=== PATIENT | male | born 1940 | race Caucasian/White ===

== ENCOUNTER 2017-10-28 17:37 | Emergency (ER) | payer MEDICARE, MEDICAID, SELFPAY ==
[2017-10-28 17:37] VITALS: BP 169/83; PULSE 86; RESP 16; TEMP 36.9; O2SAT 99; BMI 23.3
--- NOTE | 2017-10-28 18:04 | EKG12_ITS ---
Test Reason : WEAKNESS Blood Pressure : / mmHG Vent. Rate : 076 BPM Atrial Rate : 076 BPM P-R Int : 164 ms QRS Dur : 088 ms QT Int : 386 ms P-R-T Axes : 058 003 000 degrees QTc Int : 434 ms Normal sinus rhythm Normal ECG Confirmed by SHANICE SALINAS, LALO ([id number]), clinical editor ZEKE WALSH ([id number]) on 10/30/2017 9:56:06 AM Referred By: BHAVESH Confirmed By:LALO PRASAD MD
[2017-10-28 18:27] LABS: Absolute Lymphocyte Count 1.19 X10^3/ul (0.83-4.51); Absolute Neutrophil Count 7.9 X10^3/uL (2.0-7.7); Basophil# 0.01 X10^3/uL; Basophil% 0.1 % (0-1); Eosinophil# 0.25 X10^3/uL; Eosinophils% 2.4 % (0-5); Hematocrit 32.3 % (40-54); Hemoglobin 10.7 g/dl (13.0-16.5); Lymphocyte # 1.19 X10^3/ul (4.0); Lymphocyte % 11.5 % (19-41); Mean Corp Hgb Conc 33.1 g/gl (32-36); Mean Corpuscular Hgb 31.6 pg (27.0-32.0); Mean Corpuscular Volume 95.3 fL (80-94); Mean Platelet Vol. 8.9 fl (6.2-12.0); Monocyte# 0.96 X10^3/uL; Monocyte% 9.3 % (0-10); Neutrophil % 76.6 % (47-70); Platelet Count 216 K/mm3 (150-450); RBC Distribution Width CV 13.7 % (11.6-14.6); RBC Distribution Width SD 47.6 fl (35.1-43.9); Red Blood Count 3.39 M/mm3 (4.6-6.2); White Blood Count 10.3 K/mm3 (4.4-11.0)
[2017-10-28 18:28] LABS: POSITIVE COUNT NO; POSITIVE DIFFERENTIAL NO; POSITIVE MORPHOLOGY NO
[2017-10-28 18:39] LABS: ALB/GLOB Ratio 0.9 RATIO (0.9-2.4); AST(SGOT) 25 U/L (15-37); Alanine Aminotransfer ALT/SGPT 21 U/L (16-61); Albumin, Serum 3.3 g/dL (3.2-5.0); Alkaline Phosphatase 69 U/L (45-117); Anion Gap 5 (5-15); BUN 22 mg/dL (7-18); Calcium,Total 8.6 mg/dL (8.5-10.1); Chloride 107 mmol/L (98-107); Creatinine, Serum 1.22 mg/dL (0.70-1.30); EST Glomerular Filtration Rate 61 mL/min (>60); Est Glom Filt Rate - Afr Amer 74 mL/min (>60); Estimated Creatinine Clearance 48.16 ml/min; Globulin 3.6 g/dL (2.2-4.2); Glucose 84 mg/dL (74-106); Potassium 3.8 mmol/L (3.5-5.1); Protein, Total 6.9 g/dL (6.4-8.2); Sodium Level 138 mmol/L (136-145)
[2017-10-28 18:43] VITALS: BP 179/85
[2017-10-28 18:59] LABS: BNP,B-Type NATRIURETIC PEPTIDE 148.2 pg/mL (0-100)
--- NOTE | 2017-10-28 19:38 | ED.DCSUM_ITS ---
- ER Visit Summary Date of Service: 10/28/17 Chief Complaint: Leg pain History of Present Illness: The patient is a 77 M with bilateral leg pain. The pain involves his lower legs, ankles, and feet. Associated with swelling. This has been increasing over the past 6 weeks. He has noted fluid seepage. No redness change from baseline. No warmth. Patient has no new weakness or numbness. He has a history of CHF, but denies liver or kidney disease. Is taking his medications as prescribed. Physical Examination: Vital signs unremarkable. Afebrile. Alert and oriented. Heart regular. Lungs clear. Bilateral lower legs show marked pitting edema which is symmetric. Mildly and diffusely tender. Venous stasis changes and mild seepage, worse on the right side. No increased warmth. No bleeding. No pus. No rash otherwise. Pulses are dopplerable. Sensation grossly intact. Capillary refill normal. Test Results: Hemoglobin 10.7. Otherwise CBC normal. CMP, troponin normal. BNP 148. EKG shows sinus rhythm at a rate of 76. No sign of acute changes. Emergency Department Course and Treatment: Patient has ongoing lymphedema of his bilateral legs. There is no sign of infection. No acute heart failure, kidney disease, liver disease. No sign of vascular compromise. Patient will be referred for outpatient follow-up. He should follow-up with the wound center. He may also follow-up with his primary care doctor. Return for any new or worsening issues. Treatment Plan: As above Disposition: Discharged Impression: 1. Bilateral leg lymphedema 2. Anemia 3. Hypertension This note was generated with [employer] dictation software. It may contain incorrect words, spelling, and punctuation that were not noted in review of the chart prior to signing ED Disposition - Plan for ED Patient: Chief Complaint: Edema Referrals: Jabari Sanderson MD [Primary Care Provider] -
--- NOTE | 2017-10-28 19:38 | ED.DEP ---
ED Disposition - Plan for ED Patient: Chief Complaint: Edema Instructions: ED Lymphedema Referrals: Jabari Sanderson MD [Primary Care Provider] - Satinder Holt MD [STAFF PHYSICIAN] -
[2017-10-28 20:03] VITALS: BP 158/93; PULSE 82; RESP 18; O2SAT 98
== END 2017-10-28 20:05 | disposition home or self-care (01) ==
LOC: ED 18:08
PROVIDERS: Emergency Provider Emergency Medicine; Family Provider Family Medicine; PCP Family Medicine
DX: I89.0 Lymphedema, not elsewhere classified (principal); D64.9 Anemia, unspecified; I11.0 Hypertensive heart disease with heart failure; I50.9 Heart failure, unspecified
CPT/HCPCS: 80053; 83880; 84484; 85025; 93005; 99283; A4216

== ENCOUNTER 2017-11-06 16:19 | Inpatient (IN) | payer MEDICARE, MEDICAID, SELFPAY ==
[2017-11-06] VITALS (7 sets, daily range): BP systolic 134–211; BP diastolic 68–106; PULSE 72–82; RESP 16–24; TEMP 36.1–36.6; O2SAT 96–100; BMI 23.3; BMI 22.4; BMI 23.4
--- NOTE | 2017-11-06 17:19 | EKG12_ITS ---
Test Reason : Blood Pressure : / mmHG Vent. Rate : 072 BPM Atrial Rate : 072 BPM P-R Int : 150 ms QRS Dur : 090 ms QT Int : 406 ms P-R-T Axes : 057 018 017 degrees QTc Int : 444 ms Normal sinus rhythm Normal ECG Confirmed by SHANICE SALINAS, LALO ([id number]), assignment editor DALTON SALAS ([id number]) on 11/08/2017 2:35:11 PM Referred By: IHSAN/FRANCINE Confirmed By:LALO PRASAD MD
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
[2017-11-06 17:30] LABS: Absolute Lymphocyte Count 1.16 X10^3/ul (0.83-4.51); Absolute Neutrophil Count 6.9 X10^3/uL (2.0-7.7); Basophil# 0.02 X10^3/uL; Basophil% 0.2 % (0-1); Eosinophil# 0.26 X10^3/uL; Eosinophils% 2.9 % (0-5); Hematocrit 34.7 % (40-54); Hemoglobin 11.2 g/dl (13.0-16.5); Lymphocyte # 1.16 X10^3/ul (4.0); Mean Corp Hgb Conc 32.3 g/gl (32-36); Mean Corpuscular Volume 96.1 fL (80-94); Monocyte# 0.57 X10^3/uL; Monocyte% 6.4 % (0-10); Neutrophil # 6.91 X10^3/uL (2.7-7.7); Neutrophil % 77.4 % (47-70); Platelet Count 272 K/mm3 (150-450); RBC Distribution Width CV 13.9 % (11.6-14.6); RBC Distribution Width SD 48.5 fl (35.1-43.9); Red Blood Count 3.61 M/mm3 (4.6-6.2); White Blood Count 8.9 K/mm3 (4.4-11.0)
[2017-11-06 17:31] LABS: POSITIVE COUNT NO; POSITIVE DIFFERENTIAL NO; POSITIVE MORPHOLOGY NO
[2017-11-06 17:42] LABS: ALB/GLOB Ratio 0.9 RATIO (0.9-2.4); AST(SGOT) 17 U/L (15-37); Alanine Aminotransfer ALT/SGPT 20 U/L (16-61); Albumin, Serum 3.4 g/dL (3.2-5.0); Alkaline Phosphatase 74 U/L (45-117); Anion Gap 7 (5-15); BUN 20 mg/dL (7-18); BUN/Creat Ratio 14.5 RATIO (10-20); Calcium,Total 8.9 mg/dL (8.5-10.1); Chloride 109 mmol/L (98-107); Creatinine, Serum 1.38 mg/dL (0.70-1.30); EST Glomerular Filtration Rate 53 mL/min (>60); Est Glom Filt Rate - Afr Amer 64 mL/min (>60); Estimated Creatinine Clearance 42.58 ml/min; Globulin 3.6 g/dL (2.2-4.2); Glucose 81 mg/dL (74-106); Potassium 4.5 mmol/L (3.5-5.1); Sodium Level 142 mmol/L (136-145)
[2017-11-06] MEDS: Furosemide 100 MG/10 ML Vial 60 MG IV (17:49)
--- NOTE | 2017-11-06 18:00 | RAD_ITS ---
STUDY: X-RAY CHEST REASON FOR EXAM: Male, 77 years old. Swelling. TECHNIQUE: Frontal and lateral views of the chest. COMPARISON: 07/07/2006. FINDINGS: There is hyperinflation of the lungs consistent with chronic obstructive lung disease (COPD). No infiltrates or effusions. There is no demonstrated pleural abnormality. Sternal cerclage wires and vascular clips are present from a prior sternotomy and coronary artery bypass graft procedure (CABG). Normal heart size. Normal mediastinum and lay. Normal visualized pulmonary arteries. There is atherosclerotic calcification of the aortic arch with tortuosity. There are diffuse degenerative changes of the visualized thoracic spine. Normal visualized ribs, clavicles, and shoulders. There is no demonstrated abnormality of the visualized soft tissue structures of the upper abdomen. RAD/Chest PA and Lateral IMPRESSION: There are findings consistent with COPD. There is no evidence of acute chest disease. Electronically Signed: Keanu Topete MD at 22:18 EDT , Service support ,
[2017-11-06 19:19] LABS: Bacteria 0 SEEN /hpf (None Seen); Mucous, Urine 0 SEEN /hpf (<or=2+); Red Blood Cells-Urine 0 SEEN /hpf (0-5); Squamous Epithelial Cells - UA 0 SEEN /hpf (0-5); White Blood Cells 0 SEEN /hpf (0-5)
[2017-11-06 19:22] LABS: Color, Urine Yellow (Yellow); Glucose, Dipstick Normal (Normal); Ketone-Dipstick Negative (Negative); Leukocyte Esterase-Dipstick Negative /ul (Negative); Nitrite-Dipstick Negative (Negative); Occult Blood-Urine Negative /ul (Negative); Protein-Dipstick 15 mg/dl (Negative); Specific Gravity, Urine 1.015 (1.002-1.030); Urine Bilirubin Dipstick Negative (Negative); Urine Clarity Clear (Clear); Urine Urobilinogen Normal (Normal); Urine pH 6.5 (5.0 - 8.0)
--- NOTE | 2017-11-06 19:25 | ED.DCSUM_ITS ---
- ER Visit Summary Date of Service: 11/06/17 Chief Complaint: Lymphedema History of Present Illness: The patient is a 77 M who states that his legs have been swollen for the past several weeks. He was seen in the emergency department the end of October and again today. He was at his primary care doctor' s office today. He is on Lasix and spironolactone. He states his legs are worsening. Clinic states that the legs are erythematous. The skin is fallen off of them. They also noted active bedbug infestation. The patient states is extremely painful for him to attempt to walk on the legs. He has a history of CABG hypothyroidism depression hypercholesterolemia. There is been no fevers. He has not recently been on antibiotics. Physical Examination: Afebrile vital signs are stable Gen: Well-nourished well-developed Head: Normocephalic atraumatic Eyes: Perrl EOMI ENT: TMs clear no rhinorrhea moist mucous membranes Neck: Supple no lymphadenopathy no JVD nontender CVS: Regular rate rhythm no murmurs normal S1-S2 Respiratory: No distress clear to auscultation bilaterally chest nontender Abdomen: Soft nontender nondistended normal bowel sounds no masses Back: Nontender Extremity: Bilateral 3+ edema up to the knees. The feet are rather erythematous but this resolves with elevation. The skin is sloughing off. There is yellow crusting consistent with impetigo. The legs are weeping to the point chucks pads need to be placed underneath of them. Skin: Normal color no rash Neuro: alert orientated ?3 CN II-XII intact normal strength sensation reflexes gait cerebellar Psych: Normal affect normal mood Test Results: Basic labs showed a white count of 8.9. Creatinine 1.38. Chest x -ray is clear. EKG sinus at a rate of 72. Emergency Department Course and Treatment: Patient received Lasix and Rocephin. Patient needs some significant help in healing his legs and his doctor's office and myself both agree that patient most likely would need to be placed for a short time to get this improved. Dr. schuster will be admitting. Social work has been contacted. Impression: 1. Bilateral lymphedema 2. Impetigo of the bilateral legs This note was generated with [employer] software. It may contain incorrect words, spelling, and punctuation that were not noted in review of the chart prior to signing ED Disposition - Plan for ED Patient: Chief Complaint: Cellulitis Referrals: Jabari Sanderson MD [Primary Care Provider] -
--- NOTE | 2017-11-06 19:44 | HP.PCM_ITS ---
Problem List (1) Peripheral vascular disease Status: Chronic (2) Chronic acquired lymphedema Status: Chronic (3) Hypothyroidism Status: Chronic (4) Hypertension Status: Chronic (5) Status post coronary artery bypass graft Status: Chronic (6) Coronary artery disease Status: Chronic History of Present Illness Date of Admission: 11/06/17 The patient is a 77 year old M with past medical history as mentioned above presented to the emergency room because of increasing bilateral leg edema and pain. The patient is poor informant and is over talkative. He mentioned that he came in today because of increasing bilateral leg edema that has been progressive over the last several weeks associated with increasing erythema of both legs as well as difficulty ambulating. Reportedly, he was noted to have active bedbug infestation. He denies fever or chills. He denied chest pain, shortness of breath, orthopnea or PND. He denies cough or sputum production. He does have a history of CAD status post CABG and he has been on aspirin, statins, beta blockers. He has history of hypertension and he has been on Norvasc and metoprolol and his blood pressure seems under control. He had a history of hypothyroidism and he has been on replacement with levothyroxine. He is on Lasix and Aldactone and is not clear if he has history of CHF or not. He mentioned that he was not told that he had CHF. In the emergency department , his vital signs were stable. His routine blood work is remarkable for hemoglobin of 11.2 g/dL and creatinine 1.38, otherwise normal. His LFT was unremarkable. Troponin is negative. Chest x-ray showed no acute findings. He is being admitted for worsening bilateral leg swelling in context of history of lymphedema, skin impetigo as well as probable bilateral acute psoriasis of both legs more on the right side as well as functional decline and difficulty ambulating. Past Medical History Past Medical History (Chronic Problems): Chronic Problems Peripheral vascular disease (Chronic) Chronic acquired lymphedema (Chronic) Hypothyroidism (Chronic) Hypertension (Chronic) Status post coronary artery bypass graft (Chronic) Coronary artery disease (Chronic) Allergies No Known Allergies Allergy (Verified 10/28/17 17:38) Home Medications: Ambulatory Orders Medication Instructions Recorded Amlodipine [Norvasc] 1 tab PO DAILY 11/06/17 Aspirin [Adult Aspirin] 81 mg PO DAILY 11/06/17 Atorvastatin Calcium [Lipitor] 1 tab PO QHS 11/06/17 Ciclopirox 1 applic TOPICAL QHS 11/06/17 Cilostazol [Cilostazol] 1 tab PO BID 11/06/17 Furosemide [Lasix] 1 tab PO DAILY 11/06/17 Levothyroxine [Synthroid] 100 mcg PO DAILY 11/06/17 Metoprolol Succinate 50 mg PO DAILY 11/06/17 Spironolactone [Spironolactone] 1 tab PO DAILY 11/06/17 Triamcinolone 0.5% Cream 1 applic TOPICAL BID 11/06/17 [Triamcinolone Acetonide] Surgical History: coronary bypass surgery Psychiatric History: No pertinent psych hx Lives: Alone Smoking Status: Never smoker Alcohol: None Drugs: None - *Family History Maternal History Items: No pertinent history Paternal History Items: No pertinent history Review of Systems Constitutional: Denies: Anorexia, Chills, Fever, Weakness Eyes: Denies: Blurred vision, Double vision, Drainage, Redness HEENT: Denies: Difficulty Hearing, Ear Pain, Eye Pain, Nasal Congestion, Sore Throat Cardiovascular: Reports: Edema. Denies: Chest Pain, Chest Tightness, Heaviness , Light Headedness, Syncope Respiratory: Denies: Cough, Pleuritic Pain, Shortness of Breath, Sputum production, Wheezing Gastrointestinal: Denies: Abdominal Pain, Constipation, Diarrhea, Nausea, Vomiting Genitourinary: Denies: Dysuria, Frequency, Hematuria Musculoskeletal: Denies: Arm Pain, Back Pain, Foot Pain Skin: Denies: Dryness, Rash Neurological: Denies: Balance problems, Double vision, Change in Speech, Slurred speech, Difficulty swallowing, Focal weakness Psychiatric: Denies: Anxiety, Depression Endocrine: Denies: Change in Body Habitus, Polydipsia VTE Information - Inpt Only VTE Present on Admission: No VTE Mechan Device Prophylaxis: None VTE Pharm Prophylaxis ordered?: Yes - Physical Exam General: Alert, Oriented x3, Cooperative, - - Over talkative. HEENT: Atraumatic, PERRLA, EOMI, Normocephalic Oral: Moist Mucosa, No Gingival or Mucosal Lesions/ Ulcerations Neck: Supple, No JVD, Negative Carotid Bruits, Trachea Midline, Thyroid Normal Size and Texture Lungs: Clear to auscultation, No rhonchi, No wheeze, No rales, Diminished Cardiovascular: Regular rate, Regular Rhythm, Normal S1, Normal S2, PMI Normal Abdomen: Bowel Sounds Present, Soft, Non Tender, Non-Distended, No Hepato- splenomegaly Extremities: No clubbing, No cyanosis, Edema - ++ Edema. Swelling and erythema of both legs starting from just below the knees down to the ankles, swollen feet , hot to palpation, blistering with oozing of serous fluid. Skin: No rashes, No breakdown, - - Skin blisters of both legs, more on the right leg. Lymphatic: No Cervical, Supraclavicular, or Inguinal Adenopathy Neurological: Cranial nerves II-XII grossly intact, Motor Exam 5/5 strength throughout Psych/Mental Status: Normal Affect, Appropriate, Alert and oriented to time, place, person, mood and affect Vital Signs Temp Pulse Resp BP Pulse Ox 97.7 F L 80 24 H 193/93 H 100 11/06/17 16:20 11/06/17 18:59 11/06/17 18:59 11/06/17 18:59 11/06/17 18:59 Oxygen Delivery Method Room Air Weight: 149 lb 4.047 oz Body Mass Index (BMI) 23.3 Laboratory Tests Past 24 Hrs 11/06/17 11/06/17 11/06/17 16:50 16:50 19:12 WBC 8.9 RBC 3.61 L Hgb 11.2 L Hct 34.7 L MCV 96.1 H MCH 31.0 MCHC 32.3 RDW 13.9 RDW Differential 48.5 H Plt Count 272 MPV 9.0 Immature Gran % (Auto) 0.100 Neut % (Auto) 77.4 H Lymph % (Auto) 13.0 L Bryan % (Auto) 6.4 Eos % (Auto) 2.9 Baso % (Auto) 0.2 Absolute Neuts (auto) 6.9 Absolute Lymphs (auto) 1.16 Total Counted Not Reportable Sodium 142 Potassium 4.5 Chloride 109 H Carbon Dioxide 26.0 Anion Gap 7 BUN 20 H Creatinine 1.38 H Estim Creat Clear Calc 42.58 Est GFR (MDRD) Af Amer 64 Est GFR (MDRD) Non-Af 53 L BUN/Creatinine Ratio 14.5 Glucose 81 Calcium 8.9 Total Bilirubin 0.50 AST 17 ALT 20 Alkaline Phosphatase 74 Troponin I < 0.015 Total Protein 7.0 Albumin 3.4 Globulin 3.6 Albumin/Globulin Ratio 0.9 Urine Color Yellow Urine Clarity Clear Urine pH 6.5 Ur Specific [place] 1.015 Urine Protein 15 H Urine Glucose (UA) Normal Urine Ketones Negative Urine Occult Blood Negative Urine Nitrite Negative Urine Bilirubin Negative Urine Urobilinogen Normal Ur Leukocyte Esterase Negative Urine RBC Pending Urine WBC Pending Ur Squamous Epith Cells Pending Urine Bacteria Pending Urine Mucus Pending Assessment/Plan This is a 77 years old male patient presented to the emergency room because of worsening bilateral leg edema, swelling and erythema associated with difficulty ambulating in context of history of chronic bilateral lymphedema, found to have probable acute cellulitis of the both legs. #1 worsening bilateral leg edema/lymphedema/skin impetigo/probable acute cellulitis of both legs more on the right side: Both legs are edematous, erythematous, skin blisters resembling impetigo. He is afebrile, no leukocytosis. Plan: Admit to [facility] floor, ambulate as noted, fluid restriction, 2D echocardiogram, venous Doppler of both legs, start IV Lasix for diuresis, start IV cefazolin empirically, continue Aldactone, repeat CBC and BMP tomorrow morning, culture of the blisters, PT OT evaluation and treatment. #2 functional decline/difficulty ambulating: Patient is not able to ambulate because of increasing bilateral leg edema and pain. He lives alone. Plan to treat underlying cause, PT OT evaluation and treatment, patient may need placement to [facility] facility. #3 CAD status post CABG: Stable, no acute issues. Continue aspirin, statins, metoprolol. #4 hypothyroidism: Continue with oxygen, will check TSH. #5 hypertension: Blood pressure stable, continue Norvasc and metoprolol. #6 peripheral vascular disease: Continue cilostazol. #7 DVT prophylaxis: Subcu Lovenox. This note was generated with [employer] dictation software. It may contain incorrect words, spelling, and punctuation that were not noted in checking the note before signing. Code Visit Inpatient E&M: 77338 Init Hosp L3
--- NOTE | 2017-11-06 19:46 | ED.RN ---
THE SECOND BLOOD CULTURE WAS DRAWN BY BENI MCFADDEN. GEORGETTE HAWLEY CALLED THE LAB AND THE FIRST CULTURE WAS ALREADY DOWN THERE.
--- NOTE | 2017-11-06 20:16 | ECHOD_ITS ---
Reason For Study: hypertension Procedure This was a 2D Doppler, Color Flow transthoracic echocardiogram. The exam was of adequate technical quality. Exam performed portable in patient room. Left Ventricle Normal LV size. Left ventricular systolic function is normal. The estimated ejection fraction is 65 %. Post operative septal motion. There is evidence of diastolic dysfunction. No regional wall motion abnormalities noted. Right Ventricle Normal RV size. Normal systolic function. Atria Normal left atrium. Normal right atrium. No doppler evidence for ASD. Mitral Valve There is mild mitral annular calcification. Normal mitral valve. The mitral papillary muscle appears thickened and/or calcified. Trivial mitral valve insufficiency. Tricuspid Valve Normal tricuspid valve. Trivial tricuspid valve insufficiency. Aortic Valve Trisinus/trileaflet aortic valve. Mild focal aortic valve calcification. Pulmonic Valve The pulmonic valve is not well visualized. Great Vessels Normal sized aortic root. Pericardium/Pleural No pericardial effusion. MMode/2D Measurements & Calculations LVIDd: 4.3 cm IVSd: 0.93 cm Ao root diam: 3.6 cm LVIDs: 2.8 cm LVPWd: 0.91 cm LA dimension: 3.8 cm RVDd: 2.2 cm FS: 36.0 % LAV(MOD-bp): 49.6 ml LA A4 area: 16.0 cm2 RA A4 area: 12.0 cm2 LAV(MOD-bp) Indexed: 28.3 ml/m2 LAV(MOD-sp2): 53.7 ml LAV(MOD-sp4): 44.1 ml Doppler Measurements & Calculations MV E max zion: 77.5 cm/sec Lat Peak E' Zion: 8.6 cm/sec Med Peak E' Zion: 6.8 cm/sec MV A max zion: 88.5 cm/sec E/E' lat: 9.0 E/E' med: 11.3 MV E/A: 0.88 Ao V2 max: 113.5 cm/sec LV V1 max: 74.7 cm/sec PA V2 max: 75.4 cm/sec Ao max P.2 mmHg LV V1 max P.2 mmHg Interpretation Summary Left ventricular systolic function is normal. The estimated ejection fraction is 65 %. Post operative septal motion. There is mild mitral annular calcification. The mitral papillary muscle appears thickened and/or calcified. Trivial mitral valve insufficiency. Trivial tricuspid valve insufficiency. Mild focal aortic valve calcification. There is evidence of diastolic dysfunction. Ordering Physician: Butch March Referring Physician: MD [facility] Performed By: Arlene Garcia, ANDRES, RVT
--- NOTE | 2017-11-06 20:16 | VDLE_ITS ---
Reason For Study: swelling RIGHT LEFT GSV is normal. GSV is normal. CFV is compressible, spontaneous, phasic, CFV is compressible, spontaneous, phasic, competent and demonstrates normal competent, and demonstrates normal augmentation. augmentation. FV is compressible, spontaneous, phasic, FV is compressible, spontaneous, phasic, competent and demonstrates normal competent and demonstrates normal augmentation. augmentation. POP V is compressible, spontaneous, phasic, POP V is compressible, spontaneous, phasic, competent and demonstrates normal competent and demonstrates normal augmentation. augmentation. T/P Trunk is compressible. T/P Trunk is compressible. PTV is compressible. PTV is compressible. RT PerV is compressible. LT PerV is compressible. Procedure Exam performed portable in patient room. The exam was diagnostic. A preliminary report was called and/or faxed to the pt's RN. Interpretation Summary No evidence for acute deep venous thrombosis bilateral lower extremities with patent and compressible bilateral great saphenous veins. Ordering Physician: Butch March Performed By: Raghavendra Car RVT
[2017-11-06] MEDS: Cilostazol 50 MG Tablet PO (22:32)
[2017-11-06] MEDS: Atorvastatin Calcium 80 MG Tablet PO (22:32)
[2017-11-06] MEDS: oxyCODONE 5 MG Tablet PO (22:33)
[2017-11-07] VITALS (12 sets, daily range): BP systolic 83–127; BP diastolic 38–69; PULSE 68–83; RESP 16–18; TEMP 36.4–37.4; O2SAT 97–100
[2017-11-07] MEDS: oxyCODONE 5 MG Tablet PO (04:15)
[2017-11-07] MEDS: Levothyroxine 100 MCG Tablet PO (05:23)
[2017-11-07] MEDS: Cefazolin 2 GM in 0.9% Normal Saline 100 ML IV ×3 (05:23→21:12)
[2017-11-07 06:56] LABS: Absolute Lymphocyte Count 1.15 X10^3/ul (0.83-4.51); Absolute Neutrophil Count 8.2 X10^3/uL (2.0-7.7); Basophil# 0.02 X10^3/uL; Basophil% 0.2 % (0-1); Eosinophil# 0.19 X10^3/uL; Eosinophils% 1.8 % (0-5); Hematocrit 34.3 % (40-54); Hemoglobin 10.9 g/dl (13.0-16.5); Lymphocyte # 1.15 X10^3/ul (4.0); Lymphocyte % 10.9 % (19-41); Mean Corp Hgb Conc 31.8 g/gl (32-36); Mean Corpuscular Hgb 30.9 pg (27.0-32.0); Mean Corpuscular Volume 97.2 fL (80-94); Mean Platelet Vol. 9.1 fl (6.2-12.0); Monocyte# 0.99 X10^3/uL; Monocyte% 9.4 % (0-10); Neutrophil # 8.18 X10^3/uL (2.7-7.7); Neutrophil % 77.5 % (47-70); Platelet Count 246 K/mm3 (150-450); RBC Distribution Width CV 14.1 % (11.6-14.6); Red Blood Count 3.53 M/mm3 (4.6-6.2); White Blood Count 10.6 K/mm3 (4.4-11.0)
[2017-11-07 07:03] LABS: POSITIVE COUNT NO; POSITIVE DIFFERENTIAL NO; POSITIVE MORPHOLOGY NO
[2017-11-07 07:06] LABS: Anion Gap 6 (5-15); BUN 24 mg/dL (7-18); BUN/Creat Ratio 14.3 RATIO (10-20); Calcium,Total 8.6 mg/dL (8.5-10.1); Chloride 107 mmol/L (98-107); Creatinine, Serum 1.68 mg/dL (0.70-1.30); EST Glomerular Filtration Rate 42 mL/min (>60); Est Glom Filt Rate - Afr Amer 51 mL/min (>60); Estimated Creatinine Clearance 34.34 ml/min; Glucose 82 mg/dL (74-106); Potassium 4.4 mmol/L (3.5-5.1); Sodium Level 141 mmol/L (136-145)
[2017-11-07 10:08] LABS: T4 Free Direct 0.87 ng/dL (0.76-1.46)
[2017-11-07] MEDS: Enoxaparin 30 MG/0.3 ML Syringe SC (10:10)
[2017-11-07] MEDS: Aspirin E.C. 81 MG Tablet PO (10:10)
[2017-11-07] MEDS: Metoprolol(XL)Succ 50 MG Tablet PO (10:11)
[2017-11-07] MEDS: amLODIPine 5 MG Tablet PO (10:11)
[2017-11-07] MEDS: Cilostazol 50 MG Tablet PO ×2 (10:11→21:10)
[2017-11-07] MEDS: Spironolactone 25 MG Tablet PO (10:11)
[2017-11-07] MEDS: Furosemide 40 MG Tablet PO (10:28)
--- NOTE | 2017-11-07 14:06 | PCM.PROGNOTE ---
<Eddie White - Last Filed: 11/07/17 14:06> Subjective: Pt has had significant improvement in leg pain and swelling since admission. No fevers or chills. No SOB/cough/dysuria. He follows Dr. Rainey as o/p. He has chronic nonhealing wounds on his LE. He has had some purulent drainage from both legs in 2 small spots. - Physical Exam General: Alert, Oriented x3, Cooperative HEENT: Atraumatic, PERRLA, EOMI, Normocephalic Neck: Supple, No JVD, Negative Carotid Bruits Lungs: Clear to auscultation, Normal air movement Cardiovascular: Regular rate, No murmurs Abdomen: Bowel Sounds Present, Soft, Non Tender Extremities: No edema, Capillary Refill Less than 3 Seconds, - - two small open wounds with purulent drainage. left leg he states is the harvest sight for his prior CABG. erthema. edema improved. legs dry with skin flakes. not very warm. peripheral pulses are diminished bilaterally. Skin: No rashes, No breakdown Musculoskeletal: No Tenderness to Palpation of Joints or Extremities Neurological: Cranial nerves II-XII grossly intact Psych/Mental Status: Normal Affect, Appropriate, Alert and oriented to time, place, person, mood and affect Vital Signs Temp Pulse Resp BP Pulse Ox 97.5 F L 80 18 111/69 100 11/07/17 10:04 11/07/17 13:00 11/07/17 10:04 11/07/17 10:11 11/07/17 10:04 Oxygen Delivery Method Room Air Weight: 64.9 kg Body Mass Index (BMI) 22.4 Intake and Output for Last 24 Hours 11/05/17 11/06/17 11/07/17 23:59 23:59 23:59 Intake Total 249 / 249 768 / 768 Output Total 500 / 500 460 / 460 Balance -251 / -251 308 / 308 Microbiology Past 72 Hours 11/06/17 21:24 Gram Stain - Final Skin - Leg Wound Culture - Preliminary Laboratory Tests Past 24 Hrs 11/07/17 11/07/17 11/07/17 06:05 06:05 06:05 WBC 10.6 RBC 3.53 L Hgb 10.9 L Hct 34.3 L MCV 97.2 H MCH 30.9 MCHC 31.8 L RDW 14.1 RDW Differential 50.0 H Plt Count 246 MPV 9.1 Immature Gran % (Auto) 0.200 Neut % (Auto) 77.5 H Lymph % (Auto) 10.9 L [place] % (Auto) 9.4 Eos % (Auto) 1.8 Baso % (Auto) 0.2 Absolute Neuts (auto) 8.2 H Absolute Lymphs (auto) 1.15 Total Counted Not Reportable Sodium 141 Potassium 4.4 Chloride 107 Carbon Dioxide 28.0 Anion Gap 6 BUN 24 H Creatinine 1.68 H Estim Creat Clear Calc 34.34 Est GFR (MDRD) Af Amer 51 L Est GFR (MDRD) Non-Af 42 L BUN/Creatinine Ratio 14.3 Glucose 82 Calcium 8.6 Free T4 0.87 Medical Necessity - Tobacco Use Smoking Status: Never smoker Assessment/Plan 1. BLE cellulitis and nonhealing wounds - complicated by PAD and venous insufficiency, prior CABG vein harvesting. Continue cefazolin and follow cultures. Consult Dr. Rainey, wound care nurse. Continue pletal. Afebrile no leukocytosis. -Rare GNR, rare GPC, will follow. -UA neg -CXR shows COPD, no acute change. 2. Chronic venous insufficiceny - lasix to PO. has had significant decrease in edema and creatinine trending up. continue aldactone. Complicated by norvasc therapy. 3. CAD s/p prior CABG 4. Chronic anemia - stable 5. Hypothyroidism - tsh high but t4 normal. DVT ppx: renal dosed lovenox DC planning: PTOT. This patient was seen by Eddie White PA-C under the supervision of Doctor Job. <Servando Kaiser - Last Filed: 11/07/17 15:07> Subjective: Seen and examined The patient has chronic bilateral lower extremity edema secondary to venous stasis and lymphedema after bilateral great saphenous vein harvested for 5 vessel CABG. Currently has blisters with pus points in both lower legs, right worse than left. He lower extremity edema gotten worse over several weeks associated with pain, difficulty ambulation and erythema. His medical care manager is Dr. Gotti. It seems he has history of CHF as he is on Lasix, Aldactone and metoprolol. - Physical Exam Extremities: Edema, - - two small open wounds with purulent drainage. left leg he states is the harvest sight for his prior CABG. erthema. edema improved. legs dry with skin flakes. not very warm. peripheral pulses are diminished bilaterally. Multiple small blisters in both legs right worse than left with seropurulent discharge. Skin: Rash Present Musculoskeletal: Arthritic Changes, Tenderness Vital Signs Temp Pulse Resp BP Pulse Ox 97.5 F L 80 18 111/69 100 11/07/17 10:04 11/07/17 13:00 11/07/17 10:04 11/07/17 10:11 11/07/17 10:04 Oxygen Delivery Method Room Air Weight: 143 lb 1.28 oz Body Mass Index (BMI) 22.4 Intake and Output for Last 24 Hours 11/05/17 11/06/17 11/07/17 23:59 23:59 23:59 Intake Total 249 / 249 768 / 768 Output Total 500 / 500 460 / 460 Balance -251 / -251 308 / 308 Microbiology Past 72 Hours 11/06/17 21:24 Gram Stain - Final Skin - Leg Wound Culture - Preliminary Laboratory Tests Past 24 Hrs 11/07/17 11/07/17 11/07/17 06:05 06:05 06:05 WBC 10.6 RBC 3.53 L Hgb 10.9 L Hct 34.3 L MCV 97.2 H MCH 30.9 MCHC 31.8 L RDW 14.1 RDW Differential 50.0 H Plt Count 246 MPV 9.1 Immature Gran % (Auto) 0.200 Neut % (Auto) 77.5 H Lymph % (Auto) 10.9 L [place] % (Auto) 9.4 Eos % (Auto) 1.8 Baso % (Auto) 0.2 Absolute Neuts (auto) 8.2 H Absolute Lymphs (auto) 1.15 Total Counted Not Reportable Sodium 141 Potassium 4.4 Chloride 107 Carbon Dioxide 28.0 Anion Gap 6 BUN 24 H Creatinine 1.68 H Estim Creat Clear Calc 34.34 Est GFR (MDRD) Af Amer 51 L Est GFR (MDRD) Non-Af 42 L BUN/Creatinine Ratio 14.3 Glucose 82 Calcium 8.6 Free T4 0.87 Assessment/Plan This patient was seen in conjunction with Eddie CASTRO. I have independently interviewed and examined the patient and reviewed pertinent history, examination findings, laboratory and plan of management. I have reviewed the note and agree with the documented findings with the few additional points. In brief, this 77-year-old gentleman with history of coronary artery disease status post five-vessel CABG in [facility] is being admitted for bilateral lower extremity cellulitis complicated with lymphedema and venous hypertension, and peripheral arterial disease. Bilateral lower legs have blisters and pustule with suspicion of possible deep tissue infection. There is no previous arterial or venous Doppler in our record. Patient denies history of arterial or venous thrombosis. Currently on IV cefazolin. Wound care nurse and contracts advisor consult. Venous and arterial Doppler ordered. I have discussed my assessment with Eddie CASTRO and orders have been reviewed. Code Visit Inpatient E&M: 92364 Subs Hosp L3
--- NOTE | 2017-11-07 14:14 | PN_ITS ---
<Eddie White - Last Filed: 11/07/17 14:06> Subjective: Pt has had significant improvement in leg pain and swelling since admission. No fevers or chills. No SOB/cough/dysuria. He follows Dr. Rainey as o/p. He has chronic nonhealing wounds on his LE. He has had some purulent drainage from both legs in 2 small spots. - Physical Exam General: Alert, Oriented x3, Cooperative HEENT: Atraumatic, PERRLA, EOMI, Normocephalic Neck: Supple, No JVD, Negative Carotid Bruits Lungs: Clear to auscultation, Normal air movement Cardiovascular: Regular rate, No murmurs Abdomen: Bowel Sounds Present, Soft, Non Tender Extremities: No edema, Capillary Refill Less than 3 Seconds, - - two small open wounds with purulent drainage. left leg he states is the harvest sight for his prior CABG. erthema. edema improved. legs dry with skin flakes. not very warm. peripheral pulses are diminished bilaterally. Skin: No rashes, No breakdown Musculoskeletal: No Tenderness to Palpation of Joints or Extremities Neurological: Cranial nerves II-XII grossly intact Psych/Mental Status: Normal Affect, Appropriate, Alert and oriented to time, place, person, mood and affect Vital Signs Temp Pulse Resp BP Pulse Ox 97.5 F L 80 18 111/69 100 11/07/17 10:04 11/07/17 13:00 11/07/17 10:04 11/07/17 10:11 11/07/17 10:04 Oxygen Delivery Method Room Air Weight: 64.9 kg Body Mass Index (BMI) 22.4 Intake and Output for Last 24 Hours 11/05/17 11/06/17 11/07/17 23:59 23:59 23:59 Intake Total 249 / 249 768 / 768 Output Total 500 / 500 460 / 460 Balance -251 / -251 308 / 308 Microbiology Past 72 Hours 11/06/17 21:24 Gram Stain - Final Skin - Leg Wound Culture - Preliminary Laboratory Tests Past 24 Hrs 11/07/17 11/07/17 11/07/17 06:05 06:05 06:05 WBC 10.6 RBC 3.53 L Hgb 10.9 L Hct 34.3 L MCV 97.2 H MCH 30.9 MCHC 31.8 L RDW 14.1 RDW Differential 50.0 H Plt Count 246 MPV 9.1 Immature Gran % (Auto) 0.200 Neut % (Auto) 77.5 H Lymph % (Auto) 10.9 L [place] % (Auto) 9.4 Eos % (Auto) 1.8 Baso % (Auto) 0.2 Absolute Neuts (auto) 8.2 H Absolute Lymphs (auto) 1.15 Total Counted Not Reportable Sodium 141 Potassium 4.4 Chloride 107 Carbon Dioxide 28.0 Anion Gap 6 BUN 24 H Creatinine 1.68 H Estim Creat Clear Calc 34.34 Est GFR (MDRD) Af Amer 51 L Est GFR (MDRD) Non-Af 42 L BUN/Creatinine Ratio 14.3 Glucose 82 Calcium 8.6 Free T4 0.87 Medical Necessity - Tobacco Use Smoking Status: Never smoker Assessment/Plan 1. BLE cellulitis and nonhealing wounds - complicated by PAD and venous insufficiency, prior CABG vein harvesting. Continue cefazolin and follow cultures. Consult Dr. Rainey, wound care nurse. Continue pletal. Afebrile no leukocytosis. -Rare GNR, rare GPC, will follow. -UA neg -CXR shows COPD, no acute change. 2. Chronic venous insufficiceny - lasix to PO. has had significant decrease in edema and creatinine trending up. continue aldactone. Complicated by norvasc therapy. 3. CAD s/p prior CABG 4. Chronic anemia - stable 5. Hypothyroidism - tsh high but t4 normal. DVT ppx: renal dosed lovenox DC planning: PTOT. This patient was seen by Eddie White PA-C under the supervision of Doctor Job. <Servando Kaiser - Last Filed: 11/07/17 15:07> Subjective: Seen and examined The patient has chronic bilateral lower extremity edema secondary to venous stasis and lymphedema after bilateral great saphenous vein harvested for 5 vessel CABG. Currently has blisters with pus points in both lower legs, right worse than left. He lower extremity edema gotten worse over several weeks associated with pain, difficulty ambulation and erythema. His instantizer operator is Dr. Gotti. It seems he has history of CHF as he is on Lasix, Aldactone and metoprolol. - Physical Exam Extremities: Edema, - - two small open wounds with purulent drainage. left leg he states is the harvest sight for his prior CABG. erthema. edema improved. legs dry with skin flakes. not very warm. peripheral pulses are diminished bilaterally. Multiple small blisters in both legs right worse than left with seropurulent discharge. Skin: Rash Present Musculoskeletal: Arthritic Changes, Tenderness Vital Signs Temp Pulse Resp BP Pulse Ox 97.5 F L 80 18 111/69 100 11/07/17 10:04 11/07/17 13:00 11/07/17 10:04 11/07/17 10:11 11/07/17 10:04 Oxygen Delivery Method Room Air Weight: 143 lb 1.28 oz Body Mass Index (BMI) 22.4 Intake and Output for Last 24 Hours 11/05/17 11/06/17 11/07/17 23:59 23:59 23:59 Intake Total 249 / 249 768 / 768 Output Total 500 / 500 460 / 460 Balance -251 / -251 308 / 308 Microbiology Past 72 Hours 11/06/17 21:24 Gram Stain - Final Skin - Leg Wound Culture - Preliminary Laboratory Tests Past 24 Hrs 11/07/17 11/07/17 11/07/17 06:05 06:05 06:05 WBC 10.6 RBC 3.53 L Hgb 10.9 L Hct 34.3 L MCV 97.2 H MCH 30.9 MCHC 31.8 L RDW 14.1 RDW Differential 50.0 H Plt Count 246 MPV 9.1 Immature Gran % (Auto) 0.200 Neut % (Auto) 77.5 H Lymph % (Auto) 10.9 L [place] % (Auto) 9.4 Eos % (Auto) 1.8 Baso % (Auto) 0.2 Absolute Neuts (auto) 8.2 H Absolute Lymphs (auto) 1.15 Total Counted Not Reportable Sodium 141 Potassium 4.4 Chloride 107 Carbon Dioxide 28.0 Anion Gap 6 BUN 24 H Creatinine 1.68 H Estim Creat Clear Calc 34.34 Est GFR (MDRD) Af Amer 51 L Est GFR (MDRD) Non-Af 42 L BUN/Creatinine Ratio 14.3 Glucose 82 Calcium 8.6 Free T4 0.87 Assessment/Plan This patient was seen in conjunction with Eddie CASTRO. I have independently interviewed and examined the patient and reviewed pertinent history, examination findings, laboratory and plan of management. I have reviewed the note and agree with the documented findings with the few additional points. In brief, this 77-year-old gentleman with history of coronary artery disease status post five-vessel CABG in [facility] is being admitted for bilateral lower extremity cellulitis complicated with lymphedema and venous hypertension, and peripheral arterial disease. Bilateral lower legs have blisters and pustule with suspicion of possible deep tissue infection. There is no previous arterial or venous Doppler in our record. Patient denies history of arterial or venous thrombosis. Currently on IV cefazolin. Wound care nurse and tribal council member consult. Venous and arterial Doppler ordered. I have discussed my assessment with Eddie CASTRO and orders have been reviewed. Code Visit Inpatient E&M: 02671 Subs Hosp L3
[2017-11-07] MEDS: Atorvastatin Calcium 80 MG Tablet PO (21:11)
[2017-11-08] VITALS (14 sets, daily range): BP systolic 86–127; BP diastolic 48–71; PULSE 60–77; RESP 16–18; TEMP 36.4–37.1; O2SAT 98–100
[2017-11-08] MEDS: oxyCODONE 5 MG Tablet PO (01:27)
--- NOTE | 2017-11-08 01:40 | NURSING ---
pt c/o feeling restless ans has been unable to sleep for days well. prn oxy ir given
--- NOTE | 2017-11-08 02:30 | NURSING ---
dr bailey notified of the pts low bp of 87/48, pt asymthomatic, sitting up in the recliner.
[2017-11-08] MEDS: Cefazolin 2 GM in 0.9% Normal Saline 100 ML IV ×3 (06:26→22:26)
[2017-11-08] MEDS: Levothyroxine 100 MCG Tablet PO (06:26)
[2017-11-08 06:42] LABS: Anion Gap 7 (5-15); BUN 42 mg/dL (7-18); BUN/Creat Ratio 20.9 RATIO (10-20); Calcium,Total 8.6 mg/dL (8.5-10.1); Chloride 108 mmol/L (98-107); Creatinine, Serum 2.01 mg/dL (0.70-1.30); EST Glomerular Filtration Rate 35 mL/min (>60); Est Glom Filt Rate - Afr Amer 42 mL/min (>60); Glucose 98 mg/dL (74-106); Potassium 4.6 mmol/L (3.5-5.1); Sodium Level 144 mmol/L (136-145)
[2017-11-08 08:19] LABS: BNP,B-Type NATRIURETIC PEPTIDE 139.6 pg/mL (0-100)
[2017-11-08] MEDS: Metoprolol(XL)Succ 50 MG Tablet PO (08:55)
[2017-11-08] MEDS: Spironolactone 25 MG Tablet PO (08:56)
[2017-11-08] MEDS: Aspirin E.C. 81 MG Tablet PO (08:56)
[2017-11-08] MEDS: Enoxaparin 30 MG/0.3 ML Syringe SC (08:56)
[2017-11-08] MEDS: Cilostazol 50 MG Tablet PO ×2 (08:56→22:25)
[2017-11-08] MEDS: amLODIPine 5 MG Tablet PO (08:56)
[2017-11-08] MEDS: Furosemide 20 MG Tablet PO (09:02)
--- NOTE | 2017-11-08 12:32 | PCM.CONS.GEN ---
Reason for Consult Date of Consultation: 11/08/17 Reason for Consultation: b/l lower extremity with cellulitis History of Present Illness: The patient is a 77 year old M [] Patient is a very pleasant 77 year old male who I have seen in past for regular foot care but have not seen in several months. According to patient, he has developed lower extremity edema with subsequent ulceration formation. He has noted redness and drainage to his lower legs prompting him to present to hospital. He has been seen by wound care team and has had silvercel applied to b/l lower extremity with kerlix. he denies n/v/f/c. he is on antibiotics. culture has been performed of lower leg wounds and is currently growing gram negative rods and staph. He is on ancef. Past Medical History Past Medical History (Chronic Problems): Chronic Problems Peripheral vascular disease (Chronic) Chronic acquired lymphedema (Chronic) Hypothyroidism (Chronic) Hypertension (Chronic) Status post coronary artery bypass graft (Chronic) Coronary artery disease (Chronic) Allergies No Known Allergies Allergy (Verified 10/28/17 17:38) Home Medications: Ambulatory Orders Medication Instructions Recorded Amlodipine [Norvasc] 1 tab PO DAILY 11/06/17 Aspirin [Adult Aspirin] 81 mg PO DAILY 11/06/17 Atorvastatin Calcium [Lipitor] 1 tab PO QHS 11/06/17 Ciclopirox 1 applic TOPICAL QHS 11/06/17 Cilostazol [Cilostazol] 1 tab PO BID 11/06/17 Furosemide [Lasix] 1 tab PO DAILY 11/06/17 Levothyroxine [Synthroid] 100 mcg PO DAILY 11/06/17 Metoprolol Succinate 50 mg PO DAILY 11/06/17 Spironolactone [Spironolactone] 1 tab PO DAILY 11/06/17 Triamcinolone 0.5% Cream 1 applic TOPICAL BID 11/06/17 [Triamcinolone Acetonide] Surgical History: coronary bypass surgery Psychiatric History: No pertinent psych hx Lives: Alone Smoking Status: Never smoker Alcohol: None Drugs: None - *Family History Maternal History Items: No pertinent history Paternal History Items: No pertinent history Review of Systems Constitutional: Denies: Chills, Fever, Night Sweats, Malaise Cardiovascular: Denies: Chest Pain Respiratory: Denies: Shortness of Breath Gastrointestinal: Denies: Abdominal Pain, Diarrhea, Nausea, Vomiting Musculoskeletal: Reports: Joint swelling, Joint Tenderness, Leg Pain Skin: Reports: Wounds Objective: Patient is alert and orientated x 3. he does not appear in any distress Vascular: DP and PT pulses are nonpalpable. CFT is delayed. Hair growth is decreased to b/l lower extremity. skin temperature is warm to warm. no redness noted to b/l legs. +5 pitting edema is noted b/l lower extremity with mild calf pain. Derm: there are multiple serena of b/l lower extremity with fibrotic/granular superficial ulceration. There does appear to be serous drainage but no gross purulence. No palpable abscess noted. No ascending erythema or lymphangitis. There is greenish discolored wound of left medial leg that was debrided thru dermis and epidermis and yields granular ulceration. toenails 1-5 b/l are thick and discolored yellow. M/S: + swelling of b/l legs with calf pain. plantarflexion, dorsiflexion, inversion and eversion is 5/5 - Physical Exam Vital Signs Temp Pulse Resp BP Pulse Ox 98.8 F 77 18 127/71 H 98 11/08/17 08:51 11/08/17 11:17 11/08/17 08:51 11/08/17 08:51 11/08/17 08:51 Oxygen Delivery Method Room Air Weight: 64.9 kg Body Mass Index (BMI) 22.4 Intake and Output for Last 24 Hours 11/06/17 11/07/17 11/08/17 23:59 23:59 23:59 Intake Total 249 / 249 1230 / 1230 1376 / 1376 Output Total 500 / 500 510 / 510 450 / 450 Balance -251 / -251 720 / 720 926 / 926 Microbiology Past 72 Hours 11/06/17 21:24 Gram Stain - Final Skin - Leg Wound Culture - Preliminary GNR lactose technology applications engineer Gram negative see Staphylococcus species Laboratory Tests Past 24 Hrs 11/08/17 11/08/17 06:00 06:00 Sodium 144 Potassium 4.6 Chloride 108 H Carbon Dioxide 29.0 Anion Gap 7 BUN 42 H Creatinine 2.01 H Estim Creat Clear Calc 28.70 Est GFR (MDRD) Af Amer 42 L Est GFR (MDRD) Non-Af 35 L BUN/Creatinine Ratio 20.9 H Glucose 98 Calcium 8.6 B-Natriuretic Peptide 139.6 H Assessment/Plan Cellulitis of b/l legs Patient with significant lower extremity edema resulting in superficial wounds, this now has become secondarily infected. I do not see any palpable abscess. I recommend continued use of aquacel by wound care team. I would recommend very light compression to help improve swelling. I informed patient and nursing staff that swelling needs to improve otherwise, these wounds will be very difficult to heal. I did debride the medial left leg wound thru dermis and epidermis of all nonviable tissue. I performed debridement with foreceps. No bleeding encountered. I would recommend performing pvr to ascertain vascular status of b/l lower extremity. I will check records at [facility] to see if these have been done in past. continue with current antibiotics until cultures finalize. venous insufficiency with ulceration as above onychomycosis Patient has followed with me in past for nail care. I will return tomorrow to render this treatment. Code Visit Office Visits / Consults: 97303 OV L3 New [id number]: Other Procedure See Report - [id number]
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
--- NOTE | 2017-11-08 14:59 | PCM.PROGNOTE ---
<Shruthi Alegre - Last Filed: 11/08/17 15:14> Subjective: Patient seen and examined. States swelling of lower extremities has improved. Denies fever, chills. States pain and lower extremities is minimal. Patient requesting his scenario writer to see him in the hospital. Denies other complaints. - Physical Exam General: Alert, Oriented x3, Cooperative, No apparent distress HEENT: Atraumatic, PERRLA, EOMI, Normocephalic Neck: Supple, No JVD, Negative Carotid Bruits Lungs: Clear to auscultation, Normal air movement Cardiovascular: Regular rate, No murmurs Abdomen: Bowel Sounds Present, Soft, Non Tender, Non-Distended Extremities: No clubbing, No cyanosis, No edema, Capillary Refill Less than 3 Seconds Skin: - - Bilateral lower extremity dressings clean dry and intact. Musculoskeletal: No Tenderness to Palpation of Joints or Extremities, Cachexia Neurological: Cranial nerves II-XII grossly intact, Neuro grossly intact Psych/Mental Status: Normal Affect, Appropriate Vital Signs Temp Pulse Resp BP Pulse Ox 97.8 F 70 18 105/55 L 99 11/08/17 14:16 11/08/17 14:16 11/08/17 14:16 11/08/17 14:16 11/08/17 14:16 Oxygen Delivery Method Room Air Weight: 64.9 kg Body Mass Index (BMI) 22.4 Intake and Output for Last 24 Hours 11/06/17 11/07/17 11/08/17 23:59 23:59 23:59 Intake Total 249 / 249 1230 / 1230 1376 / 1376 Output Total 500 / 500 510 / 510 450 / 450 Balance -251 / -251 720 / 720 926 / 926 Microbiology Past 72 Hours 11/06/17 21:24 Gram Stain - Final Skin - Leg Wound Culture - Preliminary GNR lactose net trainer Gram negative see Staphylococcus species Laboratory Tests Past 24 Hrs 11/08/17 11/08/17 06:00 06:00 Sodium 144 Potassium 4.6 Chloride 108 H Carbon Dioxide 29.0 Anion Gap 7 BUN 42 H Creatinine 2.01 H Estim Creat Clear Calc 28.70 Est GFR (MDRD) Af Amer 42 L Est GFR (MDRD) Non-Af 35 L BUN/Creatinine Ratio 20.9 H Glucose 98 Calcium 8.6 B-Natriuretic Peptide 139.6 H Medical Necessity - Tobacco Use Smoking Status: Never smoker Assessment/Plan Patient is a 77-year-old male admitted 11/06/2017 due to bilateral leg edema and pain. He has a past medical history of PVD, chronic lymphedema, hypothyroidism, hypertension, CAD status post CABG, hypertension, hyperlipidemia. 1. Bilateral lower extremity cellulitis, chronic nonhealing wounds-continue Aquacel and light compression dressings. Podiatry consulted and performed debridement with forceps. Recommending PVR studies be completed. Arterial duplex ultrasound and venous duplex ultrasound ordered. Continue IV cefazolin. Wound RN consult. PRN pain regimen. Wound cultures showing GNR lactose net trainer, gram-negative see, Staphylococcus species. Final pending. 2. Chronic venous insufficiency/chronic lymphedema-continue home Lasix and Aldactone regimen. Swelling improved. Continue light compression dressings and elevate legs. 3. Acute kidney injury on chronic kidney disease stage III-secondary to IV Lasix. Now on oral regimen. Trend BMP. Hold this evening's dose of oral Lasix. If no improvement, recommend discontinuing Aldactone. 4. CAD status post CABG-continue aspirin, statin, beta-bibi. 5. Chronic anemia-stable, monitor CBC. 6. Hypothyroidism-continue Synthroid. 7. Hypertension-stable, continue amlodipine, furosemide, metoprolol, spironolactone regimen. 8. Hyperlipidemia-continue statin. DVT prophylaxis-Lovenox subcu. This patient was seen by RALPH Andres under the supervision of Dr. Kaiser. <Servando Kaiser - Last Filed: 11/08/17 15:43> Subjective: Seen and examined. Agree with above note of swelling of lower extremities improved. Patient was seen by scenario writer. No fever or chills. - Physical Exam Extremities: Edema Skin: Skin Tear, Rash Present, - - Bilateral lower extremity dressings clean dry and intact. Bilateral lower legs venous edema with weeping with serous drainage and small blisters and pustules. Multiple fibrotic/granular superficial ulcerations. Vital Signs Temp Pulse Resp BP Pulse Ox 97.8 F 68 18 105/55 L 99 11/08/17 14:16 11/08/17 15:29 11/08/17 14:16 11/08/17 14:16 11/08/17 14:16 Oxygen Delivery Method Room Air Weight: 143 lb 1.28 oz Body Mass Index (BMI) 22.4 Intake and Output for Last 24 Hours 11/06/17 11/07/17 11/08/17 23:59 23:59 23:59 Intake Total 249 / 249 1230 / 1230 1376 / 1376 Output Total 500 / 500 510 / 510 450 / 450 Balance -251 / -251 720 / 720 926 / 926 Microbiology Past 72 Hours 11/06/17 21:24 Gram Stain - Final Skin - Leg Wound Culture - Preliminary GNR lactose net trainer Gram negative see Staphylococcus species Laboratory Tests Past 24 Hrs 11/08/17 11/08/17 06:00 06:00 Sodium 144 Potassium 4.6 Chloride 108 H Carbon Dioxide 29.0 Anion Gap 7 BUN 42 H Creatinine 2.01 H Estim Creat Clear Calc 28.70 Est GFR (MDRD) Af Amer 42 L Est GFR (MDRD) Non-Af 35 L BUN/Creatinine Ratio 20.9 H Glucose 98 Calcium 8.6 B-Natriuretic Peptide 139.6 H Assessment/Plan This patient was seen in conjunction with Shruthi RAMOS. I have independently interviewed and examined the patient and reviewed pertinent history, examination findings, laboratory and plan of management. I have reviewed the note and agree with the documented findings with the few additional points. In brief, this 77-year-old gentleman with history of coronary artery disease status post five-vessel CABG in [facility] is being admitted for bilateral lower extremity cellulitis complicated with superficial ulcer lymphedema and venous hypertension, and peripheral arterial disease. Bilateral lower legs have blisters and pustule. There is no palpable abscess. There is no previous arterial or venous Doppler in our record. Patient denies history of arterial or venous thrombosis. Wound culture is growing lactose net trainer gram-negative see and staphylococcal spaces. Currently on IV cefazolin as patient cellulitis is improving. PVR was done and shows decreased segmental pressure in the right calf, right ankle and left calf and ankle and bilateral great toe is still peripheral arterial disease. 2D echo was done and shows EF 65% with evidence of diastolic dysfunction with history of chronic diastolic heart failure. Normal right and left atrium. Normal RV size and systolic function. I have discussed my assessment with Shruthi RAMOS and orders have been reviewed. Code Visit Inpatient E&M: 59574 Subs Hosp L3
--- NOTE | 2017-11-08 15:13 | PN_ITS ---
<Shruthi Alegre - Last Filed: 11/08/17 15:14> Subjective: Patient seen and examined. States swelling of lower extremities has improved. Denies fever, chills. States pain and lower extremities is minimal. Patient requesting his welt stitch cleaner to see him in the hospital. Denies other complaints. - Physical Exam General: Alert, Oriented x3, Cooperative, No apparent distress HEENT: Atraumatic, PERRLA, EOMI, Normocephalic Neck: Supple, No JVD, Negative Carotid Bruits Lungs: Clear to auscultation, Normal air movement Cardiovascular: Regular rate, No murmurs Abdomen: Bowel Sounds Present, Soft, Non Tender, Non-Distended Extremities: No clubbing, No cyanosis, No edema, Capillary Refill Less than 3 Seconds Skin: - - Bilateral lower extremity dressings clean dry and intact. Musculoskeletal: No Tenderness to Palpation of Joints or Extremities, Cachexia Neurological: Cranial nerves II-XII grossly intact, Neuro grossly intact Psych/Mental Status: Normal Affect, Appropriate Vital Signs Temp Pulse Resp BP Pulse Ox 97.8 F 70 18 105/55 L 99 11/08/17 14:16 11/08/17 14:16 11/08/17 14:16 11/08/17 14:16 11/08/17 14:16 Oxygen Delivery Method Room Air Weight: 64.9 kg Body Mass Index (BMI) 22.4 Intake and Output for Last 24 Hours 11/06/17 11/07/17 11/08/17 23:59 23:59 23:59 Intake Total 249 / 249 1230 / 1230 1376 / 1376 Output Total 500 / 500 510 / 510 450 / 450 Balance -251 / -251 720 / 720 926 / 926 Microbiology Past 72 Hours 11/06/17 21:24 Gram Stain - Final Skin - Leg Wound Culture - Preliminary GNR lactose cable repairer Gram negative see Staphylococcus species Laboratory Tests Past 24 Hrs 11/08/17 11/08/17 06:00 06:00 Sodium 144 Potassium 4.6 Chloride 108 H Carbon Dioxide 29.0 Anion Gap 7 BUN 42 H Creatinine 2.01 H Estim Creat Clear Calc 28.70 Est GFR (MDRD) Af Amer 42 L Est GFR (MDRD) Non-Af 35 L BUN/Creatinine Ratio 20.9 H Glucose 98 Calcium 8.6 B-Natriuretic Peptide 139.6 H Medical Necessity - Tobacco Use Smoking Status: Never smoker Assessment/Plan Patient is a 77-year-old male admitted 11/06/2017 due to bilateral leg edema and pain. He has a past medical history of PVD, chronic lymphedema, hypothyroidism , hypertension, CAD status post CABG, hypertension, hyperlipidemia. 1. Bilateral lower extremity cellulitis, chronic nonhealing wounds-continue Aquacel and light compression dressings. Podiatry consulted and performed debridement with forceps. Recommending PVR studies be completed. Arterial duplex ultrasound and venous duplex ultrasound ordered. Continue IV cefazolin. Wound RN consult. PRN pain regimen. Wound cultures showing GNR lactose cable repairer, gram-negative see, Staphylococcus species. Final pending. 2. Chronic venous insufficiency/chronic lymphedema-continue home Lasix and Aldactone regimen. Swelling improved. Continue light compression dressings and elevate legs. 3. Acute kidney injury on chronic kidney disease stage III-secondary to IV Lasix. Now on oral regimen. Trend BMP. Hold this evening's dose of oral Lasix. If no improvement, recommend discontinuing Aldactone. 4. CAD status post CABG-continue aspirin, statin, beta-bibi. 5. Chronic anemia-stable, monitor CBC. 6. Hypothyroidism-continue Synthroid. 7. Hypertension-stable, continue amlodipine, furosemide, metoprolol, spironolactone regimen. 8. Hyperlipidemia-continue statin. DVT prophylaxis-Lovenox subcu. This patient was seen by RALPH Andres under the supervision of Dr. Kaiser. <Servando Kaiser - Last Filed: 11/08/17 15:43> Subjective: Seen and examined. Agree with above note of swelling of lower extremities improved. Patient was seen by welt stitch cleaner. No fever or chills. - Physical Exam Extremities: Edema Skin: Skin Tear, Rash Present, - - Bilateral lower extremity dressings clean dry and intact. Bilateral lower legs venous edema with weeping with serous drainage and small blisters and pustules. Multiple fibrotic/granular superficial ulcerations. Vital Signs Temp Pulse Resp BP Pulse Ox 97.8 F 68 18 105/55 L 99 11/08/17 14:16 11/08/17 15:29 11/08/17 14:16 11/08/17 14:16 11/08/17 14:16 Oxygen Delivery Method Room Air Weight: 143 lb 1.28 oz Body Mass Index (BMI) 22.4 Intake and Output for Last 24 Hours 11/06/17 11/07/17 11/08/17 23:59 23:59 23:59 Intake Total 249 / 249 1230 / 1230 1376 / 1376 Output Total 500 / 500 510 / 510 450 / 450 Balance -251 / -251 720 / 720 926 / 926 Microbiology Past 72 Hours 11/06/17 21:24 Gram Stain - Final Skin - Leg Wound Culture - Preliminary GNR lactose cable repairer Gram negative see Staphylococcus species Laboratory Tests Past 24 Hrs 11/08/17 11/08/17 06:00 06:00 Sodium 144 Potassium 4.6 Chloride 108 H Carbon Dioxide 29.0 Anion Gap 7 BUN 42 H Creatinine 2.01 H Estim Creat Clear Calc 28.70 Est GFR (MDRD) Af Amer 42 L Est GFR (MDRD) Non-Af 35 L BUN/Creatinine Ratio 20.9 H Glucose 98 Calcium 8.6 B-Natriuretic Peptide 139.6 H Assessment/Plan This patient was seen in conjunction with Shruthi RAMOS. I have independently interviewed and examined the patient and reviewed pertinent history, examination findings, laboratory and plan of management. I have reviewed the note and agree with the documented findings with the few additional points. In brief, this 77-year-old gentleman with history of coronary artery disease status post five-vessel CABG in [facility] is being admitted for bilateral lower extremity cellulitis complicated with superficial ulcer lymphedema and venous hypertension, and peripheral arterial disease. Bilateral lower legs have blisters and pustule. There is no palpable abscess. There is no previous arterial or venous Doppler in our record. Patient denies history of arterial or venous thrombosis. Wound culture is growing lactose cable repairer gram-negative see and staphylococcal spaces. Currently on IV cefazolin as patient cellulitis is improving. PVR was done and shows decreased segmental pressure in the right calf, right ankle and left calf and ankle and bilateral great toe is still peripheral arterial disease. 2D echo was done and shows EF 65% with evidence of diastolic dysfunction with history of chronic diastolic heart failure. Normal right and left atrium. Normal RV size and systolic function. I have discussed my assessment with Shruthi RAMOS and orders have been reviewed. Code Visit Inpatient E&M: 50975 Subs Hosp L3
--- NOTE | 2017-11-08 19:27 | LEAS ---
Arterial Study - Arterial Study Arterial Study: Bilateral lower extremity noninvasive arterial exam at rest Right lower extremity The right low thigh index is 0.87. The calf index is 0.84. The right PT and DP ankle-brachial index at rest are 0.970.84. The digital index is 0.41. The right posterior tibial Doppler waveform is monophasic in the dorsalis pedis is biphasic. Volume pulse recordings do not demonstrate amplification of the calf and the ankle and digital waveforms are significantly depressed. Left lower extremity The left low thigh index is 1.08. The calf index is 0.85. The left PT and DP ankle-brachial indices at rest are 0.76 and 0.8 respectively. The digital index is 0.37. The left posterior tibial and dorsalis pedis Doppler waveforms are biphasic. Volume pulse recordings do not demonstrate amplification the calf the ankle waveforms are significantly flattened and the digital waveforms moderately flattened. Impression Bilateral lower extremities demonstrate findings suspicious for superficial femoral artery or inflow disease on the right with possible superficial femoral artery/popliteal disease on the left. Absolute indices are in the range of vascular claudication. The Doppler waveforms however suggest a more significant level of occlusive disease as do the volume pulse recordings. Digital indices are significantly depressed bilaterally consistent with likely addition of severe distal small vessel disease. Findings would at least be in the range of vascular claudication bilateral lower extremities. Distal small vessel disease moderate to severe in nature. Clinical correlation would be appropriate. Wm Amaya M.D., F.A.C.S.
[2017-11-08] MEDS: Atorvastatin Calcium 80 MG Tablet PO (22:28)
[2017-11-08] MEDS: Zolpidem Tartrate 5 MG Tablet PO (22:33)
[2017-11-09] VITALS (16 sets, daily range): BP systolic 90–150; BP diastolic 51–73; PULSE 58–73; RESP 16–20; TEMP 36.6–37.3; O2SAT 95–99
[2017-11-09] MEDS: Levothyroxine 100 MCG Tablet PO (06:18)
[2017-11-09] MEDS: Cefazolin 2 GM in 0.9% Normal Saline 100 ML IV (06:18)
[2017-11-09 06:32] LABS: Hematocrit 32.1 % (40-54); Hemoglobin 10.2 g/dl (13.0-16.5); Mean Corp Hgb Conc 31.8 g/gl (32-36); Mean Corpuscular Hgb 31.6 pg (27.0-32.0); Mean Corpuscular Volume 99.4 fL (80-94); Mean Platelet Vol. 9.6 fl (6.2-12.0); Platelet Count 214 K/mm3 (150-450); RBC Distribution Width CV 13.8 % (11.6-14.6); RBC Distribution Width SD 48.1 fl (35.1-43.9); Red Blood Count 3.23 M/mm3 (4.6-6.2); White Blood Count 8.9 K/mm3 (4.4-11.0)
[2017-11-09 06:34] LABS: Scan Indicated on CBC? Y/N NO
[2017-11-09 06:49] LABS: Anion Gap 5 (5-15); BUN 35 mg/dL (7-18); BUN/Creat Ratio 19.6 RATIO (10-20); Calcium,Total 8.6 mg/dL (8.5-10.1); Chloride 112 mmol/L (98-107); Creatinine, Serum 1.79 mg/dL (0.70-1.30); EST Glomerular Filtration Rate 39 mL/min (>60); Est Glom Filt Rate - Afr Amer 48 mL/min (>60); Estimated Creatinine Clearance 32.23 ml/min; Glucose 89 mg/dL (74-106); Potassium 4.7 mmol/L (3.5-5.1); Sodium Level 145 mmol/L (136-145)
[2017-11-09] MEDS: Spironolactone 25 MG Tablet PO (09:28)
[2017-11-09] MEDS: Metoprolol(XL)Succ 50 MG Tablet PO (09:28)
[2017-11-09] MEDS: Furosemide 20 MG Tablet PO (09:29)
[2017-11-09] MEDS: Enoxaparin 30 MG/0.3 ML Syringe SC (09:29)
[2017-11-09] MEDS: Aspirin E.C. 81 MG Tablet PO (09:29)
[2017-11-09] MEDS: amLODIPine 5 MG Tablet PO (09:29)
[2017-11-09] MEDS: oxyCODONE 5 MG Tablet PO ×2 (09:34→14:22)
--- NOTE | 2017-11-09 09:37 | NURSING ---
wound photo: right lateral lower leg
--- NOTE | 2017-11-09 09:38 | NURSING ---
wound photo: bilateral lower legs
--- NOTE | 2017-11-09 12:48 | PCM.PROGNOTE ---
<Shruthi Alegre - Last Filed: 11/09/17 12:57> Subjective: Patient seen and examined. Complains of significant bilateral lower extremity pain, worse from yesterday. Swelling improved. Denies fever, chills. Denies other current complaints. - Physical Exam General: Alert, Oriented x3, Cooperative, No apparent distress HEENT: Atraumatic, PERRLA, EOMI, Normocephalic Oral: Moist Mucosa Neck: Supple, No JVD, Negative Carotid Bruits Lungs: Clear to auscultation, Normal air movement Cardiovascular: Regular rate, No murmurs Abdomen: Bowel Sounds Present, Soft, Non Tender, Non-Distended Extremities: No clubbing, No cyanosis, Edema - +2 bilateral lower extremities Skin: - - Bilateral lower extremities with chronic skin changes, multiple granular superficial ulcerations. No purulent drainage. Musculoskeletal: No Tenderness to Palpation of Joints or Extremities Neurological: Cranial nerves II-XII grossly intact, Neuro grossly intact Psych/Mental Status: Normal Affect, Appropriate Vital Signs Temp Pulse Resp BP Pulse Ox 98.3 F 70 20 H 150/73 H 98 11/09/17 10:00 11/09/17 10:00 11/09/17 10:00 11/09/17 10:00 11/09/17 10:00 Oxygen Delivery Method Room Air Weight: 64.9 kg Body Mass Index (BMI) 22.4 Intake and Output for Last 24 Hours 11/07/17 11/08/17 11/09/17 23:59 23:59 23:59 Intake Total 1230 / 1230 2382 / 2382 93.4 / 93.4 Output Total 510 / 510 700 / 700 775 / 775 Balance 720 / 720 1682 / 1682 -681.6 / -681.6 Microbiology Past 72 Hours 11/06/17 19:29 Blood Culture - Preliminary Blood Culture (Wb) - No Site/Description Given No growth in 48 hours. 11/06/17 21:24 Gram Stain - Final Skin - Leg Wound Culture - Final Klebsiella oxytoca Enterobacter cloacae complex Staphylococcus sciuri Laboratory Tests Past 24 Hrs 11/09/17 11/09/17 05:59 05:59 WBC 8.9 RBC 3.23 L Hgb 10.2 L Hct 32.1 L MCV 99.4 H MCH 31.6 MCHC 31.8 L RDW 13.8 RDW Differential 48.1 H Plt Count 214 MPV 9.6 Sodium 145 Potassium 4.7 Chloride 112 H Carbon Dioxide 28.0 Anion Gap 5 BUN 35 H Creatinine 1.79 H Estim Creat Clear Calc 32.23 Est GFR (MDRD) Af Amer 48 L Est GFR (MDRD) Non-Af 39 L BUN/Creatinine Ratio 19.6 Glucose 89 Calcium 8.6 Medical Necessity - Tobacco Use Smoking Status: Never smoker Assessment/Plan Patient is a 77-year-old male admitted 11/06/2017 due to bilateral leg edema and pain. He has a past medical history of PVD, chronic lymphedema, hypothyroidism, hypertension, CAD status post CABG, hypertension, hyperlipidemia. 1. Bilateral lower extremity cellulitis, chronic nonhealing wounds-Podiatry consulted and performed debridement with forceps 10/09/17. Wound RN consult. Continue dressing changes with Aquacel and snug Kerlix/Shilo wrap. Wound cultures showing Staphylococcus sciuri, enterobacter cloacae, Klebsiella oxytoca. Transition to IV Levaquin. Lower extremity arterial studies showed superficial femoral artery or inflow disease on the right with possible superficial femoral artery popliteal disease on the left. Vascular claudication bilateral lower extremities. Venous duplex ultrasound without evidence of DVT. Will refer patient to Dr. Pearce as outpatient. Anticipate discharge to SNF tomorrow with continued oral antibiotic therapy and dressing changes. 2. Chronic venous insufficiency/chronic lymphedema-continue home Lasix and Aldactone regimen. Swelling improved. Continue light compression dressings and elevate legs. 3. Acute kidney injury on chronic kidney disease stage III-secondary to IV Lasix. Now on oral regimen. Trend BMP. Improving. 4. CAD status post CABG-continue aspirin, statin, beta-bibi. 5. Chronic anemia-stable, monitor CBC. 6. Hypothyroidism-continue Synthroid. 7. Hypertension-stable, continue amlodipine, furosemide, metoprolol, spironolactone regimen. 8. Hyperlipidemia-continue statin. DVT prophylaxis-Lovenox subcu. This patient was seen by RALPH Andres under the supervision of Dr. Kaiser. <Servando Kaiser - Last Filed: 11/09/17 15:45> Subjective: Seen and examined. Patient bilateral lower extremity swelling, skin erythema, wound condition has improved. Patient on bilateral below-knee Shilo wrap bandage. - Physical Exam General: Alert, Oriented x3, Cooperative HEENT: Atraumatic, PERRLA, EOMI, Normocephalic Neck: Supple, No JVD, Negative Carotid Bruits Lungs: Clear to auscultation, Normal air movement Cardiovascular: Regular rate, Normal S1, Normal S2, No murmurs Abdomen: Bowel Sounds Present, Soft, Non Tender Extremities: No edema, Capillary Refill Less than 3 Seconds Skin: - - Bilateral lower extremities with chronic skin changes, multiple granular superficial ulcerations. No purulent drainage. Superficial wound ulceration is much better Musculoskeletal: No Tenderness to Palpation of Joints or Extremities, Arthritic Changes, Tenderness - Mild tenderness or lower legs. Neurological: Cranial nerves II-XII grossly intact Psych/Mental Status: Normal Affect, Appropriate Vital Signs Temp Pulse Resp BP Pulse Ox 98.3 F 72 20 H 150/73 H 98 11/09/17 10:00 11/09/17 13:00 11/09/17 10:00 11/09/17 10:00 11/09/17 10:00 Oxygen Delivery Method Room Air Weight: 143 lb 1.28 oz Body Mass Index (BMI) 22.4 Intake and Output for Last 24 Hours 11/07/17 11/08/17 11/09/17 23:59 23:59 23:59 Intake Total 1230 / 1230 2382 / 2382 293.4 / 293.4 Output Total 510 / 510 700 / 700 775 / 775 Balance 720 / 720 1682 / 1682 -481.6 / -481.6 Microbiology Past 72 Hours 11/06/17 19:29 Blood Culture - Preliminary Blood Culture (Wb) - No Site/Description Given No growth in 48 hours. 11/06/17 21:24 Gram Stain - Final Skin - Leg Wound Culture - Final Klebsiella oxytoca Enterobacter cloacae complex Staphylococcus sciuri Laboratory Tests Past 24 Hrs 11/09/17 11/09/17 05:59 05:59 WBC 8.9 RBC 3.23 L Hgb 10.2 L Hct 32.1 L MCV 99.4 H MCH 31.6 MCHC 31.8 L RDW 13.8 RDW Differential 48.1 H Plt Count 214 MPV 9.6 Sodium 145 Potassium 4.7 Chloride 112 H Carbon Dioxide 28.0 Anion Gap 5 BUN 35 H Creatinine 1.79 H Estim Creat Clear Calc 32.23 Est GFR (MDRD) Af Amer 48 L Est GFR (MDRD) Non-Af 39 L BUN/Creatinine Ratio 19.6 Glucose 89 Calcium 8.6 Assessment/Plan This patient was seen in conjunction with Shruthi RAMOS. I have independently interviewed and examined the patient and reviewed pertinent history, examination findings, laboratory and plan of management. I have reviewed the note and agree with the documented findings with the few additional points. In brief, this 77-year-old gentleman with history of coronary artery disease status post five-vessel CABG in [facility] is being admitted for bilateral lower extremity cellulitis complicated with superficial ulcer lymphedema and venous hypertension, and peripheral arterial disease. Bilateral lower legs had blisters and pustule much improved. There is no palpable abscess. There is no previous arterial or venous Doppler in our record. Patient denies history of arterial or venous thrombosis. Wound culture showing Klebsiella oxytoca, Enterobacter likely complex and Staphylococcus sciuri. Antibiotic changed to Levaquin as per the sensitivity. IV cefazolin discontinued. PVR was done and shows decreased segmental pressure in the right low thigh, right calf, right ankle and left calf and ankle and bilateral great toe is still peripheral arterial disease. Doppler waveform in posterior tibial and dorsalis pedis are monophasic or biphasic as mentioned in report. 2D echo was done and shows EF 65% with evidence of diastolic dysfunction with history of chronic diastolic heart failure. Normal right and left atrium. Normal RV size and systolic function. Patient has refused consult with Dr. Gross. Dr. Rainey Suggested consult with Dr. Pearce as an outpatient. I have discussed my assessment with Shruthi RAMOS and orders have been reviewed. Code Visit Inpatient E&M: 22084 Subs Hosp L3
--- NOTE | 2017-11-09 13:00 | PN.SURG_ITS ---
Patient Problems: Active and Suspected Problems Venous insufficiency (Acute) Onychomycosis (Acute) Varicose veins with ulcer and inflammation (Acute) Subjective: patient seen at bedside with no new complaints. denies n/v/f/c. complains of painful toenails of b/l feet. tolerating antibiotic nicely. expecting discharge to rehab tomorrow Objective: alert and orientated x 3. no acute distress vascular: Dp and PT pulses are nonpalpable to right foot. CFT is less than 5 seconds. skin temperature is warm to warm. moderate edema is noted b/l. no redness noted derm: b/l lower extremity has scattered areas of open wounds with no active purulence. there is no redness, no drainage, no lymphangitis noted. toenails 1 -5 b/l are thick, discolored and painful. m/s: + 5 pitting edema is present to b/l lower extremity. no calf pain present. PVR:Bilateral lower extremity noninvasive arterial exam at rest Right lower extremity The right low thigh index is 0.87. The calf index is 0.84. The right PT and DP ankle-brachial index at rest are 0.970.84. The digital index is 0.41. The right posterior tibial Doppler waveform is monophasic in the dorsalis pedis is biphasic. Volume pulse recordings do not demonstrate amplification of the calf and the ankle and digital waveforms are significantly depressed. Left lower extremity The left low thigh index is 1.08. The calf index is 0.85. The left PT and DP ankle-brachial indices at rest are 0.76 and 0.8 respectively. The digital index is 0.37. The left posterior tibial and dorsalis pedis Doppler waveforms are biphasic. Volume pulse recordings do not demonstrate amplification the calf the ankle waveforms are significantly flattened and the digital waveforms moderately flattened. Impression Bilateral lower extremities demonstrate findings suspicious for superficial femoral artery or inflow disease on the right with possible superficial femoral artery/popliteal disease on the left. Absolute indices are in the range of vascular claudication. The Doppler waveforms however suggest a more significant level of occlusive disease as do the volume pulse recordings. Digital indices are significantly depressed bilaterally consistent with likely addition of severe distal small vessel disease. Findings would at least be in the range of vascular claudication bilateral lower extremities. Distal small vessel disease moderate to severe in nature. Clinical correlation would be appropriate. - Physical Exam Vital Signs Temp Pulse Resp BP Pulse Ox 98.3 F 70 20 H 150/73 H 98 11/09/17 10:00 11/09/17 10:00 11/09/17 10:00 11/09/17 10:00 11/09/17 10:00 Oxygen Delivery Method Room Air Weight: 64.9 kg Body Mass Index (BMI) 22.4 Intake and Output for Last 24 Hours 11/07/17 11/08/17 11/09/17 23:59 23:59 23:59 Intake Total 1230 / 1230 2382 / 2382 93.4 / 93.4 Output Total 510 / 510 700 / 700 775 / 775 Balance 720 / 720 1682 / 1682 -681.6 / -681.6 Microbiology Past 72 Hours 11/06/17 19:29 Blood Culture - Preliminary Blood Culture (Wb) - No Site/Description Given No growth in 48 hours. 11/06/17 21:24 Gram Stain - Final Skin - Leg Wound Culture - Final Klebsiella oxytoca Enterobacter cloacae complex Staphylococcus sciuri Laboratory Tests Past 24 Hrs 11/09/17 11/09/17 05:59 05:59 WBC 8.9 RBC 3.23 L Hgb 10.2 L Hct 32.1 L MCV 99.4 H MCH 31.6 MCHC 31.8 L RDW 13.8 RDW Differential 48.1 H Plt Count 214 MPV 9.6 Sodium 145 Potassium 4.7 Chloride 112 H Carbon Dioxide 28.0 Anion Gap 5 BUN 35 H Creatinine 1.79 H Estim Creat Clear Calc 32.23 Est GFR (MDRD) Af Amer 48 L Est GFR (MDRD) Non-Af 39 L BUN/Creatinine Ratio 19.6 Glucose 89 Calcium 8.6 Medical Necessity - Tobacco Use Smoking Status: Never smoker Assessment/Plan All Active Problems Venous insufficiency (Acute) Onychomycosis (Acute) Varicose veins with ulcer and inflammation (Acute) Patient was examined and informed of current findings. Evaluated patient in presence of nurse practioner and nurse. wounds do appear smaller today with no signs of drainage or palpable abscess. discussed etiology of wounds due to swelling. recommend continued use of silvercel and light compression. he can have this done at rehab. I feel patient is stable for discharge to rehab provided he continue with compression and local wound care. agree with antibiotic at discharge. if wounds develop drainage or worsening, he is to present to hospital. discussed and reviewed pvr. he does have arterial insufficiency. I did discuss consult with Dr. Wm Amaya. He has declined. He would however favor consult with Dr. Pearce as outpatient. will have primary facilitate referral as outpatient. toenails 1-5 b/l debrided in length and thickness I will have patient f/u in my office at discharge. please consult me if condition worsens. Code Visit Inpatient E&M: 22879 Subs Hosp L3
[2017-11-09] MEDS: Zolpidem Tartrate 5 MG Tablet PO (22:36)
[2017-11-09] MEDS: Atorvastatin Calcium 80 MG Tablet PO (22:37)
[2017-11-09] MEDS: Cilostazol 50 MG Tablet PO (22:37)
[2017-11-10] VITALS (8 sets, daily range): BP systolic 97–139; BP diastolic 58–74; PULSE 58–71; RESP 16–20; TEMP 36.6–37.1; O2SAT 96–98
[2017-11-10] MEDS: oxyCODONE 5 MG Tablet PO (06:26)
[2017-11-10] MEDS: Levothyroxine 100 MCG Tablet PO (06:26)
[2017-11-10] MEDS: Spironolactone 25 MG Tablet PO (09:19)
[2017-11-10] MEDS: Aspirin E.C. 81 MG Tablet PO (09:19)
[2017-11-10] MEDS: Furosemide 20 MG Tablet PO (09:20)
[2017-11-10] MEDS: Metoprolol(XL)Succ 50 MG Tablet PO (09:21)
[2017-11-10] MEDS: amLODIPine 5 MG Tablet PO (09:21)
[2017-11-10] MEDS: Cilostazol 50 MG Tablet PO (09:21)
[2017-11-10] MEDS: Enoxaparin 30 MG/0.3 ML Syringe SC (09:22)
[2017-11-10 09:25] LABS: Anion Gap 6 (5-15); BUN 32 mg/dL (7-18); BUN/Creat Ratio 20.5 RATIO (10-20); Calcium,Total 8.6 mg/dL (8.5-10.1); Chloride 108 mmol/L (98-107); Creatinine, Serum 1.56 mg/dL (0.70-1.30); EST Glomerular Filtration Rate 46 mL/min (>60); Est Glom Filt Rate - Afr Amer 56 mL/min (>60); Estimated Creatinine Clearance 36.98 ml/min; Glucose 91 mg/dL (74-106); Potassium 4.6 mmol/L (3.5-5.1); Sodium Level 142 mmol/L (136-145)
[2017-11-10] MEDS: 0.9% NaCl Peripheral Flush Adult/Peds IV (09:39)
[2017-11-10] MEDS: levoFLOXacin IV 250 MG/50 ML BAG 100 MG IV (09:45)
--- NOTE | 2017-11-10 10:30 | PCM.EXTCARCO ---
- Diet 11/09/17 12:45 Diet: Regular Diet Food consistency:: Puree Dietary Modifications:: Pureed Diet Is pt able to select menu?: Yes Diet Comments: Seated upright at 90 degrees during PO intake. - Routine Orders/Code Status Enema Type: Fleetz Enema Frequency: Daily PRN Suppository Type: Dulcolax 10mg Suppository Frequency: Daily PRN Routine Lab Work: - - CBC, BMP Weekly Code Status: Full Code - Wound(s) BLE Wound Type: very small superficial scattered stasis ulcers Dressing Change: AntiMicrobial (Aquacel AG, etc) LFA Wound Type: Skin Tear - Suggestions for Active Care Change Position every (hours): 2 Times a day to sit in chair: 3 - Therapies Physical Therapy: Eval and Treat Occupational Therapy: Eval and Treat Speech Therapy: Eval and Treat - Problem/Diagnosis (1) Varicose veins with ulcer and inflammation Status: Acute Current Visit: No (2) Onychomycosis Status: Acute Current Visit: No (3) Venous insufficiency Status: Chronic Current Visit: No (4) Peripheral vascular disease Status: Chronic Current Visit: No (5) Chronic acquired lymphedema Status: Chronic Current Visit: No (6) Hypothyroidism Status: Chronic Current Visit: No (7) Hypertension Status: Chronic Current Visit: No (8) Status post coronary artery bypass graft Status: Chronic Current Visit: No (9) Coronary artery disease Status: Chronic Current Visit: No (10) RAMIN (acute kidney injury) Status: Acute Current Visit: Yes - Allergies/Procedures Done in Hospital Allergies/Adverse Reactions: Allergies No Known Allergies Allergy (Verified 10/28/17 17:38) Procedures: 2-D Echocardiogram - Type of Care/Length of Stay Estimated LOS: Convalescent Care Less Than 30 days Type of Care Needed: Skilled Rehab Potential: Fair Prognosis: Fair - Additional Orders/Day of Discharge Additional Orders: Please keep bilateral legs wrapped daily with Kerlix/calixto wrap following dressing changes. H&P will serve as current which was dated: 11/06/17 Day of Discharge: 11/10/17 - Dietary and Speech Recommendations Dietitian Recommendations/Changes: Pt would greatly benefit from FIXTURE DESIGNER evaluation as it appears lack of dentures interferes w/ calorie/protein intake. Continue cardiac diet w/ fluid restriction. Will provide Ensure Enlive w/ medpass for additional calories/protein if consumed. It is concerning pt only wants to eat 1x/day considering signs/symptoms of moderate malnutrition. - Follow Up Care Primary Care Physician: Jabari Sanderson MD [Primary Care Provider] - Please follow up with your Primary Care Physician in: 1 Week Please Follow Up With: Terrance Pearce MD When: Call to scheduled for 1-2 weeks Please Follow Up With: Bony Rainey DPM When: As scheduled
--- NOTE | 2017-11-10 10:39 | PCM.DC.SUM ---
Discharge Date and Diagnosis Date of Admission: 11/06/17 Date of Discharge: 11/10/17 - Primary Discharge Diagnosis Active and Suspected Problems 1. Bilateral lower extremity multi organism (staphylococcus sciuri, enterobacter cloacae, Klebsiella oxytoca) cellulitis complicated with superficial ulcer lymphedema and peripheral arterial disease/peripheral vascular disease 2. Chronic venous insufficiency/chronic lymphedema 3. Acute kidney injury on chronic kidney disease stage III 4. CAD status post history of CABG 5. Chronic macrocytic anemia 6. Hypothyroidism 7. Hypertension 8. Hyperlipidemia - Secondary Discharge Diagnosis Chronic Problems Venous insufficiency (Chronic) Peripheral vascular disease (Chronic) Chronic acquired lymphedema (Chronic) Hypothyroidism (Chronic) Hypertension (Chronic) Status post coronary artery bypass graft (Chronic) Coronary artery disease (Chronic) Hospital Course and Treatment Imaging Results: Diagnostic Data Chest X-Ray 11/06/17 18:00 IMPRESSION: There are findings consistent with COPD. There is no evidence of acute chest disease. Electronically Signed: Keanu Topete MD at 22:18 EDT , Service support , Consultations 11/06/17 20:16 Consult: Onc/Wound/conveyor weigher operator Routine Comment: Dr. Rainey-Podiatry Operations: None Procedures: 2-D Echocardiogram Summary of Care Provided: Patient is a 77-year-old male admitted 11/06/2017 due to bilateral leg edema and pain. He has a past medical history of PVD, chronic lymphedema, hypothyroidism, hypertension, CAD status post CABG, hypertension, hyperlipidemia. 1. Bilateral lower extremity cellulitis, chronic nonhealing wounds-Podiatry consulted and performed debridement with forceps 10/09/17. Continue dressing changes with Aquacel and snug Kerlix/Shilo wrap at [facility]. Wound cultures showed Staphylococcus sciuri, enterobacter cloacae, Klebsiella oxytoca. Continue oral Levaquin at discharge with stop date 11/16/17. Lower extremity arterial studies showed superficial femoral artery or inflow disease on the right with possible superficial femoral artery popliteal disease on the left. Vascular claudication bilateral lower extremities. Venous duplex ultrasound without evidence of DVT. Will refer patient to Dr. Pearce as outpatient. Discussed Dr. Amaya consult during admission and patient declined. DC to SNF. 2. Chronic venous insufficiency/chronic lymphedema-continue home Lasix and Aldactone regimen. 3. Acute kidney injury on chronic kidney disease stage III-secondary to IV Lasix. Now on home oral regimen. Improved. BMP weekly at SNF. 4. CAD status post CABG-continue aspirin, statin, beta-bibi. 5. Chronic anemia-stable, monitor CBC. 6. Hypothyroidism-continue Synthroid. 7. Hypertension-stable, continue amlodipine, furosemide, metoprolol, spironolactone regimen. 8. Hyperlipidemia-continue statin. General: Alert, Oriented x3, Cooperative, No apparent distress HEENT: Atraumatic, PERRLA, EOMI, Normocephalic Oral: Moist Mucosa Neck: Supple, No JVD, Negative Carotid Bruits Lungs: Clear to auscultation, Normal air movement Cardiovascular: Regular rate, No murmurs Abdomen: Bowel Sounds Present, Soft, Non Tender, Non-Distended Extremities: No clubbing, No cyanosis, Edema - +2 bilateral lower extremities Skin: - - Bilateral lower extremities with chronic skin changes, multiple granular superficial ulcerations. No purulent drainage. Musculoskeletal: No Tenderness to Palpation of Joints or Extremities Neurological: Cranial nerves II-XII grossly intact, Neuro grossly intact Psych/Mental Status: Normal Affect, Appropriate Patient seen exam prior to discharge. Physical assessment as noted above. Patient stable for discharge to SNF with further follow-up with primary care physician, podiatry and vascular. This patient was seen by RALPH Andres under the supervision of Dr. Perez. Home Medications: Medications to take at Discharge Amlodipine [Norvasc] 1 tab PO DAILY 11/06/17 Aspirin [Adult Aspirin] 81 mg PO DAILY 11/06/17 Atorvastatin Calcium [Lipitor] 1 tab PO QHS 11/06/17 Ciclopirox 1 applic TOPICAL QHS 11/06/17 Cilostazol 1 tab PO BID 11/06/17 Furosemide [Lasix] 1 tab PO DAILY 11/06/17 Levothyroxine [Synthroid] 100 mcg PO DAILY 11/06/17 Metoprolol Succinate 50 mg PO DAILY 11/06/17 Spironolactone 1 tab PO DAILY 11/06/17 Triamcinolone 0.5% Cream [Kenalog] 1 applic TOPICAL BID 11/06/17 Levofloxacin [Levaquin] 250 mg PO DAILY 6 Days #6 tablet 07/07/18 Oxycodone [Oxyir] 5 mg PO Q4H PRN PRN 2 Days #12 tab 11/10/17 Following Prescrptions Were Given to Patient: Oxycodone [Oxyir] 5 mg PO Q4H PRN PRN 2 Days #12 tab PRN Reason: Severe Pain (-02/13) Levofloxacin [Levaquin] 250 mg PO DAILY 6 Days #6 tablet Primary Care Physician: Jabari Sanderson MD [Primary Care Provider] - Please follow up with your Primary Care Physician in: 1 Week Please Follow Up With: Terrance Pearce MD When: Call to scheduled for 1-2 weeks Please Follow Up With: Bony Rainey DPM When: As scheduled Disposition: Longterm facility Minutes spent on discharge:: 35 Patient Condition:: Stable Medical Necessity - Tobacco Use Smoking Status: Never smoker Meaningful Use Info Meaningful Use Diagnoses (Choose all that apply): None applicable
--- NOTE | 2017-11-10 10:54 | DS.PCM_ITS ---
Discharge Date and Diagnosis Date of Admission: 11/06/17 Date of Discharge: 11/10/17 - Primary Discharge Diagnosis Active and Suspected Problems 1. Bilateral lower extremity multi organism (staphylococcus sciuri, enterobacter cloacae, Klebsiella oxytoca) cellulitis complicated with superficial ulcer lymphedema and peripheral arterial disease/peripheral vascular disease 2. Chronic venous insufficiency/chronic lymphedema 3. Acute kidney injury on chronic kidney disease stage III 4. CAD status post history of CABG 5. Chronic macrocytic anemia 6. Hypothyroidism 7. Hypertension 8. Hyperlipidemia - Secondary Discharge Diagnosis Chronic Problems Venous insufficiency (Chronic) Peripheral vascular disease (Chronic) Chronic acquired lymphedema (Chronic) Hypothyroidism (Chronic) Hypertension (Chronic) Status post coronary artery bypass graft (Chronic) Coronary artery disease (Chronic) Hospital Course and Treatment Imaging Results: Diagnostic Data Chest X-Ray 11/06/17 18:00 IMPRESSION: There are findings consistent with COPD. There is no evidence of acute chest disease. Electronically Signed: Keanu Topete MD at 22:18 EDT , Service support , Consultations 11/06/17 20:16 Consult: Onc/Wound/diesel power mechanic Routine Comment: Dr. Rainey-Podiatry Operations: None Procedures: 2-D Echocardiogram Summary of Care Provided: Patient is a 77-year-old male admitted 11/06/2017 due to bilateral leg edema and pain. He has a past medical history of PVD, chronic lymphedema, hypothyroidism , hypertension, CAD status post CABG, hypertension, hyperlipidemia. 1. Bilateral lower extremity cellulitis, chronic nonhealing wounds-Podiatry consulted and performed debridement with forceps 10/09/17. Continue dressing changes with Aquacel and snug Kerlix/Shilo wrap at [facility]. Wound cultures showed Staphylococcus sciuri, enterobacter cloacae, Klebsiella oxytoca. Continue oral Levaquin at discharge with stop date 11/16/17. Lower extremity arterial studies showed superficial femoral artery or inflow disease on the right with possible superficial femoral artery popliteal disease on the left. Vascular claudication bilateral lower extremities. Venous duplex ultrasound without evidence of DVT. Will refer patient to Dr. Pearce as outpatient. Discussed Dr. Amaya consult during admission and patient declined. DC to SNF. 2. Chronic venous insufficiency/chronic lymphedema-continue home Lasix and Aldactone regimen. 3. Acute kidney injury on chronic kidney disease stage III-secondary to IV Lasix. Now on home oral regimen. Improved. BMP weekly at SNF. 4. CAD status post CABG-continue aspirin, statin, beta-bibi. 5. Chronic anemia-stable, monitor CBC. 6. Hypothyroidism-continue Synthroid. 7. Hypertension-stable, continue amlodipine, furosemide, metoprolol, spironolactone regimen. 8. Hyperlipidemia-continue statin. General: Alert, Oriented x3, Cooperative, No apparent distress HEENT: Atraumatic, PERRLA, EOMI, Normocephalic Oral: Moist Mucosa Neck: Supple, No JVD, Negative Carotid Bruits Lungs: Clear to auscultation, Normal air movement Cardiovascular: Regular rate, No murmurs Abdomen: Bowel Sounds Present, Soft, Non Tender, Non-Distended Extremities: No clubbing, No cyanosis, Edema - +2 bilateral lower extremities Skin: - - Bilateral lower extremities with chronic skin changes, multiple granular superficial ulcerations. No purulent drainage. Musculoskeletal: No Tenderness to Palpation of Joints or Extremities Neurological: Cranial nerves II-XII grossly intact, Neuro grossly intact Psych/Mental Status: Normal Affect, Appropriate Patient seen exam prior to discharge. Physical assessment as noted above. Patient stable for discharge to SNF with further follow-up with primary care physician, podiatry and vascular. This patient was seen by RALPH Andres under the supervision of Dr. Perez. Home Medications: Medications to take at Discharge Amlodipine [Norvasc] 1 tab PO DAILY 11/06/17 Aspirin [Adult Aspirin] 81 mg PO DAILY 11/06/17 Atorvastatin Calcium [Lipitor] 1 tab PO QHS 11/06/17 Ciclopirox 1 applic TOPICAL QHS 11/06/17 Cilostazol 1 tab PO BID 11/06/17 Furosemide [Lasix] 1 tab PO DAILY 11/06/17 Levothyroxine [Synthroid] 100 mcg PO DAILY 11/06/17 Metoprolol Succinate 50 mg PO DAILY 11/06/17 Spironolactone 1 tab PO DAILY 11/06/17 Triamcinolone 0.5% Cream [Kenalog] 1 applic TOPICAL BID 11/06/17 Levofloxacin [Levaquin] 250 mg PO DAILY 6 Days #6 tablet 07/07/18 Oxycodone [Oxyir] 5 mg PO Q4H PRN PRN 2 Days #12 tab 11/10/17 Following Prescrptions Were Given to Patient: Oxycodone [Oxyir] 5 mg PO Q4H PRN PRN 2 Days #12 tab PRN Reason: Severe Pain (-02/13) Levofloxacin [Levaquin] 250 mg PO DAILY 6 Days #6 tablet Primary Care Physician: Jabari Sandersno MD [Primary Care Provider] - Please follow up with your Primary Care Physician in: 1 Week Please Follow Up With: Terrance Pearce MD When: Call to scheduled for 1-2 weeks Please Follow Up With: Bony Rainey DPM When: As scheduled Disposition: [facility] facility Minutes spent on discharge:: 35 Patient Condition:: Stable Medical Necessity - Tobacco Use Smoking Status: Never smoker Meaningful Use Info Meaningful Use Diagnoses (Choose all that apply): None applicable
--- NOTE | 2017-11-10 12:30 | NURSING ---
1230 pt report given to [facility] for transfer/discharge. pt aware and awaiting transport Farrah Salas RN
--- NOTE | 2017-11-10 12:30 | NURSING ---
1230 report called to [facility] for pt transfer/discharge. pt aware and awaiting transport. Farrah Salas RN
== END 2017-11-10 12:43 | disposition skilled nursing facility (03) | DRG 603 ==
LOC: ED 18:10 → PCU 20:14
PROVIDERS: Internal Medicine; Nurse Practitioner Family; Physician Assistant; Admitting Provider Hospitalist; Emergency Provider Emergency Medicine; Family Provider Family Medicine; PCP Family Medicine; Visit Provider Internal Medicine
DX: L03.115 Cellulitis of right lower limb (principal); N17.9 Acute kidney failure, unspecified; I50.32 Chronic diastolic (congestive) heart failure; I13.0 Hypertensive heart and chronic kidney disease with heart failure and stage 1 through stage 4 chronic kidney disease, or unspecified chronic kidney disease; L97.829 Non-pressure chronic ulcer of other part of left lower leg with unspecified severity; L97.819 Non-pressure chronic ulcer of other part of right lower leg with unspecified severity; L03.116 Cellulitis of left lower limb; N18.3 Chronic kidney disease, stage 3 (moderate); B95.7 Other staphylococcus as the cause of diseases classified elsewhere; B96.89 Other specified bacterial agents as the cause of diseases classified elsewhere; I89.0 Lymphedema, not elsewhere classified; I73.9 Peripheral vascular disease, unspecified; I25.10 Atherosclerotic heart disease of native coronary artery without angina pectoris; E78.5 Hyperlipidemia, unspecified; E03.9 Hypothyroidism, unspecified; Z95.1 Presence of aortocoronary bypass graft; Z79.899 Other long term (current) drug therapy; I87.2 Venous insufficiency (chronic) (peripheral); B35.1 Tinea unguium; D53.9 Nutritional anemia, unspecified
CPT/HCPCS: 36415; 71046; 80048; 80053; 81001; 83880; 84439; 84443; 84484; 85025; 85027; 87040; 87070; 87077; 87186; 87205; 93005; 93306; 93923; 93970; 97110; 97116; 97161; 97166; 97530; 97802; 99282; J7030; A4216; J0696; J1940

== ENCOUNTER → 2019-11-12 13:02 | Outpatient (CLI) | payer MEDICARE, MEDICAID, SELFPAY ==
--- NOTE | 2019-11-12 13:09 | CDU_ITS ---
Reason For Study: CAROTID STENOSIS, bilateral Rt. Velocities/BP Lt. Velocities/BP Prox CCA 86.4/23.0 cm/sec. CCA is OCCLUDED. Mid CCA 57.2/19.1 cm/sec. ICA is OCCLUDED. Dist CCA 145.6/44.4 cm/sec. ECA is OCCLUDED. Prox ICA 149.5/55.0 cm/sec. Lt. Vert. 58.5/18.1 cm/sec. Mid ICA 85.5/33.6 cm/sec. Dist ICA 42.6/14.0 cm/sec. Rt. ICA/CCA = 149.5/86.4=1.7. Prox ECA 147.4/14.2 cm/sec. Unable to visualize right vertebral artery. Right Extracranial There is heterogeneous, irregular atherosclerotic plaque noted in the right common carotid artery. There is heterogeneous, irregular atherosclerotic plaque noted in the right internal carotid artery. The atherosclerotic plaque causes acoustic shadowing. There is homogeneous, irregular atherosclerotic plaque noted in the right external carotid artery. The right external carotid artery is not well visualized. Antegrade flow is noted in the right vertebral artery. There is heterogeneous, irregular atherosclerotic plaque noted in the right bulb. 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 Antegrade flow is noted in the left vertebral artery. Procedure Carotid Duplex [id number]. The study was technically difficult. Exam performed in department. DR. Pearce notified at 2 pm. Interpretation Summary Moderate (50-69%) stenosis right extracranial internal carotid. 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 Flow within the vertebral arteries is antegrade bilaterally. Ordering Physician: Terrance Pearce Referring Physician: Jabari Sanderson Performed By: Arlene Garcia, RDCS, RVT
== END ==
PROVIDERS: PCP Family Medicine; Referring Provider Surgery Vascular Surgery; Visit Provider Surgery Vascular Surgery
DX: I65.23 Occlusion and stenosis of bilateral carotid arteries (principal); Z86.73 Personal history of transient ischemic attack (TIA), and cerebral infarction without residual deficits
CPT/HCPCS: 93880

== ENCOUNTER → 2020-02-20 17:35 | Emergency (ER) | payer MEDICARE, MEDICAID, SELFPAY ==
[2020-02-20 17:36] VITALS: BP 154/86; PULSE 77; RESP 16; TEMP 36.2; O2SAT 99; BMI 23.5
--- NOTE | 2020-02-20 19:30 | ED.VIS.GEN ---
History of Present Illness Chief Complaint: Lower Extremity Injury Detail of Chief Complaint: Pain and swelling of lower extremities Informant: Patient, Family Onset: - - According to son years. According to patient worse the past month Context: Gradual Onset Timing: Continuous Quality: Swelling, discoloration and drainage from right and left lower extremity Location: Right and left lower extremity Current Severity: Severe Maximum Severity: Severe Worsened by: Immobility and sleeps in recliner Relieved by: Nothing Associated Symptoms: Pain in the past 4 weeks that has been intermittent Narrative: Patient is an elderly male who has not been very mobile. He presents because of pain and swelling of his lower extremities. According to son the swelling started several years ago. The swelling has gotten worse over the past month. Patient reports bilateral intermittent lower extremity pain. Pain is transient. It is sharp. He denies chest pain, shortness of breath or difficulty breathing. Denies cough. He denies pleuritic pain. He has no history of VTE or PE. He denies history of heart failure or heart disease. He denies history of kidney disease. Prior similar symptoms: Yes Recent Illness/Hospitalization: No - Past Medical History (1) Varicose veins with ulcer and inflammation Status: Acute (2) Chronic acquired lymphedema Status: Chronic (3) Coronary artery disease Status: Chronic (4) Hypertension Status: Chronic (5) Hypothyroidism Status: Chronic (6) Peripheral vascular disease Status: Chronic (7) Status post coronary artery bypass graft Status: Chronic (8) Venous insufficiency Status: Chronic Past Medical History - Allergies and Home Meds Allergies/Adverse Reactions: Allergies No Known Allergies Allergy (Verified 02/20/20 17:37) Primary Care Physician: Jabari Sanderson MD [Primary Care Provider] - Prior records reviewed: Yes Surgical History: coronary bypass surgery Lives: Alone Smoking Status: Never smoker Alcohol: None Drugs: None - Family History Maternal Family History: Reports: No pertinent history Paternal Family History: Reports: No pertinent history Review of Systems General: Reports: Malaise. Denies: Chills, Fever, Subjective, Sweats, Weight loss Cardiovascular: Denies: Chest pain, Palpitations, Heart racing Respiratory: Denies: Dyspnea, Cough, Sputum, Dyspnea on exertion, Orthopnea, Paroxysmal nocturnal dyspnea Gastrointestinal: Denies: Abdominal pain, Nausea, Vomiting, Diarrhea Genitourinary: Denies: Dysuria, Hematuria, Frequency Musculoskeletal: Reports: Swelling, Extremity Pain. Denies: Myalgias, Arthralgias, Neck pain, Back pain Skin: Reports: Rash, Wounds. Denies: Abscess, Abrasions Neurological: Reports: Weakness. Denies: Headache, Parasthesia, Numbness Psych: Denies: Depression, Anxiety Hematologic: Denies: Easy bruising, Easy bleeding Physical Exam Vital Signs/Narrative: Vital Signs Temp Pulse Resp BP Pulse Ox 02/20/20 17:36 97.2 F L 77 16 154/86 H 99 Inital Vital Signs reviewed: Yes General: Well nourished, Well developed, No Acute Distress Head: Normocephalic, Atraumatic Eyes: Perrl, EOMI. Negative for: Pale conjunctiva, Scleral icterus ENT: No rhinorrhea Neck: Supple, Nontender, No lymphadenopathy, No JVD Cardiovascular: Regular rate, Regular rhythm, No murmurs, Normal S1, Normal S2 Respiratory: No distress, CTA bilaterally, Chest nontender Abdomen: Soft, Nontender, Nondistended, Normal bowel sounds Back: Nontender, Normal Inspection Extremities: Nontender, Edema - Marked pitting edema with venous stasis dermatitis and serous drainage from skin breakdown. There is no evidence of infection. There is no lymphangitis, induration, palpable heel or inguinal lymphadenopathy. Skin: Normal color, Rash - Venous stasis dermatitis Neurological: Alert, Oriented x3, Cranial nerves II-XII grossly intact Psychological: Normal affect, Normal Mood Diagnostic/Tx/Re-eval Laboratory Results 02/20/20 02/20/20 20:01 20:50 Sodium 141 Potassium 4.1 Chloride 111 H Carbon Dioxide 25.0 Anion Gap 5 BUN 28 H Creatinine 1.46 H Estim Creat Clear Calc 38.99 Est GFR (MDRD) Af Amer 60 Est GFR (MDRD) Non-Af 50 L BUN/Creatinine Ratio 19.2 Glucose 83 Calcium 9.2 Total Bilirubin 0.50 AST 19 ALT 20 Alkaline Phosphatase 77 Total Protein 7.5 Albumin 3.2 Globulin 4.3 H Albumin/Globulin Ratio 0.7 L Urine Color Yellow Urine Clarity Clear Urine pH 6.0 Ur Specific [place] 1.015 Urine Protein 15 H Urine Glucose (UA) Normal Urine Ketones Negative Urine Occult Blood Negative Urine Nitrite Negative Urine Bilirubin Negative Urine Urobilinogen Normal Ur Leukocyte Esterase Negative Electrolyte panels are marked for an elevated creatinine. Patient had elevated creatinine in the past. It is unchanged from baseline. Urine reveals mild proteinuria. This is not a new finding as well. Patient has bilateral lymphedema due to immobility. - Medical Decision Making Obtain CBC to rule out anemia, comprehensive metabolic panel was obtained to assess renal function as well as total protein. UA was obtained to determine the patient has proteinuria and possible explanation for worsening lymphedema. Suspect this is due to immobility. ED Disposition - Plan for ED Patient: Disposition: Home or Assisted Living Diagnosis: Dependent lymphedema due to impaired mobility Instructions: ED Lymphedema Referrals: Jabari Sanderson MD [Primary Care Provider] - Clinic,Wound [None] - As soon as possible
[2020-02-20 20:40] LABS: ALB/GLOB Ratio 0.7 RATIO (0.9-2.4); AST(SGOT) 19 U/L (15-37); Alanine Aminotransfer ALT/SGPT 20 U/L (16-61); Albumin, Serum 3.2 g/dL (3.2-5.0); Alkaline Phosphatase 77 U/L (45-117); Anion Gap 5 (5-15); BUN 28 mg/dL (7-18); BUN/Creat Ratio 19.2 RATIO (10-20); Calcium,Total 9.2 mg/dL (8.5-10.1); Chloride 111 mmol/L (98-107); Creatinine, Serum 1.46 mg/dL (0.70-1.30); EST Glomerular Filtration Rate 50 mL/min (>60); Est Glom Filt Rate - Afr Amer 60 mL/min (>60); Estimated Creatinine Clearance 38.99 ml/min; Globulin 4.3 g/dL (2.2-4.2); Glucose 83 mg/dL (74-106); Potassium 4.1 mmol/L (3.5-5.1); Protein, Total 7.5 g/dL (6.4-8.2); Sodium Level 141 mmol/L (136-145)
[2020-02-20 21:05] LABS: Bacteria 0 SEEN /hpf (None Seen); Mucous, Urine 0 SEEN /hpf (<or=2+); Red Blood Cells-Urine 0 SEEN /hpf (0-5); White Blood Cells 0 SEEN /hpf (0-5)
[2020-02-20 21:07] LABS: Color, Urine Yellow (Yellow); Glucose, Dipstick Normal (Normal); Ketone-Dipstick Negative (Negative); Leukocyte Esterase-Dipstick Negative /ul (Negative); Nitrite-Dipstick Negative (Negative); Occult Blood-Urine Negative /ul (Negative); Protein-Dipstick 15 mg/dl (Negative); Specific Gravity, Urine 1.015 (1.002-1.030); Urine Bilirubin Dipstick Negative (Negative); Urine Clarity Clear (Clear); Urine Urobilinogen Normal (Normal)
[2020-02-20 21:29] LABS: Squamous Epithelial Cells - UA 0-5 SEEN /hpf (0-5)
== END | disposition home or self-care (01) ==
PROVIDERS: Emergency Provider Emergency Medicine; PCP Family Medicine
DX: I89.0 Lymphedema, not elsewhere classified (principal); I25.10 Atherosclerotic heart disease of native coronary artery without angina pectoris; I73.9 Peripheral vascular disease, unspecified; I87.2 Venous insufficiency (chronic) (peripheral); I10 Essential (primary) hypertension; E03.9 Hypothyroidism, unspecified; Z74.09 Other reduced mobility; Z95.1 Presence of aortocoronary bypass graft; Z79.82 Long term (current) use of aspirin; Z79.899 Other long term (current) drug therapy
CPT/HCPCS: 80053; 81001; 99281; 99284; A4216

== ENCOUNTER 2020-03-23 13:26 | Emergency (ER) | payer MEDICARE, MEDICAID, SELFPAY ==
[2020-02-20 17:36] VITALS: BMI 23.5
[2020-03-23 13:35] VITALS: BP 135/73; PULSE 71; RESP 15; TEMP 36.4; O2SAT 96; BMI 22.7
[2020-03-23 14:01] VITALS: BP 135/73; PULSE 71; RESP 15; TEMP 36.4; O2SAT 96
--- NOTE | 2020-03-23 14:02 | ED.DCSUM_ITS ---
History of Present Illness Chief Complaint: Edema Informant: Patient Narrative: 79-year-old male with chronic lower extremity edema presenting with worsening edema of his lower extremities bilaterally. He states this is a chronic problem. He has a home health care nurse who comes out on Wednesdays to check his legs as he has wounds on them. Patient states that Dr. Jacobs put him on doxycycline about 10 days ago out of concern for infection. He denies fever, chills, nausea, vomiting. He states that he has pain when he ambulates in both lower extremities from the shins down to his ankles and feet. Patient states that he was supposed to have a consult with his lymphedema specialist (Dr. Bateman) today but missed his appointment because he was late. He states he has a follow-up appointment for 11 AM tomorrow morning. He states he has not contacted his primary care physician about the increasing pain. He has not been on any pain medication for home. - Past Medical History (1) RAMIN (acute kidney injury) Status: Chronic (2) Chronic acquired lymphedema Status: Chronic (3) Coronary artery disease Status: Chronic (4) Hypertension Status: Chronic (5) Hypothyroidism Status: Chronic (6) Peripheral vascular disease Status: Chronic Past Medical History - Allergies and Home Meds Allergies/Adverse Reactions: Allergies No Known Allergies Allergy (Verified 03/23/20 13:29) Primary Care Physician: Jabari Sanderson MD [Primary Care Provider] - Past Medical History: - - Reviewed in problem list Surgical History: coronary bypass surgery Lives: Alone Smoking Status: Former smoker Alcohol: None Drugs: None - Family History Maternal Family History: Reports: No pertinent history Paternal Family History: Reports: No pertinent history Review of Systems General: Denies: Chills, Fever, Sweats Eyes: Denies: Visual changes - bilaterally, Diplopia ENT: Denies: Rhinorrhea, Sore throat Cardiovascular: Denies: Chest pain, Palpitations Respiratory: Denies: Dyspnea, Cough, Dyspnea on exertion Gastrointestinal: Denies: Abdominal pain, Nausea, Vomiting, Diarrhea, Melena, Hematochezia Genitourinary: Denies: Dysuria, Hematuria, Frequency Musculoskeletal: Reports: Extremity Pain, - - Bilateral lower extremity pain and swelling.. Denies: Back pain Skin: Reports: - - Multiple chronic wounds on lower extremities.. Denies: Abscess Neurological: Denies: Headache, Weakness, Numbness Physical Exam Vital Signs/Narrative: Vital Signs Temp Pulse Resp BP Pulse Ox 03/23/20 14:01 97.6 F L 71 15 135/73 H 96 03/23/20 13:35 97.6 F L 71 15 135/73 H 96 General: Well nourished, No Acute Distress Head: Normocephalic, Atraumatic Eyes: Perrl, EOMI. Negative for: Scleral icterus ENT: Moist mucous membranes, No rhinorrhea Cardiovascular: Regular rate, Regular rhythm Respiratory: No distress, CTA bilaterally, Chest nontender Abdomen: Soft, Nontender, Nondistended Back: Nontender, Normal Inspection Extremities: Tenderness, Edema, - - Chronic stasis changes of bilateral lower extremities. Bilateral lower extremity edema with seeping at the level of the feet. Small ulcer approximately 1 cm of the left medial calf drainage. Skin: - - Skin findings as noted under extremities. Negative for: Cyanosis, Diaphoresis, Jaundice Neurological: Alert, Oriented x3 Psychological: Normal affect, Normal Mood Diagnostic/Tx/Re-eval Clinical Impression(s) from Imaging Studies Chest X-Ray 03/23/20 15:00 IMPRESSION: Hyperinflation and COPD. No acute abnormality is seen. Electronically Signed: Vadim Saul, at 15:20 EST , Service support , Laboratory Data 03/23/20 03/23/20 14:25 14:25 WBC 10.8 RBC 3.58 L Hgb 10.5 L Hct 32.9 L MCV 91.9 MCH 29.3 MCHC 31.9 L RDW Std Deviation 46.8 H RDW Coeff of Jh 13.9 Plt Count 307 MPV 8.7 Immature Gran % (Auto) 1.200 H Neut % (Auto) 77.7 H Lymph % (Auto) 9.8 L [place] % (Auto) 8.7 Eos % (Auto) 2.3 Baso % (Auto) 0.3 Absolute Neuts (auto) 8.4 H Absolute Lymphs (auto) 1.06 Nucleated RBC % 0 Sodium 142 Potassium 3.5 Chloride 110 H Carbon Dioxide 25.0 Anion Gap 7 BUN 62 H Creatinine 2.24 H Estim Creat Clear Calc 25.30 Est GFR (MDRD) Af Amer 37 L Est GFR (MDRD) Non-Af 30 L BUN/Creatinine Ratio 27.7 H Glucose 91 Calcium 9.3 Total Bilirubin 0.30 AST 36 ALT 27 Alkaline Phosphatase 62 Troponin I < 0.015 Total Protein 7.6 Albumin 2.8 L Globulin 4.8 H Albumin/Globulin Ratio 0.6 L - Medical Decision Making Presents with bilateral lower extremity pain which is a chronic issue for him. He missed his appointment with his specialist yesterday and has an appointment for 11:15 AM tomorrow. I did do blood work and his lab work was normal with exception of an increased creatinine. Patient has been able to drink fluids and I did encourage him to keep hydrating. He was given morphine in the ED as well as an Ultram for pain. Bilateral DVT studies were normal. I spoke with his PCP who did not feel the patient need to be admitted at this time but did want to follow-up with him regarding his increased creatinine. He did not recommend a change in the patient's Lasix. He did state that the patient had tolerated Ultram in the past for this pain. He is encouraged to make his follow-up appointment tomorrow with a specialist. I do not believe he needs antibiotics at this time. He states he is ambulatory with his walker. He is given return precautions. Impression: 1. Acute kidney injury 2. Bilateral lower extremity edema chronic stasis changes ED Disposition - Plan for ED Patient: Disposition: Home or Assisted Living Instructions: Dehydration, ED Peripheral Edema, Bilateral Prescriptions: traMADol [Ultram] 50 mg PO Q6H PRN PRN 3 Days #12 tab PRN Reason: Pain Prescription Printed Referrals: Jabari Sanderson MD [Primary Care Provider] -
--- NOTE | 2020-03-23 14:17 | VDLE_ITS ---
Reason For Study: swelling RIGHT LEFT GSV is normal. GSV is normal. CFV is compressible, spontaneous, phasic, CFV is compressible, spontaneous, phasic, competent and demonstrates normal competent, and demonstrates normal augmentation. augmentation. FV is compressible, spontaneous, phasic, FV is compressible, spontaneous, phasic, competent and demonstrates normal competent and demonstrates normal augmentation. augmentation. POP V is compressible, spontaneous, phasic, POP V is compressible, spontaneous, phasic, competent and demonstrates normal competent and demonstrates normal augmentation. augmentation. T/P Trunk is compressible. T/P Trunk is compressible. PTV is compressible. PTV is compressible. RT PerV is compressible. LT PerV is compressible. Procedure This is a venous duplex using B-mode, color flow and spectral Doppler. Exam performed portable in ED. The exam was of fair technical quality due to swelling and wounds. A preliminary report was called and/or faxed to Dr. Diaz. Interpretation Summary No evidence for acute deep venous thrombosis bilateral lower extremities with patent and compressible bilateral great saphenous veins. Fair quality exam Ordering Physician: Deandre Diaz Performed By: Raghavendra Car RVT
[2020-03-23] MEDS: Morphine 4 MG/ML Syringe IV (14:29)
[2020-03-23] MEDS: Ondansetron 4 MG/2 ML Vial IV (14:29)
[2020-03-23 14:48] LABS: Absolute Lymphocyte Count 1.06 X10^3/uL (0.83-4.51); Absolute Neutrophil Count 8.4 X10^3/uL (2.0-7.7); Basophil# 0.03 X10^3/uL; Basophil% 0.3 % (0-1); Eosinophil# 0.25 X10^3/uL; Eosinophils% 2.3 % (0-5); Hematocrit 32.9 % (40-54); Hemoglobin 10.5 g/dL (13.0-16.5); Lymphocyte # 1.06 X10^3/ul (4.0); Lymphocyte % 9.8 % (19-41); Mean Corp Hgb Conc 31.9 g/dL (32-36); Mean Corpuscular Hgb 29.3 pg (27.0-32.0); Mean Corpuscular Volume 91.9 fL (80-94); Mean Platelet Vol. 8.7 fl (6.2-12.0); Monocyte# 0.94 X10^3/uL; Monocyte% 8.7 % (0-10); NRBC Flagged by Analyzer 0 % (0-5); Neutrophil % 77.7 % (47-70); Platelet Count 307 K/mm3 (150-450); RBC Distribution Width CV 13.9 % (11.6-14.6); RBC Distribution Width SD 46.8 fl (35.1-43.9); Red Blood Count 3.58 M/mm3 (4.6-6.2); White Blood Count 10.8 K/mm3 (4.4-11.0)
--- NOTE | 2020-03-23 15:00 | RAD_ITS ---
STUDY: X-RAY CHEST REASON FOR EXAM: Male, 79 years old. Patient has bilateral leg edema with redness and drainage. TECHNIQUE: Single AP portable view of the chest. COMPARISON: Comparison is made with prior study dated 11/06/2017. FINDINGS: EKG electrodes are seen. Hyperinflation. Decreased bronchovascular markings suggestive of emphysematous change. There is no demonstrated pleural abnormality. Sternal cerclage wires and vascular clips are present from a prior sternotomy and coronary artery bypass graft procedure (CABG). Normal mediastinum and lay. Normal visualized pulmonary arteries. There is atherosclerotic calcification of the aortic arch with tortuosity. There are degenerative changes of the visualized thoracic spine. Normal visualized ribs, clavicles, and shoulders. There is no demonstrated abnormality of the visualized soft tissue structures of the upper abdomen. RAD/Chest 1 View (Portable) IMPRESSION: Hyperinflation and COPD. No acute abnormality is seen. Electronically Signed: Vadim Hughes, at 15:20 EST , Service support ,
[2020-03-23 15:01] LABS: ALB/GLOB Ratio 0.6 RATIO (0.9-2.4); AST(SGOT) 36 U/L (15-37); Alanine Aminotransfer ALT/SGPT 27 U/L (16-61); Albumin, Serum 2.8 g/dL (3.2-5.0); Alkaline Phosphatase 62 U/L (45-117); Anion Gap 7 (5-15); BUN 62 mg/dL (7-18); BUN/Creat Ratio 27.7 RATIO (10-20); Calcium,Total 9.3 mg/dL (8.5-10.1); Chloride 110 mmol/L (98-107); Creatinine, Serum 2.24 mg/dL (0.70-1.30); EST Glomerular Filtration Rate 30 mL/min (>60); Est Glom Filt Rate - Afr Amer 37 mL/min (>60); Globulin 4.8 g/dL (2.2-4.2); Glucose 91 mg/dL (74-106); Potassium 3.5 mmol/L (3.5-5.1); Protein, Total 7.6 g/dL (6.4-8.2); Sodium Level 142 mmol/L (136-145)
[2020-03-23 16:15] VITALS: BP 147/76; PULSE 72; RESP 18
[2020-03-23 16:20] VITALS: BP 147/76; PULSE 72; RESP 18; TEMP 36.4; O2SAT 96
[2020-03-23] MEDS: traMADol 50 MG Tablet PO (16:32)
[2020-03-23 16:52] VITALS: BP 152/88; PULSE 79; RESP 18
== END 2020-03-23 17:58 | disposition home or self-care (01) ==
PROVIDERS: Emergency Provider Student in an Organized Health Care Education/Training Program; PCP Family Medicine
DX: N17.9 Acute kidney failure, unspecified (principal); R60.0 Localized edema; I25.10 Atherosclerotic heart disease of native coronary artery without angina pectoris; I73.9 Peripheral vascular disease, unspecified; I10 Essential (primary) hypertension; J44.9 Chronic obstructive pulmonary disease, unspecified; E03.9 Hypothyroidism, unspecified; Z95.1 Presence of aortocoronary bypass graft; Z79.82 Long term (current) use of aspirin; Z79.899 Other long term (current) drug therapy; Z87.891 Personal history of nicotine dependence
CPT/HCPCS: 71045; 80053; 84484; 85025; 93970; 96374; 96375; 99285; A4216; J2405

== ENCOUNTER 2020-05-13 02:10 | Emergency (ER) | payer MEDICARE, MEDICAID, SELFPAY ==
[2020-05-13 02:11] VITALS: BP 138/87; PULSE 100; RESP 16; TEMP 36.9; O2SAT 95; BMI 23.2
--- NOTE | 2020-05-13 02:41 | ED.DCSUM_ITS ---
History of Present Illness Chief Complaint: Abn Labs Detail of Chief Complaint: Elevated BUN/creatinine Informant: Patient, SNF Onset: Days Context: Gradual Onset Timing: Continuous Quality: Creatinine is 4.54 which is approximately double baseline Location: Nursing facility Current Severity: Moderate Maximum Severity: Moderate Worsened by: Poor p.o. intake Relieved by: Nothing Associated Symptoms: Positive Covid test May 03 Narrative: An elderly male with a CODE STATUS of DNR CC. He arise because his IV dislodged. His creatinine has doubled. He has had poor p.o. intake. He is bedridden. He informed me he is here because his creatinine/kidney function is bad. He denies loss of taste or smell. Denies fever chills. Denies ocular, visual auditory symptoms. Denies cardiac respiratory symptoms. He denies GI symptoms. He denies symptoms. Prior similar symptoms: Yes Recent Illness/Hospitalization: No - Past Medical History (1) RAMIN (acute kidney injury) Status: Chronic (2) Chronic acquired lymphedema Status: Chronic (3) Coronary artery disease Status: Chronic (4) Hypertension Status: Chronic (5) Hypothyroidism Status: Chronic (6) Peripheral vascular disease Status: Chronic (7) Status post coronary artery bypass graft Status: Chronic (8) Venous insufficiency Status: Chronic Past Medical History - Allergies and Home Meds Allergies/Adverse Reactions: Allergies No Known Allergies Allergy (Verified 05/13/20 02:16) Primary Care Physician: Jabari Sanderson MD [NON-STAFF] - Prior records reviewed: Yes Surgical History: coronary bypass surgery Lives: [facility] Smoking Status: Former smoker Alcohol: None Drugs: None - Family History Maternal Family History: Reports: No pertinent history Paternal Family History: Reports: No pertinent history Review of Systems General: Reports: Malaise. Denies: Chills, Fever, Subjective Eyes: Denies: Visual changes - bilaterally, Blurred Vision - bilaterally ENT: Denies: Bilateral ear pain, Rhinorrhea, Sore throat Cardiovascular: Denies: Chest pain, Palpitations Respiratory: Denies: Dyspnea, Cough, Dyspnea on exertion Gastrointestinal: Denies: Abdominal pain, Nausea, Vomiting, Diarrhea Genitourinary: Denies: Dysuria, Hematuria, Frequency Musculoskeletal: Reports: Swelling. Denies: Myalgias, Arthralgias, Extremity Pain Skin: Denies: Rash, Wounds Neurological: Reports: Weakness. Denies: Parasthesia Endocrine: Denies: Polyuria, Polydipsia Hematologic: Denies: Easy bruising Physical Exam Vital Signs/Narrative: Vital Signs Temp Pulse Resp BP Pulse Ox 05/13/20 02:11 98.5 F 100 16 138/87 H 95 Inital Vital Signs reviewed: Yes General: Well nourished, Well developed, Acute Distress Head: Normocephalic, Atraumatic Eyes: Perrl, EOMI. Negative for: Pale conjunctiva, Scleral icterus ENT: No rhinorrhea, Dry mucous membranes Neck: Supple, Nontender, No lymphadenopathy Cardiovascular: Regular rate, Regular rhythm, No murmurs, Normal S1, Normal S2 Respiratory: No distress, CTA bilaterally, Chest nontender Abdomen: Soft, Nontender, No masses, Hypoactive bowel sounds. Negative for: Nondistended, Normal bowel sounds, Tender, Guarding, Rebound tenderness, Hyperactive bowel sounds, Hepatomegaly, Splenomegaly, Mass, Pulsatile mass Rectal: Deferred Extremities: Nontender, Edema Skin: Normal color, No rash, No Trauma. Negative for: Cyanosis, Diaphoresis Neurological: Alert, Oriented x3, Cranial nerves II-XII grossly intact, Normal Strength, Normal Sensation. Negative for: Normal Gait Psychological: - Diagnostic/Tx/Re-eval - Medical Decision Making Plan is placement of IV by nursing staff and return to nursing facility. Charge nurse contacted nurse facility to confirm that nothing further needed to be done. ED Disposition - Plan for ED Patient: Disposition: [facility]irement Facility Diagnosis: Acute kidney injury superimposed on chronic kidney disease, COVID-19 virus infection Referrals: Jabari Sanderson MD [NON-STAFF] - As Needed
[2020-05-13] MEDS: Dext 5%-0.45% NS 1,000 ML 125 ML IV (02:46)
[2020-05-13 03:17] VITALS: BP 128/82; PULSE 88; RESP 16; O2SAT 95
== END 2020-05-13 04:23 | disposition skilled nursing facility (03) ==
PROVIDERS: Emergency Provider Emergency Medicine; PCP Family Medicine
DX: N17.9 Acute kidney failure, unspecified (principal); I12.9 Hypertensive chronic kidney disease with stage 1 through stage 4 chronic kidney disease, or unspecified chronic kidney disease; N18.9 Chronic kidney disease, unspecified; U07.1 COVID-19; I25.10 Atherosclerotic heart disease of native coronary artery without angina pectoris; E03.9 Hypothyroidism, unspecified; I87.2 Venous insufficiency (chronic) (peripheral); I73.9 Peripheral vascular disease, unspecified; Z66 Do not resuscitate; Z95.1 Presence of aortocoronary bypass graft; Z74.01 Bed confinement status; Z87.891 Personal history of nicotine dependence
CPT/HCPCS: 96365; 96367; 99284; A4216; J7799

== ENCOUNTER 2020-07-07 17:33 | Inpatient (IN) | payer MEDICARE, MEDICAID, SELFPAY ==
[2020-07-07] VITALS (13 sets, daily range): BP systolic 144–180; BP diastolic 79–108; PULSE 101–136; RESP 18–28; TEMP 36.4–37.2; O2SAT 92–99; BMI 26.0; BMI 24.6; BMI 24.7
--- NOTE | 2020-07-07 18:11 | EKG12_ITS ---
Test Reason : WEAKNESS Blood Pressure : / mmHG Vent. Rate : 105 BPM Atrial Rate : 105 BPM P-R Int : 168 ms QRS Dur : 090 ms QT Int : 396 ms P-R-T Axes : 028 028 017 degrees QTc Int : 523 ms Sinus tachycardia Possible Inferior infarct , age undetermined Possible Anterior infarct , age undetermined Prolonged QT Abnormal ECG Confirmed by ALEXIS SALINAS, CHANI ([id number]), state editor TISHA WILKES ([id number]) on 07/12/2020 2:35:01 PM Referred By: FARRAH Confirmed By:CHANI ESPINOZA MD
--- NOTE | 2020-07-07 18:14 | ED.VIS.GEN ---
History of Present Illness Chief Complaint: Abn Labs Narrative: Patient is a 79-year-old male who presents for abnormal labs. He was sent from the nursing facility. His creatinine is 9.5 which is up from previous of 4.5. His BUN is 126. Potassium is 6.1. Hemoglobin is down to 6.6 from previous of 8.1. He does report intermittent bright red blood per rectum. On review of his records sent from the nursing facility he does not appear to be on any anticoagulation. Patient's only complaint is persistent cough since being diagnosed with Covid 3 months ago. Past Medical History - Allergies and Home Meds Allergies/Adverse Reactions: Allergies No Known Allergies Allergy (Verified 07/07/20 17:36) Primary Care Physician: Vernon Plascencia MD [Primary Care Provider] - Past Medical History: - - Coronary artery disease, chronic kidney disease, history of COVID-19, hypertension, hyperlipidemia, peripheral vascular disease, hypothyroidism Surgical History: coronary bypass surgery Smoking Status: Former smoker - Family History Maternal Family History: Reports: No pertinent history Paternal Family History: Reports: No pertinent history Review of Systems All systems negative except as indicated General: Denies: Fever Eyes: Denies: Visual changes - bilaterally ENT: Denies: Bilateral ear pain Cardiovascular: Denies: Chest pain Respiratory: Reports: Cough Gastrointestinal: Reports: Hematochezia. Denies: Abdominal pain, Nausea, Vomiting, Diarrhea Musculoskeletal: Denies: Myalgias, Arthralgias Skin: Denies: Rash Neurological: Denies: Headache Hematologic: Denies: Easy bruising Allergy: Denies: Uticaria Physical Exam Vital Signs/Narrative: Vital Signs Temp Pulse Resp BP Pulse Ox 07/07/20 17:39 101 H 18 147/79 H 99 07/07/20 17:36 97.5 F L 101 H 18 147/79 H 99 Inital Vital Signs reviewed: Yes General: Well nourished, Well developed Head: Normocephalic Eyes: EOMI ENT: Moist mucous membranes Neck: Supple Cardiovascular: Regular rhythm, Tachycardia Respiratory: No distress, Rales - Bilateral rales left worse than right Abdomen: Soft, Nontender, Nondistended Skin: Pallor Neurological: Alert Psychological: Normal affect Diagnostic/Tx/Re-eval Impressions Chest X-Ray 07/07/20 18:40 IMPRESSION: Cardiomegaly and mild pulmonary vascular congestion. Electronically Signed: Torito Kolnick, MD at 19:07 EST Tel , Service support , 07/07/20 18:40 Chest 1 View (Portable) [RAD] Stat Laboratory Results 07/07/20 07/07/20 07/07/20 18:22 18:22 18:22 WBC 7.9 RBC 2.25 L Hgb 6.8 L Hct 22.0 L MCV 97.8 H MCH 30.2 MCHC 30.9 L RDW Std Deviation 55.0 H RDW Coeff of Jh 15.5 H Plt Count 210 MPV 10.0 Immature Gran % (Auto) 0.500 Neut % (Auto) 68.6 Lymph % (Auto) 9.9 L [place] % (Auto) 11.3 H Eos % (Auto) 9.4 H Baso % (Auto) 0.3 Absolute Neuts (auto) 5.4 Absolute Lymphs (auto) 0.79 L Nucleated RBC % 0 PT 15.9 H INR 1.3 Sodium 136 Potassium 5.5 H Chloride 106 Carbon Dioxide 17.0 L Anion Gap 13 BUN 128 H* Creatinine 10.00 H* Estim Creat Clear Calc 5.69 Est GFR (MDRD) Af Amer 7 L Est GFR (MDRD) Non-Af 5 L BUN/Creatinine Ratio 12.8 Glucose 109 H Calcium 8.2 L Total Bilirubin 0.30 AST 13 L ALT 27 Alkaline Phosphatase 61 Total Protein 6.7 Albumin 2.7 L Globulin 4.0 Albumin/Globulin Ratio 0.7 L Crossmatch 07/07/20 18:22 WBC RBC Hgb Hct MCV MCH MCHC RDW Std Deviation RDW Coeff of Jh Plt Count MPV Immature Gran % (Auto) Neut % (Auto) Lymph % (Auto) [place] % (Auto) Eos % (Auto) Baso % (Auto) Absolute Neuts (auto) Absolute Lymphs (auto) Nucleated RBC % PT INR Sodium Potassium Chloride Carbon Dioxide Anion Gap BUN Creatinine Estim Creat Clear Calc Est GFR (MDRD) Af Amer Est GFR (MDRD) Non-Af BUN/Creatinine Ratio Glucose Calcium Total Bilirubin AST ALT Alkaline Phosphatase Total Protein Albumin Globulin Albumin/Globulin Ratio Crossmatch See Detail - Medical Decision Making EKG shows sinus tachycardia at a rate of 105 no acute changes of hyperkalemia. Patient does have a prolonged QT. Labs are notable for creatinine of 10 with a BUN of 128. Calcium is 5.5 patient was given IV fluids. Additionally 2 units of packed red blood cells were ordered given his anemia. Rectal exam here showed light brown stool no bright red blood or melena although patient reports intermittent bright red blood per rectum. He is on Pletal but no other anticoagulation. I did speak to nephrology who recommended Kayexalate and an amp of bicarb as well as Jefferson catheter to rule out urinary retention and monitor output. Discussed with the hospitalist and admitted to monitored floor. - Critical Care Time Critical care time (excluding procedures): 30-74 minutes ED Disposition - Plan for ED Patient: Disposition: Acute Care [facility] Diagnosis: Acute renal failure, Hyperkalemia, Anemia Referrals: Vernon Plascencia MD [Primary Care Provider] -
[2020-07-07] MEDS: 0.9% Normal Saline 1,000 ML 1000 ML IV (18:31)
[2020-07-07 18:36] LABS: Absolute Lymphocyte Count 0.79 X10^3/uL (0.83-4.51); Absolute Neutrophil Count 5.4 X10^3/uL (2.0-7.7); Basophil# 0.02 X10^3/uL; Basophil% 0.3 % (0-1); Eosinophil# 0.75 X10^3/uL; Eosinophils% 9.4 % (0-5); Hemoglobin 6.8 g/dL (13.0-16.5); Lymphocyte # 0.79 X10^3/ul (4.0); Lymphocyte % 9.9 % (19-41); Mean Corp Hgb Conc 30.9 g/dL (32-36); Mean Corpuscular Hgb 30.2 pg (27.0-32.0); Mean Corpuscular Volume 97.8 fL (80-94); Monocyte% 11.3 % (0-10); NRBC Flagged by Analyzer 0 % (0-5); Neutrophil # 5.44 X10^3/uL (2.7-7.7); Neutrophil % 68.6 % (47-70); Platelet Count 210 K/mm3 (150-450); RBC Distribution Width CV 15.5 % (11.6-14.6); Red Blood Count 2.25 M/mm3 (4.6-6.2); White Blood Count 7.9 K/mm3 (4.4-11.0)
--- NOTE | 2020-07-07 18:40 | RAD_ITS ---
STUDY: X-RAY CHEST REASON FOR EXAM: Male, 79 years old. Cough TECHNIQUE: Single frontal view of the chest. COMPARISON: 03/23/2020. FINDINGS: Cardiac silhouette enlarged. Pulmonary vascularity prominent. Aorta unremarkable. Median sternotomy wires. No focal airspace opacities. No pleural effusions. Right midlung granuloma. Upper abdomen unremarkable. Osseous structures intact. No pneumothorax. RAD/Chest 1 View (Portable) IMPRESSION: Cardiomegaly and mild pulmonary vascular congestion. Electronically Signed: Torito Zacarias MD at 19:07 EST Tel , Service support ,
[2020-07-07 18:42] LABS: International Normalized Ratio 1.3; Prothrombin Time (Protime)PT. 15.9 SECONDS (11.7-14.9)
[2020-07-07 18:50] LABS: ALB/GLOB Ratio 0.7 RATIO (0.9-2.4); AST(SGOT) 13 U/L (15-37); Alanine Aminotransfer ALT/SGPT 27 U/L (16-61); Albumin, Serum 2.7 g/dL (3.2-5.0); Alkaline Phosphatase 61 U/L (45-117); Anion Gap 13 (5-15); BUN 128 mg/dL (7-18); BUN/Creat Ratio 12.8 RATIO (10-20); Calcium,Total 8.2 mg/dL (8.5-10.1); Chloride 106 mmol/L (98-107); EST Glomerular Filtration Rate 5 mL/min (>60); Est Glom Filt Rate - Afr Amer 7 mL/min (>60); Estimated Creatinine Clearance 5.69 ml/min; Glucose 109 mg/dL (74-106); Potassium 5.5 mmol/L (3.5-5.1); Protein, Total 6.7 g/dL (6.4-8.2); Sodium Level 136 mmol/L (136-145)
--- NOTE | 2020-07-07 19:48 | HP.PCM_ITS ---
Problem List (1) Acute blood loss anemia (ABLA) Status: Acute (2) Acute renal failure Status: Acute (3) Hyperkalemia Status: Acute (4) Anemia Status: Acute (5) RAMIN (acute kidney injury) Status: Chronic (6) Varicose veins with ulcer and inflammation Status: Chronic (7) Onychomycosis Status: Chronic (8) Venous insufficiency Status: Chronic (9) Peripheral vascular disease Status: Chronic (10) Chronic acquired lymphedema Status: Chronic (11) Hypothyroidism Status: Chronic (12) Hypertension Status: Chronic (13) Status post coronary artery bypass graft Status: Chronic (14) Coronary artery disease Status: Chronic History of Present Illness Date of Admission: 07/07/20 Chief Complaint: abnormal labs The patient is a 79 year old M with a significant history of CAD status post CABG; 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 Reportedly patient's had elevated BUN and creatinine. Also his hemoglobin was low. At the emergency department his creatinine was 5.5. His hemoglobin was 6.8. Patient reports intermittent bright red blood per rectum. Emergent department doctor discussed the case with nephrology. Of note patient had Covid 19 virus about 3 months ago and is still coughing. Past Medical History Past Medical History (Chronic Problems): Chronic Problems RAMIN (acute kidney injury) (Chronic) Varicose veins with ulcer and inflammation (Chronic) Onychomycosis (Chronic) Venous insufficiency (Chronic) Peripheral vascular disease (Chronic) Chronic acquired lymphedema (Chronic) Hypothyroidism (Chronic) Hypertension (Chronic) Status post coronary artery bypass graft (Chronic) Coronary artery disease (Chronic) Allergies No Known Allergies Allergy (Verified 07/07/20 17:36) Home Medications: Ambulatory Orders Medication Instructions Recorded Ammonium Lactate 1 applic TP BID 07/07/20 Docusate Sodium [Colace] 200 mg PO QHS 07/07/20 Furosemide [Lasix] 40 mg PO DAILY 07/07/20 Levothyroxine Sodium [Synthroid] 150 mcg PO DAILY 07/07/20 Melatonin 3 mg PO QHS 07/07/20 Mirtazapine 7.5 mg PO QHS 07/07/20 Omeprazole 40 mg PO DAILY 07/07/20 Surgical History: coronary bypass surgery Psychiatric History: No pertinent psych hx Smoking Status: Former smoker Tobacco Use: Cigarettes - *Family History Maternal History Items: Heart Disease Paternal History Items: Heart Disease Review of Systems Constitutional: Denies: Chills, Fever, Weight Change HEENT: Denies: Head Aches, Sinus Congestion, Sinus Drainage Cardiovascular: Reports: Edema. Denies: Chest Pain, Palpitations Respiratory: Reports: Cough, Shortness of Breath Gastrointestinal: Reports: Hematochezia. Denies: Abdominal Pain, Nausea, Vomiting Genitourinary: Denies: Dysuria Musculoskeletal: Denies: Joint Pain, Joint Tenderness Skin: Denies: Rash, Wounds Neurological: Denies: Numbness, Tingling, Focal weakness Psychiatric: Denies: Anxiety, Depression, Homicidal Ideations, Suicidal Ideations Hematologic/ Lymphatic: Denies: Easy Bruising, Easy Bleeding VTE Information - Inpt Only VTE Present on Admission: No VTE Mechan Device Prophylaxis: SCD's VTE Pharm Prophylaxis ordered?: No Patient Problems: Active and Suspected Problems Hyperkalemia (Acute) Anemia (Acute) Acute blood loss anemia (ABLA) (Acute) Acute renal failure (Acute) - Physical Exam Vitals/I&O's: Vital Signs Temp Pulse Resp BP Pulse Ox 97.5 F L 101 H 18 147/79 H 99 07/07/20 17:36 07/07/20 17:39 07/07/20 17:39 07/07/20 17:39 07/07/20 17:39 Oxygen Delivery Method Room Air Weight: 75.5 kg Body Mass Index (BMI) 26.0 General: Alert, Oriented x3, Cooperative HEENT: Atraumatic, PERRLA, EOMI, Normocephalic Neck: Supple, No JVD, Negative Carotid Bruits Lungs: Rhonchi, Tachypneic Cardiovascular: Normal S1, Normal S2, Tachycardic Abdomen: Bowel Sounds Present, Soft, Non Tender Extremities: Capillary Refill Less than 3 Seconds, Edema - Bilateral lower extremities Skin: No rashes, No breakdown Musculoskeletal: No Tenderness to Palpation of Joints or Extremities Neurological: Cranial nerves II-XII grossly intact Psych/Mental Status: Normal Affect, Appropriate Laboratory Results 07/07/20 18:22: WBC 7.9, RBC 2.25 L, Hgb 6.8 L, Hct 22.0 L, MCV 97.8 H, MCH 30.2, MCHC 30.9 L, RDW Std Deviation 55.0 H, RDW Coeff of Jh 15.5 H, Plt Count 210, MPV 10.0, Immature Gran % (Auto) 0.500, Neut % (Auto) 68.6, Lymph % (Auto) 9.9 L, [place] % (Auto) 11.3 H, Eos % (Auto) 9.4 H, Baso % (Auto) 0.3, Absolute Neuts (auto) 5.4, Absolute Lymphs (auto) 0.79 L, Nucleated RBC % 0 07/07/20 18:22: PT 15.9 H, INR 1.3 07/07/20 18:22: Sodium 136, Potassium 5.5 H, Chloride 106, Carbon Dioxide 17.0 L , Anion Gap 13, BUN 128 H*, Creatinine 10.00 H*, Estim Creat Clear Calc 5.69, Est GFR (MDRD) Af Amer 7 L, Est GFR (MDRD) Non-Af 5 L, BUN/Creatinine Ratio 12.8, Glucose 109 H, Calcium 8.2 L, Total Bilirubin 0.30, AST 13 L, ALT 27, Alkaline Phosphatase 61, Total Protein 6.7, Albumin 2.7 L, Globulin 4.0, Albumin/Globulin Ratio 0.7 L 07/07/20 18:22: Blood Type Pending, Antibody Screen Pending 07/07/20 18:22: Crossmatch See Detail Assessment/Plan All Active Problems Hyperkalemia (Acute) Anemia (Acute) Acute blood loss anemia (ABLA) (Acute) Acute renal failure (Acute) The patient is a 79 year old M with a significant history of CAD status post CABG; 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 Acute blood loss anemia Hold Pletal N.p.o. after midnight. Discussed emergent department doctor to give patient Protonix. Protonix 40 mg IV twice daily ordered. Discussed with general surgery who will follow. Received normal saline bolus at emergency department. Also 2 units of blood ordered from the ED. Check H&H after completion secondary to bladder. Normal saline 75 MLS per hour for 1 L ordered. Occult stools ordered. Acute renal failure and hyperkalemia Jefferson catheter was placed per nephrology recommendation. Two liters of urine was drained after Jefferson was placed and Jefferson catheter was subsequently clamped. Likely obstructive. Per nephrology's recommendation patient was given an amp of bicarb and Kayex alate at the emergency department. MiraLAX ordered. Inpatient consult nephrology. BMP in a.m. Renal diet Post Covid syndrome Schedule a DuoNeb. Mucinex ordered. Suction as needed. Lymphedema Shilo wrap to bilateral legs continued. Hypothyroidism Synthroid continued DVT prophylaxis No chemical chemoprophylaxis secondary to GI bleed. SCD ordered. Inpatient E&M: 86144 Init Hosp L3
[2020-07-07] MEDS: Sodium Bicarbonate 8.4% 50 ML Syringe 50 MEQ IV (20:19)
[2020-07-07] MEDS: Sodium Polystyrene Sulfonate 15 GM/60 ML UDC 30 GM PO (20:20)
[2020-07-07 20:32] LABS: Urine Sodium 49 mmol/L (Not Establ.)
[2020-07-07] MEDS: 0.9% Normal Saline 1,000 ML 75 ML IV (21:34)
[2020-07-07] MEDS: guaiFENesin 1,200 MG Tablet 1200 MG PO (21:38)
[2020-07-07] MEDS: Polyethylene Glycol 3350 17 GM PACKET PO (21:38)
[2020-07-07] MEDS: Docusate Sodium 100 MG Capsule 200 MG PO (21:38)
[2020-07-07] MEDS: Ammonium Lactate 225 gm Bottle 1 APPLIC TOPICAL (21:39)
[2020-07-07] MEDS: MELATONIN 3 MG TABLET PO (21:40)
[2020-07-07] MEDS: Mirtazapine 15 MG Tablet 7.5 MG PO (21:40)
--- NOTE | 2020-07-07 22:45 | NURSING ---
Called respiratory for breathing treatment.
[2020-07-07] MEDS: Ipratropium/Albuterol Sulfate 3 ML AMPUL.NEB INHALATION (23:00)
--- NOTE | 2020-07-07 23:53 | EKG12_ITS ---
Test Reason : TACHY Blood Pressure : / mmHG Vent. Rate : 130 BPM Atrial Rate : 130 BPM P-R Int : 176 ms QRS Dur : 094 ms QT Int : 296 ms P-R-T Axes : 000 048 011 degrees QTc Int : 435 ms Sinus tachycardia Nonspecific ST abnormality Abnormal ECG Confirmed by ALEXIS SALINAS, CHANI ([id number]), legal editor TISHA WILKES ([id number]) on 07/12/2020 2:47:58 PM Referred By: DR ANDERSON Confirmed By:CHANI ESPINOZA MD
[2020-07-07] MEDS: Ondansetron 4 MG/2 ML Vial IV (23:57)
[2020-07-08] VITALS (30 sets, daily range): BP systolic 102–169; BP diastolic 57–99; PULSE 97–135; RESP 12–32; TEMP 36.4–39.2; O2SAT 92–100
[2020-07-08] MEDS: Furosemide 40 MG/4 ML Vial IV ×2 (00:12→01:05)
--- NOTE | 2020-07-08 00:46 | NURSING ---
Mariangel from [facility] called to start pt on bipap 12/.
[2020-07-08] MEDS: LORazepam 2 MG/ML Syringe 1 MG IV (00:58)
[2020-07-08] MEDS: MethylPREDNISolone 125 MG/2 ML Vial IV (00:59)
[2020-07-08 01:51] LABS: Allen Test Positive; Base Excess -10 mmol/L (-2 to +2); Bicarbonate 14.9 mmol/L (22-26); Blood Gas Specimen Type ART; O2 Delivery Device Cannula; PO2 85 mmHG (75-100); SITE R Radial; SO2 97 % (95-99); Total Carbon Dioxide 16 mmol/L; pCO2 22.8 mmHg (35-45); pH 7.42 (7.35-7.45)
[2020-07-08 02:52] LABS: Hematocrit 23.4 % (40-54); Hemoglobin 7.4 g/dL (13.0-16.5)
--- NOTE | 2020-07-08 03:49 | NURSING ---
Pt given 1u PRBC, 2u ordered, 2nd unit held. Sodium Bicarb order discontinued. Pt given 40mg Lasix x2 IV. Bipap ordered. Pt is currently on 6L O2 Nasal cannula, 97%.
--- NOTE | 2020-07-08 05:55 | US_ITS ---
STUDY: RENAL ULTRASOUND - COMPLETE REASON FOR EXAM: Male, 79 years old. renal failure TECHNIQUE: Ultrasound evaluation of the kidneys was performed with real-time and static doll-scale imaging. COMPARISON: None. FINDINGS: RIGHT KIDNEY: Normal location of the right kidney, which is normal in size. The right kidney measures 11.3 cm. Increased echogenicity renal cortex consistent with chronic medical renal disease or advanced age. The renal cortex measures 1.7 cm. There is no right renal mass or cyst. There are no right renal calculi. There is moderate hydronephrosis of the right kidney. DISTAL RIGHT URETER: There is non-visualization of the distal right ureter. There is no demonstrated right ureterovesical junction calculus. There is a visualized right ureteral jet. LEFT KIDNEY: Normal location of the left kidney, which is normal in size. The left kidney measures 11.9 cm. Increased echogenicity renal cortex consistent with chronic medical renal disease or advanced age. The renal cortex measures 1.3 cm. There is no left renal mass or cyst. There are no left renal calculi. There is severe hydronephrosis of the left kidney. DISTAL LEFT URETER: There is non-visualization of the distal left ureter. There is no demonstrated left ureterovesical junction calculus. There is a visualized left ureteral jet. US/Kidney and Bladder IMPRESSION: Moderate right hydronephrosis and severe left hydronephrosis. Correlation with CT is recommended. Electronically Signed: Timothy Ratliff MD at 11:07 EST Tel , Service support ,
[2020-07-08 06:29] LABS: Hematocrit 24.2 % (40-54); Hemoglobin 7.5 g/dL (13.0-16.5); Mean Corpuscular Hgb 29.4 pg (27.0-32.0); Mean Corpuscular Volume 94.9 fL (80-94); Mean Platelet Vol. 10.2 fl (6.2-12.0); Platelet Count 184 K/mm3 (150-450); RBC Distribution Width CV 16.9 % (11.6-14.6); RBC Distribution Width SD 58.4 fl (35.1-43.9); Red Blood Count 2.55 M/mm3 (4.6-6.2); White Blood Count 15.2 K/mm3 (4.4-11.0)
[2020-07-08 06:59] LABS: Albumin, Serum 2.4 g/dL (3.2-5.0); BUN 115 mg/dL (7-18); BUN/Creat Ratio 13.2 RATIO (10-20); Calcium,Total 7.9 mg/dL (8.5-10.1); Chloride 112 mmol/L (98-107); Creatinine, Serum 8.69 mg/dL (0.70-1.30); EST Glomerular Filtration Rate 6 mL/min (>60); Est Glom Filt Rate - Afr Amer 8 mL/min (>60); Estimated Creatinine Clearance 6.55 ml/min; Glucose 134 mg/dL (74-106); Phosphorus 6.6 mg/dL (2.5-4.9); Potassium 4.3 mmol/L (3.5-5.1); Sodium Level 144 mmol/L (136-145)
[2020-07-08] MEDS: Ipratropium/Albuterol Sulfate 3 ML AMPUL.NEB INHALATION ×3 (07:36→19:47)
--- NOTE | 2020-07-08 07:48 | CON.PCM_ITS ---
Reason for Consult Date of Consultation: 07/08/20 Reason for Consultation: Urinary retention and gross hematuria History of Present Illness: The patient is a 79 year old male with multiple medical problems who presented to the hospital with retention of urine he had over 2 L in his bladder Jefferson catheter was placed and also had some blood in the urine after the catheter was placed this is probably due to bladder distention do not think any pathology here he did have retention of urine which pretty significant and probably the cause of his creatinine what to watch his creatinine after the Jefferson was placed see if it comes down hopefully the house. Past Medical History Past Medical History (Chronic Problems): Chronic Problems RAMIN (acute kidney injury) (Chronic) Varicose veins with ulcer and inflammation (Chronic) Onychomycosis (Chronic) Venous insufficiency (Chronic) Peripheral vascular disease (Chronic) Chronic acquired lymphedema (Chronic) Hypothyroidism (Chronic) Hypertension (Chronic) Status post coronary artery bypass graft (Chronic) Coronary artery disease (Chronic) Allergies No Known Allergies Allergy (Verified 07/07/20 17:36) Home Medications: Ambulatory Orders Medication Instructions Recorded Ammonium Lactate 1 applic TP BID 07/07/20 Docusate Sodium [Colace] 200 mg PO QHS 07/07/20 Furosemide [Lasix] 40 mg PO DAILY 07/07/20 Levothyroxine Sodium [Synthroid] 150 mcg PO DAILY 07/07/20 Melatonin 3 mg PO QHS 07/07/20 Mirtazapine 7.5 mg PO QHS 07/07/20 Omeprazole 40 mg PO DAILY 07/07/20 Surgical History: coronary bypass surgery Psychiatric History: No pertinent psych hx Smoking Status: Former smoker Tobacco Use: Cigarettes - *Family History Maternal History Items: Heart Disease Paternal History Items: Heart Disease Review of Systems Constitutional: Denies: Chills, Fever, Weight Change HEENT: Denies: Head Aches, Sinus Congestion, Sinus Drainage Cardiovascular: Denies: Chest Pain, Palpitations Respiratory: Denies: Cough, Shortness of breath at rest, Sputum production Gastrointestinal: Denies: Abdominal Pain, Nausea, Vomiting Genitourinary: Denies: Dysuria Musculoskeletal: Denies: Joint Pain, Joint Tenderness Skin: Denies: Rash, Wounds Neurological: Denies: Numbness, Tingling, Focal weakness Psychiatric: Denies: Anxiety, Depression, Homicidal Ideations, Suicidal Ideations Hematologic/ Lymphatic: Denies: Easy Bruising, Easy Bleeding Physical Exam - Physical Exam Vital Signs Temp 99.4 F H 07/08/20 05:24 Pulse 101 H 07/08/20 05:24 Resp 18 07/08/20 05:24 BP 124/63 H 07/08/20 05:24 Pulse Ox 97 07/08/20 05:24 Intake & Output 07/06/20 07/07/20 07/08/20 23:59 23:59 23:59 Intake Total 1180 / 1180 110 / 110 Output Total 3350 / 3350 2675 / 2675 Balance -2170 / -2170 -2565 / -2565 Weight: 71.4 kg Intake: Intake, IV Amount 1180 / 1180 110 / 110 0.9% Normal Saline 1,000 ML @ 1000 / 1000 1000 mls/hr IV .Q1H ONE Rx#: [id number] 0.9% Normal Saline 1,000 ML @ 145 / 145 75 mls/hr IV .[id number] [facility] Rx#: [id number] Protonix 40 MG In 0.9% Normal 110 / 110 Saline 100 ML @ 330 mls/hr IV Q12 [facility] Rx#:[id number] Protonix 80 MG In 0.9% Normal 35 / 35 Saline 50 ML @ 420 mls/hr IV BOLUS X1 [facility] Rx#:[id number] Blood Product 0 / 0 0 / 0 Leuko-Reduced Red Blood Cells 0 / 0 0 / 0 Unit [id number] Output: Urine 3350 / 3350 2675 / 2675 General: Alert HEENT: Atraumatic Oral: Moist Mucosa Neck: Supple Lungs: Normal air movement Cardiovascular: Regular Rhythm Microbiology Past 72 Hours 07/08/20 01:30 Respiratory Panel (PCR) - Final Mucosa - Nasopharyngeal 07/08/20 02:15 SARS-CoV-2 Antigen (Rapid) - Final Mucosa - Nasopharyngeal Laboratory Tests Past 24 Hrs 07/07/20 07/07/20 07/07/20 18:22 18:22 18:22 WBC 7.9 RBC 2.25 L Hgb 6.8 L Hct 22.0 L MCV 97.8 H MCH 30.2 MCHC 30.9 L RDW Std Deviation 55.0 H RDW Coeff of Jh 15.5 H Plt Count 210 MPV 10.0 Immature Gran % (Auto) 0.500 Neut % (Auto) 68.6 Lymph % (Auto) 9.9 L [place] % (Auto) 11.3 H Eos % (Auto) 9.4 H Baso % (Auto) 0.3 Absolute Neuts (auto) 5.4 Absolute Lymphs (auto) 0.79 L Nucleated RBC % 0 PT 15.9 H INR 1.3 Specimen Type Sample Site pH Bicarbonate Actual Total CO2 Base Excess O2 Saturation ABG pCO2 ABG pO2 Ej Test O2 Delivery Device Liter Flow Sodium 136 Potassium 5.5 H Chloride 106 Carbon Dioxide 17.0 L Anion Gap 13 BUN 128 H* Creatinine 10.00 H* Estim Creat Clear Calc 5.69 Est GFR (MDRD) Af Amer 7 L Est GFR (MDRD) Non-Af 5 L BUN/Creatinine Ratio 12.8 Glucose 109 H Calcium 8.2 L Phosphorus Total Bilirubin 0.30 AST 13 L ALT 27 Alkaline Phosphatase 61 Total Protein 6.7 Albumin 2.7 L Globulin 4.0 Albumin/Globulin Ratio 0.7 L Ur Random Sodium Urine Creatinine Blood Type Antibody Screen Crossmatch 07/07/20 07/07/20 07/07/20 18:22 18:22 18:22 WBC RBC Hgb Hct MCV MCH MCHC RDW Std Deviation RDW Coeff of Jh Plt Count MPV Immature Gran % (Auto) Neut % (Auto) Lymph % (Auto) [place] % (Auto) Eos % (Auto) Baso % (Auto) Absolute Neuts (auto) Absolute Lymphs (auto) Nucleated RBC % PT INR Specimen Type Sample Site pH Bicarbonate Actual Total CO2 Base Excess O2 Saturation ABG pCO2 ABG pO2 Ej Test O2 Delivery Device Liter Flow Sodium Potassium Chloride Carbon Dioxide Anion Gap BUN Creatinine Estim Creat Clear Calc Est GFR (MDRD) Af Amer Est GFR (MDRD) Non-Af BUN/Creatinine Ratio Glucose Calcium Phosphorus Total Bilirubin AST ALT Alkaline Phosphatase Total Protein Albumin Globulin Albumin/Globulin Ratio Ur Random Sodium Urine Creatinine Blood Type TNP A NEGATIVE Antibody Screen NEGATIVE Crossmatch See Detail 07/07/20 07/07/20 07/08/20 20:15 20:15 01:46 WBC RBC Hgb Hct MCV MCH MCHC RDW Std Deviation RDW Coeff of Jh Plt Count MPV Immature Gran % (Auto) Neut % (Auto) Lymph % (Auto) [place] % (Auto) Eos % (Auto) Baso % (Auto) Absolute Neuts (auto) Absolute Lymphs (auto) Nucleated RBC % PT INR Specimen Type ART Sample Site R Radial pH 7.42 Bicarbonate Actual 14.9 L Total CO2 16 Base Excess -10 L O2 Saturation 97 ABG pCO2 22.8 L ABG pO2 85 Ej Test Positive O2 Delivery Device Cannula Liter Flow 6.0 Sodium Potassium Chloride Carbon Dioxide Anion Gap BUN Creatinine Estim Creat Clear Calc Est GFR (MDRD) Af Amer Est GFR (MDRD) Non-Af BUN/Creatinine Ratio Glucose Calcium Phosphorus Total Bilirubin AST ALT Alkaline Phosphatase Total Protein Albumin Globulin Albumin/Globulin Ratio Ur Random Sodium 49 Urine Creatinine 31.10 Blood Type Antibody Screen Crossmatch 07/08/20 07/08/20 07/08/20 02:45 06:02 06:02 WBC 15.2 H RBC 2.55 L Hgb 7.4 L 7.5 L Hct 23.4 L 24.2 L MCV 94.9 H MCH 29.4 MCHC 31.0 L RDW Std Deviation 58.4 H RDW Coeff of Jh 16.9 H Plt Count 184 MPV 10.2 Immature Gran % (Auto) Neut % (Auto) Lymph % (Auto) [place] % (Auto) Eos % (Auto) Baso % (Auto) Absolute Neuts (auto) Absolute Lymphs (auto) Nucleated RBC % PT INR Specimen Type Sample Site pH Bicarbonate Actual Total CO2 Base Excess O2 Saturation ABG pCO2 ABG pO2 Ej Test O2 Delivery Device Liter Flow Sodium 144 Potassium 4.3 Chloride 112 H Carbon Dioxide 17.0 L Anion Gap BUN 115 H* Creatinine 8.69 H* Estim Creat Clear Calc 6.55 Est GFR (MDRD) Af Amer 8 L Est GFR (MDRD) Non-Af 6 L BUN/Creatinine Ratio 13.2 Glucose 134 H Calcium 7.9 L Phosphorus 6.6 H Total Bilirubin AST ALT Alkaline Phosphatase Total Protein Albumin 2.4 L Globulin Albumin/Globulin Ratio Ur Random Sodium Urine Creatinine Blood Type Antibody Screen Crossmatch Assessment/Plan All Active Problems Hyperkalemia (Acute) Anemia (Acute) Acute blood loss anemia (ABLA) (Acute) Acute renal failure (Acute) 79-year-old male multiple medical problems presents with bleeding also had retention of urine the urine is now clear this is prior to his postobstructive diuresis and may be low but a Jefferson trauma with a catheter when urine is crystal clear from my perspective no intervention is necessary from urology at this point except for continued catheter drainage and monitor creatinine to see if it improves call me with questions.
--- NOTE | 2020-07-08 08:30 | PCM.CONS.GEN ---
Problem List (1) Anemia Status: Acute Qualifiers: Anemia type: unspecified type Qualified Code(s): D64.9 - Anemia, unspecified Reason for Consult Date of Consultation: 07/08/20 History of Present Illness: The patient is a 79 year old M admitted to the hospital for abnormal labs. A Jefferson catheter was placed during ER admission and 2 L of urine with hematuria was returned. The patient reported to ED physician that he has had intermittent episodes of bright red bleeding per rectum. Rectal exam in the emergency room showed no blood. Patient was unable to be interviewed this morning as he was very tired and had been up all night. Past Medical History Past Medical History (Chronic Problems): Chronic Problems RAMIN (acute kidney injury) (Chronic) Varicose veins with ulcer and inflammation (Chronic) Onychomycosis (Chronic) Venous insufficiency (Chronic) Peripheral vascular disease (Chronic) Chronic acquired lymphedema (Chronic) Hypothyroidism (Chronic) Hypertension (Chronic) Status post coronary artery bypass graft (Chronic) Coronary artery disease (Chronic) Allergies No Known Allergies Allergy (Verified 07/07/20 17:36) Home Medications: Ambulatory Orders Medication Instructions Recorded Ammonium Lactate 1 applic TP BID 07/07/20 Docusate Sodium [Colace] 200 mg PO QHS 07/07/20 Furosemide [Lasix] 40 mg PO DAILY 07/07/20 Levothyroxine Sodium [Synthroid] 150 mcg PO DAILY 07/07/20 Melatonin 3 mg PO QHS 07/07/20 Mirtazapine 7.5 mg PO QHS 07/07/20 Omeprazole 40 mg PO DAILY 07/07/20 Surgical History: coronary bypass surgery Psychiatric History: No pertinent psych hx Smoking Status: Former smoker Tobacco Use: Cigarettes - *Family History Maternal History Items: Heart Disease Paternal History Items: Heart Disease Review of Systems Unable to obtain accurate/complete ROS d/t: Patient very fatigued and difficult to arouse this morning Patient Problems: Active and Suspected Problems Hyperkalemia (Acute) Anemia (Acute) Acute blood loss anemia (ABLA) (Acute) Acute renal failure (Acute) Anemia (Acute) - Physical Exam Vitals/I&O's: Vital Signs Temp Pulse Resp BP Pulse Ox 99.4 F H 101 H 18 124/63 H 97 07/08/20 05:24 07/08/20 05:24 07/08/20 05:24 07/08/20 05:24 07/08/20 05:24 Oxygen Flow Rate (L/min) 6 Oxygen Delivery Method Nasal Cannula Weight: 157 lb 6.561 oz Body Mass Index (BMI) 24.6 Intake and Output for Last 24 Hours 07/06/20 07/07/20 07/08/20 23:59 23:59 23:59 Intake Total 1180 / 1180 110 / 110 Output Total 3350 / 3350 2675 / 2675 Balance -2170 / -2170 -2565 / -2565 Neck: No JVD Lungs: Normal air movement Cardiovascular: Regular rate, Regular Rhythm Abdomen: Soft, Non Tender, Non-Distended Musculoskeletal: No Muscle Wasting Microbiology Past 72 Hours 07/08/20 01:30 Mucosa - Nasopharyngeal Respiratory Panel (PCR) - Final 07/08/20 02:15 Mucosa - Nasopharyngeal SARS-CoV-2 Antigen (Rapid) - Final Laboratory Results 07/07/20 18:22: WBC 7.9, RBC 2.25 L, Hgb 6.8 L, Hct 22.0 L, MCV 97.8 H, MCH 30.2, MCHC 30.9 L, RDW Std Deviation 55.0 H, RDW Coeff of Jh 15.5 H, Plt Count 210, MPV 10.0, Immature Gran % (Auto) 0.500, Neut % (Auto) 68.6, Lymph % (Auto) 9.9 L, [place] % (Auto) 11.3 H, Eos % (Auto) 9.4 H, Baso % (Auto) 0.3, Absolute Neuts (auto) 5.4, Absolute Lymphs (auto) 0.79 L, Nucleated RBC % 0 07/07/20 18:22: PT 15.9 H, INR 1.3 07/07/20 18:22: Sodium 136, Potassium 5.5 H, Chloride 106, Carbon Dioxide 17.0 L, Anion Gap 13, BUN 128 H*, Creatinine 10.00 H*, Estim Creat Clear Calc 5.69, Est GFR (MDRD) Af Amer 7 L, Est GFR (MDRD) Non-Af 5 L, BUN/Creatinine Ratio 12.8, Glucose 109 H, Calcium 8.2 L, Total Bilirubin 0.30, AST 13 L, ALT 27, Alkaline Phosphatase 61, Total Protein 6.7, Albumin 2.7 L, Globulin 4.0, Albumin/Globulin Ratio 0.7 L 07/07/20 18:22: Blood Type TNP, Antibody Screen NEGATIVE 07/07/20 18:22: Crossmatch See Detail 07/07/20 18:22: Blood Type A NEGATIVE 07/07/20 20:15: Ur Random Sodium 49 07/07/20 20:15: Urine Creatinine 31.10 07/08/20 01:46: Specimen Type ART, Sample Site R Radial, pH 7.42, Bicarbonate Actual 14.9 L, Total CO2 16, Base Excess -10 L, O2 Saturation 97, ABG pCO2 22.8 L, ABG pO2 85, Ej Test Positive, O2 Delivery Device Cannula, Liter Flow 6.0 07/08/20 02:45: Hgb 7.4 L, Hct 23.4 L 07/08/20 06:02: WBC 15.2 H, RBC 2.55 L, Hgb 7.5 L, Hct 24.2 L, MCV 94.9 H, MCH 29.4, MCHC 31.0 L, RDW Std Deviation 58.4 H, RDW Coeff of Jh 16.9 H, Plt Count 184, MPV 10.2 07/08/20 06:02: Sodium 144, Potassium 4.3, Chloride 112 H, Carbon Dioxide 17.0 L, BUN 115 H*, Creatinine 8.69 H*, Estim Creat Clear Calc 6.55, Est GFR (MDRD) Af Amer 8 L, Est GFR (MDRD) Non-Af 6 L, BUN/Creatinine Ratio 13.2, Glucose 134 H, Calcium 7.9 L, Phosphorus 6.6 H, Albumin 2.4 L Current Medications Acetaminophen (Acetaminophen 325 Mg Tablet) 650 mg PO Q6H PRN PRN PRN Reason: Pain Score 1-10/Temp > 100.7 F Albuterol Sulfate (Albuterol 2.5 Mg/3 Ml Vial.Neb.) 2.5 mg INHALATION Q2H PRN PRN PRN Reason: sob/wheezing Albuterol/Ipratropium (Ipratropium/Albuterol Sulfate 3 Ml Ampul.Neb) 3 ml INHALATION Q4HWA.RT [facility] Last Admin: 07/08/20 07:36 Dose: 3 ml Documented by: Docusate Sodium (Docusate Sodium 100 Mg Capsule) 200 mg PO QHS [facility] Last Admin: 07/07/20 21:38 Dose: 200 mg Documented by: Guaifenesin (Guaifenesin 1,200 Mg Tablet) 1,200 mg PO BID [facility] Last Admin: 07/07/20 21:38 Dose: 1,200 mg Documented by: Sodium Chloride () 1,000 mls @ 75 mls/hr IV .[id number] [facility] Stop: 07/08/20 10:09 Last Infusion: 07/07/20 23:30 Dose: 0 mls/hr Documented by: Pantoprazole Sodium 40 mg/ (Sodium Chloride) 110 mls @ 330 mls/hr IV Q12 [facility] Last Infusion: 07/08/20 05:46 Dose: Infused Documented by: Lactic Acid (Ammonium Lactate 225 Gm Bottle) 1 applic TOPICAL BID [facility]; Protocol Last Admin: 07/07/20 21:39 Dose: 1 applicatio Documented by: Levothyroxine Sodium (Levothyroxine 150 Mcg Tablet) 150 mcg PO DAILY@0600 [facility] Last Admin: 07/08/20 05:12 Dose: Not Given Documented by: Melatonin (Melatonin 3 Mg Tablet) 3 mg PO QHS [facility] Last Admin: 07/07/20 21:40 Dose: 3 mg Documented by: Methylprednisolone (Methylprednisolone 40 Mg/Ml Vial) 40 mg IV Q8 [facility] Last Admin: 07/08/20 05:16 Dose: 40 mg Documented by: Mirtazapine (Mirtazapine 15 Mg Tablet) 7.5 mg PO QHS [facility] Last Admin: 07/07/20 21:40 Dose: 7.5 mg Documented by: Ondansetron HCl (Ondansetron 4 Mg/2 Ml Vial) 4 mg IV Q8H PRN PRN PRN Reason: NAUSEA/VOMITING Last Admin: 07/07/20 23:57 Dose: 4 mg Documented by: Sodium Chloride (0.9% Saline Lock 10 Ml Syringe) 10 - 40 ml IV UD PRN PRN Reason: SALINE FLUSH Assessment/Plan All Active Problems Hyperkalemia (Acute) Anemia (Acute) Acute blood loss anemia (ABLA) (Acute) Acute renal failure (Acute) Anemia (Acute) 79-year-old male with anemia 1. The patient had bladder outlet obstruction and Jefferson catheter was placed and the patient is a copious urine output. He had an external hematuria which is resolving. The urine in the Jefferson seems to be clear. There was history given in the emergency room of intermittent bright red blood per rectum. The patient is anemic and received 1 unit of blood so far. 2. Patient experienced fevers overnight and he is tachycardic. The patient also has elevated white count this morning. I would recommend optimization of all of his other medical issues and I can perform a colonoscopy next week as long as everything stabilizes. I am on-call over the weekend and I can perform a colonoscopy urgently if needed otherwise I will see how his hospital course goes and plan for colonoscopy at a later date once fluid is balanced and creatinine is returning to his baseline. Eliezer Wilson MD Pager: [facility] [address] [place] [address], [address] [place] [phone] Office:
--- NOTE | 2020-07-08 09:10 | CASEMGMT ---
Addendum entered by Katia Quevedo 07/08/20 10:46: SW in to speak with pt. SW introduced self and role at [facility]. Pt is alert and orientated x3. Pt confirms he is from [facility]. Patient was provided a list of SNF providers including quality and resource use data and consistent with the patient?s preferred geographic region, medical needs, and insurance network. Pt's preferred provide is to return to [facility]. SW faxed updated clinicals to [facility]. Original Note: Social Work Note Pt is listed as being from [facility]. SANDRA placed a call to Karma at [facility]. Karma states pt is alf resident, is able to return when medically cleared. Katia Quevedo AGRICULTURAL EDUCATION TEACHER, MEDICAL IMAGING TECH
[2020-07-08] MEDS: Ammonium Lactate 225 gm Bottle 1 APPLIC TOPICAL ×2 (10:39→20:39)
[2020-07-08] MEDS: guaiFENesin 1,200 MG Tablet 1200 MG PO ×2 (10:40→20:39)
[2020-07-08] MEDS: 0.9% Saline Lock 10 ML Syringe IV ×2 (10:40→14:26)
--- NOTE | 2020-07-08 13:11 | PCM.PN.HOSP ---
Patient Problems: Active and Suspected Problems Hyperkalemia (Acute) Anemia (Acute) Acute blood loss anemia (ABLA) (Acute) Acute renal failure (Acute) Anemia (Acute) Subjective: Feels much better now that his Jefferson is in place. He has draining well and his creatinine is improving slowly. Vitals/I&O's: Vital Signs Temp Pulse Resp BP Pulse Ox 98.5 F 100 20 H 120/74 97 07/08/20 08:27 07/08/20 11:25 07/08/20 11:25 07/08/20 08:27 07/08/20 12:15 Oxygen Flow Rate (L/min) 2 Oxygen Delivery Method Room Air Weight: 157 lb 6.561 oz Body Mass Index (BMI) 24.6 Intake and Output for Last 24 Hours 07/06/20 07/07/20 07/08/20 23:59 23:59 23:59 Intake Total 1180 / 1180 310 / 310 Output Total 3350 / 3350 4875 / 4875 Balance -2170 / -2170 -4565 / -4565 General: Alert, Oriented x3, Cooperative, No apparent distress HEENT: Atraumatic, PERRLA, EOMI, Normocephalic Oral: Moist Mucosa Neck: Supple, No JVD Lungs: Normal air movement, No rhonchi, No wheeze, No rales, Diminished Cardiovascular: Regular rate, Regular Rhythm, Normal S1, Normal S2, No murmurs Abdomen: Soft, Non Tender, Non-Distended, No Hepato-splenomegaly Extremities: No edema, Capillary Refill Less than 3 Seconds Skin: No rashes, No breakdown Neurological: Neuro grossly intact, Sensory exam intact to light touch and pain Psych/Mental Status: Normal Affect, Appropriate Microbiology Past 72 Hours 07/08/20 01:30 Mucosa - Nasopharyngeal Respiratory Panel (PCR) - Final 07/08/20 02:15 Mucosa - Nasopharyngeal SARS-CoV-2 Antigen (Rapid) - Final Laboratory Results 07/07/20 18:22: WBC 7.9, RBC 2.25 L, Hgb 6.8 L, Hct 22.0 L, MCV 97.8 H, MCH 30.2, MCHC 30.9 L, RDW Std Deviation 55.0 H, RDW Coeff of Jh 15.5 H, Plt Count 210, MPV 10.0, Immature Gran % (Auto) 0.500, Neut % (Auto) 68.6, Lymph % (Auto) 9.9 L, [place] % (Auto) 11.3 H, Eos % (Auto) 9.4 H, Baso % (Auto) 0.3, Absolute Neuts (auto) 5.4, Absolute Lymphs (auto) 0.79 L, Nucleated RBC % 0 07/07/20 18:22: PT 15.9 H, INR 1.3 07/07/20 18:22: Sodium 136, Potassium 5.5 H, Chloride 106, Carbon Dioxide 17.0 L, Anion Gap 13, BUN 128 H*, Creatinine 10.00 H*, Estim Creat Clear Calc 5.69, Est GFR (MDRD) Af Amer 7 L, Est GFR (MDRD) Non-Af 5 L, BUN/Creatinine Ratio 12.8, Glucose 109 H, Calcium 8.2 L, Total Bilirubin 0.30, AST 13 L, ALT 27, Alkaline Phosphatase 61, Total Protein 6.7, Albumin 2.7 L, Globulin 4.0, Albumin/Globulin Ratio 0.7 L 07/07/20 18:22: Blood Type TNP, Antibody Screen NEGATIVE 07/07/20 18:22: Crossmatch See Detail 07/07/20 18:22: Blood Type A NEGATIVE 07/07/20 20:15: Ur Random Sodium 49 07/07/20 20:15: Urine Creatinine 31.10 07/08/20 01:46: Specimen Type ART, Sample Site R Radial, pH 7.42, Bicarbonate Actual 14.9 L, Total CO2 16, Base Excess -10 L, O2 Saturation 97, ABG pCO2 22.8 L, ABG pO2 85, Ej Test Positive, O2 Delivery Device Cannula, Liter Flow 6.0 07/08/20 02:45: Hgb 7.4 L, Hct 23.4 L 07/08/20 06:02: WBC 15.2 H, RBC 2.55 L, Hgb 7.5 L, Hct 24.2 L, MCV 94.9 H, MCH 29.4, MCHC 31.0 L, RDW Std Deviation 58.4 H, RDW Coeff of Jh 16.9 H, Plt Count 184, MPV 10.2 07/08/20 06:02: Sodium 144, Potassium 4.3, Chloride 112 H, Carbon Dioxide 17.0 L, BUN 115 H*, Creatinine 8.69 H*, Estim Creat Clear Calc 6.55, Est GFR (MDRD) Af Amer 8 L, Est GFR (MDRD) Non-Af 6 L, BUN/Creatinine Ratio 13.2, Glucose 134 H, Calcium 7.9 L, Phosphorus 6.6 H, Albumin 2.4 L Current Medications Acetaminophen (Acetaminophen 325 Mg Tablet) 650 mg PO Q6H PRN PRN PRN Reason: Pain Score 1-10/Temp > 100.7 F Albuterol Sulfate (Albuterol 2.5 Mg/3 Ml Vial.Neb.) 2.5 mg INHALATION Q2H PRN PRN PRN Reason: sob/wheezing Albuterol/Ipratropium (Ipratropium/Albuterol Sulfate 3 Ml Ampul.Neb) 3 ml INHALATION Q4HWA.RT [facility] Last Admin: 07/08/20 11:09 Dose: 3 ml Documented by: Docusate Sodium (Docusate Sodium 100 Mg Capsule) 200 mg PO QHS [facility] Last Admin: 07/07/20 21:38 Dose: 200 mg Documented by: Guaifenesin (Guaifenesin 1,200 Mg Tablet) 1,200 mg PO BID [facility] Last Admin: 07/08/20 10:40 Dose: 1,200 mg Documented by: Pantoprazole Sodium 40 mg/ (Sodium Chloride) 110 mls @ 330 mls/hr IV Q12 [facility] Last Infusion: 07/08/20 05:46 Dose: Infused Documented by: Lactic Acid (Ammonium Lactate 225 Gm Bottle) 1 applic TOPICAL BID [facility]; Protocol Last Admin: 07/08/20 10:39 Dose: 1 applicatio Documented by: Levothyroxine Sodium (Levothyroxine 150 Mcg Tablet) 150 mcg PO DAILY@0600 [facility] Last Admin: 07/08/20 05:12 Dose: Not Given Documented by: Melatonin (Melatonin 3 Mg Tablet) 3 mg PO QHS [facility] Last Admin: 07/07/20 21:40 Dose: 3 mg Documented by: Methylprednisolone (Methylprednisolone 40 Mg/Ml Vial) 40 mg IV Q8 [facility] Last Admin: 07/08/20 05:16 Dose: 40 mg Documented by: Mirtazapine (Mirtazapine 15 Mg Tablet) 7.5 mg PO QHS [facility] Last Admin: 07/07/20 21:40 Dose: 7.5 mg Documented by: Ondansetron HCl (Ondansetron 4 Mg/2 Ml Vial) 4 mg IV Q8H PRN PRN PRN Reason: NAUSEA/VOMITING Last Admin: 07/07/20 23:57 Dose: 4 mg Documented by: Sodium Chloride (0.9% Saline Lock 10 Ml Syringe) 10 - 40 ml IV UD PRN PRN Reason: SALINE FLUSH Last Admin: 07/08/20 10:40 Dose: 10 ml Documented by: Tamsulosin HCl (Tamsulosin Hcl 0.4 Mg Capsule) 0.4 mg PO DAILY@1730 [facility] STROKE Vital Signs/Narrative: Vital Signs Pulse Resp Pulse Ox 07/08/20 12:15 97 07/08/20 11:26 93 07/08/20 11:25 100 20 H 07/08/20 10:59 102 H 98 07/08/20 10:47 98 Medical Necessity - Tobacco Use Smoking Status: Former smoker Tobacco Use: Cigarettes Assessment/Plan All Active Problems Hyperkalemia (Acute) Anemia (Acute) Acute blood loss anemia (ABLA) (Acute) Acute renal failure (Acute) Anemia (Acute) 1. Acute blood loss anemia with bright red blood per rectum/acute renal failure secondary to postobstructive nephropathy/urine retention/GERD -He was transfused 1 unit overnight and is holding steady. We will continue to monitor -Prescient nephrology's assistance, continue with Jefferson -We will add Flomax, urology had nothing bad other than to continue the Jefferson -He can likely proceed with a colonoscopy as an outpatient -UA is pending -Continue with PPI but he can have a diet -hold his Lasix for now 2. Chronic lymphedema -Continue with Shilo wraps on both his legs 3. 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 Hypothyroidism -Stable -Continue Synthroid 5. Anxiety/depression -Stable -Continue with Remeron DVT: SCDs Inpatient E&M: 90159 Subs Hosp L2
--- NOTE | 2020-07-08 13:34 | CASEMGMT ---
RN CM Note: Pt met Palliative Care Screening. Referral made to [facility]. Trupti BEAN RN ACM
[2020-07-08 14:28] LABS: Bacteria 0 SEEN /hpf (None Seen); Mucous, Urine 0 SEEN /hpf (<or=2+); Squamous Epithelial Cells - UA 0 SEEN /hpf (0-5); White Blood Cells 0 SEEN /hpf (0-5)
[2020-07-08 14:32] LABS: Color, Urine Yellow (Yellow); Glucose, Dipstick Normal (Normal); Ketone-Dipstick Negative (Negative); Leukocyte Esterase-Dipstick Negative /ul (Negative); Nitrite-Dipstick Negative (Negative); Occult Blood-Urine 10 /ul (Negative); Protein-Dipstick 30 mg/dl (Negative); Specific Gravity, Urine 1.005 (1.002-1.030); Urine Bilirubin Dipstick Negative (Negative); Urine Clarity Clear (Clear); Urine Urobilinogen Normal (Normal)
[2020-07-08 14:38] LABS: Red Blood Cells-Urine 0-5 SEEN /hpf (0-5)
--- NOTE | 2020-07-08 15:13 | CHAPLAIN ---
Type of Pastoral Visit _x__ Initial Visit ___ Follow-up Visit ___ On-call Visit ___ General Patient Visit ___ Spiritual Assessment ___ Family Conference ___ Bereavement ___ Rapid Response ___ Code Blue ___ Other (describe below) Pastoral Care Referral From _x__ Patient ___ Family ___ Nurse ___ Physician ___ Psychosocial Rehabilitation Counselor ___ Harp Action Assembler ___ Other (describe below) Sacrament/Intervention _x__ Active listening ___ Anointing ___ Judaism ___ Bereavement ___ Communion ___ Angélica exploration ___ ___ Life review ___ Prayer ___ Reconciliation ___ Sacrament of Sick _x__ Supportive presence ___ Wedding ___ Other (describe below) Pastoral Comments
--- NOTE | 2020-07-08 15:27 | CON.PCM_ITS ---
Consultation - Renal 07/08/20 PCP/ Referring MD: Requesting physician: [] Primary care physician: Dr. Vernon Plascencia MD Reason for Consultation:: RAMIN, hyperkalemia - History of Present Illness History of Present Illness: The patient is a 79 year old M from [facility] admitted for abnormal labs with creatinine 10 K 5.5. He had 2L urine after vann catheter placement in ED last night. Renal US with severe bilateral hydronephrosis. Creatinine improved to 8.69 with good urine volume. Received prbc for hgb 6.8g with complaints of BRBPR. Surgery consulted. He has been on diuretics for leg edema as outpt. Leg edema is improved. He is chronically debilited at [facility] for rehab. Denied nausea, vomiting. SOB improved with lasix. Denies cough but had severe cough with COVID infection in May 2020. - Allergies Allergies: Allergies No Known Allergies Allergy (Verified 07/07/20 17:36) - Current Medications Current Medications: Current Medications Acetaminophen (Acetaminophen 325 Mg Tablet) 650 mg PO Q6H PRN PRN PRN Reason: Pain Score 1-10/Temp > 100.7 F Albuterol Sulfate (Albuterol 2.5 Mg/3 Ml Vial.Neb.) 2.5 mg INHALATION Q2H PRN PRN PRN Reason: sob/wheezing Albuterol/Ipratropium (Ipratropium/Albuterol Sulfate 3 Ml Ampul.Neb) 3 ml INHALATION Q4HWA.RT [facility] Last Admin: 07/08/20 11:09 Dose: 3 ml Documented by: Docusate Sodium (Docusate Sodium 100 Mg Capsule) 200 mg PO QHS [facility] Last Admin: 07/07/20 21:38 Dose: 200 mg Documented by: Guaifenesin (Guaifenesin 1,200 Mg Tablet) 1,200 mg PO BID [facility] Last Admin: 07/08/20 10:40 Dose: 1,200 mg Documented by: Pantoprazole Sodium 40 mg/ (Sodium Chloride) 110 mls @ 330 mls/hr IV Q12 [facility] Last Infusion: 07/08/20 05:46 Dose: Infused Documented by: Lactic Acid (Ammonium Lactate 225 Gm Bottle) 1 applic TOPICAL BID [facility]; Protocol Last Admin: 07/08/20 10:39 Dose: 1 applicatio Documented by: Levothyroxine Sodium (Levothyroxine 150 Mcg Tablet) 150 mcg PO DAILY@0600 [facility] Last Admin: 07/08/20 05:12 Dose: Not Given Documented by: Melatonin (Melatonin 3 Mg Tablet) 3 mg PO QHS [facility] Last Admin: 07/07/20 21:40 Dose: 3 mg Documented by: Methylprednisolone (Methylprednisolone 40 Mg/Ml Vial) 40 mg IV Q8 [facility] Last Admin: 07/08/20 14:26 Dose: 40 mg Documented by: Mirtazapine (Mirtazapine 15 Mg Tablet) 7.5 mg PO QHS [facility] Last Admin: 07/07/20 21:40 Dose: 7.5 mg Documented by: Ondansetron HCl (Ondansetron 4 Mg/2 Ml Vial) 4 mg IV Q8H PRN PRN PRN Reason: NAUSEA/VOMITING Last Admin: 07/07/20 23:57 Dose: 4 mg Documented by: Sodium Chloride (0.9% Saline Lock 10 Ml Syringe) 10 - 40 ml IV UD PRN PRN Reason: SALINE FLUSH Last Admin: 07/08/20 14:26 Dose: 10 ml Documented by: Tamsulosin HCl (Tamsulosin Hcl 0.4 Mg Capsule) 0.4 mg PO DAILY@1730 [facility] - Past Medical History Past Medical History (Chronic Problems): Chronic Problems RAMIN (acute kidney injury) (Chronic) 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 Denies: Anorexia, Chills, Fever Eyes: Denies: Vision Change HEENT: Denies: Head Aches Cardiovascular: Reports: Edema - lymphedema on diuretics at [facility]. Denies: Chest Pain, Palpitations, Syncope Respiratory: Reports: Cough - worse with COVID in May, Shortness of Breath Gastrointestinal: Reports: - - BRBPR. Denies: Abdominal Pain, Diarrhea, Nausea, Vomiting Genitourinary: Reports: Retention - not aware of BPH in past, - - dribbling of urine past 4 days at [facility]. Denies: Dysuria Musculoskeletal: Denies: Muscle pain Skin: Denies: Pruritis, Rash Neurological: Reports: - - debilitated, weakness Psychiatric: Denies: Anxiety, Depression Hematologic/ Lymphatic: Reports: Anemia. Denies: Hx of blood clot Patient Problems: Active and Suspected Problems Hyperkalemia (Acute) Anemia (Acute) Acute blood loss anemia (ABLA) (Acute) Acute renal failure (Acute) Anemia (Acute) - Physical Exam Vitals/I&O's: Vital Signs Temp Pulse Resp BP Pulse Ox 97.6 F L 102 H 16 122/75 H 99 07/08/20 14:24 07/08/20 14:24 07/08/20 14:24 07/08/20 14:24 07/08/20 14:24 Oxygen Flow Rate (L/min) 2 Oxygen Delivery Method Room Air Weight: 71.4 kg Body Mass Index (BMI) 24.6 Intake and Output for Last 24 Hours 07/06/20 07/07/20 07/08/20 23:59 23:59 23:59 Intake Total 1180 / 1180 310 / 310 Output Total 3350 / 3350 4875 / 4875 Balance -2170 / -2170 -4565 / -4565 General: Alert, Oriented x3, Cooperative, No apparent distress HEENT: PERRLA, EOMI Oral: Moist Mucosa Neck: Supple Lungs: Clear to auscultation Cardiovascular: Regular rate Abdomen: Bowel Sounds Present, Soft, Non Tender, Non-Distended Extremities: Edema Musculoskeletal: Muscle Wasting, - - leg edema BLE, mild pitting Neurological: Cranial nerves II-XII grossly intact, - - slurred speech, dysarthria, no tremor Psych/Mental Status: Normal Affect, Alert and oriented to time, place, person, mood and affect Microbiology Past 72 Hours 07/08/20 01:30 Mucosa - Nasopharyngeal Respiratory Panel (PCR) - Final 07/08/20 02:15 Mucosa - Nasopharyngeal SARS-CoV-2 Antigen (Rapid) - Final Laboratory Results 07/07/20 18:22: WBC 7.9, RBC 2.25 L, Hgb 6.8 L, Hct 22.0 L, MCV 97.8 H, MCH 30.2, MCHC 30.9 L, RDW Std Deviation 55.0 H, RDW Coeff of Jh 15.5 H, Plt Count 210, MPV 10.0, Immature Gran % (Auto) 0.500, Neut % (Auto) 68.6, Lymph % (Auto) 9.9 L, [place] % (Auto) 11.3 H, Eos % (Auto) 9.4 H, Baso % (Auto) 0.3, Absolute Neuts (auto) 5.4, Absolute Lymphs (auto) 0.79 L, Nucleated RBC % 0 07/07/20 18:22: PT 15.9 H, INR 1.3 07/07/20 18:22: Sodium 136, Potassium 5.5 H, Chloride 106, Carbon Dioxide 17.0 L , Anion Gap 13, BUN 128 H*, Creatinine 10.00 H*, Estim Creat Clear Calc 5.69, Est GFR (MDRD) Af Amer 7 L, Est GFR (MDRD) Non-Af 5 L, BUN/Creatinine Ratio 12.8, Glucose 109 H, Calcium 8.2 L, Total Bilirubin 0.30, AST 13 L, ALT 27, Alkaline Phosphatase 61, Total Protein 6.7, Albumin 2.7 L, Globulin 4.0, Albumin/Globulin Ratio 0.7 L 07/07/20 18:22: Blood Type TNP, Antibody Screen NEGATIVE 07/07/20 18:22: Crossmatch See Detail 07/07/20 18:22: Blood Type A NEGATIVE 07/07/20 20:15: Ur Random Sodium 49 07/07/20 20:15: Urine Creatinine 31.10 07/07/20 20:15: Urine Color Yellow, Urine Clarity Clear, Urine pH 7.0, Ur Specific [place] 1.005, Urine Protein 30 H, Urine Glucose (UA) Normal, Urine Ketones Negative, Urine Occult Blood 10 H, Urine Nitrite Negative, Urine Bilirubin Negative, Urine Urobilinogen Normal, Ur Leukocyte Esterase Negative, Urine RBC 0-5 SEEN, Urine WBC 0 SEEN, Ur Squamous Epith Cells 0 SEEN, Urine Bacteria 0 SEEN, Urine Mucus 0 SEEN 07/08/20 01:46: Specimen Type ART, Sample Site R Radial, pH 7.42, Bicarbonate Actual 14.9 L, Total CO2 16, Base Excess -10 L, O2 Saturation 97, ABG pCO2 22.8 L, ABG pO2 85, Ej Test Positive, O2 Delivery Device Cannula, Liter Flow 6.0 07/08/20 02:45: Hgb 7.4 L, Hct 23.4 L 07/08/20 06:02: WBC 15.2 H, RBC 2.55 L, Hgb 7.5 L, Hct 24.2 L, MCV 94.9 H, MCH 29.4, MCHC 31.0 L, RDW Std Deviation 58.4 H, RDW Coeff of Jh 16.9 H, Plt Count 184, MPV 10.2 07/08/20 06:02: Sodium 144, Potassium 4.3, Chloride 112 H, Carbon Dioxide 17.0 L , BUN 115 H*, Creatinine 8.69 H*, Estim Creat Clear Calc 6.55, Est GFR (MDRD) Af Amer 8 L, Est GFR (MDRD) Non-Af 6 L, BUN/Creatinine Ratio 13.2, Glucose 134 H, Calcium 7.9 L, Phosphorus 6.6 H, Albumin 2.4 L Clinical Impression(s) from Imaging Studies Chest X-Ray 07/07/20 18:40 IMPRESSION: Cardiomegaly and mild pulmonary vascular congestion. Electronically Signed: Torito Zacarias MD at 19:07 EST Tel , Service support , Renal Ultrasound 07/08/20 05:55 IMPRESSION: Moderate right hydronephrosis and severe left hydronephrosis. Correlation with CT is recommended. Electronically Signed: Timothy Ratliff MD at 11:07 EST Tel , Service support , Current Medications Acetaminophen (Acetaminophen 325 Mg Tablet) 650 mg PO Q6H PRN PRN PRN Reason: Pain Score 1-10/Temp > 100.7 F Albuterol Sulfate (Albuterol 2.5 Mg/3 Ml Vial.Neb.) 2.5 mg INHALATION Q2H PRN PRN PRN Reason: sob/wheezing Albuterol/Ipratropium (Ipratropium/Albuterol Sulfate 3 Ml Ampul.Neb) 3 ml INHALATION Q4HWA.RT [place] Last Admin: 07/08/20 11:09 Dose: 3 ml Documented by: Docusate Sodium (Docusate Sodium 100 Mg Capsule) 200 mg PO QHS [facility] Last Admin: 07/07/20 21:38 Dose: 200 mg Documented by: Guaifenesin (Guaifenesin 1,200 Mg Tablet) 1,200 mg PO BID [facility] Last Admin: 07/08/20 10:40 Dose: 1,200 mg Documented by: Pantoprazole Sodium 40 mg/ (Sodium Chloride) 110 mls @ 330 mls/hr IV Q12 [facility] Last Infusion: 07/08/20 05:46 Dose: Infused Documented by: Lactic Acid (Ammonium Lactate 225 Gm Bottle) 1 applic TOPICAL BID [facility]; Protocol Last Admin: 07/08/20 10:39 Dose: 1 applicatio Documented by: Levothyroxine Sodium (Levothyroxine 150 Mcg Tablet) 150 mcg PO DAILY@0600 [facility] Last Admin: 07/08/20 05:12 Dose: Not Given Documented by: Melatonin (Melatonin 3 Mg Tablet) 3 mg PO QHS [facility] Last Admin: 07/07/20 21:40 Dose: 3 mg Documented by: Methylprednisolone (Methylprednisolone 40 Mg/Ml Vial) 40 mg IV Q8 [facility] Last Admin: 07/08/20 14:26 Dose: 40 mg Documented by: Mirtazapine (Mirtazapine 15 Mg Tablet) 7.5 mg PO QHS [facility] Last Admin: 07/07/20 21:40 Dose: 7.5 mg Documented by: Ondansetron HCl (Ondansetron 4 Mg/2 Ml Vial) 4 mg IV Q8H PRN PRN PRN Reason: NAUSEA/VOMITING Last Admin: 07/07/20 23:57 Dose: 4 mg Documented by: Sodium Chloride (0.9% Saline Lock 10 Ml Syringe) 10 - 40 ml IV UD PRN PRN Reason: SALINE FLUSH Last Admin: 07/08/20 14:26 Dose: 10 ml Documented by: Tamsulosin HCl (Tamsulosin Hcl 0.4 Mg Capsule) 0.4 mg PO DAILY@1730 [facility] Assessment/Plan All Active Problems Hyperkalemia (Acute) Anemia (Acute) Acute blood loss anemia (ABLA) (Acute) Acute renal failure (Acute) Anemia (Acute) 1. RAMIN due to ATN from obstructive uropathy, urinary retention with dribbling past 4 days. 2L urine after vann placement in ER. Continues to have good UOP. Creatinine improved from 10 to 8.69. Baseline creatinine 1.4 in Feb 2020. Renal US with bilateral hydronephrosis. Currently w/o uremic symptoms. Edema, SOB improved with iv lasix. Continue to monitor renal fxn for now. No urgency to initiate dialysis. 2. Acute hyperkalemia corrected with medications. Hold K sparing diuretics. 3. Metabolic acidosis due to renal failure. 4. Lymphedema BLE improved, on lasix at [facility] 5. CAD hx CABG 6. GI bleed, BRBPR with hgb 6.8g on admit s/p prbc. Check iron studies 7. Hyperphosphatemia due to renal failure. Monitor 8. Recent COVID 05/13/20. COVID negative on admit
--- NOTE | 2020-07-08 17:21 | PCM.CONS.P ---
Problem List (1) Weakness Status: Acute (2) Cough present for greater than 3 weeks Status: Acute (3) Acute blood loss anemia (ABLA) Status: Acute (4) RAMIN (acute kidney injury) Status: Chronic (5) Varicose veins with ulcer and inflammation Status: Chronic (6) Peripheral vascular disease Status: Chronic (7) Chronic acquired lymphedema Status: Chronic (8) Hypothyroidism Status: Chronic (9) Hypertension Status: Chronic (10) Status post coronary artery bypass graft Status: Chronic (11) Coronary artery disease Status: Chronic History of Present Illness Date of Consult: 07/08/20 Reason for Consult: renal failure, weakness Requesting physician: [] Primary care physician: Dr. Vernon Plascencia MD - History of Present Illness The patient is a 79 year old M who resides at [facility], presented to the ED due to an acute kidney injury noted on labs from the correction. Baseline creatinine 4.5, he was up to 9.5. BUN 126. His hemoglobin was 6.8. Potassium 6.1. EKG was notable for prolonged QT. Patient had reported acute rectal bleeding that was bright red. Other past medical history includes PVD, hypertension, chronic lymphedema, CAD status post CABG, hypothyroidism, onychomycosis, anxiety and depression, respiratory insufficiency secondary to COVID-19 virus, and varicose veins with ulcer/inflammation. Patient had COVID-19 about 3 months ago and still has a cough from that. Patient was admitted for further evaluation and management. Nephrology recommended Kayexalate, amp of bicarb, and Jefferson catheter to rule out urinary retention. Since placement of the catheter, his renal function has been improving. He received 1 unit of PRBCs and was reportedly feeling better. Plan was to proceed with colonoscopy as outpatient. Patient's WBC today (07/08/20) was 15.2, up from 7.9 on 07/07. He has had intermittent fevers, up to 102.5 ?F on 07/08 at 0129. He is mildly tachycardic, BP has been stable today. A repeat COVID-19 swab and respiratory panel were both negative. When entering room, patient was mildly short of breath and he had audible crackles. He is of small stature and is crunched forward. He does have some mild conversational dyspnea. 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 He is still able to communicate fairly well. He is alert and oriented x3. No significant pain at this time. He does feel weak. Again, patient is a resident at [facility]. He is . Has a daughter Socorro who lives in [place] and son Wilbert, who lives in [place]. Primary care physician is Dr. Vernon Plascencia. Reports his legs are very painful at one point and is focused on that during our conversation. Patient is very talkative as well as hard of hearing. Did explain palliative care services to the patient and how he would benefit from care. Patient Problems: Chronic Problems RAMIN (acute kidney injury) (Chronic) Varicose veins with ulcer and inflammation (Chronic) Onychomycosis (Chronic) Venous insufficiency (Chronic) Peripheral vascular disease (Chronic) Chronic acquired lymphedema (Chronic) Hypothyroidism (Chronic) Hypertension (Chronic) Status post coronary artery bypass graft (Chronic) Coronary artery disease (Chronic) Surgical History: coronary bypass surgery Psychiatric History: Anxiety, Depression Home Medications: Ambulatory Orders Medication Instructions Recorded Ammonium Lactate 1 applic TP BID 07/07/20 Docusate Sodium [Colace] 200 mg PO QHS 07/07/20 Levothyroxine Sodium [Synthroid] 150 mcg PO DAILY 07/07/20 Melatonin 3 mg PO QHS 07/07/20 Mirtazapine 7.5 mg PO QHS 07/07/20 Omeprazole 40 mg PO DAILY 07/07/20 Ascorbic Acid [Vitamin C] 500 mg PO BID #60 tab 07/10/20 Calcitriol [Rocaltrol] 0.25 mcg PO DAILY cap 07/10/20 Ferrous Sulfate 325 mg PO 1000,1700 tab 07/10/20 Prednisone [Deltasone] 40 mg PO DAILY #10 tab 07/10/20 Tamsulosin HCl [Flomax] 0.4 mg PO DAILY@1730 cap 07/10/20 Allergies No Known Allergies Allergy (Verified 07/07/20 17:36) Maternal History Items: Heart Disease Paternal History Items: Heart Disease - Social History Lives: [facility] Smoking Status: Former smoker Tobacco Use: Cigarettes Alcohol: None Drugs: None Code Status: DNRCC Review of Systems Constitutional: Reports: Weakness. Denies: Chills, Fever Eyes: Denies: Vision Change HEENT: Reports: Difficulty Hearing, Difficulty Swallowing. Denies: Sore Throat Cardiovascular: Reports: - - lymphedema. Denies: Chest Pain, Palpitations Respiratory: Reports: Cough, Shortness of Breath, Wheezing. Denies: Hemoptysis Gastrointestinal: Reports: Constipation. Denies: Abdominal Pain, Nausea, Vomiting Genitourinary: Denies: Dysuria Musculoskeletal: Reports: Back Pain, Joint Pain, Leg Pain Skin: Reports: Pruritis, Wounds. Denies: Rash Neurological: Reports: Numbness, Tingling. Denies: Change in Speech, Tremor Psychiatric: Reports: Anxiety, Depression Hematologic/ Lymphatic: Reports: Anemia, Easy Bruising Physical Exam Subjective: Legs feeling better today, swelling is down. Has a persistent cough, not a lot of sputum production. General: Alert, Oriented x3, Cooperative, No apparent distress, - - Extremely talkative HEENT: Atraumatic, PERRLA, Normocephalic, - - Lip deformity secondary to surgery Oral: Dry Mucosa Neck: Supple, No JVD, Trachea Midline Lungs: Diminished, Rales, Rhonchi, Wheezes Cardiovascular: Regular rate, Normal S1, Normal S2 Abdomen: Bowel Sounds Present, Soft, Non Tender Extremities: No cyanosis, Diminished Peripheral Pulses, Edema Skin: - - Lower extremity vascular disease Musculoskeletal: Arthritic Changes, Muscle Wasting Neurological: Cranial nerves II-XII grossly intact Psych/Mental Status: Normal Affect, Appropriate Objective: Vital Signs Temp Pulse Resp BP Pulse Ox 97.6 F L 104 H 16 122/75 H 99 07/08/20 14:24 07/08/20 14:59 07/08/20 14:24 07/08/20 14:24 07/08/20 14:24 Oxygen Flow Rate (L/min) 2 Oxygen Delivery Method Room Air Weight: 71.4 kg Body Mass Index (BMI) 24.6 Intake and Output for Last 24 Hours 07/06/20 07/07/20 07/08/20 23:59 23:59 23:59 Intake Total 1180 / 1180 310 / 310 Output Total 3350 / 3350 4875 / 4875 Balance -2170 / -2170 -4565 / -4565 Microbiology Past 72 Hours 07/08/20 01:30 Respiratory Panel (PCR) - Final Mucosa - Nasopharyngeal 07/08/20 02:15 SARS-CoV-2 Antigen (Rapid) - Final Mucosa - Nasopharyngeal Laboratory Tests Past 24 Hrs 07/07/20 07/07/20 07/07/20 18:22 18:22 18:22 WBC 7.9 RBC 2.25 L Hgb 6.8 L Hct 22.0 L MCV 97.8 H MCH 30.2 MCHC 30.9 L RDW Std Deviation 55.0 H RDW Coeff of Jh 15.5 H Plt Count 210 MPV 10.0 Immature Gran % (Auto) 0.500 Neut % (Auto) 68.6 Lymph % (Auto) 9.9 L [place] % (Auto) 11.3 H Eos % (Auto) 9.4 H Baso % (Auto) 0.3 Absolute Neuts (auto) 5.4 Absolute Lymphs (auto) 0.79 L Nucleated RBC % 0 PT 15.9 H INR 1.3 Specimen Type Sample Site pH Bicarbonate Actual Total CO2 Base Excess O2 Saturation ABG pCO2 ABG pO2 Ej Test O2 Delivery Device Liter Flow Sodium 136 Potassium 5.5 H Chloride 106 Carbon Dioxide 17.0 L Anion Gap 13 BUN 128 H* Creatinine 10.00 H* Estim Creat Clear Calc 5.69 Est GFR (MDRD) Af Amer 7 L Est GFR (MDRD) Non-Af 5 L BUN/Creatinine Ratio 12.8 Glucose 109 H Calcium 8.2 L Phosphorus Total Bilirubin 0.30 AST 13 L ALT 27 Alkaline Phosphatase 61 Total Protein 6.7 Albumin 2.7 L Globulin 4.0 Albumin/Globulin Ratio 0.7 L Urine Color Urine Clarity Urine pH Ur Specific [place] Urine Protein Urine Glucose (UA) Urine Ketones Urine Occult Blood Urine Nitrite Urine Bilirubin Urine Urobilinogen Ur Leukocyte Esterase Urine RBC Urine WBC Ur Squamous Epith Cells Urine Bacteria Urine Mucus Ur Random Sodium Urine Creatinine Blood Type Antibody Screen Crossmatch 07/07/20 07/07/20 07/07/20 18:22 18:22 18:22 WBC RBC Hgb Hct MCV MCH MCHC RDW Std Deviation RDW Coeff of Hj Plt Count MPV Immature Gran % (Auto) Neut % (Auto) Lymph % (Auto) [place] % (Auto) Eos % (Auto) Baso % (Auto) Absolute Neuts (auto) Absolute Lymphs (auto) Nucleated RBC % PT INR Specimen Type Sample Site pH Bicarbonate Actual Total CO2 Base Excess O2 Saturation ABG pCO2 ABG pO2 Ej Test O2 Delivery Device Liter Flow Sodium Potassium Chloride Carbon Dioxide Anion Gap BUN Creatinine Estim Creat Clear Calc Est GFR (MDRD) Af Amer Est GFR (MDRD) Non-Af BUN/Creatinine Ratio Glucose Calcium Phosphorus Total Bilirubin AST ALT Alkaline Phosphatase Total Protein Albumin Globulin Albumin/Globulin Ratio Urine Color Urine Clarity Urine pH Ur Specific [place] Urine Protein Urine Glucose (UA) Urine Ketones Urine Occult Blood Urine Nitrite Urine Bilirubin Urine Urobilinogen Ur Leukocyte Esterase Urine RBC Urine WBC Ur Squamous Epith Cells Urine Bacteria Urine Mucus Ur Random Sodium Urine Creatinine Blood Type TNP A NEGATIVE Antibody Screen NEGATIVE Crossmatch See Detail 07/07/20 07/07/20 07/07/20 20:15 20:15 20:15 WBC RBC Hgb Hct MCV MCH MCHC RDW Std Deviation RDW Coeff of Jh Plt Count MPV Immature Gran % (Auto) Neut % (Auto) Lymph % (Auto) [place] % (Auto) Eos % (Auto) Baso % (Auto) Absolute Neuts (auto) Absolute Lymphs (auto) Nucleated RBC % PT INR Specimen Type Sample Site pH Bicarbonate Actual Total CO2 Base Excess O2 Saturation ABG pCO2 ABG pO2 Ej Test O2 Delivery Device Liter Flow Sodium Potassium Chloride Carbon Dioxide Anion Gap BUN Creatinine Estim Creat Clear Calc Est GFR (MDRD) Af Amer Est GFR (MDRD) Non-Af BUN/Creatinine Ratio Glucose Calcium Phosphorus Total Bilirubin AST ALT Alkaline Phosphatase Total Protein Albumin Globulin Albumin/Globulin Ratio Urine Color Yellow Urine Clarity Clear Urine pH 7.0 Ur Specific [place] 1.005 Urine Protein 30 H Urine Glucose (UA) Normal Urine Ketones Negative Urine Occult Blood 10 H Urine Nitrite Negative Urine Bilirubin Negative Urine Urobilinogen Normal Ur Leukocyte Esterase Negative Urine RBC 0-5 SEEN Urine WBC 0 SEEN Ur Squamous Epith Cells 0 SEEN Urine Bacteria 0 SEEN Urine Mucus 0 SEEN Ur Random Sodium 49 Urine Creatinine 31.10 Blood Type Antibody Screen Crossmatch 07/08/20 07/08/20 07/08/20 01:46 02:45 06:02 WBC 15.2 H RBC 2.55 L Hgb 7.4 L 7.5 L Hct 23.4 L 24.2 L MCV 94.9 H MCH 29.4 MCHC 31.0 L RDW Std Deviation 58.4 H RDW Coeff of Jh 16.9 H Plt Count 184 MPV 10.2 Immature Gran % (Auto) Neut % (Auto) Lymph % (Auto) [place] % (Auto) Eos % (Auto) Baso % (Auto) Absolute Neuts (auto) Absolute Lymphs (auto) Nucleated RBC % PT INR Specimen Type ART Sample Site R Radial pH 7.42 Bicarbonate Actual 14.9 L Total CO2 16 Base Excess -10 L O2 Saturation 97 ABG pCO2 22.8 L ABG pO2 85 Ej Test Positive O2 Delivery Device Cannula Liter Flow 6.0 Sodium Potassium Chloride Carbon Dioxide Anion Gap BUN Creatinine Estim Creat Clear Calc Est GFR (MDRD) Af Amer Est GFR (MDRD) Non-Af BUN/Creatinine Ratio Glucose Calcium Phosphorus Total Bilirubin AST ALT Alkaline Phosphatase Total Protein Albumin Globulin Albumin/Globulin Ratio Urine Color Urine Clarity Urine pH Ur Specific [place] Urine Protein Urine Glucose (UA) Urine Ketones Urine Occult Blood Urine Nitrite Urine Bilirubin Urine Urobilinogen Ur Leukocyte Esterase Urine RBC Urine WBC Ur Squamous Epith Cells Urine Bacteria Urine Mucus Ur Random Sodium Urine Creatinine Blood Type Antibody Screen Crossmatch 07/08/20 06:02 WBC RBC Hgb Hct MCV MCH MCHC RDW Std Deviation RDW Coeff of Jh Plt Count MPV Immature Gran % (Auto) Neut % (Auto) Lymph % (Auto) [place] % (Auto) Eos % (Auto) Baso % (Auto) Absolute Neuts (auto) Absolute Lymphs (auto) Nucleated RBC % PT INR Specimen Type Sample Site pH Bicarbonate Actual Total CO2 Base Excess O2 Saturation ABG pCO2 ABG pO2 Ej Test O2 Delivery Device Liter Flow Sodium 144 Potassium 4.3 Chloride 112 H Carbon Dioxide 17.0 L Anion Gap BUN 115 H* Creatinine 8.69 H* Estim Creat Clear Calc 6.55 Est GFR (MDRD) Af Amer 8 L Est GFR (MDRD) Non-Af 6 L BUN/Creatinine Ratio 13.2 Glucose 134 H Calcium 7.9 L Phosphorus 6.6 H Total Bilirubin AST ALT Alkaline Phosphatase Total Protein Albumin 2.4 L Globulin Albumin/Globulin Ratio Urine Color Urine Clarity Urine pH Ur Specific [place] Urine Protein Urine Glucose (UA) Urine Ketones Urine Occult Blood Urine Nitrite Urine Bilirubin Urine Urobilinogen Ur Leukocyte Esterase Urine RBC Urine WBC Ur Squamous Epith Cells Urine Bacteria Urine Mucus Ur Random Sodium Urine Creatinine Blood Type Antibody Screen Crossmatch Assessment/Plan All Active Problems Hyperkalemia (Acute) Anemia (Acute) Acute blood loss anemia (ABLA) (Acute) Acute renal failure (Acute) Anemia (Acute) Cough present for greater than 3 weeks (Acute) Weakness (Acute) 79-year-old male with multiple comorbidities, resident of [facility], being seen today for palliative care consultation secondary to being flagged on screening tool for renal disease. Also has dyspnea. 1. Weakness: Has been a little worse in the past couple of months, especially since Covid infection. PT/OT, may need ongoing therapy. LTC at [facility]. 2. Chronic cough/shortness of breath: Status post Covid 19 infection approximately 3 months ago. He is not on any nebulizers or inhalers. He may benefit from as needed albuterol, but no wheezing heard today. This did improve with some Lasix, on 40 mg daily at the correction. We will follow him as outpatient. 3. Chronic constipation: Well-controlled on current medications, which include Colace 200 mg nightly, also takes as needed laxative at the correction. Adjust as needed. 4. Acute on chronic renal failure/urinary retention/hyperkalemia: Improving with Jefferson insertion, good urine output. Being managed by nephrology and urology. He did have a renal ultrasound that showed severe bilateral hydronephrosis. 5. 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 Greater than 50% of visit dedicated to education and counseling regarding palliative care services versus hospice. Also discussed general decline of ADLs, prognosis, and verified advance directives. Thank you for the opportunity to participate in this patient's care, please do not hesitate to contact us with any further questions or concerns. We will continue to follow patient as an outpatient, RN will visit after discharge to [facility].
[2020-07-08] MEDS: Tamsulosin HCl 0.4 MG Capsule PO (17:22)
[2020-07-08] MEDS: MELATONIN 3 MG TABLET PO (20:39)
[2020-07-08] MEDS: Docusate Sodium 100 MG Capsule 200 MG PO (20:39)
[2020-07-08] MEDS: Mirtazapine 15 MG Tablet 7.5 MG PO (20:40)
[2020-07-09] VITALS (22 sets, daily range): BP systolic 119–152; BP diastolic 63–88; PULSE 102–113; RESP 16–20; TEMP 36.1–38.3; O2SAT 95–100
[2020-07-09] MEDS: Levothyroxine 150 MCG Tablet PO (05:50)
[2020-07-09 06:32] LABS: Absolute Lymphocyte Count 0.37 X10^3/uL (0.83-4.51); Absolute Neutrophil Count 9.6 X10^3/uL (2.0-7.7); Hematocrit 20.4 % (40-54); Hemoglobin 6.4 g/dL (13.0-16.5); Lymphocyte # 0.37 X10^3/ul (4.0); Lymphocyte % 3.4 % (19-41); Mean Corp Hgb Conc 31.4 g/dL (32-36); Mean Corpuscular Hgb 29.5 pg (27.0-32.0); Mean Platelet Vol. 9.8 fl (6.2-12.0); Monocyte# 0.75 X10^3/uL; Monocyte% 6.9 % (0-10); NRBC Flagged by Analyzer 0 % (0-5); Neutrophil # 9.64 X10^3/uL (2.7-7.7); Neutrophil % 89.2 % (47-70); POSITIVE DIFFERENTIAL YES; Platelet Count 141 K/mm3 (150-450); RBC Distribution Width CV 17.3 % (11.6-14.6); RBC Distribution Width SD 59.9 fl (35.1-43.9); Red Blood Count 2.17 M/mm3 (4.6-6.2); White Blood Count 10.8 K/mm3 (4.4-11.0)
[2020-07-09 06:49] LABS: Differential Indicated SCAN CRITERIA MET
--- NOTE | 2020-07-09 06:50 | PN.SURG_ITS ---
Patient Problems: Active and Suspected Problems Hyperkalemia (Acute) Anemia (Acute) Acute blood loss anemia (ABLA) (Acute) Acute renal failure (Acute) Anemia (Acute) Cough present for greater than 3 weeks (Acute) Weakness (Acute) Subjective: Patient reports no changes overnight. - Physical Exam Vitals/I&O's: Vital Signs Temp Pulse Resp BP Pulse Ox 98.3 F 102 H 18 119/65 95 07/09/20 02:24 07/09/20 03:07 07/09/20 02:24 07/09/20 02:24 07/09/20 02:24 Oxygen Flow Rate (L/min) 2 Oxygen Delivery Method Room Air Weight: 157 lb 6.561 oz Body Mass Index (BMI) 24.6 Intake and Output for Last 24 Hours 07/07/20 07/08/20 07/09/20 23:59 23:59 23:59 Intake Total 1180 / 1180 1560 / 2060 900 / 900 Output Total 3350 / 3350 6875 / 6875 1350 / 1350 Balance -2170 / -2170 -5315 / -4815 -450 / -450 General: Alert, Oriented x3 Neck: No JVD Abdomen: Soft, Non Tender, Non-Distended Microbiology Past 72 Hours 07/08/20 01:30 Mucosa - Nasopharyngeal Respiratory Panel (PCR) - Final 07/08/20 02:15 Mucosa - Nasopharyngeal SARS-CoV-2 Antigen (Rapid) - Final Laboratory Results 07/07/20 20:15: Urine Color Yellow, Urine Clarity Clear, Urine pH 7.0, Ur Specific [place] 1.005, Urine Protein 30 H, Urine Glucose (UA) Normal, Urine Ketones Negative, Urine Occult Blood 10 H, Urine Nitrite Negative, Urine Bilirubin Negative, Urine Urobilinogen Normal, Ur Leukocyte Esterase Negative, Urine RBC 0-5 SEEN, Urine WBC 0 SEEN, Ur Squamous Epith Cells 0 SEEN, Urine Bacteria 0 SEEN, Urine Mucus 0 SEEN 07/08/20 06:02: Sodium 144, Potassium 4.3, Chloride 112 H, Carbon Dioxide 17.0 L , BUN 115 H*, Creatinine 8.69 H*, Estim Creat Clear Calc 6.55, Est GFR (MDRD) Af Amer 8 L, Est GFR (MDRD) Non-Af 6 L, BUN/Creatinine Ratio 13.2, Glucose 134 H, Calcium 7.9 L, Phosphorus 6.6 H, Albumin 2.4 L 07/09/20 06:16: WBC 10.8, RBC 2.17 L, Hgb 6.4 L, Hct 20.4 L, MCV 94.0, MCH 29.5, MCHC 31.4 L, RDW Std Deviation 59.9 H, RDW Coeff of Jh 17.3 H, Plt Count 141 L, MPV 9.8, Immature Gran % (Auto) 0.500, Neut % (Auto) 89.2 H, Lymph % (Auto) 3.4 L, [place] % (Auto) 6.9, Eos % (Auto) 0.0, Baso % (Auto) 0.0, Absolute Neuts (auto) 9.6 H, Absolute Lymphs (auto) 0.37 L, Nucleated RBC % 0 07/09/20 06:16: Sodium Pending, Potassium Pending, Chloride Pending, Carbon Dioxide Pending, Anion Gap Pending, BUN Pending, Creatinine Pending, Est GFR (MDRD) Af Amer Pending, Est GFR (MDRD) Non-Af Pending, BUN/Creatinine Ratio Pending, Glucose Pending, Calcium Pending, Phosphorus Pending, Iron Pending, Ferritin Pending 07/09/20 06:16: PTH Intact Pending Current Medications Acetaminophen (Acetaminophen 325 Mg Tablet) 650 mg PO Q6H PRN PRN PRN Reason: Pain Score 1-10/Temp > 100.7 F Albuterol Sulfate (Albuterol 2.5 Mg/3 Ml Vial.Neb.) 2.5 mg INHALATION Q2H PRN PRN PRN Reason: sob/wheezing Albuterol/Ipratropium (Ipratropium/Albuterol Sulfate 3 Ml Ampul.Neb) 3 ml INHA LATION Q4HWA.RT [facility] Last Admin: 07/08/20 19:47 Dose: 3 ml Documented by: Docusate Sodium (Docusate Sodium 100 Mg Capsule) 200 mg PO QHS [facility] Last Admin: 07/08/20 20:39 Dose: 200 mg Documented by: Guaifenesin (Guaifenesin 1,200 Mg Tablet) 1,200 mg PO BID [facility] Last Admin: 07/08/20 20:39 Dose: 1,200 mg Documented by: Pantoprazole Sodium 40 mg/ (Sodium Chloride) 110 mls @ 330 mls/hr IV Q12 [facility] Last Infusion: 07/08/20 21:25 Dose: Infused Documented by: Lactic Acid (Ammonium Lactate 225 Gm Bottle) 1 applic TOPICAL BID [facility]; Protocol Last Admin: 07/08/20 20:39 Dose: 1 applicatio Documented by: Levothyroxine Sodium (Levothyroxine 150 Mcg Tablet) 150 mcg PO DAILY@0600 [facility] Last Admin: 07/09/20 05:50 Dose: 150 mcg Documented by: Melatonin (Melatonin 3 Mg Tablet) 3 mg PO QHS [facility] Last Admin: 07/08/20 20:39 Dose: 3 mg Documented by: Methylprednisolone (Methylprednisolone 40 Mg/Ml Vial) 40 mg IV Q8 [facility] Last Admin: 07/09/20 05:49 Dose: 40 mg Documented by: Mirtazapine (Mirtazapine 15 Mg Tablet) 7.5 mg PO QHS [facility] Last Admin: 07/08/20 20:40 Dose: 7.5 mg Documented by: Ondansetron HCl (Ondansetron 4 Mg/2 Ml Vial) 4 mg IV Q8H PRN PRN PRN Reason: NAUSEA/VOMITING Last Admin: 07/07/20 23:57 Dose: 4 mg Documented by: Sodium Chloride (0.9% Saline Lock 10 Ml Syringe) 10 - 40 ml IV UD PRN PRN Reason: SALINE FLUSH Last Admin: 07/08/20 14:26 Dose: 10 ml Documented by: Tamsulosin HCl (Tamsulosin Hcl 0.4 Mg Capsule) 0.4 mg PO DAILY@1730 [facility] Last Admin: 07/08/20 17:22 Dose: 0.4 mg Documented by: Medical Necessity - Tobacco Use Smoking Status: Former smoker Tobacco Use: Cigarettes Assessment/Plan All Active Problems Hyperkalemia (Acute) Anemia (Acute) Acute blood loss anemia (ABLA) (Acute) Acute renal failure (Acute) Anemia (Acute) Cough present for greater than 3 weeks (Acute) Weakness (Acute) 79-year-old male with anemia and possible GI bleed 1. The patient had no bowel movements overnight. He reports no GI bleeding. I performed a rectal exam this morning and there was no rectal mass or hemorrhoid s. There is no gross blood. 2. Patient has a Jefferson placed for obstructive uropathy. The patient had ultrasound yesterday which showed marked hydronephrosis and CT was recommended. Will follow up on that scan. Patient does not seem to be having active current bleeding. His hemoglobin did drop by 1 g. I will continue to follow patient I am awaiting morning labs. I will plan for colonoscopy either early next week or as an outpatient. Okay for diet from my standpoint this weekend. Eliezer Wilson MD Pager: [facility] [address] [place] [address], [address] [place] [phone] Office:
[2020-07-09 06:55] LABS: Burr Cells RARE; Differential Comment SCANNED
[2020-07-09 06:56] LABS: Hypochromasia RARE; Microcytosis RARE; Ovalocyte RARE
[2020-07-09 07:09] LABS: Anion Gap 13 (5-15); BUN 101 mg/dL (7-18); BUN/Creat Ratio 14.7 RATIO (10-20); Calcium,Total 7.8 mg/dL (8.5-10.1); Chloride 114 mmol/L (98-107); Creatinine, Serum 6.86 mg/dL (0.70-1.30); EST Glomerular Filtration Rate 8 mL/min (>60); Est Glom Filt Rate - Afr Amer 10 mL/min (>60); Ferritin 341 ng/mL (26-388); Glucose 140 mg/dL (74-106); Iron 21 ug/dL (65-175); Phosphorus 6.3 mg/dL (2.5-4.9); Potassium 3.3 mmol/L (3.5-5.1); Sodium Level 146 mmol/L (136-145)
[2020-07-09] MEDS: Ipratropium/Albuterol Sulfate 3 ML AMPUL.NEB INHALATION ×4 (07:10→19:16)
[2020-07-09] MEDS: 0.9% Saline Lock 10 ML Syringe IV (07:48)
[2020-07-09] MEDS: Dext 5%-0.45% NS 1,000 ML 75 ML IV ×2 (07:48→22:05)
--- NOTE | 2020-07-09 08:53 | PCM.PN.HOSP ---
Patient Problems: Active and Suspected Problems Hyperkalemia (Acute) Anemia (Acute) Acute blood loss anemia (ABLA) (Acute) Acute renal failure (Acute) Anemia (Acute) Cough present for greater than 3 weeks (Acute) Weakness (Acute) Subjective: No issues overnight, says that his breathing little bit better. His hemoglobin did drop again but he denies any blood in his stool and his urine is yellow Vitals/I&O's: Vital Signs Temp Pulse Resp BP Pulse Ox 97.0 F L 106 H 16 126/63 H 95 07/09/20 08:27 07/09/20 08:27 07/09/20 08:27 07/09/20 08:27 07/09/20 08:27 Oxygen Flow Rate (L/min) 1 Oxygen Delivery Method Nasal Cannula Weight: 157 lb 6.561 oz Body Mass Index (BMI) 24.6 Intake and Output for Last 24 Hours 07/07/20 07/08/20 07/09/20 23:59 23:59 23:59 Intake Total 1180 / 1180 1560 / 2060 900 / 900 Output Total 3350 / 3350 6875 / 6875 1350 / 1350 Balance -2170 / -2170 -5315 / -4815 -450 / -450 General: Alert, Oriented x3, Cooperative, No apparent distress HEENT: Atraumatic, PERRLA, EOMI, Normocephalic Oral: Moist Mucosa Neck: Supple, No JVD Lungs: Normal air movement, No rhonchi, mild wheeze, No rales, Diminished Cardiovascular: Regular rate, Regular Rhythm, Normal S1, Normal S2, No murmurs Abdomen: Soft, Non Tender, Non-Distended, No Hepato-splenomegaly Extremities: No edema, Capillary Refill Less than 3 Seconds Skin: No rashes, No breakdown Neurological: Neuro grossly intact, Sensory exam intact to light touch and pain Psych/Mental Status: Normal Affect, Appropriate Microbiology Past 72 Hours 07/08/20 01:30 Mucosa - Nasopharyngeal Respiratory Panel (PCR) - Final 07/08/20 02:15 Mucosa - Nasopharyngeal SARS-CoV-2 Antigen (Rapid) - Final Laboratory Results 07/07/20 18:22: Crossmatch See Detail 07/07/20 20:15: Urine Color Yellow, Urine Clarity Clear, Urine pH 7.0, Ur Specific [place] 1.005, Urine Protein 30 H, Urine Glucose (UA) Normal, Urine Ketones Negative, Urine Occult Blood 10 H, Urine Nitrite Negative, Urine Bilirubin Negative, Urine Urobilinogen Normal, Ur Leukocyte Esterase Negative, Urine RBC 0-5 SEEN, Urine WBC 0 SEEN, Ur Squamous Epith Cells 0 SEEN, Urine Bacteria 0 SEEN, Urine Mucus 0 SEEN 07/09/20 06:16: WBC 10.8, RBC 2.17 L, Hgb 6.4 L, Hct 20.4 L, MCV 94.0, MCH 29.5, MCHC 31.4 L, RDW Std Deviation 59.9 H, RDW Coeff of Jh 17.3 H, Plt Count 141 L, MPV 9.8, Immature Gran % (Auto) 0.500, Neut % (Auto) 89.2 H, Lymph % (Auto) 3.4 L, [place] % (Auto) 6.9, Eos % (Auto) 0.0, Baso % (Auto) 0.0, Absolute Neuts (auto) 9.6 H, Absolute Lymphs (auto) 0.37 L, Nucleated RBC % 0, Differential Comment SCANNED, Hypochromasia RARE, Microcytosis RARE, Ovalocytes RARE, [place] Cells RARE 07/09/20 06:16: Sodium 146 H, Potassium 3.3 L, Chloride 114 H, Carbon Dioxide 19.0 L, Anion Gap 13, BUN 101 H*, Creatinine 6.86 H, Estim Creat Clear Calc 8.30, Est GFR (MDRD) Af Amer 10 L, Est GFR (MDRD) Non-Af 8 L, BUN/Creatinine Ratio 14.7, Glucose 140 H, Calcium 7.8 L, Phosphorus 6.3 H, Iron 21 L, Ferritin 341 07/09/20 06:16: PTH Intact Pending Current Medications Acetaminophen (Acetaminophen 325 Mg Tablet) 650 mg PO Q6H PRN PRN PRN Reason: Pain Score 1-10/Temp > 100.7 F Albuterol Sulfate (Albuterol 2.5 Mg/3 Ml Vial.Neb.) 2.5 mg INHALATION Q2H PRN PRN PRN Reason: sob/wheezing Albuterol/Ipratropium (Ipratropium/Albuterol Sulfate 3 Ml Ampul.Neb) 3 ml INHALATION Q4HWA.RT [facility] Last Admin: 07/09/20 07:10 Dose: 3 ml Documented by: Docusate Sodium (Docusate Sodium 100 Mg Capsule) 200 mg PO QHS [facility] Last Admin: 07/08/20 20:39 Dose: 200 mg Documented by: Guaifenesin (Guaifenesin 1,200 Mg Tablet) 1,200 mg PO BID [facility] Last Admin: 07/08/20 20:39 Dose: 1,200 mg Documented by: Pantoprazole Sodium 40 mg/ (Sodium Chloride) 110 mls @ 330 mls/hr IV Q12 [facility] Last Infusion: 07/08/20 21:25 Dose: Infused Documented by: Dextrose/Sodium Chloride () 1,000 mls @ 75 mls/hr IV .[id number] [facility] Last Admin: 07/09/20 07:48 Dose: 75 mls/hr Documented by: Lactic Acid (Ammonium Lactate 225 Gm Bottle) 1 applic TOPICAL BID [facility]; Protocol Last Admin: 07/08/20 20:39 Dose: 1 applicatio Documented by: Levothyroxine Sodium (Levothyroxine 150 Mcg Tablet) 150 mcg PO DAILY@0600 [facility] Last Admin: 07/09/20 05:50 Dose: 150 mcg Documented by: Melatonin (Melatonin 3 Mg Tablet) 3 mg PO QHS [facility] Last Admin: 07/08/20 20:39 Dose: 3 mg Documented by: Methylprednisolone (Methylprednisolone 40 Mg/Ml Vial) 40 mg IV Q8 [facility] Last Admin: 07/09/20 05:49 Dose: 40 mg Documented by: Mirtazapine (Mirtazapine 15 Mg Tablet) 7.5 mg PO QHS [facility] Last Admin: 07/08/20 20:40 Dose: 7.5 mg Documented by: Ondansetron HCl (Ondansetron 4 Mg/2 Ml Vial) 4 mg IV Q8H PRN PRN PRN Reason: NAUSEA/VOMITING Last Admin: 07/07/20 23:57 Dose: 4 mg Documented by: Sodium Chloride (0.9% Saline Lock 10 Ml Syringe) 10 - 40 ml IV UD PRN PRN Reason: SALINE FLUSH Last Admin: 07/09/20 07:48 Dose: 10 ml Documented by: Tamsulosin HCl (Tamsulosin Hcl 0.4 Mg Capsule) 0.4 mg PO DAILY@1730 [facility] Last Admin: 07/08/20 17:22 Dose: 0.4 mg Documented by: STROKE Vital Signs/Narrative: Vital Signs Temp Pulse Resp BP Pulse Ox 07/09/20 08:27 97.0 F L 106 H 16 126/63 H 95 07/09/20 08:24 97.0 F L 106 H 16 126/63 H 96 07/09/20 07:56 97.8 F 107 H 121/70 H 97 07/09/20 07:40 108 H 07/09/20 07:10 107 H 18 Medical Necessity - Tobacco Use Smoking Status: Former smoker Tobacco Use: Cigarettes Assessment/Plan All Active Problems Hyperkalemia (Acute) Anemia (Acute) Acute blood loss anemia (ABLA) (Acute) Acute renal failure (Acute) Anemia (Acute) Cough present for greater than 3 weeks (Acute) Weakness (Acute) 1. Acute blood loss anemia with bright red blood per rectum/acute renal failure secondary to postobstructive nephropathy/urine retention/GERD -Transfuse a total of 2 units since admission, iron studies with a normal ferritin and a low iron consistent with iron deficiency anemia -Appreciate nephrology's assistance, continue with Jefferson, PTH is pending UA was unremarkable and creatinine is improving rapidly after the Jefferson -We will add Flomax, urology had nothing to add other than to continue the Jefferson -He can likely proceed with a colonoscopy as an outpatient -Continue with PPI but he can have a diet -hold his Lasix for now 2. Chronic lymphedema -Continue with Shilo wraps on both his legs 3. 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 Hypothyroidism -Stable -Continue Synthroid 5. Anxiety/depression -Stable -Continue with Remeron DVT: SCDs Inpatient E&M: [id number] Subs Hosp L2
[2020-07-09 09:11] LABS: PTHIN 463.5 pg/mL (18.4-80.1)
[2020-07-09] MEDS: Potassium Chloride Oral Tablet 20 MEQ 40 MEQ PO (09:44)
[2020-07-09] MEDS: Ammonium Lactate 225 gm Bottle 1 APPLIC TOPICAL ×2 (09:50→22:01)
[2020-07-09] MEDS: guaiFENesin 1,200 MG Tablet 1200 MG PO ×2 (09:51→22:00)
--- NOTE | 2020-07-09 11:19 | PCM.PN.REN ---
Patient Problems: Active and Suspected Problems Hyperkalemia (Acute) Anemia (Acute) Acute blood loss anemia (ABLA) (Acute) Acute renal failure (Acute) Anemia (Acute) Cough present for greater than 3 weeks (Acute) Weakness (Acute) Subjective: complains of thirst, on thickened liquids. Sodium rising. Creatinine improving. Start D51/2 NS. Dyspnea stable, edema improving. No nausea, vomiting. Receiving prbc. - Physical Exam Vitals/I&O's: Vital Signs Temp Pulse Resp BP Pulse Ox 100.5 F H 107 H 18 149/77 H 96 07/09/20 09:42 07/09/20 10:55 07/09/20 10:55 07/09/20 09:42 07/09/20 10:55 Oxygen Flow Rate (L/min) 1.5 Oxygen Delivery Method Nasal Cannula Weight: 71.4 kg Body Mass Index (BMI) 24.6 Intake and Output for Last 24 Hours 07/07/20 07/08/20 07/09/20 23:59 23:59 23:59 Intake Total 1180 / 1180 1560 / 2060 1010 / 1010 Output Total 3350 / 3350 6875 / 6875 1350 / 1350 Balance -2170 / -2170 -5315 / -4815 -340 / -340 General: Alert, Oriented x3, Cooperative Lungs: Clear to auscultation Cardiovascular: Regular rate Abdomen: Bowel Sounds Present, Soft, Non Tender, Non-Distended Extremities: Edema - mild ankle edema Skin: - - slight erythema BLE Musculoskeletal: Muscle Wasting Neurological: - - gen weakness Psych/Mental Status: Alert and oriented to time, place, person, mood and affect Microbiology Past 72 Hours 07/08/20 01:30 Mucosa - Nasopharyngeal Respiratory Panel (PCR) - Final 07/08/20 02:15 Mucosa - Nasopharyngeal SARS-CoV-2 Antigen (Rapid) - Final Laboratory Results 07/07/20 18:22: Crossmatch See Detail 07/07/20 20:15: Urine Color Yellow, Urine Clarity Clear, Urine pH 7.0, Ur Specific [place] 1.005, Urine Protein 30 H, Urine Glucose (UA) Normal, Urine Ketones Negative, Urine Occult Blood 10 H, Urine Nitrite Negative, Urine Bilirubin Negative, Urine Urobilinogen Normal, Ur Leukocyte Esterase Negative, Urine RBC 0-5 SEEN, Urine WBC 0 SEEN, Ur Squamous Epith Cells 0 SEEN, Urine Bacteria 0 SEEN, Urine Mucus 0 SEEN 07/09/20 06:16: WBC 10.8, RBC 2.17 L, Hgb 6.4 L, Hct 20.4 L, MCV 94.0, MCH 29.5, MCHC 31.4 L, RDW Std Deviation 59.9 H, RDW Coeff of Jh 17.3 H, Plt Count 141 L, MPV 9.8, Immature Gran % (Auto) 0.500, Neut % (Auto) 89.2 H, Lymph % (Auto) 3.4 L, [place] % (Auto) 6.9, Eos % (Auto) 0.0, Baso % (Auto) 0.0, Absolute Neuts (auto) 9.6 H, Absolute Lymphs (auto) 0.37 L, Nucleated RBC % 0, Differential Comment SCANNED, Hypochromasia RARE, Microcytosis RARE, Ovalocytes RARE, [place] Cells RARE 07/09/20 06:16: Sodium 146 H, Potassium 3.3 L, Chloride 114 H, Carbon Dioxide 19.0 L, Anion Gap 13, BUN 101 H*, Creatinine 6.86 H, Estim Creat Clear Calc 8.30, Est GFR (MDRD) Af Amer 10 L, Est GFR (MDRD) Non-Af 8 L, BUN/Creatinine Ratio 14.7, Glucose 140 H, Calcium 7.8 L, Phosphorus 6.3 H, Iron 21 L, Ferritin 341 07/09/20 06:16: PTH Intact 463.5 H Current Medications Acetaminophen (Acetaminophen 325 Mg Tablet) 650 mg PO Q6H PRN PRN PRN Reason: Pain Score 1-10/Temp > 100.7 F Albuterol Sulfate (Albuterol 2.5 Mg/3 Ml Vial.Neb.) 2.5 mg INHALATION Q2H PRN PRN PRN Reason: sob/wheezing Albuterol/Ipratropium (Ipratropium/Albuterol Sulfate 3 Ml Ampul.Neb) 3 ml INHALATION Q4HWA.RT [facility] Last Admin: 07/09/20 10:53 Dose: 3 ml Documented by: Docusate Sodium (Docusate Sodium 100 Mg Capsule) 200 mg PO QHS [facility] Last Admin: 07/08/20 20:39 Dose: 200 mg Documented by: Guaifenesin (Guaifenesin 1,200 Mg Tablet) 1,200 mg PO BID [facility] Last Admin: 07/09/20 09:51 Dose: 1,200 mg Documented by: Pantoprazole Sodium 40 mg/ (Sodium Chloride) 110 mls @ 330 mls/hr IV Q12 [facility] Last Infusion: 07/09/20 10:11 Dose: Infused Documented by: Dextrose/Sodium Chloride () 1,000 mls @ 75 mls/hr IV .[id number] [facility] Last Admin: 07/09/20 07:48 Dose: 75 mls/hr Documented by: Lactic Acid (Ammonium Lactate 225 Gm Bottle) 1 applic TOPICAL BID [facility]; Protocol Last Admin: 07/09/20 09:50 Dose: 1 applicatio Documented by: Levothyroxine Sodium (Levothyroxine 150 Mcg Tablet) 150 mcg PO DAILY@0600 [facility] Last Admin: 07/09/20 05:50 Dose: 150 mcg Documented by: Melatonin (Melatonin 3 Mg Tablet) 3 mg PO QHS [facility] Last Admin: 07/08/20 20:39 Dose: 3 mg Documented by: Methylprednisolone (Methylprednisolone 40 Mg/Ml Vial) 40 mg IV Q8 [facility] Last Admin: 07/09/20 05:49 Dose: 40 mg Documented by: Mirtazapine (Mirtazapine 15 Mg Tablet) 7.5 mg PO QHS [facility] Last Admin: 07/08/20 20:40 Dose: 7.5 mg Documented by: Ondansetron HCl (Ondansetron 4 Mg/2 Ml Vial) 4 mg IV Q8H PRN PRN PRN Reason: NAUSEA/VOMITING Last Admin: 07/07/20 23:57 Dose: 4 mg Documented by: Sodium Chloride (0.9% Saline Lock 10 Ml Syringe) 10 - 40 ml IV UD PRN PRN Reason: SALINE FLUSH Last Admin: 07/09/20 07:48 Dose: 10 ml Documented by: Tamsulosin HCl (Tamsulosin Hcl 0.4 Mg Capsule) 0.4 mg PO DAILY@1730 [facility] Last Admin: 07/08/20 17:22 Dose: 0.4 mg Documented by: Medical Necessity - Tobacco Use Smoking Status: Former smoker Tobacco Use: Cigarettes Assessment/Plan All Active Problems Hyperkalemia (Acute) Anemia (Acute) Acute blood loss anemia (ABLA) (Acute) Acute renal failure (Acute) Anemia (Acute) Cough present for greater than 3 weeks (Acute) Weakness (Acute) 1. RAMIN due to ATN from obstructive uropathy, urinary retention. Creatinine improving. Hold dialysis. Baseline creatinine 1.4 in Feb 2020. 2. Acute hyperkalemia corrected with medications. Hold K sparing diuretics. 3. Metabolic acidosis due to renal failure. 4. Lymphedema BLE improved 5. GI bleed, BRBPR, iron deficiency, hgb down to 6.4g, prbc today. IV iron 6. Hypernatremia start 1/2NS, complains of thirst, on thickened liquids. Speech following.
--- NOTE | 2020-07-09 12:03 | CASEMGMT ---
Social Work Note Pt is not ready for discharge today, will likely be ready over the weekend. SANDRA placed a call to Karma at [facility] and updated her. SW faxed updated clinicals. SW placed Green sheet, transport forms and COVID screening tool on pt's chart. Plan: [facility] when medically cleared Katia Quevedo [employer], [employer]
--- NOTE | 2020-07-09 13:21 | CASEMGMT ---
MARLEEN REED received call from Euncie HAWLEY CM at [facility] and provided number [phone] if assistance is needed with discharge planning.
[2020-07-09] MEDS: Tamsulosin HCl 0.4 MG Capsule PO (17:14)
[2020-07-09] MEDS: MELATONIN 3 MG TABLET PO (22:00)
[2020-07-09] MEDS: Docusate Sodium 100 MG Capsule 200 MG PO (22:00)
[2020-07-09] MEDS: Mirtazapine 15 MG Tablet 7.5 MG PO (22:00)
[2020-07-10] VITALS (10 sets, daily range): BP systolic 139–154; BP diastolic 70–90; PULSE 84–107; RESP 16–24; TEMP 36.7–36.9; O2SAT 95–98
[2020-07-10] MEDS: Albuterol 2.5 MG/3 ML VIAL.NEB. INHALATION (05:08)
[2020-07-10] MEDS: 0.9% Saline Lock 10 ML Syringe IV ×2 (06:09→13:30)
[2020-07-10] MEDS: Levothyroxine 150 MCG Tablet PO (06:09)
[2020-07-10 06:41] LABS: Absolute Lymphocyte Count 0.33 X10^3/uL (0.83-4.51); Absolute Neutrophil Count 7.8 X10^3/uL (2.0-7.7); Hematocrit 25.6 % (40-54); Hemoglobin 8.1 g/dL (13.0-16.5); Lymphocyte # 0.33 X10^3/ul (4.0); Lymphocyte % 3.7 % (19-41); Mean Corp Hgb Conc 31.6 g/dL (32-36); Mean Corpuscular Hgb 29.1 pg (27.0-32.0); Mean Corpuscular Volume 92.1 fL (80-94); Mean Platelet Vol. 10.6 fl (6.2-12.0); Monocyte# 0.69 X10^3/uL; Monocyte% 7.8 % (0-10); NRBC Flagged by Analyzer 0 % (0-5); Neutrophil # 7.81 X10^3/uL (2.7-7.7); Neutrophil % 87.8 % (47-70); POSITIVE DIFFERENTIAL YES; Platelet Count 162 K/mm3 (150-450); RBC Distribution Width CV 18.5 % (11.6-14.6); RBC Distribution Width SD 62.5 fl (35.1-43.9); Red Blood Count 2.78 M/mm3 (4.6-6.2); White Blood Count 8.9 K/mm3 (4.4-11.0)
[2020-07-10 06:57] LABS: Differential Indicated SCAN CRITERIA MET
--- NOTE | 2020-07-10 07:02 | PCM.PN.SRG ---
Patient Problems: Active and Suspected Problems Hyperkalemia (Acute) Anemia (Acute) Acute blood loss anemia (ABLA) (Acute) Acute renal failure (Acute) Anemia (Acute) Cough present for greater than 3 weeks (Acute) Weakness (Acute) Subjective: No bowel movements overnight - Physical Exam Vitals/I&O's: Vital Signs Temp Pulse Resp BP Pulse Ox 98.5 F 98 24 H 154/70 H 95 07/10/20 04:32 07/10/20 05:08 07/10/20 05:08 07/10/20 04:32 07/10/20 05:10 Oxygen Flow Rate (L/min) 1 Oxygen Delivery Method Nasal Cannula Weight: 157 lb 6.561 oz Body Mass Index (BMI) 24.6 Intake and Output for Last 24 Hours 07/08/20 07/09/20 07/10/20 23:59 23:59 23:59 Intake Total 1560 / 2060 3330 / 3330 480 / 480 Output Total 6875 / 6875 3650 / 3650 1550 / 1550 Balance -5315 / -4815 -320 / -320 -1070 / -1070 General: Alert, Oriented x3 Neck: No JVD Cardiovascular: Regular rate, Regular Rhythm Abdomen: Soft, Non Tender, Non-Distended Microbiology Past 72 Hours 07/08/20 01:30 Mucosa - Nasopharyngeal Respiratory Panel (PCR) - Final 07/08/20 02:15 Mucosa - Nasopharyngeal SARS-CoV-2 Antigen (Rapid) - Final Laboratory Results 07/07/20 18:22: Crossmatch See Detail 07/09/20 06:16: Sodium 146 H, Potassium 3.3 L, Chloride 114 H, Carbon Dioxide 19.0 L, Anion Gap 13, BUN 101 H*, Creatinine 6.86 H, Estim Creat Clear Calc 8.30, Est GFR (MDRD) Af Amer 10 L, Est GFR (MDRD) Non-Af 8 L, BUN/Creatinine Ratio 14.7, Glucose 140 H, Calcium 7.8 L, Phosphorus 6.3 H, Iron 21 L, Ferritin 341 07/09/20 06:16: PTH Intact 463.5 H 07/10/20 06:00: Sodium Pending, Potassium Pending, Chloride Pending, Carbon Dioxide Pending, BUN Pending, Creatinine Pending, Est GFR (MDRD) Af Amer Pending, Est GFR (MDRD) Non-Af Pending, BUN/Creatinine Ratio Pending, Glucose Pending, Calcium Pending, Phosphorus Pending, Albumin Pending 07/10/20 06:00: WBC 8.9, RBC 2.78 L, Hgb 8.1 L, Hct 25.6 L, MCV 92.1, MCH 29.1, MCHC 31.6 L, RDW Std Deviation 62.5 H, RDW Coeff of Jh 18.5 H, Plt Count 162, MPV 10.6, Immature Gran % (Auto) 0.700, Neut % (Auto) 87.8 H, Lymph % (Auto) 3.7 L, [place] % (Auto) 7.8, Eos % (Auto) 0.0, Baso % (Auto) 0.0, Absolute Neuts (auto) 7.8 H, Absolute Lymphs (auto) 0.33 L, Nucleated RBC % 0 Current Medications Acetaminophen (Acetaminophen 325 Mg Tablet) 650 mg PO Q6H PRN PRN PRN Reason: Pain Score 1-10/Temp > 100.7 F Albuterol Sulfate (Albuterol 2.5 Mg/3 Ml Vial.Neb.) 2.5 mg INHALATION Q2H PRN PRN PRN Reason: sob/wheezing Last Admin: 07/10/20 05:08 Dose: 2.5 mg Documented by: Albuterol/Ipratropium (Ipratropium/Albuterol Sulfate 3 Ml Ampul.Neb) 3 ml INHALATION Q4HWA.RT [facility] Last Admin: 07/09/20 19:16 Dose: 3 ml Documented by: Docusate Sodium (Docusate Sodium 100 Mg Capsule) 200 mg PO QHS [facility] Last Admin: 07/09/20 22:00 Dose: 200 mg Documented by: Guaifenesin (Guaifenesin 1,200 Mg Tablet) 1,200 mg PO BID [facility] Last Admin: 07/09/20 22:00 Dose: 1,200 mg Documented by: Pantoprazole Sodium 40 mg/ (Sodium Chloride) 110 mls @ 330 mls/hr IV Q12 [facility] Last Infusion: 07/09/20 22:21 Dose: Infused Documented by: Dextrose/Sodium Chloride () 1,000 mls @ 75 mls/hr IV .[id number] [facility] Last Admin: 07/09/20 22:05 Dose: 75 mls/hr Documented by: Lactic Acid (Ammonium Lactate 225 Gm Bottle) 1 applic TOPICAL BID [facility]; Protocol Last Admin: 07/09/20 22:01 Dose: 1 applicatio Documented by: Levothyroxine Sodium (Levothyroxine 150 Mcg Tablet) 150 mcg PO DAILY@0600 [facility] Last Admin: 07/10/20 06:09 Dose: 150 mcg Documented by: Melatonin (Melatonin 3 Mg Tablet) 3 mg PO QHS [facility] Last Admin: 07/09/20 22:00 Dose: 3 mg Documented by: Methylprednisolone (Methylprednisolone 40 Mg/Ml Vial) 40 mg IV Q8 [facility] Last Admin: 07/10/20 06:09 Dose: 40 mg Documented by: Mirtazapine (Mirtazapine 15 Mg Tablet) 7.5 mg PO QHS [facility] Last Admin: 07/09/20 22:00 Dose: 7.5 mg Documented by: Ondansetron HCl (Ondansetron 4 Mg/2 Ml Vial) 4 mg IV Q8H PRN PRN PRN Reason: NAUSEA/VOMITING Last Admin: 07/07/20 23:57 Dose: 4 mg Documented by: Sodium Chloride (0.9% Saline Lock 10 Ml Syringe) 10 - 40 ml IV UD PRN PRN Reason: SALINE FLUSH Last Admin: 07/10/20 06:09 Dose: 10 ml Documented by: Tamsulosin HCl (Tamsulosin Hcl 0.4 Mg Capsule) 0.4 mg PO DAILY@1730 [facility] Last Admin: 07/09/20 17:14 Dose: 0.4 mg Documented by: Medical Necessity - Tobacco Use Smoking Status: Former smoker Tobacco Use: Cigarettes Assessment/Plan All Active Problems Hyperkalemia (Acute) Anemia (Acute) Acute blood loss anemia (ABLA) (Acute) Acute renal failure (Acute) Anemia (Acute) Cough present for greater than 3 weeks (Acute) Weakness (Acute) 79-year-old male with anemia 1. The patient reports no changes overnight. He has not had any bloody bowel movements since being admitted to the hospital and his hemoglobin has appropriately responded to transfusion. Patient may follow-up for outpatient colonoscopy. Eliezer Wilson MD Pager: [facility] [address] [place] [address], [address] [place] [phone] Office:
[2020-07-10 07:07] LABS: Albumin, Serum 2.5 g/dL (3.2-5.0); BUN 80 mg/dL (7-18); BUN/Creat Ratio 15.8 RATIO (10-20); Calcium,Total 8.1 mg/dL (8.5-10.1); Chloride 113 mmol/L (98-107); Creatinine, Serum 5.07 mg/dL (0.70-1.30); EST Glomerular Filtration Rate 12 mL/min (>60); Est Glom Filt Rate - Afr Amer 14 mL/min (>60); Estimated Creatinine Clearance 11.23 ml/min; Glucose 143 mg/dL (74-106); Phosphorus 5.3 mg/dL (2.5-4.9); Potassium 3.8 mmol/L (3.5-5.1); Sodium Level 144 mmol/L (136-145)
[2020-07-10] MEDS: Ipratropium/Albuterol Sulfate 3 ML AMPUL.NEB INHALATION (07:11)
--- NOTE | 2020-07-10 09:18 | PCM.TXEXTCAR ---
- Diet 07/08/20 12:08 Diet: Regular - General Food consistency:: Pureed Liquid Consistency:: [place]/Mildly Thick Is pt able to select menu?: No - Routine Orders/Code Status Routine Lab Work: CBC, BMP Code Status: DNRCC - Wound(s) ble Wound Type: scabs both shins - Therapies Physical Therapy: Eval and Treat Occupational Therapy: Eval and Treat - Allergies/Procedures Done in Hospital Allergies/Adverse Reactions: Allergies No Known Allergies Allergy (Verified 07/07/20 17:36) Procedures: None - Type of Care/Length of Stay Estimated LOS: Convalescent Care Less Than 30 days Type of Care Needed: Skilled Rehab Potential: Fair Prognosis: Fair - Additional Orders/Day of Discharge Day of Discharge: 07/10/20 - Dietary and Speech Recommendations Dietitian Recommendations/Changes: Rec regular diet w/ texture modifications per [employer]. - Follow Up Care Primary Care Physician: Vernon Plascencia MD [Primary Care Provider] - Please follow up with your Primary Care Physician in: 3-5 days Please Follow Up With: Eliezer Wilson MD When: 1-2 weeks Please Follow Up With: Dion Angeles MD When: 2 weeks Please Follow Up With: Odalys Marvin DO When: 07/27/2020 at 10 am
[2020-07-10 09:43] LABS: Differential Comment SCANNED
[2020-07-10] MEDS: Ammonium Lactate 225 gm Bottle 1 APPLIC TOPICAL (09:50)
[2020-07-10] MEDS: guaiFENesin 1,200 MG Tablet 1200 MG PO (09:51)
[2020-07-10] MEDS: Ferrous Sulfate 325 MG Tablet PO (09:54)
--- NOTE | 2020-07-10 12:13 | DS.PCM_ITS ---
Discharge Date and Diagnosis - Problem List Patient Problems: Active and Suspected Problems Hyperkalemia (Acute) Anemia (Acute) Acute blood loss anemia (ABLA) (Acute) Acute renal failure (Acute) Anemia (Acute) Cough present for greater than 3 weeks (Acute) Weakness (Acute) Date of Admission: 07/07/20 Date of Discharge: 07/10/20 - Primary Discharge Diagnosis Acute Problems: Active Problems Hyperkalemia (Acute) Anemia (Acute) Acute blood loss anemia (ABLA) (Acute) Acute renal failure (Acute) Anemia (Acute) Cough present for greater than 3 weeks (Acute) Weakness (Acute) - Secondary Discharge Diagnosis Chronic Problems: Chronic Problems RAMIN (acute kidney injury) (Chronic) Varicose veins with ulcer and inflammation (Chronic) Onychomycosis (Chronic) Venous insufficiency (Chronic) Peripheral vascular disease (Chronic) Chronic acquired lymphedema (Chronic) Hypothyroidism (Chronic) Hypertension (Chronic) Status post coronary artery bypass graft (Chronic) Coronary artery disease (Chronic) Hospital Course and Treatment Imaging Results: Clinical Impression(s) from Imaging Studies Chest X-Ray 07/07/20 18:40 IMPRESSION: Cardiomegaly and mild pulmonary vascular congestion. Electronically Signed: Torito Zacarias MD at 19:07 EST Tel , Service support , Renal Ultrasound 07/08/20 05:55 IMPRESSION: Moderate right hydronephrosis and severe left hydronephrosis. Correlation with CT is recommended. 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 Reportedly patient's had elevated BUN and creatinine. Also his hemoglobin was low. At the emergency department his creatinine was 5.5. His hemoglobin was 6.8. Patient reports intermittent bright red blood per rectum. Emergent department doctor discussed the case with nephrology. Of note patient had Covid 19 virus about 3 months ago and is still coughing. Hospital Course: 1. Acute blood loss anemia with iron deficiency anemia/acute renal failure secondary to urinary [id number] male presented from the long-term with intermittent bright red blood per rectum. While here he hasn't had a bowel movement and a digital rectal exam by general surgery demonstrated only brown stool. He was also found to have iron deficiency anemia and therefore he was started on iron replacement. Because of his GERD he was also discharged on vitamin C to counteract the omeprazole so he can absorb his iron better. He was transfused 2 units and also given a dose of IV iron to supplement his iron loss. Plan will be for colonoscopy as an outpatient. He also had a Jefferson when he was admitted and drained about 2 L. On admission his creatinine was 10 and today he is down to little over 5. Because of his renal dysfunction, will continue to hold his Lasix for his lymphedema and monitor his creatinine as an outpatient. We'll continue his Jefferson until he follows up with urology in 1 to 2 weeks. He was also started on Flomax to help prevent urinary retention in the future. Nephrology will see him on July 27, 2020 at 10 AM, in the meantime he is to take calcitriol since his PTH was significantly elevated likely secondary to his acute renal failure. I discussed with him the plan for discharge back to the long-term today and he expressed understanding of the risk and benefits of going to the SNF and wants to go back today. 2. Acute respiratory insufficiency secondary to post Covid syndrome-he is currently on room air and this is likely a combination of his improved renal function as well as duo nebs, Mucinex, and steroids. We'll discharge him on pre dnisone for 5 more days and would recommend continued breathing treatments at the long-term. 3. Chronic lymphedema, hypothyroidism, anxiety, depression all chronic medical conditions which complicate his care. His home medications were continued where appropriate Patient Problems: Active and Suspected Problems Hyperkalemia (Acute) Anemia (Acute) Acute blood loss anemia (ABLA) (Acute) Acute renal failure (Acute) Anemia (Acute) Cough present for greater than 3 weeks (Acute) Weakness (Acute) - Physical Exam Vitals/I&O's: Vital Signs Temp Pulse Resp BP Pulse Ox 98.0 F 107 H 18 143/90 H 96 07/10/20 09:48 07/10/20 10:00 07/10/20 09:48 07/10/20 09:48 07/10/20 09:48 Oxygen Flow Rate (L/min) 1 Oxygen Delivery Method Room Air Weight: 157 lb 6.561 oz Body Mass Index (BMI) 24.6 Intake and Output for Last 24 Hours 07/08/20 07/09/20 07/10/20 23:59 23:59 23:59 Intake Total 1560 / 2060 3330 / 3330 1470 / 1470 Output Total 6875 / 6875 3650 / 3650 1550 / 1550 Balance -5315 / -4815 -320 / -320 -80 / -80 General: Alert, Oriented x3, Cooperative, No apparent distress HEENT: Atraumatic, PERRLA, EOMI, Normocephalic Oral: Moist Mucosa Neck: Supple, No JVD Lungs: Normal air movement, No rhonchi, mild wheeze, No rales, Diminished Cardiovascular: Regular rate, Regular Rhythm, Normal S1, Normal S2, No murmurs Abdomen: Soft, Non Tender, Non-Distended, No Hepato-splenomegaly Extremities: Shilo wrap is in place edema minimal, Capillary Refill Less than 3 Seconds Skin: No rashes, No breakdown Neurological: Neuro grossly intact, Sensory exam intact to light touch and pain Psych/Mental Status: Normal Affect, Appropriate Microbiology Past 72 Hours 07/08/20 01:30 Mucosa - Nasopharyngeal Respiratory Panel (PCR) - Final 07/08/20 02:15 Mucosa - Nasopharyngeal SARS-CoV-2 Antigen (Rapid) - Final Laboratory Results 07/10/20 06:00: Sodium 144, Potassium 3.8, Chloride 113 H, Carbon Dioxide 20.0 L , BUN 80 H, Creatinine 5.07 H, Estim Creat Clear Calc 11.23, Est GFR (MDRD) Af Amer 14 L, Est GFR (MDRD) Non-Af 12 L, BUN/Creatinine Ratio 15.8, Glucose 143 H, Calcium 8.1 L, Phosphorus 5.3 H, Albumin 2.5 L 07/10/20 06:00: WBC 8.9, RBC 2.78 L, Hgb 8.1 L, Hct 25.6 L, MCV 92.1, MCH 29.1, MCHC 31.6 L, RDW Std Deviation 62.5 H, RDW Coeff of Jh 18.5 H, Plt Count 162, MPV 10.6, Immature Gran % (Auto) 0.700, Neut % (Auto) 87.8 H, Lymph % (Auto) 3.7 L, [place] % (Auto) 7.8, Eos % (Auto) 0.0, Baso % (Auto) 0.0, Absolute Neuts (auto) 7.8 H, Absolute Lymphs (auto) 0.33 L, Nucleated RBC % 0, Differential Comment SCANNED Current Medications Acetaminophen (Acetaminophen 325 Mg Tablet) 650 mg PO Q6H PRN PRN PRN Reason: Pain Score 1-10/Temp > 100.7 F Albuterol Sulfate (Albuterol 2.5 Mg/3 Ml Vial.Neb.) 2.5 mg INHALATION Q2H PRN PRN PRN Reason: sob/wheezing Last Admin: 07/10/20 05:08 Dose: 2.5 mg Documented by: Albuterol/Ipratropium (Ipratropium/Albuterol Sulfate 3 Ml Ampul.Neb) 3 ml INHALATION Q4HWA.RT [facility] Last Admin: 07/10/20 07:11 Dose: 3 ml Documented by: Calcitriol (Calcitriol 0.25 Mcg Capsule) 0.25 mcg PO DAILY [facility] Last Admin: 07/10/20 09:57 Dose: Not Given Documented by: Docusate Sodium (Docusate Sodium 100 Mg Capsule) 200 mg PO QHS [facility] Last Admin: 07/09/20 22:00 Dose: 200 mg Documented by: Ferrous Sulfate (Ferrous Sulfate 325 Mg Tablet) 325 mg PO 1000,1700 [facility] Last Admin: 07/10/20 09:54 Dose: 325 mg Documented by: Guaifenesin (Guaifenesin 1,200 Mg Tablet) 1,200 mg PO BID [facility] Last Admin: 07/10/20 09:51 Dose: 1,200 mg Documented by: Pantoprazole Sodium 40 mg/ (Sodium Chloride) 110 mls @ 330 mls/hr IV Q12 [facility] Last Infusion: 07/10/20 10:09 Dose: Infused Documented by: Dextrose/Sodium Chloride () 1,000 mls @ 75 mls/hr IV .[id number] [facility] Last Admin: 07/10/20 10:37 Dose: Not Given Documented by: Lactic Acid (Ammonium Lactate 225 Gm Bottle) 1 applic TOPICAL BID CASTILLO; Protocol Last Admin: 07/10/20 09:50 Dose: 1 applicatio Documented by: Levothyroxine Sodium (Levothyroxine 150 Mcg Tablet) 150 mcg PO DAILY@0600 [facility] Last Admin: 07/10/20 06:09 Dose: 150 mcg Documented by: Melatonin (Melatonin 3 Mg Tablet) 3 mg PO QHS [facility] Last Admin: 07/09/20 22:00 Dose: 3 mg Documented by: Methylprednisolone (Methylprednisolone 40 Mg/Ml Vial) 40 mg IV Q8 [facility] Last Admin: 07/10/20 06:09 Dose: 40 mg Documented by: Mirtazapine (Mirtazapine 15 Mg Tablet) 7.5 mg PO QHS [facility] Last Admin: 07/09/20 22:00 Dose: 7.5 mg Documented by: Ondansetron HCl (Ondansetron 4 Mg/2 Ml Vial) 4 mg IV Q8H PRN PRN PRN Reason: NAUSEA/VOMITING Last Admin: 07/07/20 23:57 Dose: 4 mg Documented by: Sodium Chloride (0.9% Saline Lock 10 Ml Syringe) 10 - 40 ml IV UD PRN PRN Reason: SALINE FLUSH Last Admin: 07/10/20 06:09 Dose: 10 ml Documented by: Tamsulosin HCl (Tamsulosin Hcl 0.4 Mg Capsule) 0.4 mg PO DAILY@1730 [facility] Last Admin: 07/09/20 17:14 Dose: 0.4 mg Documented by: Home Medications: Medications to take at Discharge Ammonium Lactate 1 applic TP BID 07/07/20 Docusate Sodium [Colace] 200 mg PO QHS 07/07/20 Levothyroxine Sodium [Synthroid] 150 mcg PO DAILY 07/07/20 Melatonin 3 mg PO QHS 07/07/20 Mirtazapine 7.5 mg PO QHS 07/07/20 Omeprazole 40 mg PO DAILY 07/07/20 Ascorbic Acid [Vitamin C] 500 mg PO BID #60 tab 07/10/20 Calcitriol [Rocaltrol] 0.25 mcg PO DAILY cap 07/10/20 Ferrous Sulfate 325 mg PO 1000,1700 tab 07/10/20 Prednisone [Deltasone] 40 mg PO DAILY #10 tab 07/10/20 Tamsulosin HCl [Flomax] 0.4 mg PO DAILY@1730 cap 07/10/20 Following Prescriptions Were Given to Patient: Prednisone [Deltasone] 40 mg PO DAILY #10 tab Ascorbic Acid [Vitamin C] 500 mg PO BID #60 tab Primary Care Physician: Vernon Plascencia MD [Primary Care Provider] - Please follow up with your Primary Care Physician in: 3-5 days Please Follow Up With: Eliezer Wilson MD When: 1-2 weeks Please Follow Up With: Dion Angeles MD When: 2 weeks Please Follow Up With: Odalys Marvin DO When: 07/27/2020 at 10 am Disposition: [facility] facility Minutes spent on discharge:: 35 Patient Condition:: Stable Medical Necessity - Tobacco Use Smoking Status: Former smoker Tobacco Use: Cigarettes Meaningful Use Info Meaningful Use Diagnoses (Choose all that apply): None applicable Inpatient E&M: [id number] [facility]
== END 2020-07-10 15:17 | disposition skilled nursing facility (03) | DRG 682 ==
LOC: ED 19:46 → MS3 20:42
PROVIDERS: Internal Medicine Nephrology; Admitting Provider Hospitalist; Emergency Provider Emergency Medicine; PCP Family Medicine; Visit Provider Family Medicine
DX: N17.0 Acute kidney failure with tubular necrosis (principal); J96.00 Acute respiratory failure, unspecified whether with hypoxia or hypercapnia; D62 Acute posthemorrhagic anemia; E87.2 Acidosis; E87.0 Hyperosmolality and hypernatremia; K62.5 Hemorrhage of anus and rectum; I12.0 Hypertensive chronic kidney disease with stage 5 chronic kidney disease or end stage renal disease; N18.6 End stage renal disease; I25.10 Atherosclerotic heart disease of native coronary artery without angina pectoris; I73.9 Peripheral vascular disease, unspecified; E03.9 Hypothyroidism, unspecified; E78.5 Hyperlipidemia, unspecified; F32.9 Major depressive disorder, single episode, unspecified; F41.9 Anxiety disorder, unspecified; I87.2 Venous insufficiency (chronic) (peripheral); E87.5 Hyperkalemia; R05 Cough; I89.0 Lymphedema, not elsewhere classified; R33.9 Retention of urine, unspecified; K21.9 Gastro-esophageal reflux disease without esophagitis; N32.0 Bladder-neck obstruction; H91.90 Unspecified hearing loss, unspecified ear; B35.1 Tinea unguium; K59.09 Other constipation; E83.39 Other disorders of phosphorus metabolism; R31.0 Gross hematuria; Z66 Do not resuscitate; Z95.1 Presence of aortocoronary bypass graft; Z79.890 Hormone replacement therapy; Z79.899 Other long term (current) drug therapy; Z85.819 Personal history of malignant neoplasm of unspecified site of lip, oral cavity, and pharynx; Z86.16 Personal history of COVID-19; Z87.891 Personal history of nicotine dependence
CPT/HCPCS: 36415; 36600; 71045; 76770; 80048; 80053; 80069; 81001; 82570; 82728; 82803; 83540; 83970; 84100; 84300; 85014; 85018; 85025; 85027; 85610; 86850; 86900; 86901; 86920; 86922; 87426; 87633; 92526; 92610; 93005; 94002; 94640; 94667; 94762; 97802; 99285; J7030; J7040; P9016; A4216; J1940; J2405; J2916; J3490; J7799

== ENCOUNTER 2020-08-05 11:30 | Inpatient (IN) | payer MEDICARE, MEDICAID, SELFPAY ==
[2020-08-05] VITALS (12 sets, daily range): BP systolic 79–155; BP diastolic 54–88; PULSE 83–101; RESP 12–24; TEMP 36.4–37.1; O2SAT 96–100; BMI 21.1; BMI 20.5
--- NOTE | 2020-08-05 11:55 | EKG12_ITS ---
Test Reason : WEAKNESS Blood Pressure : / mmHG Vent. Rate : 087 BPM Atrial Rate : 087 BPM P-R Int : 136 ms QRS Dur : 090 ms QT Int : 364 ms P-R-T Axes : 045 006 -11 degrees QTc Int : 438 ms Normal sinus rhythm with sinus arrhythmia Possible Inferior infarct , age undetermined Abnormal ECG Confirmed by ALEXIS SALINAS, CHANI ([id number]), restaurant expeditor TISHA WILKES ([id number]) on 08/06/2020 12:51:44 PM Referred By: FARRAH Confirmed By:CHANI ESPINOZA MD
--- NOTE | 2020-08-05 11:57 | ED.DCSUM_ITS ---
History of Present Illness Chief Complaint: Weakness Narrative: This patient is a 79-year-old male who presents with weakness. Per the nursing facility reports patient has an acute kidney injury fever tachycardia and generalized weakness. Patient had Covid in May. He was then admitted earlier this month with blood loss/iron deficiency anemia. He was transfused. He states that he has been generally weak for about 5 weeks. He denies any chest pain difficulty breathing cough abdominal pain nausea vomiting diarrhea. He has an indwelling Jefferson catheter. With the exception of weakness the patient does not have any focal complaints. Past Medical History - Allergies and Home Meds Allergies/Adverse Reactions: Allergies No Known Allergies Allergy (Verified 08/05/20 11:35) Primary Care Physician: Vernon Plascencia MD [Primary Care Provider] - Past Medical History: - - Hypothyroidism, coronary artery disease Surgical History: coronary bypass surgery Smoking Status: Former smoker - Family History Maternal Family History: Reports: Heart Disease Paternal Family History: Reports: Heart Disease Review of Systems All systems negative except as indicated General: Reports: Fever Eyes: Denies: Visual changes - bilaterally ENT: Denies: Bilateral ear pain Cardiovascular: Denies: Chest pain Respiratory: Denies: Dyspnea Gastrointestinal: Denies: Abdominal pain, Nausea, Vomiting, Diarrhea Musculoskeletal: Denies: Myalgias, Arthralgias Skin: Denies: Rash Neurological: Reports: Weakness. Denies: Headache Hematologic: Denies: Easy bruising, Easy bleeding Allergy: Denies: Uticaria Physical Exam Vital Signs/Narrative: Vital Signs Temp Pulse Resp BP Pulse Ox 08/05/20 11:35 97.6 F L 99 12 79/54 L 96 08/05/20 11:31 97.6 F L 99 12 79/54 L 96 Inital Vital Signs reviewed: Yes General: Well nourished Head: Normocephalic Eyes: EOMI ENT: Moist mucous membranes Neck: Supple Cardiovascular: Regular rhythm, Tachycardia Respiratory: No distress, CTA bilaterally. Negative for: Rales, Rhonchi, Wheezing Abdomen: Soft, Nontender, Nondistended Skin: Normal color Neurological: Alert Psychological: Normal affect Diagnostic/Tx/Re-eval Impressions Chest X-Ray 08/05/20 12:15 IMPRESSION: Hyperinflation. The lungs are clear. Electronically Signed: Vadim Hughes MD at 12:37 EDT , Service support , 08/05/20 12:15 CXR [Chest 1 View (Portable)] [RAD] Stat Laboratory Results 08/05/20 08/05/20 08/05/20 11:40 11:40 11:40 WBC 10.7 RBC 3.69 L Hgb 11.0 L Hct 35.1 L MCV 95.1 H MCH 29.8 MCHC 31.3 L RDW Std Deviation 54.0 H RDW Coeff of Jh 15.5 H Plt Count 205 MPV 9.1 Immature Gran % (Auto) 0.800 Neut % (Auto) 84.7 H Lymph % (Auto) 4.4 L [place] % (Auto) 9.7 Eos % (Auto) 0.2 Baso % (Auto) 0.2 Absolute Neuts (auto) 9.1 H Absolute Lymphs (auto) 0.47 L Nucleated RBC % 0 Differential Comment COMMENT Sodium 136 Potassium 4.8 Chloride 105 Carbon Dioxide 21.0 Anion Gap 10 BUN 63 H Creatinine 3.57 H Estim Creat Clear Calc 14.74 Est GFR (MDRD) Af Amer 21 L Est GFR (MDRD) Non-Af 18 L BUN/Creatinine Ratio 17.6 Glucose 124 H Lactic Acid 2.4 H* Calcium 8.9 Total Bilirubin 0.40 AST 19 ALT 29 Alkaline Phosphatase 66 Total Protein 6.8 Albumin 2.6 L Globulin 4.2 Albumin/Globulin Ratio 0.6 L Urine Color Urine Clarity Urine pH Ur Specific [place] Urine Protein Urine Glucose (UA) Urine Ketones Urine Occult Blood Urine Nitrite Urine Bilirubin Urine Urobilinogen Ur Leukocyte Esterase Urine RBC Urine WBC Ur Squamous Epith Cells Urine Bacteria Urine Mucus 08/05/20 12:49 WBC RBC Hgb Hct MCV MCH MCHC RDW Std Deviation RDW Coeff of Jh Plt Count MPV Immature Gran % (Auto) Neut % (Auto) Lymph % (Auto) [place] % (Auto) Eos % (Auto) Baso % (Auto) Absolute Neuts (auto) Absolute Lymphs (auto) Nucleated RBC % Differential Comment Sodium Potassium Chloride Carbon Dioxide Anion Gap BUN Creatinine Estim Creat Clear Calc Est GFR (MDRD) Af Amer Est GFR (MDRD) Non-Af BUN/Creatinine Ratio Glucose Lactic Acid Calcium Total Bilirubin AST ALT Alkaline Phosphatase Total Protein Albumin Globulin Albumin/Globulin Ratio Urine Color Yellow Urine Clarity Cloudy Urine pH 6.0 Ur Specific [place] 1.010 Urine Protein 100 H Urine Glucose (UA) Normal Urine Ketones Negative Urine Occult Blood 250 H Urine Nitrite Positive H Urine Bilirubin Negative Urine Urobilinogen Normal Ur Leukocyte Esterase 500 H Urine RBC 0 SEEN Urine WBC >100 SEEN Ur Squamous Epith Cells 0 SEEN Urine Bacteria 3+ Urine Mucus 0 SEEN - Medical Decision Making One-view portable chest x-ray obtained. On my interpretation this shows cerclage wires, no acute process. This was read by radiology who agrees. EKG shows normal sinus rhythm old inferior infarct, this is unchanged from prior. Labs are notable for hemoglobin of 11, creatinine of 3.57. Patient creatinine was 5 at discharge on his most recent labs. Lactic acid elevated at 2.4. Urinalysis shows 500 leukocyte esterase, positive nitrates, greater than 100 WBCs, 3+ bacteria. Blood and urine cultures were sent. Patient was treated with IV fluids and blood pressure normal on reevaluation. He was treated with IV Rocephin. Patient will be discussed with the hospitalist service and admitted. ED Disposition - Plan for ED Patient: Disposition: Acute Care Hospital [facility] Diagnosis: Severe sepsis, UTI (urinary tract infection) Referrals: Vernon Plascencia MD [Primary Care Provider] -
[2020-08-05] MEDS: 0.9% Normal Saline 1,000 ML 1000 ML IV (12:03)
--- NOTE | 2020-08-05 12:15 | RAD_ITS ---
STUDY: X-RAY CHEST REASON FOR EXAM: Male, 79 years old. Sepsis TECHNIQUE: Single AP portable view of the chest. COMPARISON: Comparison is made with prior study of 07/07/2020. FINDINGS: EKG electrodes are seen. There is hyperinflation of the lungs consistent with chronic obstructive lung disease (COPD). There is no demonstrated pleural abnormality. Sternal cerclage wires and vascular clips are present from a prior sternotomy and coronary artery bypass graft procedure (CABG). Normal mediastinum and lay. Normal visualized pulmonary arteries. There is atherosclerotic calcification of the aortic arch with tortuosity. There are diffuse degenerative changes of the visualized thoracic spine. Normal visualized ribs, clavicles, and shoulders. There is no demonstrated abnormality of the visualized soft tissue structures of the upper abdomen. RAD/Chest 1 View (Portable) IMPRESSION: Hyperinflation. The lungs are clear. Electronically Signed: Vadim Hughes MD at 12:37 EDT , Service support ,
[2020-08-05 12:18] LABS: Absolute Lymphocyte Count 0.47 X10^3/uL (0.83-4.51); Absolute Neutrophil Count 9.1 X10^3/uL (2.0-7.7); Basophil# 0.02 X10^3/uL; Basophil% 0.2 % (0-1); Eosinophil# 0.02 X10^3/uL; Eosinophils% 0.2 % (0-5); Hematocrit 35.1 % (40-54); Lymphocyte # 0.47 X10^3/ul (4.0); Lymphocyte % 4.4 % (19-41); Mean Corp Hgb Conc 31.3 g/dL (32-36); Mean Corpuscular Hgb 29.8 pg (27.0-32.0); Mean Corpuscular Volume 95.1 fL (80-94); Mean Platelet Vol. 9.1 fl (6.2-12.0); Monocyte# 1.04 X10^3/uL; Monocyte% 9.7 % (0-10); NRBC Flagged by Analyzer 0 % (0-5); Neutrophil % 84.7 % (47-70); POSITIVE DIFFERENTIAL YES; Platelet Count 205 K/mm3 (150-450); RBC Distribution Width CV 15.5 % (11.6-14.6); Red Blood Count 3.69 M/mm3 (4.6-6.2); White Blood Count 10.7 K/mm3 (4.4-11.0)
[2020-08-05 12:19] LABS: Differential Indicated SCAN CRITERIA MET
[2020-08-05 12:28] LABS: ALB/GLOB Ratio 0.6 RATIO (0.9-2.4); AST(SGOT) 19 U/L (15-37); Alanine Aminotransfer ALT/SGPT 29 U/L (16-61); Albumin, Serum 2.6 g/dL (3.2-5.0); Alkaline Phosphatase 66 U/L (45-117); Anion Gap 10 (5-15); BUN 63 mg/dL (7-18); BUN/Creat Ratio 17.6 RATIO (10-20); Calcium,Total 8.9 mg/dL (8.5-10.1); Chloride 105 mmol/L (98-107); Creatinine, Serum 3.57 mg/dL (0.70-1.30); EST Glomerular Filtration Rate 18 mL/min (>60); Est Glom Filt Rate - Afr Amer 21 mL/min (>60); Estimated Creatinine Clearance 14.74 ml/min; Globulin 4.2 g/dL (2.2-4.2); Glucose 124 mg/dL (74-106); Potassium 4.8 mmol/L (3.5-5.1); Protein, Total 6.8 g/dL (6.4-8.2); Sodium Level 136 mmol/L (136-145)
[2020-08-05 12:34] LABS: Lactic Acid 2.4 mmol/L (0.4-1.9)
[2020-08-05 12:53] LABS: Mucous, Urine 0 SEEN /hpf (<or=2+); Red Blood Cells-Urine 0 SEEN /hpf (0-5); Squamous Epithelial Cells - UA 0 SEEN /hpf (0-5)
[2020-08-05 12:58] LABS: Color, Urine Yellow (Yellow); Glucose, Dipstick Normal (Normal); Ketone-Dipstick Negative (Negative); Leukocyte Esterase-Dipstick 500 /ul (Negative); Nitrite-Dipstick Positive (Negative); Occult Blood-Urine 250 /ul (Negative); Protein-Dipstick 100 mg/dl (Negative); Urine Bilirubin Dipstick Negative (Negative); Urine Clarity Cloudy (Clear); Urine Urobilinogen Normal (Normal)
[2020-08-05 13:17] LABS: Bacteria 3+ /hpf (None Seen); White Blood Cells >100 SEEN /hpf (0-5)
[2020-08-05] MEDS: 0.9% Normal Saline 1,000 ML 999 ML IV (13:40)
[2020-08-05] MEDS: Ceftriaxone 1 GM/50 ML BAG IV ×2 (13:45→16:04)
--- NOTE | 2020-08-05 13:54 | NURSING ---
108 ASHELFAH SEVERE SEPSIS, UTI
--- NOTE | 2020-08-05 13:58 | HP.PCM_ITS ---
Problem List (1) Recent RAMIN on CKD Status: Acute (2) Chronic anemia Status: Chronic (3) Severe sepsis Status: Acute (4) UTI (urinary tract infection) Status: Acute (5) Peripheral vascular disease Status: Chronic (6) Hypothyroidism Status: Chronic (7) Hypertension Status: Chronic (8) Status post coronary artery bypass graft Status: Chronic (9) Coronary artery disease Status: Chronic History of Present Illness Date of Admission: 08/05/20 Chief Complaint: Weakness. The patient is a 79 year old M with past medical history as mentioned above transferred from the [facility] to [facility] emergency department because of weakness. Patient stated that his symptoms started over the last couple of days with weakness, generalized, associated with profound fatigue and poor appetite and he was not able to ambulate as he did before. He denied any other specific symptoms. He denied fever or chills. He does have chronic urinary tension and he has been on Jefferson catheter for the last couple of months. Patient was admitted earlier this month for acute renal failure on top of stage IIIa chronic kidney disease with hyperkalemia which was treated with IV fluids and his kidney function improved but still above his baseline. During the same admission, patient was found to have acute blood loss anemia secondary to hematuria, received blood transfusion and admission hemoglobin today is 11 g/dL. He had a history of CAD status post CABG and he is not on any treatment for CAD including aspirin, beta-blockers or XUAN inhibitors. He had a history of hypertension and currently, he is not on any antihypertensive medications. He had a history of hypothyroidism and he has been on levothyroxine, [facility] In [facility] emergency department, patient was initially hypotensive, blood pressure was 79/54. He received IV fluid bolus and his blood pressure improved and it is back to normal. He was afebrile, heart rate was 91 and pulse ox was 99% on room air. Routine blood work was remarkable for hemoglobin of 11 g/dL, BUN is 63, creatinine is 3.57. Lactic acid was 2.4. LFT was unremarkable. Chest x-ray showed no acute infiltrate or consolidation. EKG revealed normal sinus rhythm, normal [place] interval, normal QRS, no acute ischemic changes. Urinalysis revealed cloudy urine, positive for nitrite and leukocyte esterase, there was more than 100 WBC and 3+ bacteria seen. He is being admitted for severe sepsis due to complicated acute cystitis and also had recent acute renal failure on top of stage IIIa chronic kidney disease. Past Medical History Past Medical History (Chronic Problems): Chronic Problems (Last Updated 08/05/20 @ 13:[address] 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) I83.209, L97.909 Onychomycosis (Chronic) B35.1 Venous insufficiency (Chronic) I87.2 Peripheral vascular disease (Chronic) I73.9 Chronic acquired lymphedema (Chronic) I89.0 Hypothyroidism (Chronic) E03.9 Hypertension (Chronic) I10 Coronary artery disease (Chronic) I25.10 Acute blood loss anemia (ABLA) (Inactive) D62 Allergies No Known Allergies Allergy (Verified 08/05/20 11:35) Home Medications: Ambulatory Orders Medication Instructions Recorded Ammonium Lactate 1 applic TP BID 07/07/20 Docusate Sodium [Colace] 200 mg PO QHS 07/07/20 Levothyroxine Sodium [Synthroid] 150 mcg PO DAILY 07/07/20 Melatonin 3 mg PO QHS 07/07/20 Omeprazole 40 mg PO DAILY 07/07/20 Ascorbic Acid [Vitamin C] 500 mg PO BID #60 tab 07/10/20 Calcitriol [Rocaltrol] 0.25 mcg PO DAILY cap 07/10/20 Tamsulosin HCl [Flomax] 0.4 mg PO DAILY@1730 cap 07/10/20 Ferrous Sulfate 325 mg PO DAILY 08/05/20 Mirtazapine [Remeron] 15 mg PO QHS 08/05/20 Surgical History: Surgical History (Last Reviewed 07/26/20 @ 13:15 by Valery Soto) Status post coronary artery bypass graft (Chronic) Z95.1 Surgical History: coronary bypass surgery Psychiatric History: Anxiety, Depression Lives: Care Home Smoking Status: Former smoker Alcohol: None Drugs: None - *Family History Maternal History Items: Heart Disease Paternal History Items: Heart Disease Review of Systems Constitutional: Reports: Anorexia, Weakness, Fatigue. Denies: Chills, Fever Eyes: Denies: Blurred vision, Double vision, Drainage, Redness HEENT: Denies: Difficulty Hearing, Ear Pain, Eye Pain, Nasal Congestion, Sore Throat Cardiovascular: Denies: Chest Pain, Chest Pressure, Edema, Heaviness, Palpitations, Syncope Respiratory: Denies: Cough, Pleuritic Pain, Shortness of Breath, Sputum production, Wheezing Gastrointestinal: Denies: Abdominal Pain, Constipation, Diarrhea, Nausea, Vomiting Genitourinary: Denies: Dysuria, Frequency, Hematuria Musculoskeletal: Denies: Arm Pain, Back Pain, Foot Pain Skin: Reports: Dryness. Denies: Rash Neurological: Denies: Balance problems, Double vision, Change in Speech, Slurred speech, Confusion, Focal weakness, Headaches, Incoordination Psychiatric: Denies: Anxiety, Depression Endocrine: Denies: Change in Body Habitus, Polydipsia, Polyuria VTE Information - Inpt Only VTE Present on Admission: No VTE Mechan Device Prophylaxis: SCD's VTE Pharm Prophylaxis ordered?: No Patient Problems: Active and Suspected Problems (Last Updated 08/05/20 @ 13:[address] Butch March MD) Recent RAMIN on CKD (Acute) Severe sepsis (Acute) UTI (urinary tract infection) (Acute) - Physical Exam Vitals/I&O's: Vital Signs Temp Pulse Resp BP Pulse Ox 98.7 F 85 19 H 132/84 H 98 08/05/20 13:50 08/05/20 13:50 08/05/20 13:50 08/05/20 13:50 08/05/20 13:50 Oxygen Delivery Method Room Air Weight: 134 lb 11.239 oz Body Mass Index (BMI) 21.1 Intake and Output for Last 24 Hours 08/03/20 08/04/20 08/05/20 23:59 23:59 23:59 Intake Total 1000 / 1000 Balance 1000 / 1000 General: Alert, Oriented x3, Cooperative, No apparent distress HEENT: Atraumatic, PERRLA, EOMI, Normocephalic Oral: No Gingival or Mucosal Lesions/ Ulcerations, Dry Mucosa Neck: Supple, No JVD, Negative Carotid Bruits, Trachea Midline, Thyroid Normal Size and Texture Lungs: Clear to auscultation, No rhonchi, No wheeze, No rales, Diminished Cardiovascular: Regular rate, Regular Rhythm, Normal S1, Normal S2, PMI Normal Abdomen: Bowel Sounds Present, Soft, Non Tender, Non-Distended, No Hepato- splenomegaly Extremities: No clubbing, No cyanosis, Edema - Trace edema, dry skin' Skin: No rashes, No breakdown Lymphatic: No Cervical, Supraclavicular, or Inguinal Adenopathy Neurological: Cranial nerves II-XII grossly intact, Motor Exam 5/5 strength throughout Psych/Mental Status: Normal Affect, Appropriate, Alert and oriented to time, place, person, mood and affect Laboratory Results 08/05/20 11:40: WBC 10.7, RBC 3.69 L, Hgb 11.0 L, Hct 35.1 L, MCV 95.1 H, MCH 29.8, MCHC 31.3 L, RDW Std Deviation 54.0 H, RDW Coeff of Jh 15.5 H, Plt Count 205, MPV 9.1, Immature Gran % (Auto) 0.800, Neut % (Auto) 84.7 H, Lymph % (Auto) 4.4 L, [place] % (Auto) 9.7, Eos % (Auto) 0.2, Baso % (Auto) 0.2, Absolute Neuts (auto) 9.1 H, Absolute Lymphs (auto) 0.47 L, Nucleated RBC % 0, Differential Comment COMMENT 08/05/20 11:40: Sodium 136, Potassium 4.8, Chloride 105, Carbon Dioxide 21.0, Anion Gap 10, BUN 63 H, Creatinine 3.57 H, Estim Creat Clear Calc 14.74, Est GFR (MDRD) Af Amer 21 L, Est GFR (MDRD) Non-Af 18 L, BUN/Creatinine Ratio 17.6, Glucose 124 H, Calcium 8.9, Total Bilirubin 0.40, AST 19, ALT 29, Alkaline Phosphatase 66, Total Protein 6.8, Albumin 2.6 L, Globulin 4.2, Albumin/Globulin Ratio 0.6 L 08/05/20 11:40: Lactic Acid 2.4 H* 08/05/20 12:49: Urine Color Yellow, Urine Clarity Cloudy, Urine pH 6.0, Ur Specific [place] 1.010, Urine Protein 100 H, Urine Glucose (UA) Normal, Urine Ketones Negative, Urine Occult Blood 250 H, Urine Nitrite Positive H, Urine Bilirubin Negative, Urine Urobilinogen Normal, Ur Leukocyte Esterase 500 H, Urine RBC 0 SEEN, Urine WBC >100 SEEN, Ur Squamous Epith Cells 0 SEEN, Urine Bacteria 3+, Urine Mucus 0 SEEN Clinical Impression(s) from Imaging Studies Chest X-Ray 08/05/20 12:15 IMPRESSION: Hyperinflation. The lungs are clear. Electronically Signed: Vadim Hughes MD at 12:37 EDT , Service support , Current Medications Sodium Chloride () 1,000 mls @ 999 mls/hr IV .Q1H1M ONE Stop: 08/05/20 14:29 Last Admin: 08/05/20 13:40 Dose: 999 mls/hr Documented by: Assessment/Plan All Active Problems (Last Updated 08/05/20 @ 13:[address] Butch March MD) Recent RAMIN on CKD (Acute) Severe sepsis (Acute) UTI (urinary tract infection) (Acute) This is a 79 years old male patient presented to the emergency room because of weakness and fatigue, found to have severe sepsis secondary to complicated acute cystitis and he had recent admission for acute renal failure on top of stage IIIa chronic kidney disease and acute blood loss anemia. #1 complicated acute cystitis/severe sepsis: Patient was hypotensive in the ED, received bolus of IV fluids and blood pressure improved. Lactic acid was elevated. Chest x-ray showed no acute findings. Plan: Admit to PCU, cardiac monitoring, continue maintenance IV fluids, blood culture, urine culture, start IV Rocephin 2 g every 24 hours, repeat CBC and BMP tomorrow morning, PT OT evaluation and treatment. #2 recent acute renal failure on top of stage IIIa chronic kidney disease/hyperkalemia: This was attributed to obstructive uropathy. Kidney ultrasound done on July 08, 2020 and showed moderate right hydronephrosis and severe left hydronephrosis. This was treated with IV fluids, no dialysis performed. On July 07, 2020, creatinine was 10 and BUN was 128. Kidney function has been improving since then. Today, creatinine is 3.57, BUN 63. Potassium is 4.8. Plan: IV fluids, input output chart, repeat BMP tomorrow morning. #3 recent acute blood loss anemia: This was secondary to hematuria. Patient received blood transfusion and he has been on iron supplement. He followed up with general surgery as outpatient, offered colonoscopy but patient wanted to get stronger. Admission globin today is 11 g/dL. Urine is clear in the urine bag, no hematuria. No evidence of active bleeding. Plan to monitor. #4 CAD status post CABG: Stable, EKG reviewed. Patient denied any chest pain. Patient is not on any treatment for CAD. #5 benign prostatic hypertrophy/urinary retention: On chronic Jefferson catheter, continue Jefferson catheter and Flomax. #6 hypertension: Currently, he is not on any antihypertensive medications as outpatient. Blood pressure improved after IV fluid bolus. #7 hypothyroidism: TSH was 14.6 on November,. Plan to continue levothyroxine, check TSH. #8 CODE STATUS: Patient was very hard to understand what the CODE STATUS is. I will try to explain to him different CODE STATUS but he is not able to comprehend what I have been saying to him. #8 DVT prophylaxis: SCDs, no chemical prophylaxis because of recent hematuria and acute blood loss anemia. This note was generated with cheerapp dictation software. It may contain incorrect words, spelling, and punctuation that were not noted in checking the note before signing. Inpatient E&M: 05101 Init Hosp L3
[2020-08-05] MEDS: 0.9% Normal Saline 1,000 ML 100 ML IV (16:03)
[2020-08-05] MEDS: 0.9% Saline Lock 10 ML Syringe IV (16:04)
--- NOTE | 2020-08-05 16:06 | PCM.NTREPORT ---
Nutrition Therapy Report - History Nutrition Services has been consulted to:: Manage nutrient details of diet order Current diet / nutrition support order:: regular-pureed/thin liquids - Anthropometric Measurements Height:: 5 ft 7 in Weight:: 59.4 kg Body Mass Index (BMI):: 20.5 - Relevant Labs Relevant Labs:: RBC 3.69 M/mm3 (4.6-6.2) L 08/05/20 11:40 Hgb 11.0 g/dL (13.0-16.5) L 08/05/20 11:40 Hct 35.1 % (40-54) L 08/05/20 11:40 MCV 95.1 fL (80-94) H 08/05/20 11:40 MCHC 31.3 g/dL (32-36) L 08/05/20 11:40 RDW Std Deviation 54.0 fl (35.1-43.9) H 08/05/20 11:40 RDW Coeff of Jh 15.5 % (11.6-14.6) H 08/05/20 11:40 Neut % (Auto) 84.7 % (47-70) H 08/05/20 11:40 Lymph % (Auto) 4.4 % (19-41) L 08/05/20 11:40 Absolute Neuts (auto) 9.1 X10^3/uL (2.0-7.7) H 08/05/20 11:40 Absolute Lymphs (auto) 0.47 X10^3/uL (0.83-4.51) L 08/05/20 11:40 BUN 63 mg/dL (7-18) H 08/05/20 11:40 Creatinine 3.57 mg/dL (0.70-1.30) H 08/05/20 11:40 Est GFR (MDRD) Af Amer 21 mL/min (>60) L 08/05/20 11:40 Est GFR (MDRD) Non-Af 18 mL/min (>60) L 08/05/20 11:40 Glucose 124 mg/dL (74-106) H 08/05/20 11:40 Lactic Acid 2.4 mmol/L (0.4-1.9) H* 08/05/20 11:40 Albumin 2.6 g/dL (3.2-5.0) L 08/05/20 11:40 Albumin/Globulin Ratio 0.6 RATIO (0.9-2.4) L 08/05/20 11:40 - Assessment Food / Nutrition-Related History:: 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 Pt is unsure why his appetite has been poor. He is on a pureed diet at 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 Wt on 07/07/20 was 157.4# and CBW 131#-26.4#/16.7% wt loss which is significant for malnutrition. Confirmed accuracy of current wt w/ RN Judit- admission wt is accurate. - Nutrition Diagnosis Problem / Etiology / Signs & Symptoms (PES):: severe, acute malnutrition r/t inadequate energy intake d/t decreased appetite as evidenced by estimated PO intake meeting <50% of nutritional needs >1 week, wt loss of 26.4#/16.7% < 1 month, obvious severe muscle wasting/fat loss in upper extremities, clavicle, acromion region Evidence of Malnutrition Exists:: Yes Severe PCM:: Acute Illness - Nutrition Intervention Nutrition Prescription:: [id number] calories/day (1.3xRMR). 50-60 g protein/day (1g/kg). 1485mL fluid/day (25mL/kg) - Food / Nutrient Delivery Interventions Summary of nutrition intervention:: Dinner order taken for pt. Pt agreeable to Ensure Enlive w/ medpass. Willing to try magic cup w/ lunch for additional calories/protein. Nutrition support ordered as / adjusted to:: regular diet-pureed/thin liquids per SNF orders; WEAPONS SPECIALIST consult as indicated. Will continue ensure enlive w/ medpass and add magic cup w/ lunches for additional calories/protein. Will fortify foods when possible. - MNT Monitoring Further MNT monitoring and evaluation required?: Yes MNT Follow-up in:: 3-5 days
[2020-08-05 16:12] LABS: Reflex Lactate? Y
[2020-08-05] MEDS: Tamsulosin HCl 0.4 MG Capsule PO (16:51)
[2020-08-05 17:17] LABS: Lactic Acid 1.5 mmol/L (0.4-1.9)
[2020-08-05] MEDS: MELATONIN 3 MG TABLET PO (20:44)
[2020-08-05] MEDS: Docusate Sodium 100 MG Capsule 200 MG PO (20:44)
[2020-08-05] MEDS: Mirtazapine 15 MG Tablet PO (20:44)
[2020-08-05] MEDS: Acetaminophen 325 MG Tablet 650 MG PO (23:17)
[2020-08-06] VITALS (13 sets, daily range): BP systolic 110–150; BP diastolic 59–85; PULSE 72–107; RESP 16–22; TEMP 36.6–37; O2SAT 95–99
[2020-08-06] MEDS: 0.9% Normal Saline 1,000 ML 100 ML IV ×2 (04:00→15:44)
[2020-08-06] MEDS: Levothyroxine 150 MCG Tablet PO (05:56)
[2020-08-06 06:07] LABS: Absolute Lymphocyte Count 0.81 X10^3/uL (0.83-4.51); Absolute Neutrophil Count 7.4 X10^3/uL (2.0-7.7); Basophil# 0.02 X10^3/uL; Basophil% 0.2 % (0-1); Eosinophil# 0.14 X10^3/uL; Eosinophils% 1.5 % (0-5); Hematocrit 32.8 % (40-54); Hemoglobin 10.2 g/dL (13.0-16.5); Lymphocyte # 0.81 X10^3/ul (4.0); Lymphocyte % 8.6 % (19-41); Mean Corp Hgb Conc 31.1 g/dL (32-36); Mean Corpuscular Hgb 29.4 pg (27.0-32.0); Mean Corpuscular Volume 94.5 fL (80-94); Mean Platelet Vol. 9.2 fl (6.2-12.0); Monocyte# 0.96 X10^3/uL; Monocyte% 10.1 % (0-10); NRBC Flagged by Analyzer 0 % (0-5); Neutrophil # 7.41 X10^3/uL (2.7-7.7); Neutrophil % 78.2 % (47-70); Platelet Count 172 K/mm3 (150-450); RBC Distribution Width CV 15.3 % (11.6-14.6); RBC Distribution Width SD 52.6 fl (35.1-43.9); Red Blood Count 3.47 M/mm3 (4.6-6.2); White Blood Count 9.5 K/mm3 (4.4-11.0)
[2020-08-06 06:49] LABS: Anion Gap 9 (5-15); BUN 55 mg/dL (7-18); BUN/Creat Ratio 19.1 RATIO (10-20); Calcium,Total 8.5 mg/dL (8.5-10.1); Chloride 111 mmol/L (98-107); Creatinine, Serum 2.88 mg/dL (0.70-1.30); EST Glomerular Filtration Rate 23 mL/min (>60); Est Glom Filt Rate - Afr Amer 27 mL/min (>60); Estimated Creatinine Clearance 17.76 ml/min; Glucose 83 mg/dL (74-106); Potassium 4.4 mmol/L (3.5-5.1); Sodium Level 138 mmol/L (136-145)
[2020-08-06] MEDS: Ferrous Sulfate 325 MG Tablet PO (09:22)
[2020-08-06] MEDS: Calcitriol 0.25 MCG Capsule PO (09:22)
[2020-08-06] MEDS: Pantoprazole Sodium 40 MG Tablet PO (09:22)
--- NOTE | 2020-08-06 10:10 | CASEMGMT ---
Social Work Pt is a current shelter resident at [facility]. SW met with pt and he confirms he plans to return to [facility] when medically ready. Phone call to Karma at [facility] and they are planning on pt return. Clinical updates faxed. Plan: [facility], when medically ready MARIAJOSE Collins
--- NOTE | 2020-08-06 11:52 | HP.PCM_ITS ---
Problem List (1) Recent RAMIN on CKD Status: Acute (2) Chronic anemia Status: Chronic (3) Severe sepsis Status: Acute (4) UTI (urinary tract infection) Status: Acute (5) Chronic acquired lymphedema Status: Chronic (6) Hypothyroidism Status: Chronic (7) Hypertension Status: Chronic (8) Status post coronary artery bypass graft Status: Chronic (9) Coronary artery disease Status: Chronic History of Present Illness Date of Consult: 08/06/20 Reason for Consult: Palliative follow up Requesting physician: [] Primary care physician: Dr. Vernon Plascencia MD - History of Present Illness The patient is a 79 year old M [] Patient Problems: Chronic Problems (Last Updated 08/05/20 @ 13:[address] 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) Onychomycosis (Chronic) Venous insufficiency (Chronic) Peripheral vascular disease (Chronic) Chronic acquired lymphedema (Chronic) Hypothyroidism (Chronic) Hypertension (Chronic) Status post coronary artery bypass graft (Chronic) Coronary artery disease (Chronic) Surgical History: coronary bypass surgery Psychiatric History: Anxiety, Depression Home Medications: Ambulatory Orders Medication Instructions Recorded Ammonium Lactate 1 applic TP BID 07/07/20 Docusate Sodium [Colace] 200 mg PO QHS 07/07/20 Levothyroxine Sodium [Synthroid] 150 mcg PO DAILY 07/07/20 Melatonin 3 mg PO QHS 07/07/20 Omeprazole 40 mg PO DAILY 07/07/20 Ascorbic Acid [Vitamin C] 500 mg PO BID #60 tab 07/10/20 Calcitriol [Rocaltrol] 0.25 mcg PO DAILY cap 07/10/20 Tamsulosin HCl [Flomax] 0.4 mg PO DAILY@1730 cap 07/10/20 Ferrous Sulfate 325 mg PO DAILY 08/05/20 Mirtazapine [Remeron] 15 mg PO QHS 08/05/20 Allergies No Known Allergies Allergy (Verified 08/05/20 11:35) Maternal History Items: Heart Disease Paternal History Items: Heart Disease - Social History Lives: [facility] Smoking Status: Former smoker Alcohol: None Drugs: None Physical Exam Objective: Vital Signs Temp Pulse Resp BP Pulse Ox 98.4 F 99 18 150/85 H 96 08/06/20 06:07 08/06/20 10:59 08/06/20 06:07 08/06/20 06:07 08/06/20 07:28 Oxygen Flow Rate (L/min) 2 Oxygen Delivery Method Room Air Weight: 59.4 kg Body Mass Index (BMI) 20.5 Intake and Output for Last 24 Hours 08/04/20 08/05/20 08/06/20 23:59 23:59 23:59 Intake Total 2350 / 2470 1160 / 1160 Output Total 400 / 1300 1900 / 1900 Balance 1950 / 1170 -740 / -740 Microbiology Past 72 Hours 08/05/20 12:09 Blood Culture - Preliminary Blood Culture (Wb) - Anticubital Left GNR lactose oxygraph operator 08/05/20 11:40 Blood Culture - Preliminary Blood Culture (Wb) - Anticubital Right GNR lactose oxygraph operator 08/05/20 12:49 Urine Culture - Preliminary Urine Catheter - Catheter Gram negative see GNR lactose oxygraph operator Laboratory Tests Past 24 Hrs 08/05/20 08/05/20 08/05/20 11:40 11:40 11:40 WBC 10.7 RBC 3.69 L Hgb 11.0 L Hct 35.1 L MCV 95.1 H MCH 29.8 MCHC 31.3 L RDW Std Deviation 54.0 H RDW Coeff of Jh 15.5 H Plt Count 205 MPV 9.1 Immature Gran % (Auto) 0.800 Neut % (Auto) 84.7 H Lymph % (Auto) 4.4 L [place] % (Auto) 9.7 Eos % (Auto) 0.2 Baso % (Auto) 0.2 Absolute Neuts (auto) 9.1 H Absolute Lymphs (auto) 0.47 L Nucleated RBC % 0 Differential Comment COMMENT Sodium 136 Potassium 4.8 Chloride 105 Carbon Dioxide 21.0 Anion Gap 10 BUN 63 H Creatinine 3.57 H Estim Creat Clear Calc 14.74 Est GFR (MDRD) Af Amer 21 L Est GFR (MDRD) Non-Af 18 L BUN/Creatinine Ratio 17.6 Glucose 124 H Lactic Acid 2.4 H* Calcium 8.9 Total Bilirubin 0.40 AST 19 ALT 29 Alkaline Phosphatase 66 Total Protein 6.8 Albumin 2.6 L Globulin 4.2 Albumin/Globulin Ratio 0.6 L Urine Color Urine Clarity Urine pH Ur Specific [place] Urine Protein Urine Glucose (UA) Urine Ketones Urine Occult Blood Urine Nitrite Urine Bilirubin Urine Urobilinogen Ur Leukocyte Esterase Urine RBC Urine WBC Ur Squamous Epith Cells Urine Bacteria Urine Mucus 08/05/20 08/05/20 08/06/20 12:49 16:30 05:15 WBC 9.5 RBC 3.47 L Hgb 10.2 L Hct 32.8 L MCV 94.5 H MCH 29.4 MCHC 31.1 L RDW Std Deviation 52.6 H RDW Coeff of Jh 15.3 H Plt Count 172 MPV 9.2 Immature Gran % (Auto) 1.400 H Neut % (Auto) 78.2 H Lymph % (Auto) 8.6 L [place] % (Auto) 10.1 H Eos % (Auto) 1.5 Baso % (Auto) 0.2 Absolute Neuts (auto) 7.4 Absolute Lymphs (auto) 0.81 L Nucleated RBC % 0 Differential Comment Sodium Potassium Chloride Carbon Dioxide Anion Gap BUN Creatinine Estim Creat Clear Calc Est GFR (MDRD) Af Amer Est GFR (MDRD) Non-Af BUN/Creatinine Ratio Glucose Lactic Acid 1.5 Calcium Total Bilirubin AST ALT Alkaline Phosphatase Total Protein Albumin Globulin Albumin/Globulin Ratio Urine Color Yellow Urine Clarity Cloudy Urine pH 6.0 Ur Specific [place] 1.010 Urine Protein 100 H Urine Glucose (UA) Normal Urine Ketones Negative Urine Occult Blood 250 H Urine Nitrite Positive H Urine Bilirubin Negative Urine Urobilinogen Normal Ur Leukocyte Esterase 500 H Urine RBC 0 SEEN Urine WBC >100 SEEN Ur Squamous Epith Cells 0 SEEN Urine Bacteria 3+ Urine Mucus 0 SEEN 08/06/20 05:15 WBC RBC Hgb Hct MCV MCH MCHC RDW Std Deviation RDW Coeff of Jh Plt Count MPV Immature Gran % (Auto) Neut % (Auto) Lymph % (Auto) [place] % (Auto) Eos % (Auto) Baso % (Auto) Absolute Neuts (auto) Absolute Lymphs (auto) Nucleated RBC % Differential Comment Sodium 138 Potassium 4.4 Chloride 111 H Carbon Dioxide 18.0 L Anion Gap 9 BUN 55 H Creatinine 2.88 H Estim Creat Clear Calc 17.76 Est GFR (MDRD) Af Amer 27 L Est GFR (MDRD) Non-Af 23 L BUN/Creatinine Ratio 19.1 Glucose 83 Lactic Acid Calcium 8.5 Total Bilirubin AST ALT Alkaline Phosphatase Total Protein Albumin Globulin Albumin/Globulin Ratio Urine Color Urine Clarity Urine pH Ur Specific [place] Urine Protein Urine Glucose (UA) Urine Ketones Urine Occult Blood Urine Nitrite Urine Bilirubin Urine Urobilinogen Ur Leukocyte Esterase Urine RBC Urine WBC Ur Squamous Epith Cells Urine Bacteria Urine Mucus Assessment/Plan All Active Problems (Last Updated 08/05/20 @ 13:[address] Butch March MD) Recent RAMIN on CKD (Acute) Severe sepsis (Acute) UTI (urinary tract infection) (Acute)
--- NOTE | 2020-08-06 12:27 | NURSING ---
Jefferson catheter changed per Dr. Frey request.
--- NOTE | 2020-08-06 14:30 | PCM.PN.HOSP ---
<Ronal Chand - Last Filed: 08/06/20 14:30> Patient Problems: Active and Suspected Problems (Last Updated 08/05/20 @ 13:[address] Butch March MD) Recent RAMIN on CKD (Acute) Severe sepsis (Acute) UTI (urinary tract infection) (Acute) Subjective: Patient is a 79-year-old male currently resting in bed and eating breakfast, alert and oriented x3. Patient reports resolution of fatigue and confusion from yesterday and reports feeling much better. Denies fever, chills, N/V/D, chest pain, shortness of breath. Objective: Microbiology 08/05/20 12:09 Blood Culture (Wb) - Anticubital Left Blood Culture - Preliminary GNR lactose wheel roller 08/05/20 11:40 Blood Culture (Wb) - Anticubital Right Blood Culture - Preliminary GNR lactose wheel roller 08/05/20 12:49 Urine Catheter - Catheter Urine Culture - Preliminary Gram negative see GNR lactose wheel roller Vitals/I&O's: Vital Signs Temp Pulse Resp BP Pulse Ox 98.6 F 78 18 110/65 96 08/06/20 12:00 08/06/20 12:00 08/06/20 12:00 08/06/20 12:00 08/06/20 12:00 Oxygen Flow Rate (L/min) 2 Oxygen Delivery Method Room Air Weight: 130 lb 15.273 oz Body Mass Index (BMI) 20.5 Intake and Output for Last 24 Hours 08/04/20 08/05/20 08/06/20 23:59 23:59 23:59 Intake Total 2350 / 2470 1160 / 1160 Output Total 400 / 1300 2850 / 2850 Balance 1950 / 1170 -1690 / -1690 General: Alert, Oriented x3, Cooperative HEENT: Atraumatic, PERRLA, EOMI, Normocephalic Neck: Supple, No JVD, Negative Carotid Bruits Lungs: Clear to auscultation Cardiovascular: Regular rate, No murmurs Abdomen: Bowel Sounds Present, Soft, Non Tender Extremities: - - Muscle wasting and dry skin noted bilaterally Skin: No rashes, No breakdown Musculoskeletal: No Tenderness to Palpation of Joints or Extremities, Cachexia, Muscle Wasting Neurological: Cranial nerves II-XII grossly intact Psych/Mental Status: Normal Affect, Appropriate Microbiology Past 72 Hours 08/05/20 12:09 Blood Culture (Wb) - Anticubital Left Blood Culture - Preliminary GNR lactose wheel roller 08/05/20 11:40 Blood Culture (Wb) - Anticubital Right Blood Culture - Preliminary GNR lactose wheel roller 08/05/20 12:49 Urine Catheter - Catheter Urine Culture - Preliminary Gram negative see GNR lactose wheel roller Laboratory Results 08/05/20 16:30: Lactic Acid 1.5 08/06/20 05:15: WBC 9.5, RBC 3.47 L, Hgb 10.2 L, Hct 32.8 L, MCV 94.5 H, MCH 29.4, MCHC 31.1 L, RDW Std Deviation 52.6 H, RDW Coeff of Jh 15.3 H, Plt Count 172, MPV 9.2, Immature Gran % (Auto) 1.400 H, Neut % (Auto) 78.2 H, Lymph % (Auto) 8.6 L, [place] % (Auto) 10.1 H, Eos % (Auto) 1.5, Baso % (Auto) 0.2, Absolute Neuts (auto) 7.4, Absolute Lymphs (auto) 0.81 L, Nucleated RBC % 0 08/06/20 05:15: Sodium 138, Potassium 4.4, Chloride 111 H, Carbon Dioxide 18.0 L, Anion Gap 9, BUN 55 H, Creatinine 2.88 H, Estim Creat Clear Calc 17.76, Est GFR (MDRD) Af Amer 27 L, Est GFR (MDRD) Non-Af 23 L, BUN/Creatinine Ratio 19.1, Glucose 83, Calcium 8.5 Current Medications Acetaminophen (Acetaminophen 325 Mg Tablet) 650 mg PO Q6H PRN PRN PRN Reason: Pain Score 1-10/Temp > 100.7 F Last Admin: 08/05/20 23:17 Dose: 650 mg Documented by: Calcitriol (Calcitriol 0.25 Mcg Capsule) 0.25 mcg PO DAILY [facility] [place] Last Admin: 08/06/20 09:22 Dose: 0.25 mcg Documented by: Docusate Sodium (Docusate Sodium 100 Mg Capsule) 200 mg PO QHS [facility] [place] Last Admin: 08/05/20 20:44 Dose: 200 mg Documented by: Ferrous Sulfate ([facility] 325 [facility]t) [facility] Last Admin: 08/06/20 09:22 Dose: 325 mg Documented by: Sodium Chloride () 1,000 mls @ 100 mls/hr IV .Q10H [facility] [place] Last Admin: 08/06/20 04:00 Dose: 100 mls/hr Documented by: Ceftriaxone Sodium 2 gm/ (Sodium Chloride) 50 mls @ 100 mls/hr IV Q24 [facility] [place] Last Infusion: 08/06/20 09:51 Dose: Infused Documented by: Sodium Chloride () 250 mls @ 15 mls/hr IV .[id number] PRN PRN Reason: Saline Flush Sodium Chloride () 250 mls @ 15 mls/hr IV .[id number] PRN PRN Reason: Additional IVPB Infusion Levothyroxine Sodium (Levothyroxine 150 Mcg Tablet) 150 mcg PO 0600 [facility] [place] Last Admin: 08/06/20 05:56 Dose: 150 mcg Documented by: Melatonin (Melatonin 3 Mg Tablet) 3 mg PO QHS [facility] [place] Last Admin: 08/05/20 20:44 Dose: 3 mg Documented by: Mirtazapine (Mirtazapine 15 Mg Tablet) 15 mg PO QHS [facility] [place] Last Admin: 08/05/20 20:44 Dose: 15 mg Documented by: Nutritional Formula (Lactose Free) (Ensure Enlive 120 Ml Liquid) 120 ml PO 4X/DAY [facility] [place] Last Admin: 08/06/20 09:22 Dose: 120 ml Documented by: Ondansetron HCl (Ondansetron 4 Mg/2 Ml Vial) 4 mg IV Q8H PRN PRN PRN Reason: NAUSEA/VOMITING Pantoprazole Sodium (Pantoprazole Sodium 40 Mg Tablet) 40 mg PO DAILY [facility] [place] Last Admin: 08/06/20 09:22 Dose: 40 mg Documented by: Sodium Chloride (0.9% Saline Lock 10 Ml Syringe) 10 - 40 ml IV UD PRN PRN Reason: SALINE FLUSH Last Admin: 08/05/20 16:04 Dose: 10 ml Documented by: Tamsulosin HCl (Tamsulosin Hcl 0.4 Mg Capsule) 0.4 mg PO DAILY@1730 [facility] [place] Last Admin: 08/05/20 16:51 Dose: 0.4 mg Documented by: STROKE Vital Signs/Narrative: Vital Signs Temp Pulse Resp BP Pulse Ox 08/06/20 12:00 98.6 F 78 18 110/65 96 08/06/20 10:59 99 Medical Necessity - Tobacco Use Smoking Status: Former smoker Assessment/Plan All Active Problems (Last Updated 08/05/20 @ 13:[address] Butch March MD) Recent RAMIN on CKD (Acute) Severe sepsis (Acute) UTI (urinary tract infection) (Acute) Patient is a 79-year-old male who presented to the ED on 08/05/2020 for weakness, fatigue, poor appetite and confusion from the [facility]. Patient was admitted for sepsis secondary to complicated acute cystitis. Of note patient had a recent admission for acute renal failure on top of stage III CKD and acute blood loss anemia. 1) Complicated acute cystitis Assessment - No leukocytosis on CBC - Vital signs stable - UA on admission was significant for; occult blood, positive nitrites, 3+ bacteria, 500 leukocyte esterase, yellow and cloudy appearance - Fatigue, weakness, poor appetite and confusion resolved from admission. - Patient observed with a vigorous appetite during physical exam while he ate his breakfast Plan - Replace Jefferson catheter -Continue on ceftriaxone 2)Recent acute renal failure on CKD stage III/Hyperkalemia Assessment - Creatinine 2.88, down from admission - Potassium 4.4, stable Plan - Continue IV fluids - Monitor I' and O's - Monitor BMP 3) Recent acute blood loss anemia Assessment - UA positive for occult blood at admission - Hemoglobin 10.2, down from admission - No evidence of active bleed on physical exam Plan - Monitor CBC DVT Prophylaxis - SCD's Patient seen by Ronal Chand PA-C, under the supervision of Dr. Frey <Jourdan Frey - Last Filed: 08/06/20 15:21> Vitals/I&O's: Vital Signs Temp Pulse Resp BP Pulse Ox 37.0 C 78 18 110/65 96 08/06/20 12:00 08/06/20 12:00 08/06/20 12:00 08/06/20 12:00 08/06/20 12:00 Oxygen Flow Rate (L/min) 2 Oxygen Delivery Method Room Air Weight: 59.4 kg Body Mass Index (BMI) 20.5 Intake and Output for Last 24 Hours 08/04/20 08/05/20 08/06/20 23:59 23:59 23:59 Intake Total 2350 / 2470 1160 / 1160 Output Total 400 / 1300 2850 / 2850 Balance 1950 / 1170 -1690 / -1690 General: Alert, Cooperative HEENT: Atraumatic, Normocephalic Lungs: Clear to auscultation, Normal air movement, No rhonchi, No wheeze Cardiovascular: Regular rate, No murmurs Abdomen: Bowel Sounds Present, Soft, Non Tender Skin: No rashes, No breakdown Musculoskeletal: Cachexia, Muscle Wasting Psych/Mental Status: Normal Affect, Appropriate Microbiology Past 72 Hours 08/05/20 12:09 Blood Culture (Wb) - Anticubital Left Blood Culture - Preliminary GNR lactose wheel roller 08/05/20 11:40 Blood Culture (Wb) - Anticubital Right Blood Culture - Preliminary GNR lactose wheel roller 08/05/20 12:49 Urine Catheter - Catheter Urine Culture - Preliminary Gram negative see GNR lactose wheel roller Laboratory Results 08/05/20 16:30: Lactic Acid 1.5 08/06/20 05:15: WBC 9.5, RBC 3.47 L, Hgb 10.2 L, Hct 32.8 L, MCV 94.5 H, MCH 29.4, MCHC 31.1 L, RDW Std Deviation 52.6 H, RDW Coeff of Jh 15.3 H, Plt Count 172, MPV 9.2, Immature Gran % (Auto) 1.400 H, Neut % (Auto) 78.2 H, Lymph % (Auto) 8.6 L, [place] % (Auto) 10.1 H, Eos % (Auto) 1.5, Baso % (Auto) 0.2, Absolute Neuts (auto) 7.4, Absolute Lymphs (auto) 0.81 L, Nucleated RBC % 0 08/06/20 05:15: Sodium 138, Potassium 4.4, Chloride 111 H, Carbon Dioxide 18.0 L, Anion Gap 9, BUN 55 H, Creatinine 2.88 H, Estim Creat Clear Calc 17.76, Est GFR (MDRD) Af Amer 27 L, Est GFR (MDRD) Non-Af 23 L, BUN/Creatinine Ratio 19.1, Glucose 83, Calcium 8.5 Current Medications Acetaminophen (Acetaminophen 325 Mg Tablet) 650 mg PO Q6H PRN PRN PRN Reason: Pain Score 1-10/Temp > 100.7 F Last Admin: 08/05/20 23:17 Dose: 650 mg Documented by: Calcitriol (Calcitriol 0.25 Mcg Capsule) 0.25 mcg PO DAILY [facility] [place] Last Admin: 08/06/20 09:22 Dose: 0.25 mcg Documented by: Docusate Sodium (Docusate Sodium 100 Mg Capsule) 200 mg PO QHS [facility] [place] Last Admin: 08/05/20 20:44 Dose: 200 mg Documented by: Ferrous Sulfate (Ferrous Sulfate 325 Mg Tablet) 325 mg PO DAILYCM [facility] [place] Last Admin: 08/06/20 09:22 Dose: 325 mg Documented by: Sodium Chloride () 1,000 mls @ 100 mls/hr IV .Q10H [facility] [place] Last Admin: 08/06/20 04:00 Dose: 100 mls/hr Documented by: Ceftriaxone Sodium 2 gm/ (Sodium Chloride) 50 mls @ 100 mls/hr IV Q24 [facility] [place] Last Infusion: 08/06/20 09:51 Dose: Infused Documented by: Sodium Chloride () 250 mls @ 15 mls/hr IV .[id number] PRN PRN Reason: Saline Flush Sodium Chloride () 250 mls @ 15 mls/hr IV .[id number] PRN PRN Reason: Additional IVPB Infusion Levothyroxine Sodium (Levothyroxine 150 Mcg Tablet) 150 mcg PO 0600 [facility] [place] Last Admin: 08/06/20 05:56 Dose: 150 mcg Documented by: Melatonin (Melatonin 3 Mg Tablet) 3 mg PO QHS [facility] [place] Last Admin: 08/05/20 20:44 Dose: 3 mg Documented by: Mirtazapine (Mirtazapine 15 Mg Tablet) 15 mg PO QHS [facility] [place] Last Admin: 08/05/20 20:44 Dose: 15 mg Documented by: Nutritional Formula (Lactose Free) (Ensure Enlive 120 Ml Liquid) 120 ml PO 4X/DAY [facility] [place] Last Admin: 08/06/20 09:22 Dose: 120 ml Documented by: Ondansetron HCl (Ondansetron 4 Mg/2 Ml Vial) 4 mg IV Q8H PRN PRN PRN Reason: NAUSEA/VOMITING Pantoprazole Sodium (Pantoprazole Sodium 40 Mg Tablet) 40 mg PO DAILY [facility] [place] Last Admin: 08/06/20 09:22 Dose: 40 mg Documented by: Sodium Chloride (0.9% Saline Lock 10 Ml Syringe) 10 - 40 ml IV UD PRN PRN Reason: SALINE FLUSH Last Admin: 08/05/20 16:04 Dose: 10 ml Documented by: Tamsulosin HCl (Tamsulosin Hcl 0.4 Mg Capsule) 0.4 mg PO DAILY@1730 [facility] Last Admin: 08/05/20 16:51 Dose: 0.4 mg Documented by: STROKE Vital Signs/Narrative: Vital Signs Temp Pulse Resp BP Pulse Ox 08/06/20 12:00 37.0 C 78 18 110/65 96 Assessment/Plan Patient seen and examined independently. Data reviewed. I agree with the above note by the physician night assistant. 1. Acute CAUTI Cx showing GNR x2. Continue CTX and adjust abx accordingly change catheter over 4/2 2. Bacteremia GNR x2 2/2 UTI Follow up cultures 3. Severe sepsis POA 2/2 UTI and Bacteremia 4. Urinary retention continue Jefferson catheter now and upon discharge follow up with as outpt 5. CKD 4 Cr overall trending down from 3/3 continue to monitor avoid nephrotoxic agents follow up with nephrology as outpt. 6. Anemia stable monitor 7. VTE prophylaxis: SCDs Greater than 35 minutes of which greater than 50% of the time was counseling the patient about UTI, catheters and ongoing treatment. Inpatient E&M: [id number] [facility]
[2020-08-06] MEDS: Tamsulosin HCl 0.4 MG Capsule PO (17:14)
[2020-08-06] MEDS: Acetaminophen 325 MG Tablet 650 MG PO (19:48)
[2020-08-06] MEDS: MELATONIN 3 MG TABLET PO (22:13)
[2020-08-06] MEDS: Docusate Sodium 100 MG Capsule 200 MG PO (22:13)
[2020-08-06] MEDS: Mirtazapine 15 MG Tablet PO (22:13)
[2020-08-07] VITALS (11 sets, daily range): BP systolic 118–167; BP diastolic 65–81; PULSE 82–99; RESP 16–18; TEMP 36.5–37.1; O2SAT 95–99
[2020-08-07] MEDS: 0.9% Normal Saline 1,000 ML 100 ML IV ×3 (01:57→21:56)
[2020-08-07 05:53] LABS: Absolute Lymphocyte Count 1.08 X10^3/uL (0.83-4.51); Absolute Neutrophil Count 10.2 X10^3/uL (2.0-7.7); Basophil# 0.04 X10^3/uL; Basophil% 0.3 % (0-1); Eosinophil# 0.32 X10^3/uL; Eosinophils% 2.5 % (0-5); Hematocrit 39.6 % (40-54); Hemoglobin 12.4 g/dL (13.0-16.5); Lymphocyte # 1.08 X10^3/ul (4.0); Lymphocyte % 8.3 % (19-41); Mean Corp Hgb Conc 31.3 g/dL (32-36); Mean Corpuscular Hgb 29.3 pg (27.0-32.0); Mean Corpuscular Volume 93.6 fL (80-94); Mean Platelet Vol. 8.8 fl (6.2-12.0); Monocyte% 9.3 % (0-10); NRBC Flagged by Analyzer 0 % (0-5); Neutrophil % 78.7 % (47-70); Platelet Count 192 K/mm3 (150-450); RBC Distribution Width CV 15.1 % (11.6-14.6); Red Blood Count 4.23 M/mm3 (4.6-6.2)
[2020-08-07] MEDS: Levothyroxine 150 MCG Tablet PO (06:12)
[2020-08-07 06:27] LABS: ALB/GLOB Ratio 0.6 RATIO (0.9-2.4); AST(SGOT) 17 U/L (15-37); Alanine Aminotransfer ALT/SGPT 27 U/L (16-61); Albumin, Serum 2.5 g/dL (3.2-5.0); Alkaline Phosphatase 71 U/L (45-117); Anion Gap 10 (5-15); BUN 47 mg/dL (7-18); BUN/Creat Ratio 17.5 RATIO (10-20); Calcium,Total 8.9 mg/dL (8.5-10.1); Chloride 110 mmol/L (98-107); Creatinine, Serum 2.69 mg/dL (0.70-1.30); EST Glomerular Filtration Rate 25 mL/min (>60); Est Glom Filt Rate - Afr Amer 30 mL/min (>60); Estimated Creatinine Clearance 19.01 ml/min; Globulin 4.3 g/dL (2.2-4.2); Glucose 94 mg/dL (74-106); Potassium 4.2 mmol/L (3.5-5.1); Protein, Total 6.8 g/dL (6.4-8.2); Sodium Level 140 mmol/L (136-145)
[2020-08-07] MEDS: Calcitriol 0.25 MCG Capsule PO (08:12)
[2020-08-07] MEDS: Ferrous Sulfate 325 MG Tablet PO (08:12)
[2020-08-07] MEDS: Pantoprazole Sodium 40 MG Tablet PO (08:12)
--- NOTE | 2020-08-07 12:52 | PN_ITS ---
<Ronal Chand - Last Filed: 08/07/20 12:52> Patient Problems: Active and Suspected Problems (Last Updated 08/05/20 @ 13:[address] Butch March MD) Recent RAMIN on CKD (Acute) Severe sepsis (Acute) UTI (urinary tract infection) (Acute) Subjective: Patient is a 79-year-old male who is complete resting in bed, alert and orient x3. Patient says he feels about the same as yesterday, still endorses weakness which he relates to his malnutrition at the [facility] facility [facility]. Denies fever, chills, and/V/D, chest pain, shortness of breath. Objective: Clinical Impression(s) from Imaging Studies Chest X-Ray 08/05/20 12:15 IMPRESSION: Hyperinflation. The lungs are clear. Electronically Signed: Vadim Hughes MD at 12:37 EDT , Service support , Vitals/I&O's: Vital Signs Temp Pulse Resp BP Pulse Ox 98.7 F 90 18 132/68 H 97 08/07/20 08:05 08/07/20 08:05 08/07/20 08:05 08/07/20 08:05 08/07/20 08:23 Oxygen Flow Rate (L/min) 2 Oxygen Delivery Method Room Air Weight: 130 lb 15.273 oz Body Mass Index (BMI) 20.5 Intake and Output for Last 24 Hours 08/05/20 08/06/20 08/07/20 23:59 23:59 23:59 Intake Total 2350 / 2470 2160 / 2160 2051.67 / 2051.67 Output Total 400 / 1300 3750 / 4900 4400 / 4400 Balance 1950 / 1170 -1590 / -2740 -2348.33 / -2348.33 General: Alert, Oriented x3, Cooperative HEENT: Atraumatic, PERRLA, EOMI, Normocephalic Neck: Supple, No JVD, Negative Carotid Bruits Lungs: Clear to auscultation, Normal air movement Cardiovascular: Regular rate, No murmurs Abdomen: Bowel Sounds Present, Soft, Non Tender Extremities: No edema, Capillary Refill Less than 3 Seconds Skin: No rashes, No breakdown Musculoskeletal: No Tenderness to Palpation of Joints or Extremities Neurological: Cranial nerves II-XII grossly intact Psych/Mental Status: Normal Affect, Appropriate Microbiology Past 72 Hours 08/05/20 12:49 Urine Catheter - Catheter Urine Culture - Preliminary Gram negative see GNR lactose deputy director 08/05/20 12:09 Blood Culture (Wb) - Anticubital Left Blood Culture - Preliminary GNR lactose deputy director 08/05/20 11:40 Blood Culture (Wb) - Anticubital Right Blood Culture - Preliminary GNR lactose deputy director Laboratory Results 08/07/20 05:28: WBC 13.0 H, RBC 4.23 L, Hgb 12.4 L, Hct 39.6 L, MCV 93.6, MCH 29.3, MCHC 31.3 L, RDW Std Deviation 52.0 H, RDW Coeff of Jh 15.1 H, Plt Count 192, MPV 8.8, Immature Gran % (Auto) 0.900, Neut % (Auto) 78.7 H, Lymph % (Auto) 8.3 L, Cherry % (Auto) 9.3, Eos % (Auto) 2.5, Baso % (Auto) 0.3, Absolute Neuts (auto) 10.2 H, Absolute Lymphs (auto) 1.08, Nucleated RBC % 0 08/07/20 05:28: Sodium 140, Potassium 4.2, Chloride 110 H, Carbon Dioxide 20.0 L , Anion Gap 10, BUN 47 H, Creatinine 2.69 H, Estim Creat Clear Calc 19.01, Est GFR (MDRD) Af Amer 30 L, Est GFR (MDRD) Non-Af 25 L, BUN/Creatinine Ratio 17.5, Glucose 94, Calcium 8.9, Total Bilirubin 0.30, AST 17, ALT 27, Alkaline Phosphatase 71, Total Protein 6.8, Albumin 2.5 L, Globulin 4.3 H, Albumin/Globulin Ratio 0.6 L Current Medications Acetaminophen (Acetaminophen 325 Mg Tablet) 650 mg PO Q6H PRN PRN PRN Reason: Pain Score 1-10/Temp > 100.7 F Last Admin: 08/06/20 19:48 Dose: 650 mg Documented by: Calcitriol (Calcitriol 0.25 Mcg Capsule) 0.25 mcg PO DAILY [facility] Last Admin: 08/07/20 08:12 Dose: 0.25 mcg Documented by: Docusate Sodium (Docusate Sodium 100 Mg Capsule) 200 mg PO QHS [facility] Last Admin: 08/06/20 22:13 Dose: 200 mg Documented by: Ferrous Sulfate (Ferrous Sulfate 325 Mg Tablet) 325 mg PO DAILYCM [facility] Last Admin: 08/07/20 08:12 Dose: 325 mg Documented by: Sodium Chloride () 1,000 mls @ 100 mls/hr IV .Q10H [facility] Last Infusion: 08/07/20 09:58 Dose: 0 mls/hr Documented by: Ceftriaxone Sodium 2 gm/ (Sodium Chloride) 50 mls @ 100 mls/hr IV Q24 [facility] Last Infusion: 08/07/20 10:30 Dose: Infused Documented by: Sodium Chloride () 250 mls @ 15 mls/hr IV .[id number] PRN PRN Reason: Saline Flush Sodium Chloride () 250 mls @ 15 mls/hr IV .[id number] PRN PRN Reason: Additional IVPB Infusion Levothyroxine Sodium (Levothyroxine 150 Mcg Tablet) 150 mcg PO 0600 [facility] Last Admin: 08/07/20 06:12 Dose: 150 mcg Documented by: Melatonin (Melatonin 3 Mg Tablet) 3 mg PO QHS [facility] Last Admin: 08/06/20 22:13 Dose: 3 mg Documented by: Mirtazapine (Mirtazapine 15 Mg Tablet) 15 mg PO QHS [facility] Last Admin: 08/06/20 22:13 Dose: 15 mg Documented by: Nutritional Formula (Lactose Free) (Ensure Enlive 120 Ml Liquid) 120 ml PO 4X/DAY [facility] Last Admin: 08/07/20 08:12 Dose: 120 ml Documented by: Ondansetron HCl (Ondansetron 4 Mg/2 Ml Vial) 4 mg IV Q8H PRN PRN PRN Reason: NAUSEA/VOMITING Pantoprazole Sodium (Pantoprazole Sodium 40 Mg Tablet) 40 mg PO DAILY [facility] Last Admin: 08/07/20 08:12 Dose: 40 mg Documented by: Sodium Chloride (0.9% Saline Lock 10 Ml Syringe) 10 - 40 ml IV UD PRN PRN Reason: SALINE FLUSH Last Admin: 08/05/20 16:04 Dose: 10 ml Documented by: Tamsulosin HCl (Tamsulosin Hcl 0.4 Mg Capsule) 0.4 mg PO DAILY@1730 [facility] Last Admin: 08/06/20 17:14 Dose: 0.4 mg Documented by: Medical Necessity - Tobacco Use Smoking Status: Former smoker Assessment/Plan All Active Problems (Last Updated 08/05/20 @ 13:[address] Butch March MD) Recent RAMIN on CKD (Acute) Severe sepsis (Acute) UTI (urinary tract infection) (Acute) Patient is a 79-year-old male who presented to the ED on 08/05/2020 for weakness, fatigue, poor appetite and confusion from the [facility]. Patient was admitted for sepsis secondary to complicated acute cystitis. Of note patient had a recent admission for acute renal failure on top of stage III CKD and acute blood loss anemia. Patient reports that he does feel better from admission however still does endorse weakness which he relates to his poor eating habits while at the [facility] facility. Patient reports that he does not feel strong enough to go back to [facility] facility and would like to remain admitted over the night. 1) Severe sepsis secondary to complicated acute cystitis and bacteremia Assessment - WBC 13.0, elevated from yesterday - Vital signs stable - UA on admission was significant for; occult blood, positive nitrites, 3+ bacteria, 500 leukocyte esterase, yellow and cloudy appearance - Urine and blood cultures revealed gram-negative rods - Still endorsees fatigue and weakness, - Patient observed with a vigorous appetite during physical exam while he ate his breakfast - Jefferson catheter replaced on 08/06/2020 Plan - Remain admitted overnight - Continue on ceftriaxone - Follow-up with as outpatient 2)Recent acute renal failure on CKD stage IV/Hyperkalemia Assessment - Creatinine 2.69, continuing to trend down - Potassium 4.2, stable Plan - Continue IV fluids - Monitor I' and O's - Monitor BMP - Follow-up with nephrology as outpatient 3) Recent acute blood loss anemia Assessment - UA positive for occult blood at admission - Hemoglobin 12.4, trended up from yesterday - No evidence of active bleed on physical exam Plan - Monitor CBC DVT Prophylaxis - SCD's Patient seen by Ronal Chand PA-C, under the supervision of Dr. Frey <Jourdan Frey - Last Filed: 08/07/20 13:21> Subjective: complains of numbness in feet, right greater than left. unsteady at times when he walks. Vitals/I&O's: Vital Signs Temp Pulse Resp BP Pulse Ox 37.1 C 90 18 132/68 H 97 08/07/20 08:05 08/07/20 08:05 08/07/20 08:05 08/07/20 08:05 08/07/20 08:23 Oxygen Flow Rate (L/min) 2 Oxygen Delivery Method Room Air Weight: 59.4 kg Body Mass Index (BMI) 20.5 Intake and Output for Last 24 Hours 08/05/20 08/06/20 08/07/20 23:59 23:59 23:59 Intake Total 2350 / 2470 2160 / 2160 2051.67 / 205.67 Output Total 400 / 1300 3750 / 4900 4400 / 4400 Balance 1950 / 1170 -1590 / -2740 -2348.33 / -2348.33 General: Alert, Cooperative HEENT: Atraumatic, Normocephalic Lungs: Clear to auscultation, Normal air movement, No rhonchi, No wheeze Cardiovascular: Regular rate, Regular Rhythm, Normal S1, Normal S2 Abdomen: Bowel Sounds Present, Soft Extremities: Diminished Peripheral Pulses Skin: No rashes, No breakdown Musculoskeletal: Cachexia, Muscle Wasting Psych/Mental Status: Normal Affect, Appropriate Microbiology Past 72 Hours 08/05/20 12:49 Urine Catheter - Catheter Urine Culture - Preliminary Gram negative see GNR lactose deputy director 08/05/20 12:09 Blood Culture (Wb) - Anticubital Left Blood Culture - Preliminary GNR lactose deputy director 08/05/20 11:40 Blood Culture (Wb) - Anticubital Right Blood Culture - Preliminary GNR lactose deputy director Laboratory Results 08/07/20 05:28: WBC 13.0 H, RBC 4.23 L, Hgb 12.4 L, Hct 39.6 L, MCV 93.6, MCH 29.3, MCHC 31.3 L, RDW Std Deviation 52.0 H, RDW Coeff of Jh 15.1 H, Plt Count 192, MPV 8.8, Immature Gran % (Auto) 0.900, Neut % (Auto) 78.7 H, Lymph % (Auto) 8.3 L, Cherry % (Auto) 9.3, Eos % (Auto) 2.5, Baso % (Auto) 0.3, Absolute Neuts (auto) 10.2 H, Absolute Lymphs (auto) 1.08, Nucleated RBC % 0 08/07/20 05:28: Sodium 140, Potassium 4.2, Chloride 110 H, Carbon Dioxide 20.0 L , Anion Gap 10, BUN 47 H, Creatinine 2.69 H, Estim Creat Clear Calc 19.01, Est GFR (MDRD) Af Amer 30 L, Est GFR (MDRD) Non-Af 25 L, BUN/Creatinine Ratio 17.5, Glucose 94, Calcium 8.9, Total Bilirubin 0.30, AST 17, ALT 27, Alkaline Phosphatase 71, Total Protein 6.8, Albumin 2.5 L, Globulin 4.3 H, Albumin/Globulin Ratio 0.6 L Current Medications Acetaminophen (Acetaminophen 325 Mg Tablet) 650 mg PO Q6H PRN PRN PRN Reason: Pain Score 1-10/Temp > 100.7 F Last Admin: 08/06/20 19:48 Dose: 650 mg Documented by: Calcitriol (Calcitriol 0.25 Mcg Capsule) 0.25 mcg PO DAILY [facility] Last Admin: 08/07/20 08:12 Dose: 0.25 mcg Documented by: Docusate Sodium (Docusate Sodium 100 Mg Capsule) 200 mg PO QHS [facility] Last Admin: 08/06/20 22:13 Dose: 200 mg Documented by: Ferrous Sulfate (Ferrous Sulfate 325 Mg Tablet) 325 mg PO DAILYCM [facility] Last Admin: 08/07/20 08:12 Dose: 325 mg Documented by: Sodium Chloride () 1,000 mls @ 100 mls/hr IV .Q10H [facility] Last Admin: 08/07/20 12:59 Dose: 100 mls/hr Documented by: Ceftriaxone Sodium 2 gm/ (Sodium Chloride) 50 mls @ 100 mls/hr IV Q24 [facility] Last Infusion: 08/07/20 10:30 Dose: Infused Documented by: Sodium Chloride () 250 mls @ 15 mls/hr IV .[id number] PRN PRN Reason: Saline Flush Sodium Chloride () 250 mls @ 15 mls/hr IV .[id number] PRN PRN Reason: Additional IVPB Infusion Levothyroxine Sodium (Levothyroxine 150 Mcg Tablet) 150 mcg PO 0600 [facility] Last Admin: 08/07/20 06:12 Dose: 150 mcg Documented by: Melatonin (Melatonin 3 Mg Tablet) 3 mg PO QHS [facility] Last Admin: 08/06/20 22:13 Dose: 3 mg Documented by: Mirtazapine (Mirtazapine 15 Mg Tablet) 15 mg PO QHS [facility] Last Admin: 08/06/20 22:13 Dose: 15 mg Documented by: Nutritional Formula (Lactose Free) (Ensure Enlive 120 Ml Liquid) 120 ml PO 4X/ DAY [facility] Last Admin: 08/07/20 12:59 Dose: 120 ml Documented by: Ondansetron HCl (Ondansetron 4 Mg/2 Ml Vial) 4 mg IV Q8H PRN PRN PRN Reason: NAUSEA/VOMITING Pantoprazole Sodium (Pantoprazole Sodium 40 Mg Tablet) 40 mg PO DAILY [facility] Last Admin: 08/07/20 08:12 Dose: 40 mg Documented by: Sodium Chloride (0.9% Saline Lock 10 Ml Syringe) 10 - 40 ml IV UD PRN PRN Reason: SALINE FLUSH Last Admin: 08/07/20 12:59 Dose: 10 ml Documented by: Tamsulosin HCl (Tamsulosin Hcl 0.4 Mg Capsule) 0.4 mg PO DAILY@1730 [facility] Last Admin: 08/06/20 17:14 Dose: 0.4 mg Documented by: Assessment/Plan Patient seen and examined independently. Data reviewed. I agree with the above note by the physician research assistant member. 1. Acute CAUTI Cx showing GNR x2. Continue CTX and adjust abx accordingly change catheter over 4/2 2. Bacteremia GNR x2 2/2 UTI Follow up cultures 3. Severe sepsis POA 2/2 UTI and Bacteremia 4. Urinary retention continue Jefferson catheter now and upon discharge follow up with as outpt 5. CKD 4 Cr overall trending down from 3/3 continue to monitor avoid nephrotoxic agents follow up with nephrology as outpt. 6. Anemia stable monitor 7. VTE prophylaxis: SCDs 8. Suspected peripheral neuropathy compounded by likely PAD check ABIs Inpatient E&M: [id number] Subs Hosp L2
[2020-08-07] MEDS: 0.9% Saline Lock 10 ML Syringe IV ×2 (12:59→16:45)
--- NOTE | 2020-08-07 13:18 | ART_ITS ---
Reason For Study: Diminished pulses Procedure A bilateral lower extremity continuous wave Doppler with analog waveform analysis and ankle brachial indexes. Left Segmental Pressures Left posterior tibial artery = >254mmHg. Left dorsalis pedis artery = 0.85mmHg. The left dorsalis pedis waveforms are monophasic. The left posterior tibial artery waveforms are monophasic. Right Segmental Pressures Right brachial= 108mmHg. Right posterior tibial artery = >254mmHg. Right dorsalis pedis artery = 104mmHg. The right dorsalis pedis waveforms are monophasic. The right posterior tibial artery waveforms are monophasic. Indices The right ankle brachial index by the dorsalis pedis is 1.02. The right ankle brachial index by the posterior tibial artery is NC. The left ankle brachial index by the dorsalis pedis is 0.85. The left ankle brachial index by the posterior tibial artery is NC. VL/Ankle Brachial Index Interpretation Summary Bilateral mild occlussive disease wth monophasic flow and MONIKA 1.02 and 0.85. Ma y be falsely elevated. Ordering Physician: Jourdan Frey Referring Physician: Vernon Plascencia Performed By: Katia Barrios RVT
[2020-08-07] MEDS: Mineral Oil/Petrolatum Cr 1.75oz Bottle 1 APPLIC TOPICAL (13:57)
[2020-08-07] MEDS: Tamsulosin HCl 0.4 MG Capsule PO (16:45)
[2020-08-07] MEDS: MELATONIN 3 MG TABLET PO (21:55)
[2020-08-07] MEDS: Mirtazapine 15 MG Tablet PO (21:55)
[2020-08-07] MEDS: Docusate Sodium 100 MG Capsule 200 MG PO (21:56)
[2020-08-08] VITALS (12 sets, daily range): BP systolic 121–160; BP diastolic 38–82; PULSE 70–106; RESP 18; TEMP 36.6–37.8; O2SAT 97–100
[2020-08-08] MEDS: Acetaminophen 325 MG Tablet 650 MG PO (01:58)
[2020-08-08] MEDS: Levothyroxine 150 MCG Tablet PO (05:07)
[2020-08-08 05:11] LABS: Absolute Lymphocyte Count 1.08 X10^3/uL (0.83-4.51); Basophil# 0.02 X10^3/uL; Basophil% 0.2 % (0-1); Eosinophil# 0.27 X10^3/uL; Eosinophils% 2.6 % (0-5); Hematocrit 31.1 % (40-54); Hemoglobin 9.7 g/dL (13.0-16.5); Lymphocyte # 1.08 X10^3/ul (4.0); Lymphocyte % 10.2 % (19-41); Mean Corp Hgb Conc 31.2 g/dL (32-36); Mean Corpuscular Volume 93.1 fL (80-94); Mean Platelet Vol. 9.3 fl (6.2-12.0); Monocyte# 1.11 X10^3/uL; Monocyte% 10.5 % (0-10); NRBC Flagged by Analyzer 0 % (0-5); Neutrophil # 7.97 X10^3/uL (2.7-7.7); Neutrophil % 75.6 % (47-70); Platelet Count 187 K/mm3 (150-450); RBC Distribution Width CV 15.1 % (11.6-14.6); RBC Distribution Width SD 51.5 fl (35.1-43.9); Red Blood Count 3.34 M/mm3 (4.6-6.2); White Blood Count 10.6 K/mm3 (4.4-11.0)
[2020-08-08 05:27] LABS: Anion Gap 10 (5-15); BUN 43 mg/dL (7-18); BUN/Creat Ratio 16.4 RATIO (10-20); Calcium,Total 8.4 mg/dL (8.5-10.1); Chloride 112 mmol/L (98-107); Creatinine, Serum 2.62 mg/dL (0.70-1.30); EST Glomerular Filtration Rate 25 mL/min (>60); Est Glom Filt Rate - Afr Amer 31 mL/min (>60); Estimated Creatinine Clearance 19.52 ml/min; Glucose 104 mg/dL (74-106); Potassium 4.1 mmol/L (3.5-5.1); Sodium Level 140 mmol/L (136-145)
[2020-08-08] MEDS: 0.9% Normal Saline 1,000 ML 100 ML IV ×2 (07:21→16:53)
[2020-08-08] MEDS: Calcitriol 0.25 MCG Capsule PO (10:12)
[2020-08-08] MEDS: Ferrous Sulfate 325 MG Tablet PO (10:12)
[2020-08-08] MEDS: Pantoprazole Sodium 40 MG Tablet PO (10:12)
--- NOTE | 2020-08-08 11:01 | PCM.PN.HOSP ---
<Ronal Chand - Last Filed: 08/08/20 11:01> Patient Problems: Active and Suspected Problems (Last Updated 08/05/20 @ 13:[address] Butch March MD) Recent RAMIN on CKD (Acute) Severe sepsis (Acute) UTI (urinary tract infection) (Acute) Subjective: Patient is a 79-year-old male who is comfortable resting in bed, alert and orient x3. Patient endorses improvement from yesterday, however still believes he is too weak to go back to [facility] facility. Patient believes he would benefit from 1 more day of admission. Denies fever, chills, N/V/D, chest pain and shortness of breath. Objective: Clinical Impression(s) from Imaging Studies Chest X-Ray 08/05/20 12:15 IMPRESSION: Hyperinflation. The lungs are clear. Electronically Signed: Vadim Hughes MD at 12:37 EDT , Service support , Vitals/I&O's: Vital Signs Temp Pulse Resp BP Pulse Ox 97.9 F 93 18 129/38 H 99 08/08/20 08:00 08/08/20 08:00 08/08/20 08:00 08/08/20 08:00 08/08/20 08:00 Oxygen Flow Rate (L/min) 2 Oxygen Delivery Method Room Air Weight: 130 lb 15.273 oz Body Mass Index (BMI) 20.5 Intake and Output for Last 24 Hours 08/06/20 08/07/20 08/08/20 23:59 23:59 23:59 Intake Total 2160 / 2160 3786.67 / 3786.67 1760.00 / 1760.00 Output Total 3750 / 4900 6675 / 6675 2225 / 2225 Balance -1590 / -2740 -2888.33 / -2888.33 -465.00 / -465.00 General: Alert, Oriented x3, Cooperative HEENT: Atraumatic, PERRLA, EOMI, Normocephalic Neck: Supple, No JVD, Negative Carotid Bruits Lungs: Clear to auscultation, Normal air movement Cardiovascular: Regular rate, No murmurs Abdomen: Bowel Sounds Present, Soft, Non Tender Extremities: Tenderness - Tenderness to palpation of the skin of the lower extremities bilaterally. Skin: - - Lymphedema about the lower extremities, bilaterally Musculoskeletal: Cachexia, Muscle Wasting Neurological: Cranial nerves II-XII grossly intact Psych/Mental Status: Normal Affect, Appropriate Microbiology Past 72 Hours 08/05/20 12:49 Urine Catheter - Catheter Urine Culture - Final Citrobacter freundii Klebsiella pneumoniae sp pneum 08/05/20 12:09 Blood Culture (Wb) - Anticubital Left Blood Culture - Final GNR lactose salesperson parts 08/05/20 11:40 Blood Culture (Wb) - Anticubital Right Blood Culture - Final Klebsiella pneumoniae sp pneum Laboratory Results 08/08/20 04:45: Sodium 140, Potassium 4.1, Chloride 112 H, Carbon Dioxide 18.0 L, Anion Gap 10, BUN 43 H, Creatinine 2.62 H, Estim Creat Clear Calc 19.52, Est GFR (MDRD) Af Amer 31 L, Est GFR (MDRD) Non-Af 25 L, BUN/Creatinine Ratio 16.4, Glucose 104, Calcium 8.4 L 08/08/20 04:45: WBC 10.6, RBC 3.34 L, Hgb 9.7 L, Hct 31.1 L, MCV 93.1, MCH 29.0, MCHC 31.2 L, RDW Std Deviation 51.5 H, RDW Coeff of Jh 15.1 H, Plt Count 187, MPV 9.3, Immature Gran % (Auto) 0.900, Neut % (Auto) 75.6 H, Lymph % (Auto) 10.2 L, [place] % (Auto) 10.5 H, Eos % (Auto) 2.6, Baso % (Auto) 0.2, Absolute Neuts (auto) 8.0 H, Absolute Lymphs (auto) 1.08, Nucleated RBC % 0 Current Medications Acetaminophen (Acetaminophen 325 Mg Tablet) 650 mg PO Q6H PRN PRN PRN Reason: Pain Score 1-10/Temp > 100.7 F Last Admin: 08/08/20 01:58 Dose: 650 mg Documented by: Calcitriol (Calcitriol 0.25 Mcg Capsule) 0.25 mcg PO DAILY [facility] Last Admin: 08/08/20 10:12 Dose: 0.25 mcg Documented by: Docusate Sodium (Docusate Sodium 100 Mg Capsule) 200 mg PO QHS [facility] Last Admin: 08/07/20 21:56 Dose: 200 mg Documented by: Ferrous Sulfate (Ferrous Sulfate 325 Mg Tablet) 325 mg PO DAILYCM [facility] Last Admin: 08/08/20 10:12 Dose: 325 mg Documented by: Sodium Chloride () 1,000 mls @ 100 mls/hr IV .Q10H [facility] Last Infusion: 08/08/20 10:45 Dose: 100 mls/hr Documented by: Ceftriaxone Sodium 2 gm/ (Sodium Chloride) 50 mls @ 100 mls/hr IV Q24 [facility] Last Infusion: 08/08/20 10:45 Dose: Infused Documented by: Sodium Chloride () 250 mls @ 15 mls/hr IV .[id number] PRN PRN Reason: Saline Flush Sodium Chloride () 250 mls @ 15 mls/hr IV .[id number] PRN PRN Reason: Additional IVPB Infusion Levothyroxine Sodium (Levothyroxine 150 Mcg Tablet) 150 mcg PO 0600 [facility] Last Admin: 08/08/20 05:07 Dose: 150 mcg Documented by: Melatonin (Melatonin 3 Mg Tablet) 3 mg PO QHS [facility] Last Admin: 08/07/20 21:55 Dose: 3 mg Documented by: Mirtazapine (Mirtazapine 15 Mg Tablet) 15 mg PO QHS [facility] Last Admin: 08/07/20 21:55 Dose: 15 mg Documented by: Nutritional Formula (Lactose Free) (Ensure Enlive 120 Ml Liquid) 120 ml PO 4X/DAY [facility] Last Admin: 08/08/20 10:12 Dose: 120 ml Documented by: Ondansetron HCl (Ondansetron 4 Mg/2 Ml Vial) 4 mg IV Q8H PRN PRN PRN Reason: NAUSEA/VOMITING Pantoprazole Sodium (Pantoprazole Sodium 40 Mg Tablet) 40 mg PO DAILY [facility] Last Admin: 08/08/20 10:12 Dose: 40 mg Documented by: Sodium Chloride (0.9% Saline Lock 10 Ml Syringe) 10 - 40 ml IV UD PRN PRN Reason: SALINE FLUSH Last Admin: 08/07/20 16:45 Dose: 10 ml Documented by: Tamsulosin HCl (Tamsulosin Hcl 0.4 Mg Capsule) 0.4 mg PO DAILY@1730 [facility] Last Admin: 08/07/20 16:45 Dose: 0.4 mg Documented by: STROKE Vital Signs/Narrative: Vital Signs Temp Pulse Resp BP Pulse Ox 08/08/20 08:00 97.9 F 93 18 129/38 H 99 08/08/20 07:25 97 Medical Necessity - Tobacco Use Smoking Status: Former smoker Assessment/Plan All Active Problems (Last Updated 08/05/20 @ 13:[address] Butch March MD) Recent RAMIN on CKD (Acute) Severe sepsis (Acute) UTI (urinary tract infection) (Acute) Patient is a 79-year-old male who presented to the ED on 08/05/2020 for weakness, fatigue, poor appetite and confusion from the correction. Patient was admitted for sepsis secondary to complicated acute cystitis. Of note patient had a recent admission for acute renal failure on top of stage III CKD and acute blood loss anemia. Patient reports that he does feel better from admission however still does endorse weakness which he relates to his poor eating habits while at the retirement facility. Patient reports that he is regaining his strength which he relates to a good appetite since being admitted. Patient remained admitted overnight and be reassessed tomorrow for discharge. PT/OT recommended continued therapy when discharge. 1) Severe sepsis secondary to complicated acute cystitis and bacteremia Assessment - WBC 13.0, elevated from yesterday - Vital signs stable - UA on admission was significant for; occult blood, positive nitrites, 3+ bacteria, 500 leukocyte esterase, yellow and cloudy appearance - Urine and blood cultures revealed gram-negative rods - Still endorsees fatigue and weakness, - Patient observed with a vigorous appetite during physical exam while he ate his breakfast - Jefferson catheter replaced on 08/06/2020 Plan - Remain admitted overnight - Continue on ceftriaxone - Follow-up with as outpatient 2)Recent acute renal failure on CKD stage IV/Hyperkalemia Assessment - Creatinine 2.62, continuing to trend down - Potassium 4.1, stable Plan - Continue IV fluids - Monitor I' and O's - Monitor BMP - Follow-up with nephrology as outpatient 3) Recent acute blood loss anemia Assessment - UA positive for occult blood at admission - Hemoglobin 9.7 - No evidence of active bleed on physical exam Plan - Monitor CBC 4) Suspected perihperal neuropathy Assessment - Unilateral weakness/pain of the right leg reported by patient - Likely PAD - PT/OT following Plan - MONIKA ordered DVT Prophylaxis - SCD's Patient seen by Ronal Chand PA-C, under the supervision of Dr. Frey <Jourdan Frey - Last Filed: 08/08/20 12:29> Vitals/I&O's: Vital Signs Temp Pulse Resp BP Pulse Ox 36.6 C 106 H 18 129/38 H 99 08/08/20 08:00 08/08/20 11:00 08/08/20 08:00 08/08/20 08:00 08/08/20 08:00 Oxygen Flow Rate (L/min) 2 Oxygen Delivery Method Room Air Weight: 59.4 kg Body Mass Index (BMI) 20.5 Intake and Output for Last 24 Hours 08/06/20 08/07/20 08/08/20 23:59 23:59 23:59 Intake Total 2160 / 2160 3786.67 / 3786.67 1760.00 / 1760.00 Output Total 3750 / 4900 6675 / 6675 2225 / 2225 Balance -1590 / -2740 -2888.33 / -2888.33 -465.00 / -465.00 General: Alert, Cooperative HEENT: Atraumatic, Normocephalic Neck: No JVD, Negative Carotid Bruits Lungs: Clear to auscultation, Normal air movement Cardiovascular: Regular rate, No murmurs Abdomen: Bowel Sounds Present, Soft, Non Tender Extremities: Diminished Peripheral Pulses, Tenderness Skin: - - venous stasis changes to LE bilaterally. Microbiology Past 72 Hours 08/05/20 12:49 Urine Catheter - Catheter Urine Culture - Final Citrobacter freundii Klebsiella pneumoniae sp pneum 08/05/20 12:09 Blood Culture (Wb) - Anticubital Left Blood Culture - Final GNR lactose salesperson parts 08/05/20 11:40 Blood Culture (Wb) - Anticubital Right Blood Culture - Final Klebsiella pneumoniae sp pneum Laboratory Results 08/08/20 04:45: Sodium 140, Potassium 4.1, Chloride 112 H, Carbon Dioxide 18.0 L, Anion Gap 10, BUN 43 H, Creatinine 2.62 H, Estim Creat Clear Calc 19.52, Est GFR (MDRD) Af Amer 31 L, Est GFR (MDRD) Non-Af 25 L, BUN/Creatinine Ratio 16.4, Glucose 104, Calcium 8.4 L 08/08/20 04:45: WBC 10.6, RBC 3.34 L, Hgb 9.7 L, Hct 31.1 L, MCV 93.1, MCH 29.0, MCHC 31.2 L, RDW Std Deviation 51.5 H, RDW Coeff of Jh 15.1 H, Plt Count 187, MPV 9.3, Immature Gran % (Auto) 0.900, Neut % (Auto) 75.6 H, Lymph % (Auto) 10.2 L, [place] % (Auto) 10.5 H, Eos % (Auto) 2.6, Baso % (Auto) 0.2, Absolute Neuts (auto) 8.0 H, Absolute Lymphs (auto) 1.08, Nucleated RBC % 0 Current Medications Acetaminophen (Acetaminophen 325 Mg Tablet) 650 mg PO Q6H PRN PRN PRN Reason: Pain Score 1-10/Temp > 100.7 F Last Admin: 08/08/20 01:58 Dose: 650 mg Documented by: Calcitriol (Calcitriol 0.25 Mcg Capsule) 0.25 mcg PO DAILY [facility] Last Admin: 08/08/20 10:12 Dose: 0.25 mcg Documented by: Docusate Sodium (Docusate Sodium 100 Mg Capsule) 200 mg PO QHS [facility] Last Admin: 08/07/20 21:56 Dose: 200 mg Documented by: Ferrous Sulfate (Ferrous Sulfate 325 Mg Tablet) 325 mg PO DAILYCM [facility] Last Admin: 08/08/20 10:12 Dose: 325 mg Documented by: Sodium Chloride () 1,000 mls @ 100 mls/hr IV .Q10H [facility] Last Infusion: 08/08/20 10:45 Dose: 100 mls/hr Documented by: Ceftriaxone Sodium 2 gm/ (Sodium Chloride) 50 mls @ 100 mls/hr IV Q24 [facility] Last Infusion: 08/08/20 10:45 Dose: Infused Documented by: Sodium Chloride () 250 mls @ 15 mls/hr IV .[id number] PRN PRN Reason: Saline Flush Sodium Chloride () 250 mls @ 15 mls/hr IV .[id number] PRN PRN Reason: Additional IVPB Infusion Levothyroxine Sodium (Levothyroxine 150 Mcg Tablet) 150 mcg PO 0600 [facility] Last Admin: 08/08/20 05:07 Dose: 150 mcg Documented by: Melatonin (Melatonin 3 Mg Tablet) 3 mg PO QHS [facility] Last Admin: 08/07/20 21:55 Dose: 3 mg Documented by: Mirtazapine (Mirtazapine 15 Mg Tablet) 15 mg PO QHS [facility] Last Admin: 08/07/20 21:55 Dose: 15 mg Documented by: Nutritional Formula (Lactose Free) (Ensure Enlive 120 Ml Liquid) 120 ml PO 4X/DAY [facility] Last Admin: 08/08/20 10:12 Dose: 120 ml Documented by: Ondansetron HCl (Ondansetron 4 Mg/2 Ml Vial) 4 mg IV Q8H PRN PRN PRN Reason: NAUSEA/VOMITING Pantoprazole Sodium (Pantoprazole Sodium 40 Mg Tablet) 40 mg PO DAILY [facility] Last Admin: 08/08/20 10:12 Dose: 40 mg Documented by: Sodium Chloride (0.9% Saline Lock 10 Ml Syringe) 10 - 40 ml IV UD PRN PRN Reason: SALINE FLUSH Last Admin: 08/07/20 16:45 Dose: 10 ml Documented by: Tamsulosin HCl (Tamsulosin Hcl 0.4 Mg Capsule) 0.4 mg PO DAILY@1730 [facility] Last Admin: 08/07/20 16:45 Dose: 0.4 mg Documented by: STROKE Vital Signs/Narrative: Vital Signs Pulse 08/08/20 11:00 106 H Assessment/Plan Patient seen and examined independently. Data reviewed. I agree with the above note by the physician diet assistant. 1. Acute CAUTI Cx showing Citrobacter and Klebsiella. Continue CTX for now and change to renally dose levofloxacin upon discharge (500 the first day, then every other day dosing of 250 x1 to complete 7 day course) changed catheter 4/2 2. Bacteremia Klebsiella 2/2 UTI Follow up cultures 3. Severe sepsis POA, now resolved 2/2 UTI and Bacteremia 4. Urinary retention continue Jefferson catheter now and upon discharge follow up with as outpt 5. CKD 4 Cr overall trending down from 3/3 continue to monitor avoid nephrotoxic agents follow up with nephrology as outpt. 6. Anemia down to 9.4 monitor 7. VTE prophylaxis: SCDs 8. Suspected peripheral neuropathy compounded by likely PAD check ABIs If confirmed PAD, follow up vascular surgery as outpt, unless critical (low suspicion) 9. Disposition plan for return to [facility]. Hopefully in next 24-48h after ABIs 10. Severe acute malnutrition complicates care and recovery on pureed with thin liquids. Ensure Enlive with medpass and magic cup. 11. Dysphagia: chronic on pureed and this liquids continue Inpatient E&M: 39814 Subs Hosp L2
[2020-08-08] MEDS: Tamsulosin HCl 0.4 MG Capsule PO (16:54)
[2020-08-08] MEDS: Mirtazapine 15 MG Tablet PO (20:54)
[2020-08-08] MEDS: MELATONIN 3 MG TABLET PO (20:54)
[2020-08-08] MEDS: Docusate Sodium 100 MG Capsule 200 MG PO (20:54)
[2020-08-09] VITALS (10 sets, daily range): BP systolic 104–134; BP diastolic 41–76; PULSE 83–98; RESP 16–18; TEMP 36.5–37; O2SAT 97–100
[2020-08-09] MEDS: 0.9% Normal Saline 1,000 ML 100 ML IV ×2 (02:42→13:41)
[2020-08-09] MEDS: Levothyroxine 150 MCG Tablet PO (05:32)
[2020-08-09] MEDS: Pantoprazole Sodium 40 MG Tablet PO (08:25)
[2020-08-09] MEDS: Calcitriol 0.25 MCG Capsule PO (08:25)
[2020-08-09] MEDS: Ferrous Sulfate 325 MG Tablet PO (08:25)
--- NOTE | 2020-08-09 13:42 | PN_ITS ---
<Ronal Chand - Last Filed: 08/09/20 13:42> Patient Problems: Active and Suspected Problems (Last Updated 08/05/20 @ 13:[address] Butch March MD) Recent RAMIN on CKD (Acute) Severe sepsis (Acute) UTI (urinary tract infection) (Acute) Subjective: Patient is a 71 male who is resting comfortably in bed, alert and oriented x3. Patient reports marked improvement in symptoms from yesterday especially in regards to his weakness. Vitals/I&O's: Vital Signs Temp Pulse Resp BP Pulse Ox 97.7 F L 89 18 108/41 L 99 08/09/20 08:35 08/09/20 11:00 08/09/20 08:35 08/09/20 08:35 08/09/20 08:35 Oxygen Flow Rate (L/min) 2 Oxygen Delivery Method Room Air Weight: 130 lb 15.273 oz Body Mass Index (BMI) 20.5 Intake and Output for Last 24 Hours 08/07/20 08/08/20 08/09/20 23:59 23:59 23:59 Intake Total 3786.67 / 3786.67 2613.33 / 2973.33 2796.67 / 2796.67 Output Total 6675 / 6675 2525 / 3525 3600 / 3600 Balance -2888.33 / -2888.33 88.33 / -551.67 -803.33 / -803.33 General: Alert, Oriented x3, Cooperative HEENT: Atraumatic, PERRLA, EOMI, Normocephalic Neck: Supple, No JVD, Negative Carotid Bruits Lungs: Clear to auscultation, Normal air movement Cardiovascular: Regular rate, No murmurs Abdomen: Bowel Sounds Present, Soft, Non Tender Extremities: No edema, Capillary Refill Less than 3 Seconds Skin: No rashes, No breakdown Musculoskeletal: No Tenderness to Palpation of Joints or Extremities Neurological: Cranial nerves II-XII grossly intact Psych/Mental Status: Normal Affect, Appropriate Microbiology Past 72 Hours 08/05/20 12:49 Urine Catheter - Catheter Urine Culture - Final Citrobacter freundii Klebsiella pneumoniae sp pneum 08/05/20 12:09 Blood Culture (Wb) - Anticubital Left Blood Culture - Final GNR lactose training and development manager 08/05/20 11:40 Blood Culture (Wb) - Anticubital Right Blood Culture - Final Klebsiella pneumoniae sp pneum Current Medications Acetaminophen (Acetaminophen 325 Mg Tablet) 650 mg PO Q6H PRN PRN PRN Reason: Pain Score 1-10/Temp > 100.7 F Last Admin: 08/08/20 01:58 Dose: 650 mg Documented by: Calcitriol (Calcitriol 0.25 Mcg Capsule) 0.25 mcg PO DAILY [facility] Last Admin: 08/09/20 08:25 Dose: 0.25 mcg Documented by: Docusate Sodium (Docusate Sodium 100 Mg Capsule) 200 mg PO QHS [facility] Last Admin: 08/08/20 20:54 Dose: 200 mg Documented by: Ferrous Sulfate (Ferrous Sulfate 325 Mg Tablet) 325 mg PO DAILYCM [facility] Last Admin: 08/09/20 08:25 Dose: 325 mg Documented by: Sodium Chloride () 1,000 mls @ 100 mls/hr IV .Q10H [facility] Last Admin: 08/09/20 13:41 Dose: 100 mls/hr Documented by: Ceftriaxone Sodium 2 gm/ (Sodium Chloride) 50 mls @ 100 mls/hr IV Q24 [facility] Last Infusion: 08/09/20 09:00 Dose: Infused Documented by: Sodium Chloride () 250 mls @ 15 mls/hr IV .[id number] PRN PRN Reason: Saline Flush Sodium Chloride () 250 mls @ 15 mls/hr IV .[id number] PRN PRN Reason: Additional IVPB Infusion Levothyroxine Sodium (Levothyroxine 150 Mcg Tablet) 150 mcg PO 0600 [facility] Last Admin: 08/09/20 05:32 Dose: 150 mcg Documented by: Melatonin (Melatonin 3 Mg Tablet) 3 mg PO QHS [facility] Last Admin: 08/08/20 20:54 Dose: 3 mg Documented by: Mirtazapine (Mirtazapine 15 Mg Tablet) 15 mg PO QHS [facility] Last Admin: 08/08/20 20:54 Dose: 15 mg Documented by: Nutritional Formula (Lactose Free) (Ensure Enlive 120 Ml Liquid) 120 ml PO 4X/DAY [facility] Last Admin: 08/09/20 08:29 Dose: 120 ml Documented by: Ondansetron HCl (Ondansetron 4 Mg/2 Ml Vial) 4 mg IV Q8H PRN PRN PRN Reason: NAUSEA/VOMITING Pantoprazole Sodium (Pantoprazole Sodium 40 Mg Tablet) 40 mg PO DAILY [facility] Last Admin: 08/09/20 08:25 Dose: 40 mg Documented by: Sodium Chloride (0.9% Saline Lock 10 Ml Syringe) 10 - 40 ml IV UD PRN PRN Reason: SALINE FLUSH Last Admin: 08/07/20 16:45 Dose: 10 ml Documented by: Tamsulosin HCl (Tamsulosin Hcl 0.4 Mg Capsule) 0.4 mg PO DAILY@1730 [facility] Last Admin: 08/08/20 16:54 Dose: 0.4 mg Documented by: STROKE Vital Signs/Narrative: Vital Signs Pulse 08/09/20 11:00 89 Medical Necessity - Tobacco Use Smoking Status: Former smoker Assessment/Plan All Active Problems (Last Updated 08/05/20 @ 13:[address] Butch March MD) Recent RAMIN on CKD (Acute) Severe sepsis (Acute) UTI (urinary tract infection) (Acute) Patient is a 79-year-old male who presented to the ED on 08/05/2020 for weakness, fatigue, poor appetite and confusion from the mcc. Patient was admitted for sepsis secondary to complicated acute cystitis. Of note patient had a recent admission for acute renal failure on top of stage III CKD and acute blood loss anemia. Patient reports that he does feel much better from yesterday especially in regards to his weakness. ABIs obtained today were concerning for worsening PAD. Waiting for interpretation by [facility]. Also speech therapy would like images obtained of the patient's neck to assess for possible throat cancer. Patient remained admitted overnight. 1) Severe sepsis secondary to complicated acute cystitis and bacteremia Assessment - WBC 13.0, elevated from yesterday - Vital signs stable - UA on admission was significant for; occult blood, positive nitrites, 3+ bacteria, 500 leukocyte esterase, yellow and cloudy appearance - Urine and blood cultures revealed gram-negative rods - Still endorsees fatigue and weakness, - Patient observed with a vigorous appetite during physical exam while he ate his breakfast - Jefferson catheter replaced on 08/06/2020 Plan - Remain admitted overnight - Continue on ceftriaxone - Follow-up with as outpatient 2)Recent acute renal failure on CKD stage IV/Hyperkalemia Assessment - Creatinine 2.62, continuing to trend down - Potassium 4.1, stable Plan - Continue IV fluids - Monitor I' and O's - Monitor BMP - Follow-up with nephrology as outpatient 3) Recent acute blood loss anemia Assessment - UA positive for occult blood at admission - Hemoglobin 9.7 - No evidence of active bleed on physical exam Plan - Monitor CBC 4) 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 DVT Prophylaxis - SCD's Patient seen by Ronal Chand PA-C, under the supervision of Dr. Simental. <Halima Simental - Last Filed: 08/09/20 15:10> Vitals/I&O's: Vital Signs Temp Pulse Resp BP Pulse Ox 97.7 F L 89 18 108/41 L 99 08/09/20 08:35 08/09/20 11:00 08/09/20 08:35 08/09/20 08:35 08/09/20 08:35 Oxygen Flow Rate (L/min) 2 Oxygen Delivery Method Room Air Weight: 130 lb 15.273 oz Body Mass Index (BMI) 20.5 Intake and Output for Last 24 Hours 08/07/20 08/08/20 08/09/20 23:59 23:59 23:59 Intake Total 3786.67 / 3786.67 2613.33 / 2973.33 2796.67 / 2796.67 Output Total 6675 / 6675 2525 / 3525 3600 / 3600 Balance -2888.33 / -2888.33 88.33 / -551.67 -803.33 / -803.33 Microbiology Past 72 Hours 08/05/20 12:49 Urine Catheter - Catheter Urine Culture - Final Citrobacter freundii Klebsiella pneumoniae sp pneum 08/05/20 12:09 Blood Culture (Wb) - Anticubital Left Blood Culture - Final GNR lactose training and development manager 08/05/20 11:40 Blood Culture (Wb) - Anticubital Right Blood Culture - Final Klebsiella pneumoniae sp pneum Current Medications Acetaminophen (Acetaminophen 325 Mg Tablet) 650 mg PO Q6H PRN PRN PRN Reason: Pain Score 1-10/Temp > 100.7 F Last Admin: 08/08/20 01:58 Dose: 650 mg Documented by: Calcitriol (Calcitriol 0.25 Mcg Capsule) 0.25 mcg PO DAILY [facility] Last Admin: 08/09/20 08:25 Dose: 0.25 mcg Documented by: Docusate Sodium (Docusate Sodium 100 Mg Capsule) 200 mg PO QHS [facility] Last Admin: 08/08/20 20:54 Dose: 200 mg Documented by: Ferrous Sulfate (Ferrous Sulfate 325 Mg Tablet) 325 mg PO DAILYCM [facility] Last Admin: 08/09/20 08:25 Dose: 325 mg Documented by: Sodium Chloride () 1,000 mls @ 100 mls/hr IV .Q10H [facility] Last Admin: 08/09/20 13:41 Dose: 100 mls/hr Documented by: Ceftriaxone Sodium 2 gm/ (Sodium Chloride) 50 mls @ 100 mls/hr IV Q24 [facility] Last Infusion: 08/09/20 09:00 Dose: Infused Documented by: Sodium Chloride () 250 mls @ 15 mls/hr IV .[id number] PRN PRN Reason: Saline Flush Sodium Chloride () 250 mls @ 15 mls/hr IV .[id number] PRN PRN Reason: Additional IVPB Infusion Levothyroxine Sodium (Levothyroxine 150 Mcg Tablet) 150 mcg PO 0600 [facility] Last Admin: 08/09/20 05:32 Dose: 150 mcg Documented by: Melatonin (Melatonin 3 Mg Tablet) 3 mg PO QHS [facility] Last Admin: 08/08/20 20:54 Dose: 3 mg Documented by: Mirtazapine (Mirtazapine 15 Mg Tablet) 15 mg PO QHS [facility] Last Admin: 08/08/20 20:54 Dose: 15 mg Documented by: Nutritional Formula (Lactose Free) (Ensure Enlive 120 Ml Liquid) 120 ml PO 4X/DAY [facility] Last Admin: 08/09/20 08:29 Dose: 120 ml Documented by: Ondansetron HCl (Ondansetron 4 Mg/2 Ml Vial) 4 mg IV Q8H PRN PRN PRN Reason: NAUSEA/VOMITING Pantoprazole Sodium (Pantoprazole Sodium 40 Mg Tablet) 40 mg PO DAILY [facility] Last Admin: 08/09/20 08:25 Dose: 40 mg Documented by: Sodium Chloride (0.9% Saline Lock 10 Ml Syringe) 10 - 40 ml IV UD PRN PRN Reason: SALINE FLUSH Last Admin: 08/07/20 16:45 Dose: 10 ml Documented by: Tamsulosin HCl (Tamsulosin Hcl 0.4 Mg Capsule) 0.4 mg PO DAILY@1730 [facility] Last Admin: 08/08/20 16:54 Dose: 0.4 mg Documented by: STROKE Vital Signs/Narrative: Vital Signs Pulse 08/09/20 11:00 89 Assessment/Plan Patient seen by Ronal Chand PA-C under my supervision Patient seen and examined. He had no complaints today. He was working with PT at time of review. Review of systems otherwise negative. He has remained hemodynamically stable. O/E: Vital Signs Temp Pulse Resp BP Pulse Ox 97.7 F L 89 18 108/41 L 99 08/09/20 08:35 08/09/20 11:00 08/09/20 08:35 08/09/20 08:35 08/09/20 08:35 General: Alert, Oriented x3, Cooperative HEENT: Atraumatic, PERRLA, EOMI, Normocephalic Neck: Supple, No JVD, Negative Carotid Bruits Lungs: Clear to auscultation, Normal air movement Cardiovascular: Regular rate, No murmurs Abdomen: Bowel Sounds Present, Soft, Non Tender Extremities: minimal tenderness to palpation of lower extremities. Skin: - -mild erythema of both LEs, appears to be chronic. no differential warmth Musculoskeletal: Cachexia, Muscle Wasting Neurological: Cranial nerves II-XII grossly intact Psych/Mental Status: Normal Affect, Appropriate Patient currently on IV ceftriaxone for UTI. Will continue. Creatinine is down to 2.62. Due to suspicion for peripheral artery disease, he had vascular studies done of the lower extremities. Ankle-brachial pressure index was 1.02 on the right lower extremity which was normal at 0.85 for the left lower extremity which shows evidence of peripheral arterial disease in the left lower extremity. Review of podiatry documentation from 11/10/2017, patient does have a history of arterial insufficiency. He has been following up with Dr. Pearce on outpatient basis. Vascular surgery to evaluate patient today. Also has dysphagia so has modified barium swallow scheduled for tomorrow. Physical therapy on board. Discharge to [facility] when medically stable. Rest as per Ronal Chand PA-C's notes which I reviewed and endorsed. Inpatient E&M: [id number] Subs Hosp L2
[2020-08-09] MEDS: Tamsulosin HCl 0.4 MG Capsule PO (16:10)
[2020-08-09] MEDS: Mirtazapine 15 MG Tablet PO (22:00)
[2020-08-09] MEDS: Docusate Sodium 100 MG Capsule 200 MG PO (22:00)
[2020-08-09] MEDS: MELATONIN 3 MG TABLET PO (22:00)
[2020-08-10] VITALS (7 sets, daily range): BP systolic 136–157; BP diastolic 63–87; PULSE 83–93; RESP 16–18; TEMP 36.4–36.9; O2SAT 96–98
[2020-08-10] MEDS: 0.9% Normal Saline 1,000 ML 100 ML IV (01:26)
[2020-08-10] MEDS: Levothyroxine 150 MCG Tablet PO (06:30)
[2020-08-10] MEDS: Ferrous Sulfate 325 MG Tablet PO (09:11)
[2020-08-10] MEDS: Pantoprazole Sodium 40 MG Tablet PO (09:11)
[2020-08-10] MEDS: Calcitriol 0.25 MCG Capsule PO (09:11)
--- NOTE | 2020-08-10 09:51 | CASEMGMT ---
Per physician patient was not sure he wanted to return to [facility]. SW looked through patient's paperwork and he has been at [facility] since 2010. SW provided patient with a list of SNF providers including quality and resource use data and consistent with the patient?s preferred geographic region, medical needs, and insurance network. SANDRA explained to him that when SW spoke with him earlier in his stay he agreed his plan was to return. SANDRA told him today he is ready for discharge today and changing facilities would end up delaying his discharge as we would need to find a place and get insurance authorization. SANDRA told him when he gets back to [facility] he can talk with his family and [facility] about changing facilities if that is still what he wants to do. He thanked SANDRA for the list and information. Plan: d/c back to [facility] under intermediate level of care. Physicians will transport via cot. Zoila TORRES
--- NOTE | 2020-08-10 10:26 | PCM.TXEXTCAR ---
- Diet 08/09/20 10:48 Diet: Regular - General Food consistency:: Pureed Liquid Consistency:: [place]/Mildly Thick Dietary Modifications:: Fortified Foods Type of Dietary Supplement:: Magic Cup Dessert Is pt able to select menu?: Yes Diet Comments: Magic cup w/ lunch & dinner, distant supervision, liquids by straw - Allergies/Procedures Done in Hospital Allergies/Adverse Reactions: Allergies No Known Allergies Allergy (Verified 08/05/20 11:35) - Type of Care/Length of Stay Estimated LOS: More Than 30 Days Type of Care Needed: Skilled Rehab Potential: Fair Prognosis: Fair - Additional Orders/Day of Discharge Day of Discharge: 08/10/20 - Dietary and Speech Recommendations Dietitian Recommendations/Changes: Will continue regular diet-pureed/nectar-thick liquids per [employer]. Will continue ensure enlive w/ medpass and add magic cup w/ lunch and dinner for additional calories/protein. Will fortify foods when possible. - Follow Up Care Primary Care Physician: Vernon Plascencia MD [Primary Care Provider] - Please follow up with your Primary Care Physician in: Within the next 2 weeks Please Follow Up With: Dr. Pearce When: At earliest possible appointment
--- NOTE | 2020-08-10 11:00 | DS.PCM_ITS ---
<Ronal Chand - Last Filed: 08/10/20 13:25> Discharge Date and Diagnosis - Problem List Patient Problems: Active and Suspected Problems (Last Updated 08/05/20 @ 13:[address] Butch March MD) Recent RAMIN on CKD (Acute) Severe sepsis (Acute) UTI (urinary tract infection) (Acute) Date of Admission: 08/05/20 Date of Discharge: 08/10/20 - Primary Discharge Diagnosis Acute Problems: Active Problems (Last Updated 08/05/20 @ 13:[address] Butch March MD) Recent RAMIN on CKD (Acute) Severe sepsis (Acute) UTI (urinary tract infection) (Acute) - Secondary Discharge Diagnosis Chronic Problems: Chronic Problems (Last Updated 08/05/20 @ 13:[address] 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 Patient was admitted for sepsis secondary to complicated acute cystitis. Patient reports that he does feel much better from admission especially in regards to his weakness and confusion. ABIs obtained yesterday demonstrated an index of 1.02 on the right lower extremity and 0.85 for the left lower extremity. MONIKA results of the of the left lower extremity are concerning for peripheral arterial disease, which is being managed by Dr. Pearce on an outpatient basis. Dr. Pearce aware of the patient's status in regards to PAD, and believes he can be followed up with outpatient. Barium swallow performed on 08/10/2020 demonstrated poor oral clearance and reduced intraoral strength as as well as poor throat clearance. Mended that the patient be on a diet of pur?e, textures, nectar thick liquids while back at [facility]. Patient should also follow-up with general surgery to assess for residual effects from previous throat cancer. 1) Severe sepsis secondary to complicated acute cystitis and bacteremia Assessment - WBC 13.0, elevated from yesterday - Vital signs stable - UA on admission was significant for; occult blood, positive nitrites, 3+ bacteria, 500 leukocyte esterase, yellow and cloudy appearance - Urine and blood cultures revealed gram-negative rods - Jefferson catheter replaced on 08/06/2020 Plan - Discharge today - Initiate cefdinir 300 mg p.o. 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 Pearce on an outpatient basis concerning his PAD Plan -Follow-up with Dr. Pearce at earliest possible convenience 5) CAD Assessment - Status post CABG - EKG reviewed and demonstrated no evidence of acute ischemia - Not currently on any treatment for CAD Plan -Follow-up with primary care provider within the next 2 weeks 6) Hypertension Assessment - Not on any antihypertensive medications as an outpatient - Stable Plan - Follow-up with primary care provider within the next 2 weeks 7) Hypothyroidism Assessment - TSH from November 2017 was 14.6 Plan -Continue levothyroxine on discharge DVT Prophylaxis - SCD's 8) BPH Assessment - On chronic Jefferson catheter Plan - Continue use of Jefferson catheter - Continue Flomax on discharge Patient seen by Ronal Chand PA-C, under the supervision of Dr. Simental. Patient Problems: Active and Suspected Problems (Last Updated 08/05/20 @ 13:[address] Butch March MD) Recent RAMIN on CKD (Acute) Severe sepsis (Acute) UTI (urinary tract infection) (Acute) Subjective: Patient is a 79-year-old male comfortably resting in bed, alert and oriented x3. Patient reports resolution of his confusion and weakness upon admission and believes he is strong enough to go back to the retirement facility. Patient denies chest pain, palpitations, shortness of breath, fever, chills, N/V/D. Objective: Clinical Impression(s) from Imaging Studies Chest X-Ray 08/05/20 12:15 IMPRESSION: Hyperinflation. The lungs are clear. Electronically Signed: Vadim Hughes MD at 12:37 EDT , Service support , Microbiology 08/05/20 12:49 Urine Catheter - Catheter Urine Culture - Final Citrobacter freundii Klebsiella pneumoniae sp pneum 08/05/20 12:09 Blood Culture (Wb) - Anticubital Left Blood Culture - Final GNR lactose full stack java developer 08/05/20 11:40 Blood Culture (Wb) - Anticubital Right Blood Culture - Final Klebsiella pneumoniae sp pneum - Physical Exam Vitals/I&O's: Vital Signs Temp Pulse Resp BP Pulse Ox 97.5 F L 85 16 136/81 H 98 08/10/20 10:11 08/10/20 10:11 08/10/20 10:11 08/10/20 10:11 08/10/20 09:20 Oxygen Flow Rate (L/min) 2 Oxygen Delivery Method Room Air Weight: 130 lb 15.273 oz Body Mass Index (BMI) 20.5 Intake and Output for Last 24 Hours 08/08/20 08/09/20 08/10/20 23:59 23:59 23:59 Intake Total 2613.33 / 2973.33 4296.67 / 4416.67 1010.00 / 1010.00 Output Total 2525 / 3525 4650 / 5200 2500 / 2500 Balance 88.33 / -551.67 -353.33 / -783.33 -1490.00 / -1490.00 General: Alert, Oriented x3, Cooperative HEENT: Atraumatic, PERRLA, EOMI, Normocephalic Neck: Supple, No JVD, Negative Carotid Bruits Lungs: Clear to auscultation, Normal air movement Cardiovascular: Regular rate, No murmurs Abdomen: Bowel Sounds Present, Soft, Non Tender Extremities: No edema, Capillary Refill Less than 3 Seconds Skin: No rashes, No breakdown Musculoskeletal: No Tenderness to Palpation of Joints or Extremities Neurological: Cranial nerves II-XII grossly intact Psych/Mental Status: Normal Affect, Appropriate Microbiology Past 72 Hours 08/05/20 12:49 Urine Catheter - Catheter Urine Culture - Final Citrobacter freundii Klebsiella pneumoniae sp pneum 08/05/20 12:09 Blood Culture (Wb) - Anticubital Left Blood Culture - Final GNR lactose full stack java developer 08/05/20 11:40 Blood Culture (Wb) - Anticubital Right Blood Culture - Final Klebsiella pneumoniae sp pneum Current Medications Acetaminophen (Acetaminophen 325 Mg Tablet) 650 mg PO Q6H PRN PRN PRN Reason: Pain Score 1-10/Temp > 100.7 F Last Admin: 08/08/20 01:58 Dose: 650 mg Documented by: Calcitriol (Calcitriol 0.25 Mcg Capsule) 0.25 mcg PO DAILY REPLACED BY [facility] Last Admin: 08/10/20 09:11 Dose: 0.25 mcg Documented by: Docusate Sodium (Docusate Sodium 100 Mg Capsule) 200 mg PO QHS REPLACED BY [facility] Last Admin: 08/09/20 22:00 Dose: 200 mg Documented by: Ferrous Sulfate (Ferrous Sulfate 325 Mg Tablet) 325 mg PO DAILYCM REPLACED BY [facility] Last Admin: 08/10/20 09:11 Dose: 325 mg Documented by: Sodium Chloride () 1,000 mls @ 100 mls/hr IV .Q10H REPLACED BY [facility] Last Infusion: 08/10/20 10:20 Dose: 0 mls/hr Documented by: Ceftriaxone Sodium 2 gm/ (Sodium Chloride) 50 mls @ 100 mls/hr IV Q24 REPLACED BY [facility] Last Infusion: 08/10/20 09:42 Dose: Infused Documented by: Sodium Chloride () 250 mls @ 15 mls/hr IV .[id number] PRN PRN Reason: Saline Flush Sodium Chloride () 250 mls @ 15 mls/hr IV .[id number] PRN PRN Reason: Additional IVPB Infusion Levothyroxine Sodium (Levothyroxine 150 Mcg Tablet) 150 mcg PO 0600 REPLACED BY [facility] Last Admin: 08/10/20 06:30 Dose: 150 mcg Documented by: Melatonin (Melatonin 3 Mg Tablet) 3 mg PO QHS REPLACED BY [facility] Last Admin: 08/09/20 22:00 Dose: 3 mg Documented by: Mirtazapine (Mirtazapine 15 Mg Tablet) 15 mg PO QHS REPLACED BY [facility] Last Admin: 08/09/20 22:00 Dose: 15 mg Documented by: Nutritional Formula (Lactose Free) (Ensure Enlive 120 Ml Liquid) 120 ml PO 4X/DAY REPLACED BY [facility] Last Admin: 08/10/20 09:11 Dose: 120 ml Documented by: Ondansetron HCl (Ondansetron 4 Mg/2 Ml Vial) 4 mg IV Q8H PRN PRN PRN Reason: NAUSEA/VOMITING Pantoprazole Sodium (Pantoprazole Sodium 40 Mg Tablet) 40 mg PO DAILY REPLACED BY [facility] Last Admin: 08/10/20 09:11 Dose: 40 mg Documented by: Sodium Chloride (0.9% Saline Lock 10 Ml Syringe) 10 - 40 ml IV UD PRN PRN Reason: SALINE FLUSH Last Admin: 08/07/20 16:45 Dose: 10 ml Documented by: Tamsulosin HCl (Tamsulosin Hcl 0.4 Mg Capsule) 0.4 mg PO DAILY@1730 REPLACED BY [facility] Last Admin: 08/09/20 16:10 Dose: 0.4 mg Documented by: Discharge Diet: No Restrictions, - - Pur?ed textures, nectar thick liquids. Discharge Activity: Return to Normal Activity Home Medications: Medications to take at Discharge Ammonium Lactate 1 applic TP BID 07/07/20 Docusate Sodium [Colace] 200 mg PO QHS 07/07/20 Levothyroxine Sodium [Synthroid] 150 mcg PO DAILY 07/07/20 Melatonin 3 mg PO QHS 07/07/20 Omeprazole 40 mg PO DAILY 07/07/20 Ascorbic Acid [Vitamin C] 500 mg PO BID #60 tab 07/10/20 Calcitriol [Rocaltrol] 0.25 mcg PO DAILY cap 07/10/20 Tamsulosin HCl [Flomax] 0.4 mg PO DAILY@1730 cap 07/10/20 Ferrous Sulfate 325 mg PO DAILY 08/05/20 Mirtazapine [Remeron] 15 mg PO QHS 08/05/20 Cefdinir [Omnicef [equiv]] 300 mg PO Q12H #6 capsule 08/10/20 Following Prescriptions Were Given to Patient: Cefdinir [Omnicef [equiv]] 300 mg PO Q12H #6 capsule Transmission Status: Received by [facility] Primary Care Physician: Vernon Plascencia MD [Primary Care Provider] - Please follow up with your Primary Care Physician in: Within the next 2 weeks Please Follow Up With: Dr. Pearce When: At earliest possible appointment Disposition: [facility] facility Minutes spent on discharge:: 35 Patient Condition:: Stable Medical Necessity - Tobacco Use Smoking Status: Former smoker Meaningful Use Info Meaningful Use Diagnoses (Choose all that apply): None applicable <Halima Simental - Last Filed: 08/10/20 16:12> Discharge Date and Diagnosis - Primary Discharge Diagnosis Acute Problems: Active Problems (Last Updated 08/05/20 @ 13:[address] Butch March MD) Recent RAMIN on CKD (Acute) Severe sepsis (Acute) UTI (urinary tract infection) (Acute) - Secondary Discharge Diagnosis Chronic Problems: Chronic Problems (Last Updated 08/05/20 @ 13:[address] 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 His symptoms have been going on for about 2 days prior to admission and he had associated poor appetite. He had no fever or chills. He had a chronic indwelling Jefferson catheter due to chronic urinary retention and had recently been admitted in the hospital for RAMIN on top of CKD stage III with persistent hyperkalemia. Previous hospital stay was also complicated by hyperkalemia and hematuria plus acute blood loss anemia due to hematuria. For this admission, chest x-ray showed no acute cardiopulmonary process and EKG showed normal sinus rhythm with no acute ST changes. Urinalysis showed 3+ bacteria and urine was cloudy. He was admitted to be managed for severe sepsis due to UTI. Was started on IV ceftriaxone. Urine culture grew Citrobacter freundii and Klebsiella pneumonia with blood cultures growing Klebsiella. Speech therapy was also consulted on account of dysphagia he had a modified barium swallow which showed poor oral clearance and reduced intraoral strength as well as poor throat clearance. Per speech therapy recommendations, patient should be on a diet of pur?ed texture nectar thick liquids in the SNF. He is also to follow-up with general surgery to assess for residual effects from previous throat cancer. He was discharged back to SNF on p.o. cefdinir 300 mg twice daily. He is to follow-up with his primary care doctor within 1 to 2 weeks. Patient seen and examined prior to discharge. He had no complaints and felt well. Review of systems otherwise negative. Labs and vitals reviewed. Me dication reviewed and reconciled. Of note, he is also to follow-up with vascular surgeon on outpatient basis account of peripheral artery disease. O/E: Vital Signs Temp Pulse Resp BP Pulse Ox 98.1 F 92 18 141/87 H 98 08/10/20 14:20 08/10/20 15:00 08/10/20 14:20 08/10/20 14:20 08/10/20 14:20 General: Alert, Oriented x3, Cooperative HEENT: Atraumatic, PERRLA, EOMI, Normocephalic Neck: Supple, No JVD, Negative Carotid Bruits Lungs: Clear to auscultation, Normal air movement Cardiovascular: Regular rate, No murmurs Abdomen: Bowel Sounds Present, Soft, Non Tender Extremities: minimal tenderness to palpation of lower extremities. Skin: - -mild erythema of both LEs, appears to be chronic. no differential warmth Musculoskeletal: Cachexia, Muscle Wasting Neurological: Cranial nerves II-XII grossly intact Psych/Mental Status: Normal Affect, Appropriate Rest as per Ronal Chand PA-C's note, which I have reviewed. - Physical Exam Vitals/I&O's: Vital Signs Temp Pulse Resp BP Pulse Ox 98.1 F 92 18 141/87 H 98 08/10/20 14:20 08/10/20 15:00 08/10/20 14:20 08/10/20 14:20 08/10/20 14:20 Oxygen Flow Rate (L/min) 2 Oxygen Delivery Method Room Air Weight: 130 lb 15.273 oz Body Mass Index (BMI) 20.5 Intake and Output for Last 24 Hours 08/08/20 08/09/20 08/10/20 23:59 23:59 23:59 Intake Total 2613.33 / 2973.33 4296.67 / 4416.67 1370.00 / 1370.00 Output Total 2525 / 3525 4650 / 5200 4100 / 4100 Balance 88.33 / -551.67 -353.33 / -783.33 -2730.00 / -2730.00 Microbiology Past 72 Hours 08/05/20 12:09 Blood Culture (Wb) - Anticubital Left Blood Culture - Final GNR lactose full stack java developer 08/05/20 12:49 Urine Catheter - Catheter Urine Culture - Final Citrobacter freundii Klebsiella pneumoniae sp pneum 08/05/20 11:40 Blood Culture (Wb) - Anticubital Right Blood Culture - Final Klebsiella pneumoniae sp pneum Current Medications Acetaminophen (Acetaminophen 325 Mg Tablet) 650 mg PO Q6H PRN PRN PRN Reason: Pain Score 1-10/Temp > 100.7 F Last Admin: 08/08/20 01:58 Dose: 650 mg Documented by: Calcitriol (Calcitriol 0.25 Mcg Capsule) 0.25 mcg PO DAILY REPLACED BY [facility] Last Admin: 08/10/20 09:11 Dose: 0.25 mcg Documented by: Docusate Sodium (Docusate Sodium 100 Mg Capsule) 200 mg PO QHS REPLACED BY [facility] Last Admin: 08/09/20 22:00 Dose: 200 mg Documented by: Ferrous Sulfate (Ferrous Sulfate 325 Mg Tablet) 325 mg PO DAILYCM REPLACED BY [facility] Last Admin: 08/10/20 09:11 Dose: 325 mg Documented by: Ceftriaxone Sodium 2 gm/ (Sodium Chloride) 50 mls @ 100 mls/hr IV Q24 REPLACED BY [facility] Last Infusion: 08/10/20 09:42 Dose: Infused Documented by: Sodium Chloride () 250 mls @ 15 mls/hr IV .[id number] PRN PRN Reason: Saline Flush Sodium Chloride () 250 mls @ 15 mls/hr IV .[id number] PRN PRN Reason: Additional IVPB Infusion Levothyroxine Sodium (Levothyroxine 150 Mcg Tablet) 150 mcg PO 0600 REPLACED BY [facility] Last Admin: 08/10/20 06:30 Dose: 150 mcg Documented by: Melatonin (Melatonin 3 Mg Tablet) 3 mg PO QHS REPLACED BY [facility] Last Admin: 08/09/20 22:00 Dose: 3 mg Documented by: Mirtazapine (Mirtazapine 15 Mg Tablet) 15 mg PO QHS REPLACED BY [facility] Last Admin: 08/09/20 22:00 Dose: 15 mg Documented by: Nutritional Formula (Lactose Free) (Ensure Enlive 120 Ml Liquid) 120 ml PO 4X/DAY REPLACED BY [facility] Last Admin: 08/10/20 13:25 Dose: 120 ml Documented by: Ondansetron HCl (Ondansetron 4 Mg/2 Ml Vial) 4 mg IV Q8H PRN PRN PRN Reason: NAUSEA/VOMITING Pantoprazole Sodium (Pantoprazole Sodium 40 Mg Tablet) 40 mg PO DAILY REPLACED BY [facility] Last Admin: 08/10/20 09:11 Dose: 40 mg Documented by: Sodium Chloride (0.9% Saline Lock 10 Ml Syringe) 10 - 40 ml IV UD PRN PRN Reason: SALINE FLUSH Last Admin: 08/07/20 16:45 Dose: 10 ml Documented by: Tamsulosin HCl (Tamsulosin Hcl 0.4 Mg Capsule) 0.4 mg PO DAILY@1730 REPLACED BY [facility] Last Admin: 08/09/20 16:10 Dose: 0.4 mg Documented by: Inpatient E&M: [id number] [facility]
--- NOTE | 2020-08-10 12:00 | ST.MBS ---
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 The patient stated that his symptoms started over the last couple of days with weakness, generalized, associated with profound fatigue and poor appetite and he was not able to ambulate as he did before. Patient was admitted earlier this month for acute renal failure on top of stage IIIa chronic kidney disease with hyperkalemia which was treated with IV fluids and his kidney function improved but still above his baseline. During the same admission, patient was found to have acute blood loss anemia secondary to hematuria, received blood transfusion and admission hemoglobin today is 11 g/dL. In the emergency department, patient was initially hypotensive, blood pressure was 79/54. He received IV fluid bolus and his blood pressure improved and it is back to normal. He was afebrile, heart rate was 91 and pulse ox was 99% on room air. Chest x-ray showed no acute infiltrate or consolidation. He was admitted for severe sepsis due to complicated acute cystitis. He is on a pureed diet / thin liquids at [facility] d/t hx of lip cancer and poor dentition, and he was referred for speech therapy consult due to concerns for swallowing difficulty. Mental Status: WNL Respiratory Status: Oxygenating on Room Air - Penetration-Aspiration Scale Penetration-Aspiration Scale: OBJECTIVE ASSESSMENT OF SWALLOW FUNCTION (QUANTITATIVE ? PER TRIAL): PENETRATION / ASPIRATION SCALE (HAUSER): 1 = does not enter airway 2 = enters airway/above vocal folds/ejected 3 = enters airway/above vocal folds/not ejected 4 = enters airway/contacts vocal folds/ejected 5 = enters airway/contacts vocal folds/not ejected 6 = enters airway/below vocal folds/ejected 7 = enters airway/below vocal folds/not ejected despite effort 8 = enters airway/below vocal folds/no effort VIDEOFLOROSCOPIC SCALE SCORE (HAUSER): Grade I = aspiration of material that has penetrated into the laryngeal vestibule, intact cough reflex Grade II = aspiration < 10 % of the bolus, intact cough reflex Grade III = aspiration of < 10 % of the bolus, reduced cough reflex or aspiration of > 10 % of the bolus, intact cough reflex Grade IV = aspiration of > 10 % of the bolus, reduced cough reflex - Penetration-Aspiration Scale Score Thin Liquid via teaspoon Result: 8= enters airway/below vocal folds/no effort Comment: Grade III = aspiration of < 10 % of the bolus, reduced cough reflex Thin Liquid via teaspoon Trial 2 Result: 7= enters airways/below vocal folds/not ejected despite effort Comment: Grade III = aspiration of < 10 % of the bolus, reduced cough reflex Thin Liquid via small single sip from cup Result: 5= enters airways/contacts vocal folds/not ejected Thin Liquid via small single sip from cup Chin tuck Result: 7= enters airways/below vocal folds/not ejected despite effort Comment: Grade III = aspiration of < 10 % of the bolus, reduced cough reflex Pudding Result: 1= does not enter airway Almanor Thick Liquid via small single sip from cup Result: 3= enters airways/above vocal folds/not ejected Almanor Thick Liquid via small single sip from cup Trial 2 Result: 5= enters airways/contacts vocal folds/not ejected Almanor Thick Liquid via single sip from straw Result: 2= enter airway/above vocal folds/ejected Thin Liquid via single sip from straw Result: 5= enters airways/contacts vocal folds/not ejected Thin Liquid via single sip from straw Trial 2 Result: 2= enter airway/above vocal folds/ejected - Oral Phase Labial Seal: Interlabial escape, no progression to anterior lip Tongue Control During Bolus Hold: Posterior escape of greater than half of bolus Bolus Preparation/Mastication: Slow prolonged chewing/mashing with complete recollection Bolus Transport/Lingual Motion: Repetitive/disorganized tongue motion Oral Residue: Residue collection on oral structures - Pharyngeal Phase Initiation of Pharyngeal Swallow: Bolus head in pyriforms Soft Palate Elevation: No bolus between soft palate and pharyngeal wall Laryngeal Elevation: Min superior movement thyroid cart/min apprx aryte cart-epig petiole Anterior Hyoid Excursion: Partial anterior movement Epiglottic Movement: Partial inversion Laryngeal Vestibule Closure at Height of Swallow: Incomplete; narrow column of air/contrast in laryngeal vestibule Pharyngeal Stripping Wave: Absent Pharyngoesophageal Segment Opening: Minimal distension and minimal duration; marked obstruction of flow Tongue Base Retraction: Wide column of contrast between tongue base & post. pharyngeal wall Pharyngeal Residue: Majority of contrast within or on pharyngeal structures - Esophageal Phase Esophageal Clearance: Esophageal retention - Treatment Strategies Effects of treatment strategies attemped:: chin tuck = not effective, worsened degree of penetration/aspiration effortful swallow = no appreciable in crease in pharyngeal contraction/effort visible multiple swallows = somewhat effective to clear severe pharyngeal residue liquid wash = somewhat effective to clear pharyngeal residue cued throat clearing/coughing and re-swallow = effective to eject penetrated contrast from the laryngeal vestibule - Diagnosis/Impression Diagnosis: orpharyngeal dysphagia Impression: This patient presents with moderate to severe oropharyngeal 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 The oral phase was marked by: suboptimal lingual control with noted lingual festinations / lingual ?rolling? pattern contributing to pre-prandial penetration and poor oral clearance poor oral clearance secondary to reduced intraoral strength The pharyngeal phase was marked by: delayed pharyngeal swallow onset timing resulting in suboptimal bolus location upon swallow onset contributing to laryngeal vestibule penetration/aspiration Noted insufficient laryngeal vestibule pressure generated to expel penetrated material reduced closure of the airway during deglutition attributed to reduced laryngeal elevation and anterior hyoid excursion resulting in insufficient epiglottic inversion and poor laryngeal vestibule closure/pressure poor pharyngeal motility attributed to reduced tongue based retraction and absent posterior pharyngeal stripping wave coupled w/ poor hyolaryngeal excursion/incomplete epiglottic inversion which resulted in copious contrast collection w/in the valleculae and lining the aryepiglottic folds impaired pharyngoesophageal segment opening w/ prominent cricopharyngeal bar and what appears to be consistent w/ anterior esophageal webbing resulted in poor bolus clearance through the PES w/ pyriform retention of residue The esophageal phase was marked by esophageal retention of contrast complicated by kyphotic posture along with what is consistent in appearance to esophageal webbing; further assessment of esophagus/GI referral recommended. - Recommendations Diet: Puree Textures, Almanor-thick Liquids Comment: cough/clear throat and re-swallow whenever wet vocal quality is evident w/ PO intake Compensatory Strategies: Small Bites, Small Sips, Sips by straw only, Slow Rate, Multiple Swallows, Alternate bites/solids and sips/liquids, Sitting upright, Remain sitting upright for 30 minutes after PO intake Supervision: 1:1 Close Supervision Recommend Repeat Modified Barium Swallow: TBD Comment: This Patient would be an excellent candidate for the Chance Free Water Protocol (FFWP) to increase fluid intake, comfort, and compliance w/ thickened liquid recommendations. Would allow water and ice chip intake 30 minutes after meals w/thorough oral hygiene to be completed post meal and before water intake. Extended time spent providing education re: FFWP risks/benefits. Education well received w/ the patient expressing a desire to initiate the FFWP as allowed per SNF upon discharge. Need for Skilled Speech Therapy Services: Yes Comment: Patient requires intensive skilled speech-language intervention targeting: continued diet texture management training and implementation of recommended compensatory strategies training and implementation of recommended oropharyngeal strengthening exercises to facilitate improved lingual control / strength Patient education for implementation of the FFWP Patient and caregiver education regarding dysphagia s/p neck dissection/radiation therapy Recommended Referrals: GI Consult - CP bar, suspicious for anterior esophageal webbing, esophageal retention Education Completed: 1. Described result of evaluation., 2. Pt understands evaluation & agrees with goals and treatment plan. Comment: Images were reviewed w/ the patient to improve comprehension of the deficits identified, understanding of the rationale for the dysphagia treatment plan and compliance w/ the recommended diet modifications and compensatory strategies put in place to improve swallow function and reduce aspiration risk. - Status Active ST Patient: Active
--- NOTE | 2020-08-10 13:09 | CASEMGMT ---
SW returned phone call from Divina, Acetylene Torch Burner with [facility]. SANDRA let her know patient will be returning to [facility] today. Zoila Bravo MSW MELISSA
--- NOTE | 2020-08-10 14:02 | CASEMGMT ---
Patient is ready for discharge back to [facility]. SANDRA arranged for patient to get picked up at 1630 via cot. SANDRA faxed orders to [facility] and wrote on fax face sheet that patient will get picked up at 1630. SANDRA notified RN and financial secretary. SANDRA also faxed orders to Leticia with [facility]. Plan: d/c back to [facility] under intermediate level of care. Physicians transported via cot. Zoila Bravo MAINTENANCE OPERATORBen TORRES
--- NOTE | 2020-08-10 14:18 | NURSING ---
Report called to Birdie at [facility]. Patient pickup time 1630.
--- NOTE | 2020-08-10 15:22 | NURSING ---
Student nurse documentation reviewed.
== END 2020-08-10 17:40 | disposition skilled nursing facility (03) | DRG 698 ==
LOC: ED 13:36 → PCU 14:05
PROVIDERS: Physician Assistant; Admitting Provider Hospitalist; Emergency Provider Emergency Medicine; PCP Family Medicine; Visit Provider Student in an Organized Health Care Education/Training Program
DX: T83.518A Infection and inflammatory reaction due to other urinary catheter, initial encounter (principal); A41.9 Sepsis, unspecified organism; E43 Unspecified severe protein-calorie malnutrition; R65.20 Severe sepsis without septic shock; N18.4 Chronic kidney disease, stage 4 (severe); D62 Acute posthemorrhagic anemia; N13.6 Pyonephrosis; N17.9 Acute kidney failure, unspecified; B96.1 Klebsiella pneumoniae [K. pneumoniae] as the cause of diseases classified elsewhere; B96.89 Other specified bacterial agents as the cause of diseases classified elsewhere; I73.9 Peripheral vascular disease, unspecified; E87.5 Hyperkalemia; G62.9 Polyneuropathy, unspecified; I25.10 Atherosclerotic heart disease of native coronary artery without angina pectoris; I12.9 Hypertensive chronic kidney disease with stage 1 through stage 4 chronic kidney disease, or unspecified chronic kidney disease; E03.9 Hypothyroidism, unspecified; N40.1 Benign prostatic hyperplasia with lower urinary tract symptoms; R33.8 Other retention of urine; I87.2 Venous insufficiency (chronic) (peripheral); B35.1 Tinea unguium; R13.10 Dysphagia, unspecified; Y84.6 Urinary catheterization as the cause of abnormal reaction of the patient, or of later complication, without mention of misadventure at the time of the procedure; Z95.1 Presence of aortocoronary bypass graft; Z79.890 Hormone replacement therapy; Z79.899 Other long term (current) drug therapy; Z86.16 Personal history of COVID-19; Z87.891 Personal history of nicotine dependence; Z85.818 Personal history of malignant neoplasm of other sites of lip, oral cavity, and pharynx
CPT/HCPCS: 36415; 71045; 74230; 80048; 80053; 81001; 83605; 85025; 87040; 87077; 87086; 87088; 87186; 92507; 92526; 92610; 92611; 93005; 93922; 97110; 97116; 97162; 97166; 97530; 97535; 97802; 97803; 99251; 99285; J7030; J7050; A4216; G0463; J0696

== ENCOUNTER → 2020-11-11 05:00 | Outpatient (REF) | payer MEDICARE, MEDICAID, SELFPAY ==
[2020-08-05 16:26] VITALS: BMI 20.5
[2020-11-11 08:42] LABS: Thyroid Stim Hormone (TSH) < 0.01 uIU/mL (0.358-3.74)
== END ==
LOC: OLS.SW300 05:00
PROVIDERS: PCP Family Medicine; Visit Provider Family Medicine
DX: E03.9 Hypothyroidism, unspecified (principal); E05.90 Thyrotoxicosis, unspecified without thyrotoxic crisis or storm
CPT/HCPCS: 36415; 84443

== ENCOUNTER → 2020-12-09 05:00 | Outpatient (REF) | payer MEDICARE, SELFPAY ==
[2020-08-05 16:26] VITALS: BMI 20.5
[2020-12-09 07:49] LABS: Hematocrit 29.6 % (40-54); Hemoglobin 9.3 g/dL (13.0-16.5); Mean Corp Hgb Conc 31.4 g/dL (32-36); Mean Corpuscular Hgb 31.7 pg (27.0-32.0); Mean Platelet Vol. 9.5 fl (6.2-12.0); Platelet Count 210 K/mm3 (150-450); RBC Distribution Width CV 14.1 % (11.6-14.6); RBC Distribution Width SD 52.5 fl (35.1-43.9); Red Blood Count 2.93 M/mm3 (4.6-6.2); White Blood Count 10.1 K/mm3 (4.4-11.0)
[2020-12-09 08:01] LABS: Anion Gap 12 (5-15); BUN 53 mg/dL (7-18); BUN/Creat Ratio 15.3 RATIO (10-20); Calcium,Total 8.9 mg/dL (8.5-10.1); Chloride 109 mmol/L (98-107); Creatinine, Serum 3.46 mg/dL (0.70-1.30); EST Glomerular Filtration Rate 18 mL/min (>60); Est Glom Filt Rate - Afr Amer 22 mL/min (>60); Glucose 85 mg/dL (74-106); Potassium 5.1 mmol/L (3.5-5.1); Sodium Level 140 mmol/L (136-145)
== END ==
LOC: OLS.SW300 05:00
PROVIDERS: PCP Family Medicine; Visit Provider Family Medicine
DX: I10 Essential (primary) hypertension (principal)
CPT/HCPCS: 36415; 80048; 85027

== ENCOUNTER → 2020-12-18 05:19 | Outpatient (REF) | payer MEDICARE, SELFPAY ==
[2020-08-05 16:26] VITALS: BMI 20.5
[2020-12-18 10:59] LABS: Color, Urine Yellow (Yellow); Glucose, Dipstick Normal (Normal); Ketone-Dipstick Negative (Negative); Leukocyte Esterase-Dipstick 500 /ul (Negative); Nitrite-Dipstick Positive (Negative); Occult Blood-Urine 250 /ul (Negative); Protein-Dipstick 100 mg/dl (Negative); Urine Bilirubin Dipstick Negative (Negative); Urine Clarity Sl. Cloudy (Clear); Urine Urobilinogen Normal (Normal)
== END ==
LOC: OLS.SW300 05:19
PROVIDERS: PCP Family Medicine; Referring Provider Family Medicine; Visit Provider Family Medicine
DX: R31.9 Hematuria, unspecified (principal)
CPT/HCPCS: 81002; 87077; 87086; 87088; 87186